=== PATIENT | female | born 1970 | race Caucasian/White ===

== ENCOUNTER 2021-03-14 16:48 | Emergency (ER) | payer OTHER, SELFPAY ==
[2021-03-14] VITALS (7 sets, daily range): BP systolic 189–212; BP diastolic 85–95; PULSE 76–90; RESP 16–20; TEMP 37.1–37.2; O2SAT 96–100; BMI 24.7
--- NOTE | ~2021-03-14 | CT_ITS ---
EXAMINATION: CT HEAD WITHOUT CONTRAST CLINICAL INFORMATION: Vomiting and dizziness. Left ear pain for one week. COMPARISON: 02/19/2020 TECHNIQUE: Contiguous axial imaging was performed from the skull base to vertex without intravenous administration of contrast. This CT examination was performed using dose optimization techniques as appropriate, variously including the following: *Automated exposure control *Adjustment of mA and/or kV according to patient size (this includes techniques or standardized protocols for targeted exams where dose is matched to indication/reason for exam; i.e. extremities or head) *Use of iterative reconstruction technique DLP: 613 mGy-cm FINDINGS: There is no evidence of acute intracranial hemorrhage or territorial infarction. No abnormal mass effect or midline shift is seen. Mcguire to white matter differentiation is well preserved. No extra-axial fluid collections are identified. The ventricles are normal in size. There is no abnormal attenuation within the brain parenchyma. The mastoid air cells and visualized portions of the paranasal sinuses are well aerated. The periauricular soft tissues are unremarkable bilaterally with attention to the left auricle. CT/CT head/brain wo con IMPRESSION: No acute intracranial pathology.
--- NOTE | 2021-03-14 17:08 | ED.GENADULT ---
HPI - General Adult General Chief complaint: Nausea/Vomiting/Diarrhea Stated complaint: Earache/Vomiting Time Seen by Provider: 03/14/21 16:55 Source: patient Limitations: no limitations History of Present Illness HPI narrative: This is a 51-year-old female who 6 days ago had onset of left ear pain, with associated vomiting that she has had since then. The patient has had she feels dizzy when she stands up. She did see her primary care physician 4 days ago and was put on antibiotic but is not helping. She denies any URI symptoms, sore throat, shortness of breath, cough, chest pain, abdominal pain, diarrhea, urinary symptoms. Pain is moderately severe, achy, not worse or better with anything Related Data Previous Rx's Medication Instructions Recorded ondansetron 4 mg disintegrating 4 mg PO Q6H PRN #20 tab 03/14/21 tablet Allergies Allergy/AdvReac Type Severity Reaction Status Date / Time Penicillins [PCN] Allergy Unknown Verified 03/14/21 17:04 aspirin [ASA] AdvReac Intermediate RASH Unverified 02/07/20 19:34 Review of Systems Review of Systems: Yes all other systems are reviewed and are negative Constitutional: Constitutional: Denies fever(s) and Denies headache(s) Eyes: Eyes: Reports as per HPI and Reports no additional eye complaints ENT: Reports system reviewed and no additional complaints, except as documented, Reports as per HPI, Reports otalgia, Denies headache(s), Denies nasal congestion, Denies nasal discharge and Denies sore throat Cardiovascular: Cardiovascular: Reports as per HPI, Denies chest pain and Denies dyspnea Respiratory: Respiratory: Reports as per HPI, Denies cough and Denies dyspnea Gastrointestinal: Gastrointestinal: Reports as per HPI, Denies abdominal pain, Denies diarrhea, Reports nausea and Reports vomiting Genitourinary: Genitourinary: Reports as per HPI, Denies hematuria, Denies urinary frequency and Denies dysuria Musculoskeletal: Musculoskeletal: Reports no additional musculoskeletal complaints and Denies numbness Integumentary/Breasts: Skin/Breast: Reports as per HPI and Denies rash Neurologic: Denies headache(s), Denies numbness and Denies Sensory deficit (Neuro) Psychiatric: Psychiatric: Reports no additional psychiatric complaints and Reports as per HPI Endocrine: Endocrine: Reports no additional endocrine complaints and Reports as per HPI Hematologic/Lymphatic: Hematologic/Lymphatic: Reports no additional hematologic/lymphatic complaints, Reports as per HPI and Reports other (No peripheral edema) [facility] Past Medical History Medical History (Updated 03/14/21 @ 22:19 by Marcus Oleary MD) Diabetes High cholesterol HTN (hypertension) Social History Social History Advance Directives: No Advance Directives Information Provided: No Physical Exam Vital Signs: Vital Signs: Last Vital Signs Temp 98.7 F 03/14/21 21:26 Pulse 87 03/14/21 21:26 Resp 18 03/14/21 21:26 BP 195/88 H 03/14/21 21:26 Pulse Ox 96 03/14/21 21:26 Body Mass Index 24.7 Const: General: cooperative, no acute distress and alert Orientation/consciousness: patient oriented x3 HENMT: Head: Yes normal to inspection Eyes: General: appearance abnormal, both eyes Eyelids: Yes eyelids normal Conjunctivae: abnormal conjunctivae and conjunctival abnormal (Bilateral subconjunctival hemorrhages) Pupils: Equal, round and reactive pupils present Neck: Neck: Yes normal visual inspection and Yes supple Chest: Chest palpation & inspection: normal inspection of the chest Resp: Effort & Inspection: normal respiratory effort Auscultation: clear to auscultation bilaterally Cardio: Rate: regular rate Rhythm: regular rhythm Heart sounds: S1 normal heart sound present, S2 normal heart sound present, no gallops, no murmurs and no rubs GI: Palpation (GI): Soft to palpation, nontender and Other GI palpation findings present (Non-distended) Auscultation: normal bowel sounds Skin: General skin exam: no rashes or lesions noted Neuro: General: patient oriented x3, no focal motor deficits and CN's II-XI intact bilaterally Cranial nerves: Yes Equal, round and reactive pupils present Cognition (Neuro): normal cognition Motor exam (neuro): 5/5 motor strength present throughout Sensory Exam: No Sensory deficit (Neuro) Extrem: General: Yes normal to inspection and Yes no pedal edema Psych: Other: Patient with depressed appearing affect Appearance: grossly normal Affect: Sad affect present and Indifferent affect present Medical Decision Making MDM Narrative Medical decision making narrative: Patient with a complaint of left ear pain, dizziness, and vomiting for 6 days. Patient has a somewhat blunted affect and seems slow to respond, but her friend/family member who is with her prior to discharge states that she is at baseline- this is her normal self. The patient was hyperglycemic and had told the nurse that she had missed her insulin dose. She told me she had taken her insulin. Given the patient's vomiting, ear pain, possible mental status abnormality, CT of the brain was done and was negative. Patient was treated with normal saline 2 L IV, insulin 6 units IV, Zofran 4 mg IV. She felt better upon re-evaluation prior to discharge and felt comfortable going home. She could not comment on her subconjunctival hemorrhages and did not seem to have noticed them. Repeat glucose was 285. Lab Data Result diagrams: 03/14/21 17:29 03/14/21 17:29 Labs: Lab Results 03/14/21 03/14/21 03/14/21 Range/Units 17:29 17:29 19:48 WBC 21.0 H (4.8-10.8) X10*3/uL RBC 5.69 H (4.20-5.50) X10*6/uL Hgb 16.3 H (12.0-16.0) g/dl Hct 45.8 (37-47) % MCV 80.5 (80-98) fL MCH 28.6 (27.0-33.0) pg MCHC 35.6 H (31.0-35.0) g/dl RDW 13.2 (11.0-16.0) % Plt Count 273 (160-400) X10*3/uL MPV 10.0 (9.4-12.3) fL Immature Gran % (Auto) 0.6 H (0.0-0.4) % Neut % (Auto) 91.2 H (45-73) % Lymph % (Auto) 3.9 L (20-40) % Hardin % (Auto) 4.2 (2-11) % Eos % (Auto) 0.0 (0-4) % Baso % (Auto) 0.1 (0-2) % Lymph # (Auto) 0.8 L (1.2-4.9) X10*3/uL Hardin # (Auto) 0.9 (0.1-1.2) X10*3/uL Eos # (Auto) 0.0 (0.0-0.4) X10*3/uL Baso # (Auto) 0.0 (0.0-0.2) X10*3/uL Abs Immat Gran (auto) 0.13 H (0.00-0.03) X10*3/uL Absolute Neuts (auto) 19.2 H (2.0-8.3) X10*3/uL Absolute Nucleated RBC 0.000 (0.0-0.012) X10*3/uL Nucleated RBC % (auto) 0.0 (0.0-0.2) /100WBC Smear Tech's Comments VERIFIED Sodium 131 L (135-145) mmol/L Potassium 3.6 (3.3-5.1) mmol/L Chloride 91 L (96-108) mmol/L Carbon Dioxide 24 (22-29) mmol/L Anion Gap 20 (12-20) BUN 26 H (9-16) mg/dL Creatinine 1.06 (0.5-1.4) mg/dL Estim Creat Clear Calc 55.0 Estimated GFR 54 POC Glucose 285 H (60-115) mg/dL Random Glucose 419 H* (60-115) mg/dL Calcium 9.7 (8.4-10.2) mg/dL Total Bilirubin 1.5 H (0.0-1.0) mg/dL AST 21 (5-31) U/L ALT 19 (0-31) U/L Alkaline Phosphatase 147 H (39-117) U/L Total Protein 7.6 (6.5-8.0) g/dL Albumin 4.3 (3.5-5.0) g/dL Urine Color Urine Appearance Urine pH (5.0-8.0) Ur Specific [place] (1.005-1.025) Urine Protein (NEG-TRACE) MG/DL Urine Glucose (UA) (NEG) MG/DL Urine Ketones (NEG) MG/DL Urine Blood (NEG) Urine Nitrite (NEG) Ur Leukocyte Esterase (NEG) Urine RBC (0) /HPF Urine WBC (0-4) /HPF Ur Squamous Epith Cells /LPF Ur Renal Epithelial Cell /LPF Amorphous Sediment /LPF Urine Bacteria /LPF Hyaline Casts /LPF Granular Casts /LPF Urine Mucus /LPF Urine Yeast /HPF 03/14/ Range/Units 21:06 WBC (4.8-10.8) X10*3/uL RBC (4.20-5.50) X10*6/uL Hgb (12.0-16.0) g/dl Hct (37-47) % MCV (80-98) fL MCH (27.0-33.0) pg MCHC (31.0-35.0) g/dl RDW (11.0-16.0) % Plt Count (160-400) X10*3/uL MPV (9.4-12.3) fL Immature Gran % (Auto) (0.0-0.4) % Neut % (Auto) (45-73) % Lymph % (Auto) (20-40) % Hardin % (Auto) (2-11) % Eos % (Auto) (0-4) % Baso % (Auto) (0-2) % Lymph # (Auto) (1.2-4.9) X10*3/uL Hardin # (Auto) (0.1-1.2) X10*3/uL Eos # (Auto) (0.0-0.4) X10*3/uL Baso # (Auto) (0.0-0.2) X10*3/uL Abs Immat Gran (auto) (0.00-0.03) X10*3/uL Absolute Neuts (auto) (2.0-8.3) X10*3/uL Absolute Nucleated RBC (0.0-0.012) X10*3/uL Nucleated RBC % (auto) (0.0-0.2) /100WBC Smear Tech's Comments Sodium (135-145) mmol/L Potassium (3.3-5.1) mmol/L Chloride (96-108) mmol/L Carbon Dioxide (22-29) mmol/L Anion Gap (12-20) BUN (9-16) mg/dL Creatinine (0.5-1.4) mg/dL Estim Creat Clear Calc Estimated GFR POC Glucose (60-115) mg/dL Random Glucose (60-115) mg/dL Calcium (8.4-10.2) mg/dL Total Bilirubin (0.0-1.0) mg/dL AST (5-31) U/L ALT (0-31) U/L Alkaline Phosphatase (39-117) U/L Total Protein (6.5-8.0) g/dL Albumin (3.5-5.0) g/dL Urine Color YELLOW Urine Appearance CLEAR Urine pH 5.5 (5.0-8.0) Ur Specific [place] 1.025 (1.005-1.025) Urine Protein 2+ H (NEG-TRACE) MG/DL Urine Glucose (UA) >=1000 H (NEG) MG/DL Urine Ketones 40 (NEG) MG/DL Urine Blood 1+ H (NEG) Urine Nitrite NEG (NEG) Ur Leukocyte Esterase NEG (NEG) Urine RBC 0-2 (0) /HPF Urine WBC 0-2 (0-4) /HPF Ur Squamous Epith Cells 1+ /LPF Ur Renal Epithelial Cell TRACE /LPF Amorphous Sediment TRACE /LPF Urine Bacteria 1+ /LPF Hyaline Casts 1-4 /LPF Granular Casts 0-2 /LPF Urine Mucus 3+ /LPF Urine Yeast TRACE /HPF Imaging Data CT scan - head: Radiologist's impression: IMPRESSION: No acute intracranial pathology. Discharge Plan Discharge Clinical Impression: Otalgia, Vomiting, Hyperglycemia, DREW (subconjunctival hemorrhage) Patient Disposition: Home, Self-Care Instructions: Subconjunctival Hemorrhage (ED), Acute Nausea and Vomiting (ED), Diabetic Hyperglycemia (ED) Additional Instructions: Drink clear liquids (sugar free) little bit of time to keep herself hydrated. Use ondansetron as prescribed for nausea. Use acetaminophen for pain. Follow up with the primary care physician. Make sure not to miss any doses of insulin or any other medicines (however reduce or do not take your insulin if you are unable hold down any food or fluids) Prescriptions: New ondansetron 4 mg tablet,disintegrating 4 mg PO Q6H PRN (Reason: nausea and vomiting) Qty: 20 RF: 0 Interventions: ED Discharge Assessment Last Done: 03/14/21 22:32 Discharge Date/Time: 03/14/21 22:32
--- NOTE | 2021-03-14 17:15 | PC.NURSE ---
pt alert and oriented x4. pt reports left ear pain and vomiting since last tuesday. she also reports feeling dizzy when she stands up. Pt reports that she saw her PCP about 4 days ago and was put on antibiotic but it is not helping. she denies sob/cough/chest pain/abdominal pain. no diarrhea. no other symptoms reported.
[2021-03-14 17:35] LABS: Basophils Percent Auto 0.1 % (0-2); Hematocrit 45.8 % (37-47); Hemoglobin 16.3 g/dl (12.0-16.0); Imm Gran Abs Auto 0.13 X10*3/uL (0.00-0.03); Imm Gran Pct Auto 0.6 % (0.0-0.4); Lymphocytes Absolute Auto 0.8 X10*3/uL (1.2-4.9); Lymphocytes Percent Auto 3.9 % (20-40); MANUAL DIFF FLAG SCAN; Mean Corpuscular HGB Conc 35.6 g/dl (31.0-35.0); Mean Corpuscular Hemoglobin 28.6 pg (27.0-33.0); Mean Corpuscular Volume 80.5 fL (80-98); Monocytes Absolute Auto 0.9 X10*3/uL (0.1-1.2); Monocytes Percent Auto 4.2 % (2-11); Neutrophils Absolute Auto 19.2 X10*3/uL (2.0-8.3); Neutrophils Percent Auto 91.2 % (45-73); Platelet Count 273 X10*3/uL (160-400); Red Blood Count 5.69 X10*6/uL (4.20-5.50); Red Cell Distribution Width 13.2 % (11.0-16.0); SCAN SMEAR FLAG 1
[2021-03-14] MEDS: ondansetron HCL 4 MG/2 ML VIAL IVPUSH (17:46)
[2021-03-14] MEDS: 0.9 % Sodium Chloride 1,000 ML 999 ML IV ×2 (17:46→18:28)
--- NOTE | 2021-03-14 17:55 | PC.NURSE ---
pt's b/ps running low 200s over low 100s, pt denies headache/dizziness; asymptomatic. Dr. Oleary was told by this business writer. b/p med given via iv. current b/ps running high 170s over low 90s. fluids hung and other meds given as documented. pt satting 89-90% r/a after getting meds, she was put on 2L N/C which brought her O2 sat to 99-100%. Pt resting quietly, no apparent distress.
[2021-03-14 17:59] LABS: Alanine Aminotransferase 19 U/L (0-31); Albumin Level 4.3 g/dL (3.5-5.0); Alkaline Phosphatase 147 U/L (39-117); Anion Gap 20 (12-20); Aspartate Amino Transferase 21 U/L (5-31); Bilirubin Total 1.5 mg/dL (0.0-1.0); Blood Urea Nitrogen 26 mg/dL (9-16); Calcium 9.7 mg/dL (8.4-10.2); Carbon Dioxide 24 mmol/L (22-29); Chloride 91 mmol/L (96-108); Estimated Glomerular Filt Rate 54; Glucose Random 419 mg/dL (60-115); Potassium 3.6 mmol/L (3.3-5.1); Sodium 131 mmol/L (135-145); Total Protein 7.6 g/dL (6.5-8.0)
[2021-03-14] MEDS: Labetalol HCL 100 MG/20 ML VIAL 10 MG IVPUSH (18:12)
[2021-03-14] MEDS: LORazepam 2 MG/ML VIAL 0.5 MG IVPUSH (18:13)
[2021-03-14 18:24] LABS: SLIDE REVIEW VERIFIED
[2021-03-14] MEDS: Insulin Regular, Human 100 UNIT/ML 3 ML VIAL 6 UNIT IVPUSH (18:25)
[2021-03-14 19:53] LABS: Glucose, Whole Blood 285 mg/dL (60-115)
--- NOTE | 2021-03-14 20:34 | PC.NURSE ---
PT SLEEPING, WAKES TO VOICE. PT REPORTS SHE IS NO LONGER EXPERIENCING PAIN OR FEELING DIZZY. PT'S EYES ARE BOTH BLOODSHOT, ASKED PT WHY AND SHE RESPONDED IT WAS FROM THE INJECTION TODAY. ?
--- NOTE | 2021-03-14 21:13 | PC.NURSE ---
PT AMBULATORY TO BATHROOM WITH STEADY GAIT. PT ASKING WHEN SHE WILL BE DISCHARGED. PT ALSO REQUESTING SOMETHING TO EAT.
[2021-03-14 21:23] LABS: Appearance Urine CLEAR; Color Urine YELLOW; Glucose Urine UA >=1000 MG/DL (NEG); Leukocyte Esterase Urine NEG (NEG); Nitrite Urine NEG (NEG); PH 5.5 (5.0-8.0); Specific Gravity - Urine 1.025 (1.005-1.025); UACC Culture Trigger NO; Urine Blood 1+ (NEG); Urine Ketones 40 MG/DL (NEG); Urine Protein 2+ MG/DL (NEG-TRACE)
[2021-03-14 21:44] LABS: Amorphous Sediment Urine TRACE /LPF; Bacteria Urine 1+ /LPF; Granular Casts Urine 0-2 /LPF; Mucus Urine 3+ /LPF; RBC Urine 0-2 /HPF (0); Renal Epithelial Cells Urine TRACE /LPF; Squamous Epithelial Cell Urine 1+ /LPF; WBC Urine 0-2 /HPF (0-4)
== END 2021-03-14 22:32 | disposition home or self-care (01) ==
PROVIDERS: Emergency Provider Emergency Medicine
DX: H92.02 Otalgia, left ear (principal); H11.33 Conjunctival hemorrhage, bilateral; R42 Dizziness and giddiness; E11.65 Type 2 diabetes mellitus with hyperglycemia; R11.2 Nausea with vomiting, unspecified; Z91.14 Patient's other noncompliance with medication regimen; Z79.899 Other long term (current) drug therapy
CPT/HCPCS: 36415; 70450; 80053; 81001; 82947; 85025; 96361; 96374; 96375; 99284; J2060; J2405

== ENCOUNTER 2021-05-18 18:23 | Emergency (ER) | payer OTHER, SELFPAY | END 2021-05-18 19:07 | disposition left against medical advice (07) | PROVIDERS: Emergency Provider Emergency Medicine | DX: R07.9 Chest pain, unspecified (principal) ==

== ENCOUNTER 2025-04-12 08:59 | Outpatient (AMB) | payer MEDICARE, MEDICAID, SELFPAY ==
--- OUTSIDE RECORDS SUMMARY | 2007-04-18 19:00 | XMS_ITS | Continuity of Care Document ---
Author Organization [facility] vices Address [address] [place] [address] Phone Care Team Providers Care Industrial Sales Engineer Name Role Phone Unavailable Unavailable Unavailable Procedures Procedure Date EXPANDED OUT/PT Advance Directives Directive Yes / No Effective Date File Name No Information Encounters Encounter Description Practice Location Reason(s) For Visit Diagnoses Date Provider Providers Copied on Encounter [facility], [address] [place] [address], [id number], tel:[phone] Conversion PNEUMONIA DUE TO OTHER SPECIFIED ORGANISM No Information EXPANDED OUT/PT [facility], [address] [place] [address], [facility], [place] tel:[phone] [facility] Adult Medicine No Information No Information Family History Family Member Type Diagnosis Age At Onset No Information Payers Payer name Insurance type Covered democrat ID Authoriza tion(s) No Information Social History [...]
--- OUTSIDE RECORDS SUMMARY | 2024-03-08 10:31 | XMS_ITS | Encounter Summary ---
Author Organization [facility] [place] [address] Care Team Providers Care Supervisor Customer Records Division Name Role Phone Martha Cunha MD Primary Care Provider Encounter Details Date Type Department Care Team (Late st Contact Info) Description 03/08/2024 11:31 AM EDT Hospital Encounter TH HISTORIC ENCOUNTERS [facility]AST[facility] CONVERSION ONLY Alex Boateng MD [address] [place] [address] Social History Tobacco Use Types Packs/Day Years [...] 10:52 AM EDT documented in this encounter Functional Status * Calculated C-SSRS Risk Score (Lifetime/Recent) Answer Date of Assessment Author No Risk Indicated 06/08/2024 9:52 AM Jeannette Combs RN * [employer] Suicide Severity Rating Scale (Screener/Recent Self-Report) Question Answer Date of Assessment Author 1. Wish to be (Past 1 Month) No 025 9:52 AM Jeannette Combs RN 2. Non-Specific Active Suici aranza Thoughts (Past 1 Month) No 06/08/2024 9:52 AM Rhianna Combs sa, RN 6. Suicidal Behavior (Lifetime) No 5 9:52 AM Jeannette Combs RN documented as of this encounter Plan of Treatment Not on file documented as of this encounter Visit Diagnoses Not on filedocumented in this encounter Care Teams Supervisor Customer Records Division Relationship Specialty Start Date End Date Martha Cunha MD [address] [phone] PCP - General 05/25/23 documented as of this encounter
[2025-04-12 09:02] VITALS: BP 150/64; PULSE 94; RESP 18; O2SAT 100; BMI 27.3
--- NOTE | 2025-04-12 09:02 | MHC.PC.OV ---
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: No Accompanied by: Self / Same As Patient Allergies Penicillins (PCN) Allergy (Verified 04/12/25 09:09) Unknown aspirin (ASA) Adverse Reaction (Intermediate, Verified 04/12/25 09:09) RASH Medication List - Last Reconciled 04/12/25 by Lor Sanabria MD amlodipine 10 mg PO DAILY calcitriol 0.25 mcg PO DAILY carvedilol 25 mg PO ONCE clonidine 1 patch transdermal QWEEK clopidogrel 75 mg PO DAILY glipizide 5 mg PO DAILY hydralazine 50 mg PO ONCE insulin degludec (Tresiba FlexTouch U-100 insulin) 30 units subcut DAILY levothyroxine (Levoxyl) 25 mcg PO DAILY lisinopril 40 mg PO DAILY losartan 25 mg PO DAILY ondansetron 4 mg PO Q6H PRN rosuvastatin 5 mg PO DAILY sertraline 100 mg PO DAILY sevelamer HCl 80 mg PO DAILY torsemide 75 mg PO DAILY trazodone 50 mg PO BEDTIME PRN Tobacco use date assessed: 04/12/25 Dental Screening Dental Screen Date: 04/12/25 Did you have a dental visit in the last 12 months?: Yes Did you have a dental problem in the last 6 months where you did not have access to dental care?: No Was dental information given to patient?: Patient has dentist HPI HPI Comments History of Present Illness Details The patient is a 55 year old F with PMH of DM, BL cochlear implants, Jugular vein obstruction s/p surgery, HF?, ESRD presenting to [facility] as a new patient. The patient is on hemodialysis, which occurs on Tuesdays, , and Saturdays. The patient reports minimal urine output, described as a small amount only in the morning. The patient was taking sevelamir and torsemide. 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 The patient's cardiovascular history includes a small stroke and an accumulation of fluid in the body and on the heart valves. The patient previously followed with a communication equipment repairer and neurologist but has not since moving to [place]. For peripheral vascular disease, the patient had surgery on a clogged neck vein and takes clopidogrel. The patient does not have a vascular surgeon for follow-up. For diabetes, the patient's [id number] A1c was 6.4%. The patient takes glipizide 5 mg but is not currently on insulin, though was previously. The patient also takes levothyroxine 25 mcg for a thyroid condition and rosuvastatin 5 mg. Other reported issues include gait instability, characterized by fatigue on walking and loss of balance. The patient has known hearing loss and cataracts, with an upcoming ophthalmology appointment on the . The patient takes trazodone for sleep and has a prescription for ondansetron for nausea and vomiting, which occurs after dialysis. The patient is not currently taking sertraline and was previously followed by a psychiatrist. [facility] Medical History (Updated 04/12/25 @ 12:19 by Lor Snaabria MD) Hearing difficulty of both ears Jugular vein occlusion Diabetes High cholesterol HTN (hypertension) Surgical History H/O vitrectomy History of cochlear implant Social History Alcohol intake: never Patient Tobacco Use Status: Never used Tobacco Current occupational status: disabled Cognitive needs: No Hearing needs: Yes Vision needs: Yes Questionnaire PHQ-9 Over the last 2 weeks, how often have you been bothered by any of the following problems? 1. Little interest or pleasure in doing things: several days 2. Feeling down, depressed, or hopeless: not at all 3. Trouble falling or staying asleep, or sleeping too much: several days 4. Feeling tired or having little energy: several days 5. Poor appetite or overeating: not at all 6. Feeling bad about yourself - or that you are a failure or have let yourself or your family down: not at all 7. Trouble concentrating on things, such as reading the newspaper or watching television: several days 8. Moving or speaking so slowly that other people could have noticed. Or the opposite - being so fidgety or restless that you have been moving around a lot more than usual: not at all 9. Thoughts that you would be better off or of hurting yourself in some way: not at all Total score: 4 Depression Screening Interpretation: Positive (referred to psychiatry. Currently not taking Sertraline. ) Depression Screening Done: Yes Source: Developed by Drs. Vega Rausch, Julia Gong, Sean Sanchez and colleagues, with an educational ba from [employer]. Thrive Questionnaire Date Thrive assessed: 04/12/25 I am a: Patient What is your living situation today?: I have a steady place to live Within the past 12 months, did the food you bought not last and you didn't have the money to get more?: I choose not to answer this question Within the past 12 months, did you worry whether your food would run out before you got money to buy more?: Often true Do you have trouble paying for medicines?: No Do you have trouble getting transportation to medical appointments?: Yes Do you have trouble paying your heating and electricity bill?: No Do you have trouble taking care of your child, family member or friend?: Yes Do you have trouble with day-to-day activities such as bathing, preparing meals, shopping, managing finances, etc.?: Yes Are you currently unemployed and looking for a job?: Yes Are you interested in more education?: No Please select the resources that you would like help with: Housing/Skilled Nursing Currently or been in a relationship where the following occur: No concerns reported THRIVE Score: 2 AUDIT C Alcohol Use Questionnaire (AUDIT-C) 1. How often do you have a drink containing alcohol?: Never Total Score: 0 GASTON-7 AMB Questionnaire GASTON-7 Date GASTON - 7 assessed: 04/12/25 Feeling nervous, anxious, or on edge: 0 = Not at all Not being able to stop or control worryin = Not at all Worrying too much about different things: 0 = Not at all Trouble relaxin = Not at all Being so restless that it is hard to sit still: 0 = Not at all Becoming easily annoyed or irritable: 1 = Several days Feeling afraid as if something awful might happen: 0 = Not at all Total GASTON-7 score (0-4 normal; 5-9 mild; 10-14 moderate; 15-21 severe): 1 Source: Developed by Drs. Vega Rausch, Julia Gong, Sean Sanchez and colleagues, with an educational ba from [employer]. Review of Systems Const Details: As per HPI. Physical exam (Primary Care) Vital Signs: Last Vital Signs Pulse 94 04/12/25 09:02 Resp 18 04/12/25 09:02 BP 150/64 H 04/12/25 09:02 Pulse Ox 100 04/12/25 09:02 Oxygen Delivery Method Room Air 04/12/25 09:02 BMI result Body Mass Index 27.3 Tobacco/Smoking Status: Tobacco use Status Tobacco use date assessed 04/12/25 04/12/25 09:04 Patient Tobacco Use Status Never used Tobacco 04/12/25 09:20 e-Cigarette/Vaping Use 04/12/25 09:20 PHQ-9: PHQ-9 Score PHQ-9: Total score 4 04/12/25 09:52 Depression Screening Interpretation: Positive (referred to psychiatry. Currently not taking Sertraline. ) Thrive Assessment: Date of Thrive Assessment Date Thrive assessed 04/12/25 04/12/25 09:04 Currently or been in a relationship where the following occur: No concerns reported Const Other: Pertinent findings are in BOLD GENERAL APPEARANCE Bilateral cochlear implant, NAD, activity normal for age, well developed/ well nourished, no cyanosis, pallor, or diaphoresis. EYES lids/conjunctiva normal. EARS/NOSE/THROAT Mucous membranes moist, nares normal, lips/teeth normal uvula midline without oral pharyngeal erythema, exudate or swelling TMs normal bilaterally. No lymphangitis/lymphedema. HEAD/NECK normocephalic atraumatic, no facial trauma, neck is supple. RESPIRATORY respiratory effort normal, speaks in full sentences, no tripod position, no accessory muscle use. Lungs clear to auscultation without rhonchi, wheezes, rales CARDIAC Regular rate and rhythm, no edema. ABDOMINAL Soft, ND/NT. No evidence of fluid wave. No pulsatile masses on exam, rebound tenderness, Godfrey sign or pain over Mcburney's point. MUSCLES/EXTREMITIES No abnormal range of motion, no swelling. SKIN Warm, pink and dry. No rashes, dermatoses, petechiae or lesions. NEUROLOGICAL Speech is clear and appropriate. Normal level of consciousness. Gait and coordination are normal. 5/5 strength in all extremities. PSYCH Normal mood and affect. Judgement/competence is appropriate Results AMB Hemoglobin A1c AMB Hemoglobin A1c 6.4 % Last Edit by Porsha Vargas MA on 04/12/25 09:53 Results Reviewed Results Reviewed: Laboratory Last Values Hgb A1c (Clinic) 6.4 % (4.0-6.0) H 04/12/25 09:47 Coding Level of Care Code New Pt Level 4 (08558) Diagnoses Occlusion of left jugular vein I82.C12 Laterality: left Heart failure, unspecified HF chronicity, unspecified heart failure type I50.9 Heart failure type: unspecified Heart failure chronicity: unspecified Major depressive disorder, remission status unspecified, unspecified whether recurrent F32.9 Major depression recurrence: unspecified whether recurrent Active/Remission status: remission status unspecified ESRD (end stage renal disease) N18.6 History of insulin dependent diabetes mellitus Z86.39 Hypothyroidism, unspecified type E03.9 Hypothyroidism type: unspecified Cataract of both eyes, unspecified cataract type H26.9 Cataract type: unspecified Laterality: bilateral Hyperlipidemia, unspecified hyperlipidemia type E78.5 Hyperlipidemia type: unspecified Gait instability R26.81 Nausea and vomiting, unspecified vomiting type R11.2 Vomiting type: unspecified Primary hypertension I10 Hypertension type: primary hypertension Time Spent (min) 45 Assessment & Plan Assessment & Plan (1) Jugular vein occlusion: Comment: s/p surgery Code(s): I82.C19 - Acute embolism and thrombosis of unspecified internal jugular vein Category: Medical Qualifiers: Laterality: left Qualified Code(s): I82.C12 - Acute embolism and thrombosis of left internal jugular vein Plan: - Continue clopidogrel and Statin. - Refer to vascular surgery for follow-up of prior neck vein surgery. (2) Heart failure: Comment: Suspected. Code(s): I50.9 - Heart failure, unspecified Category: Medical Qualifiers: Heart failure type: unspecified Heart failure chronicity: unspecified Qualified Code(s): I50.9 - Heart failure, unspecified Plan: The patient reports history of fluid accumulation on her heart and lower extremities. No signs of Heart failure on Exam today. The patient was followed by a communication equipment repairer in the past. Cardiology referral to continue management. Echo ordered to check for any heart faillure signs. Continue Hydralazine and Torsemide for now. Although the patient does not make much Urine. (3) MDD (major depressive disorder): Code(s): F32.9 - Major depressive disorder, single episode, unspecified Category: Medical Qualifiers: Major depression recurrence: unspecified whether recurrent Active/Remission status: remission status unspecified Qualified Code(s): F32.9 - Major depressive disorder, single episode, unspecified Plan: - Discontinue sertraline for now. - Refer to psychiatry for management; they may restart sertraline if indicated. - Continue trazodone for sleep. (4) ESRD (end stage renal disease): Code(s): N18.6 - End stage renal disease Category: Medical Plan: - The patient is on hemodialysis on Tuesdays, , and Saturdays. - Continue torsemide for now as the patient has some residual urine output. - Continue sevelamer and Torsemide. - Refer to nephrology. (5) History of insulin dependent diabetes mellitus: Code(s): Z86.39 - Personal history of other endocrine, nutritional and metabolic disease Category: Medical Plan: - Tnucz-it-iojf A1c was 6.4%. - Continue glipizide 5 mg. - Initiate low-dose insulin at 12 units pending evaluation by endocrinology. - Prescribed a kit for home blood glucose monitoring and insulin administration. - Refer to endocrinology and podiatry. - Patient already follows with Ophthalmology. (6) Hypothyroid: Code(s): E03.9 - Hypothyroidism, unspecified Category: Medical Qualifiers: Hypothyroidism type: unspecified Qualified Code(s): E03.9 - Hypothyroidism, unspecified Plan: - Continue levothyroxine 25 mcg. - Repeat labs ordered. (7) Cataract: Code(s): H26.9 - Unspecified cataract Category: Medical Qualifiers: Cataract type: unspecified Laterality: bilateral Qualified Code(s): H26.9 - Unspecified cataract Plan: Follows with Ophthalmology. We will Continue to follow. (8) HLD (hyperlipidemia): Code(s): E78.5 - Hyperlipidemia, unspecified Category: Medical Qualifiers: Hyperlipidemia type: unspecified Qualified Code(s): E78.5 - Hyperlipidemia, unspecified Plan: - Continue rosuvastatin 5 mg. (9) Gait instability: Code(s): R26.81 - Unsteadiness on feet Category: Medical Plan: - A prescription for a walker will be sent to a medical supply pharmacy due to patient-reported fatigue and imbalance. (10) Nausea & vomiting: Code(s): R11.2 - Nausea with vomiting, unspecified Category: Medical Qualifiers: Vomiting type: unspecified Qualified Code(s): R11.2 - Nausea with vomiting, unspecified Plan: - Prescribed ondansetron (Zofran) for use as needed for nausea and vomiting, especially post-dialysis. (11) HTN (hypertension): Code(s): I10 - Essential (primary) hypertension Category: Medical Qualifiers: Hypertension type: primary hypertension Qualified Code(s): I10 - Essential (primary) hypertension Plan: - Continue amlodipine 10 mg. - Continue carvedilol. - Continue hydralazine 50 mg for now. - Discontinue the clonidine patch. - Discontinue losartan as it should not be used concurrently with lisinopril. - Continue lisinopril. Plan I established care with this 55-year-old individual who has a complex past medical history including end-stage renal disease on hemodialysis, diabetes, hypertension, and a history of stroke and heart problems. I performed a thorough medication reconciliation, prescribing most of the patient's home medications. I explained that the clonidine patch would be stopped and that losartan should be discontinued as it is contraindicated with lisinopril. Given the A1c of 6.4% and the patient not currently being on insulin, I prescribed a low starting dose of 12 units of insulin until the patient can be seen by an lead technical architect. I also prescribed a home glucose monitoring kit and instructed the patient to call with any issues, particularly regarding insulin. Due to the patient's report of gait instability and fatigue, I provided a prescription for a walker. I discussed the need for comprehensive specialist follow-up and placed referrals to cardiology, nephrology, vascular surgery, psychiatry, endocrinology and podiatry. To further investigate the patient's unclear cardiac history, I ordered an echocardiogram in addition to baseline fasting labs. The patient can use the prescribed ondansetron for post-dialysis nausea. I will see the patient again in one month to review progress and results. Orders: Orders TSH reflex Free T4 Today Z00.00 - Encounter for general adult medical examination without abnormal findings Vitamin D 25-OH Total Today Z00.00 - Encounter for general adult medical examination without abnormal findings Lipid Panel Today Z00.00 - Encounter for general adult medical examination without abnormal findings CA echo transthoracic complete Today I50.9 - Heart failure, unspecified AMB Hemoglobin A1c Today Z13.9 - Encounter for screening, unspecified Complete Blood Count no Diff Today Z00.00 - Encounter for general adult medical examination without abnormal findings Comprehensive Met. Panel Today Z00.00 - Encounter for general adult medical examination without abnormal findings Hemoglobin A1c Today Z00.00 - Encounter for general adult medical examination without abnormal findings HIV Ab/Ag Today Z00.00 - Encounter for general adult medical examination without abnormal findings Hepatitis C Antibody Reflex Today Z00.00 - Encounter for general adult medical examination without abnormal findings Vitamin B12 and Folate Today D64.9 - Anemia, unspecified, Z00.00 - Encounter for general adult medical examination without abnormal findings Referrals Psychiatry Referral F32.9 - Major depressive disorder, single episode, unspecified Endocrinology Referral Z86.39 - Personal history of other endocrine, nutritional and metabolic disease Podiatry Referral Z86.39 - Personal history of other endocrine, nutritional and metabolic disease Vascular Surgery Referral I82.C19 - Acute embolism and thrombosis of unspecified internal jugular vein Cardiology Referral I50.9 - Heart failure, unspecified Nephrology Referral N18.6 - End stage renal disease Medications: New amlodipine 10 mg PO DAILY 90 tabs 3RF calcitriol 0.25 mcg PO DAILY 60 caps 3RF clopidogrel 75 mg PO DAILY 90 tabs 3RF glipizide 5 mg PO DAILY 90 tabs 3RF hydralazine 50 mg PO ONCE 90 tabs 3RF sevelamer HCl must administer with a meal/food 80 mg (0.2 x 400 mg) PO DAILY 90 tabs 3RF trazodone 50 mg PO BEDTIME PRN 90 tabs 3RF insomnia [Walker] As directed 1 ea 0RF [freestyle lancet] As directed 1 ea 0RF [Freestyle lite strips] As directed 1 ea 0RF carvedilol must administer with a meal/food 25 mg PO ONCE 90 tabs 3RF levothyroxine (Levoxyl) 25 mcg PO DAILY 90 tabs 3RF lisinopril 40 mg PO DAILY 90 tabs 3RF rosuvastatin 5 mg PO DAILY 90 tabs 3RF torsemide 60 mg (1.5 x 40 mg) PO DAILY 90 tabs 3RF insulin degludec (Tresiba FlexTouch U-100 insulin) 10 units (0.1 mL) subcut DAILY 15 mL 3RF [Freestyle freedom lite Kit (glucometer)] As directed 1 ea 0RF [Pen needle for insulin] As directed 1 ea 0RF Refilled ondansetron 4 mg PO Q6H PRN 20 tabs 0RF nausea and vomiting
--- OUTSIDE RECORDS SUMMARY | 2025-04-12 09:16 | XMS_ITS | Clinical Summary ---
Author Organization [facility] Address [address] [place] [phone] Phone Care Team Providers Care Diabetes Territory Manager Name Role Phone Martha Cunha MD Primary Care Provider Allergies Active Allergy Reactions Criticality Noted Date Comments Aspirin Itching,Other,Rash Medium 07/27/2016 Hives Hives Iodinated Contrast Media Swelling High 09/23/2021 Face swelling after receiving contrast dye Penicillins Rash Low 07/28/2016 rash Shellfish Derived Anaphylaxis High 04/11/2024 Medications albuterol HFA (PROAIR HFA ; PROVENTIL HFA ; VENTOLIN HFA) 90 mcg/actuation inhaler Take 2 puffs by mouth every 6 hours as needed. 1 Active amLODIPine (NORVASC) 10 mg tablet Take 1 tablet (10 mg total) by mouth 1 (one) time each day. 4 Active carvediloL (COREG) 25 mg tablet Take 1 tablet (25 mg total) by mouth 2 (two) times a day. 4 Active glipiZIDE (GLUCOTROL XL) 5 mg 24 hr tablet Take 1 tablet (5 mg total) by mouth every morning with breakfast. 4 Active levothyroxine (SYNTHROID, LEVOTHROID) 75 mcg tablet Take 1 tablet (75 mcg total) by mouth daily. 4 Active torsemide (DEMADEX) 20 mg tablet Take 2 tablets (40 mg total) by mouth 2 (two) times a day. 4 Active insulin degludec (Tresiba FlexTouch U-200) 200 unit/mL (3 mL) CONCENTRATED injection pen Inject 28 Units under the skin daily. 4 Active blood pressure monitor kit 1 Units by Does not apply route daily. 4 Active flash glucose sensor (FreeStyle Gianluca 2 Sensor) kit 1 each by Does not apply route every 14 (fourteen) days. 4 Active sevelamer carbonate (RENVELA) 800 mg tablet Take 1 tablet (800 mg total) by mouth 3 (three) times a day with meals. Active losartan (COZAAR) 25 mg tablet Take 1 tablet (25 mg total) by mouth 1 (one) time each day. 4 Active acetaminophen (TYLENOL) 500 mg tablet Take 2 tablets (1,000 mg total) by mouth every 8 (eight) hours. 4 Active rosuvastatin (CRESTOR) 5 mg tablet Take 1 tablet (5 mg total) by mouth 1 (one) time each day. 1 Active clopidogreL (PLAVIX) 75 mg tablet Take 1 tablet (75 mg total) by mouth 1 (one) time each day. 90 tablet 3 4 Active cloNIDine (Kjkaucxx-MQX-2) 0.2 mg/[address] 1 patch on the skin 1 (one) time per week. 12 each 3 5 07/27/19 26 Active Active Problems Problem Noted Date Diagnosed Date Carotid stenosis 04/11/2024 Type 2 diabetes mellitus, wi th long-term current use of insulin ([facility] V24, [facility] V28) 02/03/2024 CKD (chronic kidney disease) stage V requiring chronic dialysis (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 V24, [facility] V28) 11/25/2023 Impaired gait and mobility 11/17/2023 Acidosis 11/03/2023 Hyperpotassemia 11/03/2023 Iron deficiency 10/26/2023 Secondary hyperparathyroidism, renal ([facility] V2 4) 08/18/2023 Bilateral tinnitus 07/29/2023 Facial numbness 07/08/2023 ICAO (internal carotid artery occlusion), left 0 07/08/2023 Left spastic hemiparesis ([facility] V24, [facility] V 28) 07/08/2023 Vitreous hemorrhage of left eye ([facility] V24, [facility] V28) 07/07/2023 Anemia due to multiple mechanisms 06/23/2023 Vitamin D deficiency 06/23/2023 Acquired hypothyroidism 05/25/2023 Bilateral leg edema 05/25/2023 Carotid artery disease ([facility] V24) 05/25/2023 Carotid artery plaque, unspecified laterality Congestive heart failure ([facility] V24, [facility] V 28) 05/25/2023 Pure hypercholesterolemia 05/25/2023 Sensory hearing loss, bilateral 05/25/2023 Type 2 diabetes mellitus wit h end-stage renal disease ([facility] V24, [facility] V28) 05/25/2023 CKD (chronic kidney disease) stage 4, GFR 15-29 ml/min ([facility] V24, [facility] V28) 05/25/2023 Acute on chronic heart failu re with preserved ejection fraction ([facility] V24, [facility] V28) 02/23/2022 Primary hypertension 02/23/2022 Anxiety 09/10/2021 Fatigue 09/10/2021 Primary cardiomyopathy ([facility] V24, [facility] V28 ) 09/10/2021 Hypertensive emergency 05/19/2021 Encounters Date Type Department Care Team Description 03/26/2025 Telephone Vascular Surgery - [place] [address] [place] [address] Jacquelyn Becerra MA 01/18/2025 Lab Requisition [facility] [address] [place] [address] Shanae Baeza MD End stage renal disease ([facility] V24, [facility] V28) 01/17/2025 Lab Requisition [facility] [address] [place] [address] Shanae Baeza MD End stage renal disease ([facility] V24, [facility] V28) from Last 3 Months Immunizations Immunization Administration Dates Next Due Moderna SARS-CoV-2 COVID-19, mRNA, LNP-S, preservative free 10/18/2020,09/18/2020 Surgical History Surgery Date Site/Laterality Comments EYE SURGERY 11/08/2022 PROCEDURE:EYE SURGERY AV FISTULA PLACEMENT Left IR PERMACATH PLACEMENT TUNNELED Right Medical History Medical History Date Comments Diabetes mellitus ([facility] V 24, [facility] V28) DX:Diabetes mellitus ([facility]) HTN (hypertension) DX:HTN (hyper tension) CKD (chronic kidney disease) stage 4, GFR 15-29 ml/min ([facility] V24, [facility] V28) DX:CKD (chronic kidney disea se) stage 4, GFR 15-29 ml/min ([facility]) Hypertensive emergency 05/11/2022 DX:Hypert ensive emergency MARY ANNE (acute kidney injury) ([facility] V24) 02/23/2022 DX:MARY ANNE (acute kidney injury) ([facility]) HLD (hyperlipidemia) DX:HLD (hyp erlipidemia) Heart failure ([facility] V24, [facility] V28) DX:Heart failure ([facility]) Hypothyroidism DX:Hypothyroidis m Secondary hyperparathyroidis m ([facility] V24) DX:Secondary hyperparathyroi dism ([facility]) HL (hearing loss) L ear ESRD (end stage renal diseas e) ([facility] V24, [facility] V28) Dialysis Ddue-Nvzyx-Thz Social History Tobacco Use Types Packs/Day Years [...] not to disclose 2024 12:27 PM EST Obstetrics History Last Filed Vital Signs Vital Sign Reading Time Taken Comments Blood Pressure 146/62 06/12/2024 2:34 PM EST Pulse 65 06/12/2024 12:31 PM EST Temperature 36.9 C (98.5 F) 06/12/2024 12:31 PM EST Respiratory Rate 20 06/12/2024 12:31 PM EST Oxygen Saturation 98% 06/12/2024 12:31 PM EST Inhaled Oxygen Concentration - - Weight 69.9 kg (154 lb) 06/12/2024 12:10 PM EST Height 157.5 cm (5' 2 ) 06/11/2024 10:17 AM EST Body Mass Index 28.17 06/11/2024 10:17 AM EST Plan of Treatment Health Maintenance Due Date Last Done Comments Breast Cancer Screening 1968 Colorectal Cancer Screening: Colonoscopy 1968 Diabetes: Annual Foot Exam 1978 Diabetes: Annual Retina Eye Exam 1978 DTaP,Tdap,and Td Vaccines (1 - Tdap) 1987 Zoster Vaccines (1 of 2) 1987 Cervical Cancer Screening: Pap Smear 1989 RSV Immunization Adult Patients (1 - Risk 50-74 years 1-dose series) 2018 COVID-19 Vaccine (3 - Moderna risk series) 11/15/2020 10/18/2020, 09/18/2020 HIV Screening 04/25/2022 Medicare Annual Wellness Visit 04/25/2022 Social Influencers of Health Screening 04/25/2022 Depression Screening 05/23/2024 Influenza Vaccine (#1) 2025 02/25/2024 Diabetes: Blood Sugar Control Test (HGBA1C) 08/22/2025 02/21/2025, 02/21/2025, 01/24/2025, Additional history exists Hypertension/CHF/CAD Annual BMP Blood Test 11/05/2025 11/05/2024, 06/10/2024, 06/09/2024, Additional history exists Cholesterol Screening (Lipid Panel) 02/21/2030 02/21/2025, 01/24/2025, 11/05/2024, Additional history exists Hepatitis C Screening Completed 05/27/2023 Pneumococcal Vaccine: 50+ Years Completed 11/17/2023 Hepatitis B Vaccines Completed 06/14/2024, 02/09/2024, 01/12/2024, Additional history exists HIB Vaccines Aged Out No longer eligi ble based on patient's age to complete this topic HPV Vaccines Aged Out No longer eligi ble based on patient's age to complete this topic Hepatitis A Vaccines Aged Out No long er eligible based on patient's age to complete this topic IPV Vaccines Aged Out No longer eligi ble based on patient's age to complete this topic MMR Vaccines Aged Out No longer eligi ble based on patient's age to complete this topic Meningococcal ACWY Vaccine Aged Out N o longer eligible based on patient's age to complete this topic Meningococcal B Vaccine Aged Out No l onger eligible based on patient's age to complete this topic RSV Immunization Patients Under 20 months Aged Out No longer eligible based on patient's age to complete this topic Varicella Vaccines Aged Out No longer eligible based on patient's age to complete this topic Medical Devices Implanted Type Area Manager Hospice Device Identifier Shelf Expiration Date Model / Serial / Lot Hemostat Absorb Surgicel 2x14in - Sn/A - [id number] Implanted:Qty : 1 on 04/11/2024 by Alex Boateng MD at [facility] Hemostasis Left: Neck [employer] 10/21/2027 [id number] / N/A / [id number] Patch Biol Xenosure .8x8cm - Sn/A - [id number] Implanted:Qty : 1 on 04/11/2024 by Alex Boateng MD at [facility] Vascular Grafts Left: Neck [employer] 08/17/2029 [id number] / N/A / [id number] Procedures Procedure Name Priority Date/Time Associated Diagnosis Comments HEPATITIS B CORE ANTIBODY IGM Routine 01/18/2025 4:00 PM EDT End stage renal disease (CMS/HCC V24, CMS/HCC V28) HEPATITIS B SURFACE ANTIBODY Routine 01/18/2025 4:00 PM EDT End stage renal disease (CMS/HCC V24, CMS/HCC V28) HEPATITIS B SURFACE ANTIGEN Routine 01/18/2025 4:00 PM EDT End stage renal disease (CMS/HCC V24, CMS/HCC V28) POTASSIUM Routine 01/17/2025 11:30 AM EDT End stage renal disease ([facility] V24, [facility] V28) COMPREHENSIVE METABOLIC PANEL Routine 11/05/2024 1:47 PM EDT Type 2 diabetes mellitus with ESRD (end-stage renal disease) ([facility] V24, [facility] V28) End stage renal disease ([facility] V24, [facility] V28) Encounter for long-term (current) use of insulin ([facility] V24, [facility] V28) Encounter for extracorporeal dialysis ([facility] V24) Myxedema heart disease Essential hypertension, malignant Pure hypercholesterolemia Avitaminosis D LIPID PANEL Routine 11/05/2024 1:47 PM EDT Type 2 diabetes mellitus with ESRD (end-stage renal disease) ([facility] V24, [facility] V28) End stage renal disease ([facility] V24, [facility] V28) Encounter for long-term (current) use of insulin ([facility] V24, [facility] V28) Encounter for extracorporeal dialysis ([facility] V24) Myxedema heart disease Essential hypertension, malignant Pure hypercholesterolemia Avitaminosis D HEMOGLOBIN A1C Add-On 06/07/2024 11:42 AM EST HM HEPATITIS C SCREENING Routine 05/27/2023 from Last 3 Months or Most Recently Relevant to Health Maintenance Results * Hepatitis B core antibody IgM (01/18/2025 4:00 PM EDT) Hep B Core IgM Negative Negative LAB CHEMISTRY METHOD 01/18/2025 8:39 PM EDT [facility] ([facility] Blood Venous blood specimen / Unknown 01/18/2025 4:00 PM EDT 01/18/2025 6:21 PM EDT us Shanae Baeza MD LAB BLOOD ORDERABLES Final Re sult [facility] [address] [place] [address], [place] [phone] * (ABNORMAL) Hepatitis B surface antibody (01/18/2025 4:00 PM EDT) Pathologist [facility] Hepatitis B Surface Ab Positive( A) Negative LAB CHEMISTRY METHOD 01/18/2025 8:39 PM EDT [facility] Hepatitis B Surface Ab Quantitative 264.0 mIU/mL LAB CHEMISTRY METHOD 01/18/2025 8:39 PM EDT [facility] Blood Venous blood specimen / Unknown 01/18/2025 4:00 PM EDT 01/18/2025 6:21 PM EDT us Shanae Baeza MD LAB BLOOD ORDERABLES Final Re sult Performing Organization Address [facility]/ZIP Co de Phone Number [facility] [address] [place] [address], [place] [phone] * Hepatitis B surface antigen (01/18/2025 4:00 PM EDT) [facility] Hepatitis B Surface Ag Negative Negative LAB CHEMISTRY METHOD 01/18/2025 8:39 PM EDT [facility] Blood Venous blood specimen / Unknown 01/18/2025 4:00 PM EDT 01/18/2025 6:21 PM EDT us Shanae Baeza MD LAB BLOOD ORDERABLES Final Re sult Performing Organization Address City/[facility]/ZIP Co de Phone Number [facility] [address] [place] [id number], [place] [phone] * Potassium (01/17/2025 11:30 AM EDT) [facility] Potassium 5.1 3.5 - 5.1 mmol/L LAB CHEMISTRY METHOD 01/17/2025 7:45 PM EDT [facility] Blood Venous blood specimen / Unknown 01/17/2025 11:30 AM EDT 01/17/2025 7:20 PM EDT Shanae Baeza MD LAB BLOOD ORDERABLES Final Re sult Performing Organization Address City/[facility]/ZIP Co de Phone Number [facility] [address] [place] [address], [place] [phone] * Lipid panel (11/05/2024 1:47 PM EDT) Cholesterol 168 0 - 200 mg/dL LAB CHEMISTRY METHOD 11/05/2024 8:03 PM EDT [facility] Triglycerides 119 <150 mg/dL LAB CHEMISTRY METHOD 11/05/2024 8:03 PM EDT [facility] HDL 50 32 - 70 mg/dL LAB CHEMISTRY METHOD 11/05/2024 8:03 PM EDT [facility] LDL Calculated 94 50 - 130 mg/dL LAB CHEMISTRY METHOD 11/05/2024 8:03 PM EDT [facility] VLDL Cholesterol Akshat 23.8 mg/dL LAB CHEMISTRY METHOD 11/05/2024 8:03 PM EDT [facility] Comment:No established refer ence range. Blood Venous blood specimen / Unknown Venipuncture / Unknown 11/05/2024 1:47 PM EDT 11/05/2024 1:47 PM EDT Martha Cunha MD LAB BLOOD ORDERABLES Final Result Performing Organization Address City/[facility]/ZIP Co de Phone Number [facility] [address] [place] [address], [place] [phone] * (ABNORMAL) Comprehensive metabolic panel (11/05/2024 1:47 PM EDT) Sodium 136 135 - 145 mmol/L LAB CHEMISTRY METHOD [facility] Potassium 6.5(HH) 3.5 - 5.1 mmol/L LAB CHEMISTRY METHOD 11/05/2024 9:16 PM [facility] Comment:Verified by repeat a nalysis Chloride 93(L) 98 - 107 mmol/L LAB CHEMISTRY METHOD 11/05/2024 9:16 PM [facility] CO2 31 24 - 32 mmol/L LAB CHEMISTRY METHOD 11/05/2024 9:16 PM [facility] Anion Gap 12 5 - 14 LAB CHEMISTRY METHOD 11/05/2024 9:16 PM [facility] Glucose 125(H) 70 - 99 mg/dL LAB CHEMISTRY METHOD 11/05/2024 9:16 PM [facility] BUN 53 mg/dL LAB CHEMISTRY METHOD 11/05/2024 9:16 PM [facility] Creatinine 6.20(H) 0.50 - 1.30 mg/dL LAB CHEMISTRY METHOD 11/05/2024 9:16 PM [facility] eGFR 7(L) >=60 mL/min/1. 73m2 LAB CHEMISTRY METHOD 11/05/2024 9:16 PM [facility] Comment: For non-binary individuals or unknown sex, the equation for female sex is used to calculate the estimated glomerular filtration rate (eGFR). Calculation based on the Chronic Kidney Disease Epidemiology Collaboration (CKD- EPI) equation refit without adjustment for race. BUN/Creatinine Ratio 8.5(L) 12.0 - 20.0 LAB CHEMISTRY METHOD 11/05/2024 9:16 PM [facility] Calcium 9.0 8.4 - 10.2 mg/dL LAB CHEMISTRY METHOD 11/05/2024 9:16 PM [facility] AST (SGOT) 21 5 - 40 unit/L LAB CHEMISTRY METHOD 11/05/2024 9:16 PM [facility] ALT (SGPT) 17 7 - 52 unit/L LAB CHEMISTRY METHOD 11/05/2024 9:16 PM EDT [facility] Alkaline Phosphatase 101 34 - 104 unit/L LAB CHEMISTRY METHOD 11/05/2024 9:16 PM EDT [facility] Total Protein 7.4 6.4 - 8.5 g/dL LAB CHEMISTRY METHOD 11/05/2024 9:16 PM EDT [facility] Albumin 4.2 3.5 - 5.0 g/dL LAB CHEMISTRY METHOD 11/05/2024 9:16 PM EDT [facility] Total Bilirubin 0.6 0.3 - 1.0 mg/dL LAB CHEMISTRY METHOD 11/05/2024 9:16 PM EDT [facility] Blood Venous blood specimen / Unknown Venipuncture / Unknown 11/05/2024 1:47 PM EDT 11/05/2024 1:47 PM EDT Martha Cunha MD LAB BLOOD ORDERABLES Final Result [facility] [address] [place] [address], [place] [phone] * Hepatitis C Screening (05/27/2023) Hepatitis C Screening abstracted Historical Provider HEALTH MAINTENANCE Final Result from Last 3 Months or Most Recently Relevant to Health Maintenance Insurance [place]ICA[place] MEDICARE [place] - [place] Advance Directives * Full Code - Confirmed (Latest Code Status on File) Date Activated Date Inactivated Comments 06/07/2024 10:52 PM 06/12/2024 7:29 PM This code s tatus was ascertained in the following way: Code status discussion: discussion with patient To update the patient's code status, place a code status order. Do not modify or discontinue any currently active code status orders. * Full Code - Default Date Activated Date Inactivated Comments 04/11/2024 10:49 AM 04/12/2024 9:12 PM This is o rder is used when code status has not been discussed with the patient, or code status is otherwise unknown/unconfirmed To update the patient's code status, place a code status order. Do not modify or discontinue any currently active code status orders. Care Teams Diabetes Territory Manager Relationship Specialty Start Date End Date Martha Cunha MD [address] [place] [phone] PCP - General 05/25/23
--- OUTSIDE RECORDS SUMMARY | 2025-04-12 09:16 | XMS_ITS | Encounter Summary ---
Author Organization [facility] Address [address] [place] [address] Care Team Providers Care Fence Post Cutter Name Role Phone Martha Cunha MD Primary Care Provider [phone] Encounter Details Date Type Department Care Team (Late st Contact Info) Description 01/17/2025 Lab Requisition [facility] [address] [place] [address] Shanae Baeza MD [address] [place], [place] [id number] End stage renal disease (CMS/HCC V24, CMS/HCC V28) Social History Tobacco Use Types Packs/Day Years [...] PM EST documented as of this encounter Plan of Treatment Not on file documented as of this encounter Procedures Procedure Name Priority Date/Time Associated Diagnosis Comments POTASSIUM Routine 01/17/2025 11:30 AM EDT End stage renal disease ([facility] V24, [facility] V28) documented in this encounter Results * Potassium (01/17/2025 11:30 AM EDT) Potassium 5.1 3.5 - 5.1 mmol/L LAB CHEMISTRY METHOD 01/17/2025 7:45 PM EDT [facility] Blood Venous blood specimen / Unknown 01/17/2025 11:30 AM EDT 01/17/2025 7:20 PM EDT us Shanae Baeza MD LAB BLOOD ORDERABLES Final Re sult [facility] [address] [place] [address], documented in this encounter Visit Diagnoses Diagnosis End stage renal disease ([facility] V24, [facility] V28) End stage renal disease documented in this encounter Care Teams Fence Post Cutter Relationship Specialty Start Date End Date Martha Cunha MD [address] [place] [phone] PCP - General 05/25/23 documented as of this encounter
--- OUTSIDE RECORDS SUMMARY | 2025-04-12 09:16 | XMS_ITS | Encounter Summary ---
Author Organization [facility] Address [address] [address] Phone Care Team Providers Care Technology Architect Name Role Phone Unavailable Primary Care Provider Unavailabl e Encounter Details Date Type Department Care Team (Late st Contact Info) Description 04/09/2025 Treatment [facility]. [address] [address] Jesus Ladd MD [address] [address] End stage renal disease; Dependence on renal dialysis Social History Tobacco Use Types Packs/Day Years Used Date Smoking Tobacco: Never Assessed Comments Unknown Sex and Gender Information Value Date Recorded Sex Assigned at Not on file Legal Sex Female 1:06 PM EDT Gender Identity Not on file Sexual Orientation Not on file documented as of this encounter Miscellaneous Notes * Dialysis Note - Jesus Ladd MD - 04/09/2025 12:00 AM EST BASIC NOTE Patient: Shara Marquis : 1970 Note Author: JESUS LADD MD Service Date: 04/09/2025 This patient was personally seen [id number] for a basic visit as part of routine monthly dialysis care for end stage renal disease. Attending Outer Diameter Grinder: JESUS LADD MD Dialysis Location: [facility] Schedule: Shift: 2 HOME MEDICATIONS Current [facility] Epic Allergies Allergen: Not on File ADEQUACY ASSESSMENT Kt/V, Natural Log 2.13 (03/28/25) 2.10 (02/21/25) 2.10 (01/24/25) UREA REDUCTION RATIO (%) 84 (03/28/25) 83 (02/21/25) 84 (01/24/25) BUN 44 (03/28/25) 72 (02/21/25) 55 (01/24/25) BUN Post Dialysis 7 (03/28/25) 12 (02/21/25) 9 (01/24/25) Creatinine 7.32 (03/28/25) 7.14 (02/21/25) 7.24 (01/24/25) Bicarbonate (CO2) 22 (03/28/25) 22 (02/21/25) 23 (01/24/25) Sodium 136 (03/28/25) 137 (02/21/25) 132 (01/24/25) ANEMIA ASSESSMENT Hgb 10.3 (03/28/25) 10.6 (03/21/25) 9.1 (03/07/25) Iron Saturation (TSat) 62 (03/28/25) 63 (02/21/25) 50 (01/24/25) Ferritin 712 (03/28/25) 673 (02/21/25) 698 (01/24/25) Iron 106 (03/28/25) 103 (02/21/25) 82 (01/24/25) TIBC 171 (03/28/25) 164 (02/21/25) 162 (01/24/25) MCV 92.4 (03/28/25) 90.9 (02/21/25) 91.3 (01/24/25) Platelets 173 (03/28/25) 166 (02/21/25) 155 (01/24/25) BMM ASSESSMENT Calcium, Adjusted Total 8.7 03/28/25 8.1 02/21/25 8.4 01/24/25 Calcium 8.7 03/28/25 7.9 02/21/25 8.4 01/24/25 Phosphorus, Serum 7.7 03/28/25 6.8 03/21/25 8.1 02/21/25 Ca*PO4 67.0 03/28/25 64.0 02/21/25 65.5 01/24/25 PTH, Intact 419 03/28/25 398 02/21/25 391 01/24/25 Vitamin D, 25-Hydroxy 20 01/24/25 Magnesium 2.3 03/28/25 2.4 02/21/25 2.5 01/24/25 Alkaline Phosphatase 89 03/28/25 81 02/21/25 92 01/24/25 Aluminum 2 01/26/25 NUTRITION ASSESSMENT Albumin 4.0 03/28/25 3.8 02/21/25 4.0 01/24/25 Potassium 4.4 03/28/25 4.4 02/21/25 4.9 01/24/25 Glucose 214 03/28/25 271 02/21/25 344 01/24/25 Hemoglobin A1C 8.6 02/21/25 9.4 01/24/25 ADDITIONAL LABS White Blood Cells 5.1 (03/28/25) 5.0 (02/21/25) 5.9 (01/24/25) Cholesterol 154 (02/21/25) 156 (01/24/25) HDL 28 (02/21/25) 36 (01/24/25) LDL-Calc 99 (02/21/25) 95 (01/24/25) Triglycerides 137 (02/21/25) 125 (01/24/25) Hep B Surface Antibody 672 (01/24/25) Uric Acid 5.7 (01/24/25) Chol/HDL Ratio 5.5 (02/21/25) 4.3 (01/24/25) ALT (SGPT) 11 (03/28/25) 8 (02/21/25) 9 (01/24/25) AST (SGOT) 18 (03/28/25) 15 (02/21/25) 15 (01/24/25) Signed by: JESUS LADD MD on 04/09/2025 at 11:39:32 AM Transcribed by: JESUS LADD MD on 04/09/2025 at 11:39:32 AM documented in this encounter Plan of Treatment Not on file documented as of this encounter Visit Diagnoses Diagnosis End stage renal disease Dependence on renal dialysis documented in this encounter
--- OUTSIDE RECORDS SUMMARY | 2025-04-12 09:16 | XMS_ITS | Encounter Summary ---
Author Organization [facility] Address [address] [place] [address] Care Team Providers Care Ultrasound Technologist Sonographer Name Role Phone Martha Cunha MD Primary Care Provider [phone] Encounter Details Date Type Department Care Team (Late st Contact Info) Description 01/18/2025 Lab Requisition [facility] Main Lab [address] [place] [address] Shanae Baeza MD [address] [place], [place] [id number] End stage renal disease (CMS/HCC V24, CMS/HCC [...] stage renal disease (CMS/HCC V24, CMS/HCC V28) documented in this encounter Results * Hepatitis B core antibody IgM (01/18/2025 4:00 PM EDT) Pathologist [facility] Hep B Core IgM Negative Negative LAB CHEMISTRY METHOD 01/18/2025 8:39 PM EDT [facility] Blood Venous blood specimen / Unknown 01/18/2025 4:00 PM EDT 01/18/2025 6:21 PM EDT us Shanae Baeza MD LAB BLOOD ORDERABLES Final Re sult [facility] [address] [place] [address], [place] [phone] * (ABNORMAL) Hepatitis B surface antibody (01/18/2025 4:00 PM EDT) Pathologist [facility] Hepatitis B Surface Ab Positive( A) Negative LAB CHEMISTRY METHOD 01/18/2025 8:39 PM EDT [facility] Hepatitis B Surface Ab Quantitative 264.0 mIU/mL LAB CHEMISTRY METHOD 01/18/2025 8:39 PM EDT [facility] Blood Venous blood specimen / Unknown 01/18/2025 4:00 PM EDT 01/18/2025 6:21 PM EDT us Shanae Baeza MD LAB BLOOD ORDERABLES Final Re sult Performing Organization Address City/[facility]/ZIP Co de Phone Number [facility] [address] [place] [address], [place] [phone] * Hepatitis B surface antigen (01/18/2025 4:00 PM EDT) Hepatitis B Surface Ag Negative Negative LAB CHEMISTRY METHOD 01/18/2025 8:39 PM EDT [facility] Blood Venous blood specimen / Unknown 01/18/2025 4:00 PM EDT 01/18/2025 6:21 PM EDT Shanae Baeza MD LAB BLOOD ORDERABLES Final Re sult Performing Organization Address [facility] Co de Phone Number [facility] [address] [place] [address], [place] [phone] documented in this encounter Visit Diagnoses Diagnosis End stage renal disease (CMS/HCC V24, CMS/HCC V28) End stage renal disease documented in this encounter Care Teams Ultrasound Technologist Sonographer Relationship Specialty Start Date End Date Martha Cunha MD [address] [place] [phone] PCP - General 05/25/23 documented as of this encounter
--- OUTSIDE RECORDS SUMMARY | 2025-04-12 09:16 | XMS_ITS | Clinical Summary ---
Author Organization [facility] Address [address] [place] [address] Care Team Providers Care Barrel Liner Name Role Phone Marlyn, [address] Unavailable + Shanae Baeza MD Unavailable [phone] Martha Cunha MD Primary Care Provider [phone] Allergies Active Allergy Reactions Criticality Noted Date Comments Aspirin Itching,Rash/Dermati t is,Unknown/Patient and Family Unable to Define,Other (See Comments) Medium 07/27/2016 Hives Hives Hives Hives Hives Iodinated Contrast Media Angioedema,Swelling High 09/23/2021 Face swelling after receiving contrast dye Penicillins Rash/Dermatitis Low 07/28/2016 rash Shellfish Protein-Containing Drug Products Anaphylaxis High 04/11/2024 Medications lisinopril (PRINIVIL,ZeSTRIL ) 40 MG tablet Take 1 tablet (40 mg total) by mouth every morning. 1 Active rosuvastatin (CRESTOR) 5 MG tablet Take 1 tablet (5 mg total) by mouth every morning. 1 Active Tresiba FlexTouch 200 UNIT/ML prefilled pen injectionIndicati ons:Uncontrolled type 2 diabetes mellitus with hyperglycemia (HCC) Inject 30 Units under the skin nightly. 9 mL 1 2 Active potassium chloride (K-TAB) 20 MEQ CR tablet Take 1 tablet (20 mEq total) by mouth daily. Swallow whole; do not crush. Take with food. 4 tablet 2 Active Additional Information Patient taking differently:20 mEq OralEvery morning, Swallow whole; do not crush. Take with food., Reason: Other, Reported on 10/08/2024 carvedilol (COREG) 25 MG tablet Take 1 tablet (25 mg total) by mouth 2 times a day. 4 Active clopidogrel (PLAVIX) 75 MG tablet Take 1 tablet (75 mg total) by mouth daily. 4 Active hydrALAZINE (APRESOLINE) 50 MG tablet Take 1 tablet (50 mg total) by mouth 2 times a day. 3 Active torsemide (DEMADEX) 20 MG tablet Take 2 tablets (40 mg total) by mouth 2 (two) times a day in the morning and the early evening.. 4 Active glipiZIDE (GLUCOTROL XL) 5 MG 24 hr tablet Take 1 tablet (5 mg total) by mouth every morning. 4 Active acetaminophen (TYLENOL) 500 MG tablet Take 2 tablets (1,000 mg total) by mouth every 8 (eight) hours. 4 Active amLODIPine (NORVASC) 10 MG tablet Take 1 tablet (10 mg total) by mouth daily. 4 Active capsaicin (ZOSTRIX) 0.025 % cream Apply topically 2 (two) times a day as needed. Active calcitRIOL (ROCALTROL) 0.25 MCG capsule Take 1 capsule (0.25 mcg total) by mouth daily. 4 Active levothyroxine (SYNTHROID, LEVOTHROID) 75 MCG tablet Take 1 tablet (75 mcg total) by mouth daily at the same time. 4 Active sevelamer carbonate (RENVELA) 800 MG tablet Take 3 tablets (2,400 mg total) by mouth. 4 025 Active losartan (COZAAR) 100 MG tablet Take 1 tablet (100 mg total) by mouth daily. 025 Active cloNIDine (VVZJMMAD-YLS-1) 0.2 mg/[address] 1 patch on the skin once a week. Active Hospital, Clinic, or Other Facility Administered Medication Ordered Dose Route Frequency Start Date End Date Status iohexol (OMNIPAQUE) 300 mg/mL injection 50 mLIndications:ESRD (end stage renal disease) ([facility]) 50 mL IV As needed 07/11/2024 Acti ve methylPREDNISolone sodium succinate (SOLU-Medrol) injection 125 mgIndications:ESRD (end stage renal disease) ([facility]) 125 mg IV As needed 10/08/2024 Acti ve lidocaine preservative free (XYLOCAINE-MPF) 1 % injection 3 mLIndications:Local Anesthesia 3 mL SC As needed 10/08/2024 Active Active Problems Problem Noted Date Diagnosed Date Current moderate episode of major depressive disorder without prior episode 07/30/2024 H/O carotid endarterectomy 04/23/2024 Overweight with body mass in dex (BMI) of 26 to 26.9 in adult 04/23/2024 End stage renal failure on dialysis 11/30/2023 Anemia in chronic kidney disease, on chronic kali lysis 11/25/2023 Impaired gait and mobility 11/17/2023 Acidosis 11/03/2023 Hyperkalemia 11/03/2023 Iron deficiency 10/26/2023 Sensory hearing loss, bilateral 10/13/2023 Secondary hyperparathyroidism, renal 08/18/2023 Sensorineural hearing loss, bilateral 07/29/2023 Bilateral tinnitus 07/29/2023 Body mass index (BMI) of 30.0 to 30.9 in adult 0 07/13/2023 Facial numbness 07/08/2023 ICAO (internal carotid artery occlusion), left 0 07/08/2023 Left spastic hemiparesis 07/08/2023 Vitreous hemorrhage of left eye 07/07/2023 Anemia due to multiple mechanisms 06/23/2023 Vitamin D deficiency 06/23/2023 Acquired hypothyroidism 05/25/2023 Bilateral leg edema 05/25/2023 Carotid stenosis 05/25/2023 Carotid artery plaque, unspecified laterality CKD (chronic kidney disease) stage 4, GFR 15-29 ml/min 05/25/2023 Congestive heart failure 05/25/2023 half-way current use of insulin 05/25/2023 Medication management 05/25/2023 Pure hypercholesterolemia 05/25/2023 Acute on chronic heart failu re with preserved ejection fraction 02/23/2022 Primary cardiomyopathy 09/10/2021 Primary hypertension 09/10/2021 Anxiety 09/10/2021 Fatigue 09/10/2021 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 09/10/2021 Hypertensive emergency 05/19/2021 Encounters Date Type Department Care Team Description 02/04/2025 Scanned Document [facility] [address] [address] Woody Goodrich MD from Last 3 Months Immunizations Immunization Administration Dates Next Due Covid-19 mRNA Primary Series Vaccine - Moderna 0.5 mL Full Dose 09/18/2020 Covid-19 mRNA Vaccine - Moderna 0.25 mL Booster 10/18/2020 Social History Tobacco Use Types Packs/Day Years Used Date Smoking Tobacco: Former Cigarettes - 2022 Smokeless Tobacco: Never Tobacco Cessation:Counseling Given: Not Answered Alcohol Use Standard Drinks/Week Comments No 0 (1 standard drink = 0.6 oz pur e alcohol) AUDIT-C Answer Date Recorded Q1: How often do you have a drink containing alcohol? Never 05/10/2024 Q2: How many drinks containi ng alcohol do you have on a typical day when you are drinking? Patient does not drink Q3: How often do you have si x or more drinks on one occasion? Never 05/10/2024 PHQ-2 Answer Date Recorded PHQ-2 Total Score 0 02/15/2024 Comments No Sex and Gender Information Value Date Recorded Sex Assigned at Female 04/28/2023 10:07 AM EST Legal Sex Female 7:10 PM EDT Gender Identity Female 04/28/2023 10:07 AM EST Sexual Orientation Heterosexual (straight) 04/28 10:07 AM EST Last Filed Vital Signs Vital Sign Reading Time Taken Comments Blood Pressure 167/74 10/08/2024 10:00 AM EDT Pulse 73 10/08/2024 9:55 AM EDT Temperature 36.7 C (98.1 F) 06/04/2024 3:14 PM EST Respiratory Rate 18 08/20/2024 1:10 PM EDT Oxygen Saturation 97% 10/08/2024 9:55 AM EDT Inhaled Oxygen Concentration - - Weight 65.5 kg (144 lb 6.4 oz) 10/08/2024 9:55 A M EDT Height 157.5 cm (5' 2 ) 10/08/2024 9:55 AM EDT Body Mass Index 26.41 10/08/2024 9:55 AM EDT Plan of Treatment Health Maintenance Due Date Last Done Comments Hepatitis C Virus Screening 1970 Foot Exam 1978 Lipid Panel 1978 Ophthalmology Exam 1978 DTaP/Tdap/Td Vaccines (1 - Tdap) 1987 Pneumococcal Vaccines 50+ (1 of 2 - PCV) 1987 Zoster (Shingles) Vaccine (1 of 2) 1987 Hepatitis B Vaccines (1 of 3 - Risk Dialysis 4-dose series) 1988 Pap Smear (Ages 21-65) 1989 Mammogram 2008 Colonoscopy 2013 RSV Vaccine 50 years and old er and Patients (1 - Risk 50-74 years 1-dose series) 2018 COVID-19 Vaccine (2 - Modern a risk series) 11/15/2020 10/18/2020, 09/18/2020 Diabetic Self-Management Tra ining (DSMT) 05/18/2021 Medical Nutrition Therapy (MNT) 05/23/2024 Hemoglobin A1C 09/05/2024 06/07/2024, 11/0 10/2022, 05/11/2022, Additional history exists Influenza Vaccine 12/21/2024 02/25/2024 Creatinine with GFR 06/04/2025 06/04/2024, 02/01/2024, 02/01/2024, Additional history exists Microalbumin/Creatinine Rati o Urine Discontinued 08/18/2023, 05/27/2023 HIV Screening Completed 02/03/2024 Goals Goal Patient Goal Type Associated Problems Recent Progress Patient-Stated? Author PT LTG 1 Physical Therapy On track( 017 2:52 PM EDT) No Anabela Corral, PT Note: Improve CAROM into flex & ext 40 without pain in 4 wks. 4/5/17: met PT LTG 2 Physical Therapy On track( 2:52 PM EDT) No Anabela Corral PT Note: Improve CAROM into rotation to 60 B without pain to assist with driving safety in 4 wks. 08/25/16: met PT LTG 3 Physical Therapy On track( 2:52 PM EDT) No Anabela Corral PT Note: Improve L shoulder abd, flex 150 to reach overhead without pain in 4 wks. 08/25/16: met PT LTG 4 Physical Therapy Not on track( 2:53 PM EDT) No Anabela Corral PT Note: Reduce ESPINAL frequency to <3x / wk in 4 wks. 08/25/16: ongoing daily HAs unrelated to CS positioning or muscular tension PT LTG 5 Physical Therapy Not on track( 2:54 PM EDT) No Anabela Corral, PT Note: Improve NDI score < 15% in 4 wks 08/25/16: 24% improved from 42% Medical Devices Implanted Type Area Paver Operator Device Identifier Shelf Expiration Date Model / Serial / Lot [id number] System Implant Cochlear Cochlear Slim Straight Electrode [id number] - [id number] Implanted:Qty: 1 on 06/05/2024 by Woody Goodrich MD at [facility] Otic Left: Ear [employer] 07/03/2025 [id number] SYSTEM / [id number] / Procedures Procedure Name Priority Date/Time Associated Diagnosis Comments BASIC METABOLIC PANEL Routine 06/04/2024 12:15 PM EST HEMOGLOBIN A1C WITH ESTIMATED AVERAGE GLUCOSE STAT 08/11/2021 10:50 AM EDT from Last 3 Months or Most Recently Relevant to Health Maintenance Results * (ABNORMAL) Basic Metabolic Panel (AM) (06/04/2024 12:15 PM EST) Glucose 144(H) 65 - 99 mg/dL 06/04/2024 12:41 PM [facility] Comment:Fasting: <100 mg/dL, Non-Fasting: <200 mg/dL (ADA 2004) Blood Urea Nitrogen (BUN) 54(H) 8 - 21 mg/dL 06/04/2024 12:41 PM [facility] Creatinine 4.6(H) 0.4 - 1.1 mg/dL 06/04/2024 12:41 PM [facility] eGFR 11(L) >59 06/04/2024 12:41 PM [facility] Comment:CKD-EPI (2020) in mL /min/1.73 sq meters. Sodium 135(L) 136 - 145 mmol/L 06/04/2024 12:41 PM [facility] Potassium 5.4(H) 3.4 - 5.3 mmol/L 06/04/2024 12:41 PM [facility] Chloride 97(L) 98 - 107 mmol/L 06/04/2024 12:41 PM [facility] CO2 26 22 - 33 mmol/L 06/04/2024 12:41 PM [facility] Anion Gap 12 7 - 17 06/04/2024 12:41 PM [facility] Calcium 8.4(L) 8.7 - 10.5 mg/dL 06/04/2024 12:41 PM [facility] BUN/Creatinine Ratio 12 10.0 - 25.0 Ratio 06/04/2024 12:41 PM [facility] Blood (Plasma/Serum) 06/04/2024 12:15 PM EST 06/04/2024 12:18 PM EST us Ceferino Levy MD LAB BLOOD ORDERABLES [place] [address], [place] [address] * (ABNORMAL) Hemoglobin A1c with Estimated Average Glucose (08/11/2021 10:50 AM EDT) Hemoglobin A1C 10.0(H) <5.7 % 08/11/2021 3:30 PM EDT [facility] Comment: A1c% Interpretation 5.7 - 6.0 Increase risk of diabetes 6.1 - 6.4 Higher risk of diabetes > or = 6.5 Consistent with diabetes Diabetes Care, 33(Supp 1):S1-S61, 2009 Estimated Average Glucose 240 mg/dL 08/11/2021 3:30 PM EDT [facility] Blood specimen / Unknown 08/11/2021 10:50 AM EDT 08/11/2021 11:13 AM EDT us Christiano Mathew III, DO LAB BLOOD ORDERABLES Yessenia zuluaga Result HOSPITAL LAB [facility] [address] [place] [address] from Last 3 Months or Most Recently Relevant to Health Maintenance Insurance [facility] MEDIC[facility] PART A & B [facility] MEDIC[facility] PART A & B [facility] MEDICARE PART A & [place] [address] [place] [address] Advance Directives Documents on File Type Date Recorded 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 Advance Directive-Scan 08/17/2021 Dennis [facility]quis [facility]14/2021 * Full Code (Latest Code Status on File) Date Activated Date Inactivated Comments 06/04/2024 12:05 PM * Full Code Date Activated Date Inactivated Comments 02/15/2024 8:07 AM 06/04/2024 9:49 AM * Full Code Date Activated Date Inactivated Comments 02/01/2024 7:48 AM 02/01/2024 8:40 AM * Full Code Date Activated Date Inactivated Comments 09/29/2021 7:27 AM 02/05/2022 4:15 PM * DNR Date Activated Date Inactivated Comments 08/11/2021 1:47 PM 09/22/2021 6:25 PM Per patient ( via video slurry man), DNR/DNI Question Answer Comments Decision thoroughly discussed with: Patient Healthcare Agents on File Name Relationship Healthcare Agent Relationshi p Communication Dennis Marquis Parent 1. Health Care Representativ e Care Teams Barrel Liner Relationship Specialty Start Date End Date Martha Cunha MD [address] [place] [address] [place] [address] PCP - General Family Medicine 06/04/24 [facility] [address] [place] [address] Dialysis Unit 11/21/23 Shanae Baeza MD [address] [place] [address] [place] [address] 11/21/23
--- OUTSIDE RECORDS SUMMARY | 2025-04-12 09:16 | XMS_ITS | Encounter Summary ---
Author Organization [facility] Address [address] [place] [address] Care Team Providers Care Toy Stuffer Name Role Phone Pcp, No Primary Care Provider UnavailXuan Choudhary APRN Primary Care Provider [phone] Dialysis, [address] Unavailable + Shanae Baeza MD Unavailable [phone] Martha Cunha MD Primary Care Provider [phone] Encounter Details Date Type Department Care Team (Late st Contact Info) Description 08/28/2016 Scanned Document [address] [phone] Pcp, No Social History Tobacco Use Types Packs/Day Years Used Date Smoking Tobacco: Some Days Cigarettes Smokeless Tobacco: Never Alcohol Use Standard Drinks/Week Comments No 0 (1 standard drink = 0.6 oz pur e alcohol) Comments No Sex and Gender Information Value Date Recorded Sex Assigned at Female 04/28/2023 10:07 AM EST Legal Sex Female 7:10 PM EDT Gender Identity Female 04/28/2023 10:07 AM EST Sexual Orientation Heterosexual (straight) 04/28 10:07 AM EST documented as of this encounter Plan of Treatment Not on file documented as of this encounter Goals Goal Patient Goal Type Associated Problems Recent Progress Patient-Stated? Author PT LTG 1 Physical Therapy On track( 2:52 PM EDT) No Anabela Corral PT Note: Improve CAROM into flex & ext 40 without pain in 4 wks. 08/25/16: met PT LTG 2 Physical Therapy On [...] on track( 2:54 PM EDT) No Anabela Corral PT Note: Improve NDI score < 15% in 4 wks 08/25/16: 24% improved from 42% documented as of this encounter Visit Diagnoses Not on filedocumented in this encounter Additional Health Concerns Infection Onset Date Last Indicated Resolved Time COVID-19 Comment:(+) 05/18/2021 05/21/2021 05/21/2021 06/10/2021 11:42 PM EST documented as of this encounter Care Teams Toy Stuffer Relationship Specialty Start Date End Date Pcp, No PCP - General General Medicine 07/26/16 05/20/21 Xuan Baxter APRN PCP - General [facility] Medicine 05/21/21 06/03/24 Martha Cunha MD [address] [place] [address] [place] [address] PCP - [facility] 06/04/24 Dialysis, [address] [place] [address] [place] [address] Dialysis Unit 11/21/23 Shanae Baeza MD [address] [place] [address] [place] [address] 11/21/23 documented as of this encounter
--- OUTSIDE RECORDS SUMMARY | 2025-04-12 09:16 | XMS_ITS | Clinical Summary ---
Author Organization [facility] Address [address] [address] Phone Care Team Providers Care Auto Tech Name Role Phone Unavailable Primary Care Provider Unavailabl e Encounters Date Type Department Care Team Description 04/09/2025 Treatment [facility] [address] [phone] Aniceto Ladd MD End stage renal disease; Dependence on renal dialysis 04/02/2025 Treatment [facility] [address] [phone] Aniceto Ladd MD End stage renal disease; Dependence on renal dialysis 03/28/2025 Treatment [facility] [address] [phone] Aniceto Ladd MD End stage renal disease; Dependence on renal dialysis 03/26/2025 Treatment [facility] [address] [phone] Aniceto Ladd MD End stage renal disease; Dependence on renal dialysis 03/19/2025 Treatment [facility] [address] [phone] Aniceto Ladd MD End stage renal disease; Dependence on renal dialysis 03/12/2025 Treatment [facility] [address] [phone] Aniceto Ladd MD End stage renal disease; Dependence on renal dialysis 03/05/2025 Treatment [facility] [address] [phone] Aniceto Ladd MD End stage renal disease; Dependence on renal dialysis 02/28/2025 Treatment [facility] [address] [phone] Aniceto Ladd MD End stage renal disease; Dependence on renal dialysis 02/26/2025 Treatment [facility] [address] [phone] Aniceto Ladd MD End stage renal disease; Dependence on renal dialysis 02/12/2025 Treatment [facility] [address] [phone] Aniceto Ladd MD End stage renal disease; Dependence on renal dialysis 02/07/2025 Treatment [facility] [address] [phone] Aniceto Ladd MD End stage renal disease; Dependence on renal dialysis 02/05/2025 Treatment [facility] [address] [phone] Aniceto Ladd MD End stage renal disease; Dependence on renal dialysis 01/29/2025 Treatment [facility] [address] [phone] Aniceto Ladd MD End stage renal disease; Dependence on renal dialysis 01/24/2025 Orders Only [facility] [address] [phone] Aniceto Ladd MD 01/24/2025 Treatment [facility] [address] [phone] Aniceto Ladd MD End stage renal disease; Dependence on renal dialysis from Last 3 Months Social History Tobacco Use Types Packs/Day Years Used Date Smoking Tobacco: Never Assessed Comments Unknown Sex and Gender Information Value Date Recorded Sex Assigned at Not on file Legal Sex Female 1:06 PM EDT Gender Identity Not on file Sexual Orientation Not on file Plan of Treatment Health Maintenance Due Date Last Done Comments Breast Cancer Screening 1968 Pneumococcal Vaccine: 50+ Ye ars (1 of 2 - PCV) 1987 Hepatitis B Vaccine (1 of 5 - Risk Dialysis 4-dose series) 1988 Colorectal Cancer Screening: Annual FOBT 2017 Colorectal Cancer Screening: Colonoscopy 2017 Colorectal Cancer Screening: Sigmoidoscopy 2017 Influenza Vaccine (#1) 2025 Diabetes: Ophthalmology Exam 01/24/2025 Diabetes: Pedal Pulse Checked 01/24/2025 Diabetes: Sensory Foot Exam 01/24/2025 Diabetes: Visual Foot Exam 01/24/2025 Diabetes: Hemoglobin A1C 05/24/2025 025, 01/24/2025, 06/07/2024, Additional history exists Procedures Procedure Name Priority Date/Time Associated Diagnosis Comments TRANSFERRIN SATURATION Routine 3:00 AM EST PROTEIN, TOTAL, SERUM Routine 03/28/2025 3:00 AM EST ELECTROLYTE PANEL Routine 03/28/2025 3:0 0 AM EST MAGNESIUM Routine 03/28/2025 3:00 AM EST LIH (HC) Routine 03/28/2025 3:00 AM EST LACTATE DEHYDROGENASE Routine 03/28/2025 3:00 AM EST GLUCOSE, RANDOM Routine 03/28/2025 3:00 AM EST CREATININE, SERUM Routine 03/28/2025 3:0 0 AM EST BUN/CREATININE RATIO Routine 03/28/2025 3:00 AM EST BILIRUBIN, TOTAL Routine 03/28/2025 3:00 AM EST ALT Routine 03/28/2025 3:00 AM EST AST Routine 03/28/2025 3:00 AM EST CALCIUM PHOSPHORUS PRODUCT, ADJUSTED (HC) Routine 03/28/2025 3:00 AM EST ALKALINE PHOSPHATASE Routine 03/28/2025 3:00 AM EST FERRITIN Routine 03/28/2025 3:00 AM EST PTH, INTACT Routine 03/28/2025 3:00 AM EST KT/V NATURAL LOG, URR (HC) Routine 03/28/2025 3:00 AM EST CBC AND DIFFERENTIAL Routine 03/28/2025 3:00 AM EST PHOSPHATE ( PHOSPHORUS) Routine 03/21/2025 3:00 AM EDT LIH (HC) Routine 03/21/2025 3:00 AM EDT HEMOGLOBIN Routine 03/21/2025 3:00 AM EDT HEMOGLOBIN AND HEMATOCRIT, BLOOD Routine 03/07/2025 3:00 AM EDT HEMOGLOBIN A1C Routine 02/21/2025 3:00 AM EDT RETICULOCYTES Routine 02/21/2025 3:00 AM EDT TRANSFERRIN SATURATION Routine 3:00 AM EDT PROTEIN, TOTAL, SERUM Routine 02/21/2025 3:00 AM EDT MAGNESIUM Routine 02/21/2025 3:00 AM EDT ELECTROLYTE PANEL Routine 02/21/2025 3:0 0 AM EDT LIPID PANEL Routine 02/21/2025 3:00 AM EDT LIH (HC) Routine 02/21/2025 3:00 AM EDT LACTATE DEHYDROGENASE Routine 02/21/2025 3:00 AM EDT GLUCOSE, RANDOM Routine 02/21/2025 3:00 AM EDT CREATININE, SERUM Routine 02/21/2025 3:0 0 AM EDT BUN/CREATININE RATIO Routine 02/21/2025 3:00 AM EDT BILIRUBIN, TOTAL Routine 02/21/2025 3:00 AM EDT AST Routine 02/21/2025 3:00 AM EDT ALT Routine 02/21/2025 3:00 AM EDT ALKALINE PHOSPHATASE Routine 02/21/2025 3:00 AM EDT CALCIUM PHOSPHORUS PRODUCT, ADJUSTED (HC) Routine 02/21/2025 3:00 AM EDT FERRITIN Routine 02/21/2025 3:00 AM EDT PTH, INTACT Routine 02/21/2025 3:00 AM EDT CBC AND DIFFERENTIAL Routine 02/21/2025 3:00 AM EDT KT/V NATURAL LOG, URR (HC) Routine 02/21/2025 3:00 AM EDT PHOSPHATE ( PHOSPHORUS) Routine 02/14/2025 3:00 AM EDT LIH (HC) Routine 02/14/2025 3:00 AM EDT HEMOGLOBIN AND HEMATOCRIT, BLOOD Routine 02/07/2025 3:00 AM EDT HEMOGLOBIN Routine 01/31/2025 3:00 AM EDT ALUMINUM LEVEL Routine 01/26/2025 3:00 AM EDT COLLECTION DATE (HC) Routine 01/26/2025 3:00 AM EDT CONFIRMATION TEST HCV Routine 01/24/2025 3:00 AM EDT HEPATITIS C ABS W/REFLEX RNA DETECTR Routine 01/24/2025 3:00 AM EDT HEPATITIS B CORE AB TOTAL Routine 01/24/2025 3:00 AM EDT HEPATITIS B SURFACE ANTIGEN W/REFL CONFIRM Routine 01/24/2025 3:00 AM EDT HEPATITIS B SURFACE ANTIBODY QUANT Routine 01/24/2025 3:00 AM EDT VITAMIN D 25 HYDROXY Routine 01/24/2025 3:00 AM EDT FERRITIN Routine 01/24/2025 3:00 AM EDT PTH, INTACT Routine 01/24/2025 3:00 AM EDT TRANSFERRIN SATURATION Routine 3:00 AM EDT PROTEIN, TOTAL, SERUM Routine 01/24/2025 3:00 AM EDT MAGNESIUM Routine 01/24/2025 3:00 AM EDT ELECTROLYTE PANEL Routine 01/24/2025 3:0 0 AM EDT URIC ACID Routine 01/24/2025 3:00 AM EDT LIH (HC) Routine 01/24/2025 3:00 AM EDT LACTATE DEHYDROGENASE Routine 01/24/2025 3:00 AM EDT GLUCOSE, RANDOM Routine 01/24/2025 3:00 AM EDT LIPID PANEL Routine 01/24/2025 3:00 AM EDT CREATININE, SERUM Routine 01/24/2025 3:0 0 AM EDT BILIRUBIN, TOTAL Routine 01/24/2025 3:00 AM EDT BUN/CREATININE RATIO Routine 01/24/2025 3:00 AM EDT ALT Routine 01/24/2025 3:00 AM EDT ALKALINE PHOSPHATASE Routine 01/24/2025 3:00 AM EDT AST Routine 01/24/2025 3:00 AM EDT CALCIUM PHOSPHORUS PRODUCT, ADJUSTED (HC) Routine 01/24/2025 3:00 AM EDT HEMOGLOBIN A1C Routine 01/24/2025 3:00 AM EDT RETICULOCYTES Routine 01/24/2025 3:00 AM EDT KT/V NATURAL LOG, URR (HC) Routine 01/24/2025 3:00 AM EDT CBC AND DIFFERENTIAL Routine 01/24/2025 3:00 AM EDT from Last 3 Months Results * LI (03/28/2025 3:00 AM EST) Only the most recent of5 resultswithin the time period is included. Lipemia Normal Normal [facility] Icterus Normal Normal [facility] Hemolysis Normal Normal [facility] 03/28/2025 3:00 AM EST 03/30/2025 1:28 PM EST us Aniceto Ladd MD LAB [id number] ICITED RESULTS Final Result Performing Organization Address [facility] Co de Phone Number [facility] [address] [place] [address] * (ABNORMAL) Kt/V Natural Log, URR (03/28/2025 3:00 AM EST) Only the most recent of3 resultswithin the time period is included. Treatment Time 212 min [facility] Pre-Weight, lb 71.8 kg [facility] Post-Weight, lb 69.9 kg [facility] BUN 44(H) 7 - 25 mg/dL [facility] BUN Post Dialysis 7 7 - 25 mg/dL [facility] UREA REDUCTION RATIO (%) 84 >=65 % [facility] Kt/V Natural Log 2.13 >=1.2 [facility] Ultrafiltration Rate 8 <=13 mL/kg/hr [facility] Comment: Recommend achieving Ultrafiltration Rate (UFR) <=10 mL/kg/hr References: Adalgisa HUDDLESTON et al. Kidney Int. 2010; 79(2):250-257 03/28/2025 3:00 AM EST 03/30/2025 1:28 PM EST us Aniceto Ladd MD LAB HISTORICAL-CONVE RSIONS-UNSOLICITED RESULTS Edited Result - Final Performing Organization Address [facility] de Phone Number [facility] [address] [place] [address] * (ABNORMAL) Calcium Phosphorus Product, Adjusted (03/28/2025 3:00 AM EST) Only the most recent of3 resultswithin the time period is included. Albumin 4.0 3.6 - 5.4 g/dL [facility] Calcium 8.7 8.6 - 10.3 mg/dL [facility] Phosphorus, Serum 7.7(H) 2.5 - 5.0 mg/dL [facility] Ca*PO4 67.0(A) <55.0 mg2/dL2 [facility] Calcium, Adjusted Total 8.7 8.6 - 10.3 mg/dL [facility] CA*PO4 CORRCTD 67.0(A) <55.0 mg2/dL2 [facility] 03/28/2025 3:00 AM EST 03/30/2025 1:28 PM EST us Aniceto Ladd MD LAB [id number] ICITED RESULTS Final Result Performing Organization Address [facility] de Phone Number [facility] [address] [place] [address] * BUN/CREATININE RATIO (03/28/2025 3:00 AM EST) Only the most recent of3 resultswithin the time period is included. BUN/Creatinine Ratio 6.0 <=23.0 [facility] 03/28/2025 3:00 AM EST 03/30/2025 1:28 PM EST us Aniceto Ladd MD LAB [id number] ICITED RESULTS Final Result Performing Organization Address [facility] de Phone Number [facility] [address] [place] [address] * (ABNORMAL) TSAT (03/28/2025 3:00 AM EST) Only the most recent of3 resultswithin the time period is included. Iron 106 50 - 170 ug/dL [facility] Transferrin 122(L) 250 - 380 mg/dL [facility] TIBC 171(L) 211 - 406 ug/dL [facility] Iron Saturation (TSat) 62(H) 22 - 52 % [facility] 03/28/2025 3:00 AM EST 03/30/2025 1:28 PM EST us Ancieto Ladd MD LAB BLOOD ORDERABLES Final Resul t Performing Organization Address [facility] de Phone Number [facility] [address] [place] [address] * (ABNORMAL) CBC and Differential (03/28/2025 3:00 AM EST) Only the most recent of3 resultswithin the time period is included. DIFFERENTIAL MANUAL, 2 Not Indicated [facility] White Blood Cells 5.1 4.0 - 10.0 K/uL [facility] RBC 3.42(L) 3.93 - 5.22 M/uL [facility] Hgb 10.3(L) 11.2 - 15.7 g/dL [facility] Hemoglobin x 3 30.9(L) 33.6 - 47.1 g/dL [facility] Hematocrit 31.6(L) 34.1 - 44.9 % [facility] MCV 92.4 79.4 - 94.8 fL [facility] MCH 30.1 25.6 - 32.2 pg [facility] MCHC 32.6 32.2 - 35.5 g/dL [facility] RDW 12.8 11.7 - 14.4 % [facility] Platelets 173(L) 182 - 369 K/uL [facility] MPV 10.9 9.2 - 12.8 fL [facility] Neutrophils Relative 73.8(H) 34.0 - 71.1 % [facility] Lymphocytes Relative 13.2(L) 19.3 - 51.7 % [facility] Monocytes 6.1 4.7 - 12.5 % [facility] Eosinophils Relative 5.7 0.7 - 5.8 % [facility] Basophils Relative 0.8 0.1 - 1.2 % [facility] Immature Granulocytes 0.4 0.0 - 1.0 % [facility] 03/28/2025 3:00 AM EST 03/30/2025 1:22 PM EST Aniceto Ladd MD LAB BLOOD ORDERABLES Final Resul t Performing Organization Address [facility] Co de Phone Number [facility] [address] [place] [address] * ALT (03/28/2025 3:00 AM EST) Only the most recent of3 resultswithin the time period is included. ALT (SGPT) 11 10 - 49 U/L [facility] 03/28/2025 3:00 AM EST 03/30/2025 1:28 PM EST Aniceto Ladd MD LAB BLOOD ORDERABLES Final Resul t Performing Organization Address [facility] Co de Phone Number [facility] [address] [place] [address] * AST (03/28/2025 3:00 AM EST) Only the most recent of3 resultswithin the time period is included. AST (SGOT) 18 <34 U/L [facility] 03/28/2025 3:00 AM EST 03/30/2025 1:28 PM EST us Aniceto Ladd MD LAB BLOOD ORDERABLES Final Resul t Performing Organization Address [facility] de Phone Number [facility] [address] [place] [address] * Protein, total (03/28/2025 3:00 AM EST) Only the most recent of3 resultswithin the time period is included. Total Protein 7.8 6.4 - 8.9 g/dL [facility] 03/28/2025 3:00 AM EST 03/30/2025 1:28 PM EST us Aniceto Ladd MD LAB BLOOD ORDERABLES Final Resul t Performing Organization Address [facility] de Phone Number [facility] [address] [place] [address] * Alkaline phosphatase (03/28/2025 3:00 AM EST) Only the most recent of3 resultswithin the time period is included. Alkaline Phosphatase 89 46 - 116 U/L [facility] 03/28/2025 3:00 AM EST 03/30/2025 1:28 PM EST us Aniceto Ladd MD LAB BLOOD ORDERABLES Final Resul t Performing Organization Address [facility] de Phone Number [facility] [address] [place] [address] * PTH, Intact (03/28/2025 3:00 AM EST) Only the most recent of3 resultswithin the time period is included. PTH, Intact 419 160 - 721 pg/mL [facility] Comment: Suggested (KDIGO) ESRD maintenance range is two to nine times the upper normal limit (80.1 pg/mL) for the laboratory. 03/28/2025 3:00 AM EST 03/30/2025 1:28 PM EST us Aniceto Ladd MD LAB BLOOD ORDERABLES Final Resul t Performing Organization Address [facility] de Phone Number [facility] [address] [place] [address] * Magnesium (03/28/2025 3:00 AM EST) Only the most recent of3 resultswithin the time period is included. Magnesium 2.3 1.9 - 2.7 mg/dL [facility] 03/28/2025 3:00 AM EST 03/30/2025 1:28 PM EST us Aniceto Ladd MD LAB BLOOD ORDERABLES Final Resul t Performing Organization Address [facility] Phone Number [facility] [address] [place] [address] * (ABNORMAL) Lactate dehydrogenase (03/28/2025 3:00 AM EST) Only the most recent of3 resultswithin the time period is included. LDH 321(H) 120 - 246 U/L [facility] 03/28/2025 3:00 AM EST 03/30/2025 1:28 PM EST us Aniceto Ladd MD LAB BLOOD ORDERABLES Final Resul t Performing Organization Address [facility] de Phone Number [facility] [address] [place] [address] * (ABNORMAL) Glucose, random (03/28/2025 3:00 AM EST) Only the most recent of3 resultswithin the time period is included. Glucose 214(H) 70 - 99 mg/dL [facility] Comment: ADA guidelines outline the following fasting glucose ranges: Normal: <100 Prediabetes: 100-125 Diabetes: >125 03/28/2025 3:00 AM EST 03/30/2025 1:28 PM EST us Aniceto Ladd MD LAB BLOOD ORDERABLES Final Resul t Performing Organization Address [facility] de Phone Number [facility] [address] [place] [address] * (ABNORMAL) Ferritin (03/28/2025 3:00 AM EST) Only the most recent of3 resultswithin the time period is included. Ferritin 712(H) 10 - 291 ng/mL [facility] 03/28/2025 3:00 AM EST 03/30/2025 1:28 PM EST us Aniceto Ladd MD LAB BLOOD ORDERABLES Final Resul t Performing Organization Address [facility] Phone Number [facility] [address] [place] [address] * (ABNORMAL) Creatinine, serum (03/28/2025 3:00 AM EST) Only the most recent of3 resultswithin the time period is included. Creatinine 7.32(H) 0.55 - 1.02 mg/dL [facility] 03/28/2025 3:00 AM EST 03/30/2025 1:28 PM EST us Aniceto Ladd MD LAB BLOOD ORDERABLES Final Resul t Performing Organization Address [facility] Phone Number [facility] [address] [place] [address] * Bilirubin, total (03/28/2025 3:00 AM EST) Only the most recent of3 resultswithin the time period is included. Total Bilirubin 0.4 0.3 - 1.2 mg/dL [facility] 03/28/2025 3:00 AM EST 03/30/2025 1:28 PM EST us Aniceto Ladd MD LAB BLOOD ORDERABLES Final Resul t Performing Organization Address [facility] de Phone Number [facility] [address] [place] [address] * (ABNORMAL) Electrolyte panel (03/28/2025 3:00 AM EST) Only the most recent of3 resultswithin the time period is included. Sodium 136 136 - 145 mEq/L [facility] Potassium 4.4 3.4 - 5.0 mEq/L [facility] Chloride 99 98 - 107 mEq/L [facility] Bicarbonate (CO2) 22 21 - 31 mEq/L [facility] Anion Gap 15(H) 3 - 14 mEq/L [facility] 03/28/2025 3:00 AM EST 03/30/2025 1:28 PM EST us Aniceto Ladd MD LAB BLOOD ORDERABLES Final Resul t Performing Organization Address [facility] de Phone Number [facility] [address] [place] [address] * (ABNORMAL) Hemoglobin (03/21/2025 3:00 AM EDT) Only the most recent of2 resultswithin the time period is included. Hgb 10.6(L) 11.2 - 15.7 g/dL [facility] Hemoglobin x 3 31.8(L) 33.6 - 47.1 g/dL [facility] 03/21/2025 3:00 AM EDT 03/22/2025 12:11 PM EDT us Aniceto Ladd MD LAB BLOOD ORDERABLES Final Resul t Performing Organization Address [facility] de Phone Number [facility] [address] [place] [address] * (ABNORMAL) Phosphorus (03/21/2025 3:00 AM EDT) Only the most recent of2 resultswithin the time period is included. Phosphorus, Serum 6.8(H) 2.5 - 5.0 mg/dL [facility] 03/21/2025 3:00 AM EDT 03/22/2025 12:10 PM EDT us Aniceto Ladd MD LAB BLOOD ORDERABLES Final Resul t Performing Organization Address [facility] de Phone Number [facility] [address] [place] [address] * (ABNORMAL) Hemoglobin and hematocrit (03/07/2025 3:00 AM EDT) Only the most recent of2 resultswithin the time period is included. Hgb 9.1(L) 11.2 - 15.7 g/dL [facility] Hematocrit 28.5(L) 34.1 - 44.9 % [facility] Hemoglobin x 3 27.3(L) 33.6 - 47.1 g/dL [facility] 03/07/2025 3:00 AM EDT 03/08/2025 2:11 PM EDT us Aniceto Ladd MD LAB BLOOD ORDERABLES Final Resul t Performing Organization Address [facility] de Phone Number [facility] [address] [place] [address] * (ABNORMAL) Reticulocytes (02/21/2025 3:00 AM EDT) Only the most recent of2 resultswithin the time period is included. Reticulocyte 3.0(H) 0.5 - 1.7 % [facility] Retic Ct Pct 34.1 28.2 - 35.7 pg [facility] 02/21/2025 3:00 AM EDT 02/22/2025 12:19 PM EDT us Aniceto Ladd MD LAB BLOOD ORDERABLES Final Resul t Performing Organization Address [facility] de Phone Number [facility] [address] [place] [address] * (ABNORMAL) Hemoglobin A1c (02/21/2025 3:00 AM EDT) Only the most recent of2 resultswithin the time period is included. Hemoglobin A1C 8.6(H) <5.7 % [facility] Comment: Methodology: Enzymatic Normal: <5.7% Prediabetes: 5.7-6.4% Diabetes: >6.4% Diabetic Glucose Control Evaluation: Therapeutic action suggested at >8.0% ADA recommends a glycemic goal of <7.0% 02/21/2025 3:00 AM EDT 02/22/2025 12:19 PM EDT us Aniceto Ladd MD LAB BLOOD ORDERABLES Final Resul t Performing Organization Address [facility] de Phone Number [facility] [address] [place] [address] * (ABNORMAL) Lipid panel (02/21/2025 3:00 AM EDT) Only the most recent of2 resultswithin the time period is included. Cholesterol 154 mg/dL [facility] Comment: Optimal: <200 Borderline: 200-239 High Risk: >239 Triglycerides 137 mg/dL [facility] Comment: Optimal: <150 Borderline: 150-200 High Risk: >200 HDL 28(L) mg/dL [facility] Comment: Optimal: >59 Borderline: 40-59 High Risk: <40 LDL-Calc 99 mg/dL [facility] Comment: Optimal: <100 Borderline: 100-159 High Risk: >159 VLDL Cholesterol Akshat 27 mg/dL [facility] Comment: Optimal: <30 Borderline: 30-40 High Risk: >40 Chol/HDL Ratio 5.5(H) [facility] Comment: Optimal: <3.3 High Risk: >6.2 02/21/2025 3:00 AM EDT 02/22/2025 12:17 PM EDT us Aniceto Ladd MD LAB BLOOD ORDERABLES Final Resul t Performing Organization Address [facility] de Phone Number [facility] [address] [place] [address] * Collection Date (01/26/2025 3:00 AM EDT) Collection Date See Comment [facility] Comment: Patient sample received may exceed specimen stability, based on the collection date electronically provided. When reviewing patient results, verify collection information and consider specimen stability before acting on any critical or panic results. 01/26/2025 3:00 AM EDT Aniceto Ladd MD LAB [id number] ICITED RESULTS Final Result Performing Organization Address [facility] de Phone Number [address] [address] * Aluminum level (01/26/2025 3:00 AM EDT) Aluminum 2 1 - 20 ug/L [facility] Comment: This test was developed and its performance characteristics determined by [facility] in a manner consistent with CLIA requirements. This test has not been cleared or approved by the U.S. Food and Drug Administration. 01/26/2025 3:00 AM EDT 01/29/2025 1:18 PM EDT Aniceto Ladd MD LAB BLOOD ORDERABLES Final Resul t Performing Organization Address [facility] Phone Number [address] [address] * Confirmation Test HCV (01/24/2025 3:00 AM EDT) Hep C Ab Confirmation Not needed [facility] 01/24/2025 3:00 AM EDT 01/25/2025 12:23 PM EDT Aniceto Ladd MD LAB BLOOD ORDERABLES Final Resul t Performing Organization Address [facility] de Phone Number [address] [address] * HEPATITIS C ABS W/REFLEX RNA DETECTR (01/24/2025 3:00 AM EDT) Hep C Virus Ab Non-Reacti ve Non-Reacti ve [facility] 01/24/2025 3:00 AM EDT 01/25/2025 12:25 PM EDT Aniceto Ladd MD LAB [id number] ICITED RESULTS Final Result Performing Organization Address [facility] de Phone Number [facility] [address] [place] [address] * Hepatitis B Surface Ag w/Reflex Confirmation (01/24/2025 3:00 AM EDT) Hep B Surface Antigen Negative Negative [facility] 01/24/2025 3:00 AM EDT 01/25/2025 12:25 PM EDT Aniceto Ladd MD LAB BLOOD ORDERABLES Final Resul t Performing Organization Address [facility] de Phone Number [facility] [address] [place] [address] * Hepatitis B Core Antibody, Total (01/24/2025 3:00 AM EDT) Pathologist [facility] HBc Total Ab, S Negative Negative [facility] 01/24/2025 3:00 AM EDT 01/25/2025 12:25 PM EDT us Aniceto Ladd MD LAB BLOOD ORDERABLES Final Resul t Performing Organization Address [facility] de Phone Number [facility] [address] [place] [address] * Vitamin D 25 Hydroxy (01/24/2025 3:00 AM EDT) Pathologist [facility] Vitamin D, 25-Hydroxy 20 30 - 100 ng/mL [facility] Comment: Status Adult Pediatric Deficient: <20 <15 Insufficient: 20-29 15-19 Sufficient: 30-100 20-100 01/24/2025 3:00 AM EDT 01/25/2025 12:25 PM EDT us Aniceto Ladd MD LAB BLOOD ORDERABLES Final Resul t Performing Organization Address [facility] de Phone Number [facility] [address] [place] [address] * Hepatitis B Surface Antibody (01/24/2025 3:00 AM EDT) Pathologist [facility] Hep B Surface Antibody 672 mIU/mL [facility] Comment: Interpretation: <10: No Immunity >=10: Probable Immunity 01/24/2025 3:00 AM EDT 01/25/2025 12:25 PM EDT us Aniceto Ladd MD LAB BLOOD ORDERABLES Final Resul t Performing Organization Address [facility] Co de Phone Number [facility] [address] [place] [address] * Uric Acid (01/24/2025 3:00 AM EDT) Uric Acid 5.7 2.3 - 6.6 mg/dL [facility] 01/24/2025 3:00 AM EDT 01/25/2025 12:25 PM EDT us Aniceto Ladd MD LAB BLOOD ORDERABLES Final Resul t Performing Organization Address [facility] Co de Phone Number [facility] [address] [place] [address] from Last 3 Months Insurance Medicare [place]
--- OUTSIDE RECORDS SUMMARY | 2025-04-12 09:16 | XMS_ITS | Encounter Summary ---
Author Organization [facility] Address [address] [place] [address] Care Team Providers Care Shelter Advocate Name Role Phone Pcp, No Primary Care Provider UnavailXuan Choudhary APRN Primary Care Provider [phone] Dialysis, [address] Unavailable + Shanae Baeza MD Unavailable [phone] Martha Cunha MD Primary Care Provider [phone] Encounter Details Date Type Department Care Team (Late st Contact Info) Description 08/11/2016 Scanned Document [address] [address] Susana Becker MD [address] [place] [address] Social History Tobacco Use Types Packs/Day Years [...] documented as of this encounter Care Teams Shelter Advocate Relationship Specialty Start Date End Date Pcp, No PCP - General General Medicine 07/26/16 05/20/21 Xuan Baxter APRN PCP - General Family Medicine 05/21/21 06/03/24 Martha Cunha MD [address] [facility] [place] [address] PCP - General Family Medicine 06/04/24 [facility] [address] [facility] [place] [address] Dialysis Unit 11/21/23 Shanae Baeza MD [address] [facility] [place] [address] 11/21/23 documented as of this encounter
--- OUTSIDE RECORDS SUMMARY | 2025-04-12 09:17 | XMS_ITS | Encounter Summary ---
Author Organization [facility] Address [address] [place] [address] Care Team Providers Care Meteorological Engineer Name Role Phone Dialysis, [address] Unavailable + Shanae Baeza MD Unavailable [phone] Martha Cunha MD Primary Care Provider [phone] Encounter Details Date Type Department Care Team (Late st Contact Info) Description 11/01/2024 Scanned Document [facility] [address] [place] [address] Woody Goodrich MD [address] [place] [address] Social History Tobacco Use Types Packs/Day Years Used Date Smoking Tobacco: Former Cigarettes - 2022 Smokeless Tobacco: Never Alcohol Use Standard Drinks/Week [...] On track( 2:52 PM EDT) No Anabela Corral, PT Note: Improve CAROM into flex & ext 40 without pain in 4 wks. 08/25/16: met PT LTG 2 Physical Therapy On track( 2:52 PM EDT) No Anabela Corral, PT Note: Improve CAROM into rotation to 60 B without pain to assist with driving safety in 4 wks. 08/25/16: met PT LTG 3 Physical Therapy On track( 2:52 PM EDT) No Anabela Corral, PT Note: Improve L shoulder abd, flex 150 to reach overhead without pain in 4 wks. 08/25/16: met PT LTG 4 Physical Therapy Not on track( 2:53 PM EDT) No Anabela Corral, PT Note: Reduce ESPINAL frequency to <3x / wk in 4 wks. 08/25/16: ongoing daily HAs unrelated to CS positioning or muscular tension PT LTG 5 Physical Therapy Not on track( 2:54 PM EDT) No Anbaela Corral, PT Note: Improve NDI score < 15% in 4 wks 08/25/16: 24% improved from 42% documented as of this encounter Visit Diagnoses Not on filedocumented in this encounter Care Teams Meteorological Engineer Relationship Specialty Start Date End Date Martha Cunha MD [address] [facility] [place] [address] PCP - General [facility] Medicine 06/04/24 Dialysis, [facility] [address] [place] [place] [address] Dialysis Unit 11/21/23 Shanae Baeza MD [address] [place] [place] [address] 11/21/23 documented as of this encounter
--- OUTSIDE RECORDS SUMMARY | 2025-04-12 09:17 | XMS_ITS | Encounter Summary ---
Author Organization [facility] Address [address] [place] [address] Care Team Providers Care Rental Salesperson Name Role Phone Martha Cunha MD Primary Care Provider [phone] Encounter Details Date Type Department Care Team (Late st Contact Info) Description 07/28/2024 Lab Requisition [facility] Main Lab [address] [place] [address] Shanae Baeza MD [address] [place], [place] [id number] End stage renal disease (CMS/HCC V24, CMS/HCC [...] Name Priority Date/Time Associated Diagnosis Comments POTASSIUM STAT 07/28/2024 3:00 PM EST End stage renal disease (CMS/HCC) documented in this encounter Results * (ABNORMAL) Potassium (07/28/2024 3:00 PM EST) Potassium 5.5(H) 3.5 - 5.1 mmol/L LAB CHEMISTRY METHOD 07/28/2024 6:30 PM EST [facility] Blood Venous blood specimen / Unknown 07/28/2024 3:00 PM EST 07/28/2024 6:11 PM EST us Shanae Baeza MD LAB BLOOD ORDERABLES Final Re sult [facility] [address] [place] [address], documented in this encounter Visit Diagnoses Diagnosis End stage renal disease (CMS/HCC V24, CMS/HCC V28) End stage renal disease documented in this encounter Care Teams Rental Salesperson Relationship Specialty Start Date End Date Martha Cunha MD [address] [place] [phone] PCP - General 05/25/23 documented as of this encounter
--- OUTSIDE RECORDS SUMMARY | 2025-04-12 09:17 | XMS_ITS | Clinical Summary ---
Author Organization [facility] Address [address] [facility] [address] [place] [address] Phone Care Team Providers Care Clinical Writer Name Role Phone Pcp, Unknown Primary Care Provider Unavailabl e Social History Tobacco Use Types Packs/Day Years Used Date Smoking Tobacco: Never Assessed Education Answer Date Recorded Are you interested in more education? Not on raghu e 02/22/2025 Are you concerned about learning? Not on file 02/22/2025 No 02/22/2025 No 02/22/2025 Digital Access Answer Date Recorded No 02/22/2025 No 02/22/2025 Reliable internet access at home? Not on file 02/22/2025 Device with a working camera? Not on file Comments Unknown Sex and Gender Information Value Date Recorded Sex Assigned at Not on file Legal Sex Female 10:56 AM EDT Gender Identity Not on file Sexual Orientation Not on file Plan of Treatment Upcoming Encounters Date Type Department Care Team (Late st Contact Info) Description 10/25/2025 8:00 AM EDT Office Visit [facility] Medicine [address] [place] [address] Andre Lieberman MD [address] [facility], [address] [place] [address] Health Maintenance Due Date Last Done Comments Adult Td,Tdap Booster 1968 LIPID PANEL 1968 DEPRESSION SCREENING 1980 SMOKING Hx and SMOKELESS TOB ACCO SCREENING 1981 HEPATITIS C SCREENING 1986 HIV ONE-TIME SCREENING (18-6 5 YEARS) 1986 PAP SMEAR 1989 MAMMOGRAM 2008 COLOGUARD 2013 COLONOSCOPY 2013 COLORECTAL CANCER SCREENING 2013 FIT TEST 2013 FOBT 2013 SIGMOIDOSCOPY 2013 VIRTUAL COLONOSCOPY 2013 PNEUMOCOCCAL VACCINES (50+ y ears) (1 of 1 - PCV) 2018 ZOSTER VACCINES (1 of 2) 2018 INFLUENZA VACCINE (#1) 2024 COVID-19 VACCINE (1 - 2024-2 6 season) 2025 RSV VACCINE (1 - 1-dose 75+ series) 2043 HEPATITIS A VACCINES Aged Out No long er eligible based on patient's age to complete this topic HIB VACCINES Aged Out No longer eligi ble based on patient's age to complete this topic IPV VACCINES Aged Out No longer eligi ble based on patient's age to complete this topic MENINGOCOCCAL VACCINES (ACWY) Aged Out No longer eligible based on patient's age to complete this topic MENINGOCOCCAL VACCINES (B) Aged Out N o longer eligible based on patient's age to complete this topic Medical Devices Not on file [facility] B [place] Member Subscriber Plan / Payer (Ef fective 2024-) Name:Shara Marquis Member ID:[id number] Relation to Subscriber:Self Name:MarquisShara acosta Subscriber ID:[id number] Payer ID:[id number] Group ID:Not on file Type:Medicare Address: [employer] [facility] [address] [place] [address] [place] Member Subscriber Plan / Payer (Ef fective 2024-Present) Name:Shara Marquis Member ID:[id number] Relation to Subscriber:Self Name:Shara Marquis Subscriber ID:[id number] Payer ID:[id number] Group ID:Not on file Type:Medicare Address: [employer] [address] [place] [address] [facility] MEDICARE PART A & B Member Subscriber Plan / Payer (Ef fective 2024-Present) Name:Shara Marquis Member ID:[id number] Relation to Subscriber:Self Name:Shara Marquis Subscriber ID:[id number] Payer ID:[id number] Group ID:Not on file Type:Medicare Address: [employer] [address] [place] [address] Care Teams Clinical Writer Relationship Specialty Start Date End Date Pcp, Unknown PCP - General 02/22/25 Additional Source Comments The information contained in this document represents components of the legal health record. It is not the complete legal health record.[facility]
--- OUTSIDE RECORDS SUMMARY | 2025-04-12 09:17 | XMS_ITS | Encounter Summary ---
Author Organization [facility] Address [address] [place] [address] Care Team Providers Care Screen Maker Name Role Phone Dialysis, [address] Unavailable + Shanae Baeza MD Unavailable [phone] Martha Cunha MD Primary Care Provider [phone] Encounter Details Date Type Department Care Team (Late st Contact Info) Description 06/08/2024 Scanned Document [facility] RETINA CONSULT [address] [facility] [address] [place] [address] Alexandre Cleveland MD [address] [place] [address] Social History Tobacco Use Types Packs/Day Years [...] on filedocumented in this encounter Care Teams Screen Maker Relationship Specialty Start Date End Date Martha Cunha MD [address] [facility] [place] [address] PCP - General [facility] Medicine 06/04/24 Dialysis, [facility] [address] [facility] [place] [address] Dialysis Unit 11/21/23 Shanae Baeza MD [address] [facility] [place] [address] 11/21/23 documented as of this encounter
--- OUTSIDE RECORDS SUMMARY | 2025-04-12 09:17 | XMS_ITS | Encounter Summary ---
Author Organization [facility] Address [address] [place] [address] Care Team Providers Care Director Data Name Role Phone Dialysis, [address] Unavailable + Shanae Baeza MD Unavailable [phone] Martha Cunha MD Primary Care Provider [phone] Encounter Details Date Type Department Care Team (Late st Contact Info) Description 02/04/2025 Scanned Document [facility] [address] [place] [address] Woody Goodrich MD [address] [place] [address] Social History Tobacco Use Types Packs/Day Years [...] on filedocumented in this encounter Care Teams Director Data Relationship Specialty Start Date End Date Martha Cunha MD [address] [facility] [place] [address] PCP - General [facility] Medicine 06/04/24 Dialysis, [facility] [address] [facility] [place] [address] Dialysis Unit 11/21/23 Shanae Baeza MD [address] [facility] [place] [address] 11/21/23 documented as of this encounter
--- OUTSIDE RECORDS SUMMARY | 2025-04-12 09:17 | XMS_ITS | Encounter Summary ---
Author Organization [facility] Address [address] [place] [address] Care Team Providers Care Screen Print Operator Name Role Phone Xuan Baxter APRN Primary Care Provider [facility] [facility] Unavailable + Shanae Baeza MD Unavailable [phone] Martha Cunha MD Primary Care Provider Encounter Details Date Type Department Care Team (Late st Contact Info) Description 07/15/2023 Scanned Document [facility] [address] [place] [address] Woody Goodrich MD [address] [place], [place] [id number] Social History Tobacco Use Types Packs/Day Years Used Date Smoking Tobacco: Former Cigarettes - 2021 Smokeless Tobacco: Never Alcohol Use Standard Drinks/Week [...] filedocumented in this encounter Care Teams Screen Print Operator Relationship Specialty Start Date End Date Xuan Baxter APRN PCP - General Family Medicine 05/21/21 06/03/24 Martha Cunha MD [address] [place] [address] [place] [address] PCP - General Family Medicine 06/04/24 Dialysis, [address] [facility] [place] [address] Dialysis Unit 11/21/23 Shanae Baeza MD [address] [place] [address] [place] [address] 11/21/23 documented as of this encounter
--- OUTSIDE RECORDS SUMMARY | 2025-04-12 09:17 | XMS_ITS | Encounter Summary ---
Author Organization [facility] Address [address] [place] [address] Care Team Providers Care Blanket Maker Name Role Phone Dialysis, [address] Unavailable + Shanae Baeza MD Unavailable [phone] Martha Cunha MD Primary Care Provider [phone] Encounter Details Date Type Department Care Team (Late st Contact Info) Description 08/29/2024 Scanned Document [facility] [address] [place] [address] Ethan Park MD [address] [place] [address] Social History Tobacco Use Types Packs/Day Years Used Date Smoking Tobacco: Former Cigarettes 2022 Smokeless Tobacco: Never Alcohol Use Standard [...] on filedocumented in this encounter Care Teams Blanket Maker Relationship Specialty Start Date End Date Martha Cunha MD [address] [place] [address] [place] [address] PCP - General Family Medicine 06/04/24 Dialysis, [facility] [address] [facility] [place] [address] Dialysis Unit 11/21/23 Shanae Baeza MD [address] [place] [address] [place] [address] 11/21/23 documented as of this encounter
--- OUTSIDE RECORDS SUMMARY | 2025-04-12 09:17 | XMS_ITS | Encounter Summary ---
Author Organization [facility] Address [address] [place] [address] Care Team Providers Care Apprentice Lineman Third Step Name Role Phone Martha Cunha MD Primary Care Provider [phone] Encounter Details Date Type Department Care Team (Late st Contact Info) Description 07/03/2024 Lab Requisition [facility] Main Lab [address] [place] [address] Shanae Baeza MD [address] [place], [place] [id number] Other acute kidney failure (CMS/HCC V24) Social History Tobacco Use Types Packs/Day Years [...] Priority Date/Time Associated Diagnosis Comments POTASSIUM STAT 07/03/2024 3:00 PM EST Other acute kidney failure (CMS/HCC) CALCIUM STAT 07/03/2024 3:00 PM EST Other acute kidney failure (CMS/HCC) documented in this encounter Results * Calcium (07/03/2024 3:00 PM EST) Calcium 9.0 8.4 - 10.2 mg/dL LAB CHEMISTRY METHOD 07/03/2024 5:44 PM EST [facility] Blood Venous blood specimen / Unknown 07/03/2024 3:00 PM EST 07/03/2024 5:25 PM EST us Shanae Baeza MD LAB BLOOD ORDERABLES Final Re sult Performing Organization Address City/[facility]/ZIP Co de Phone Number [facility] [address] [place] [address], [place] [phone] * Potassium (07/03/2024 3:00 PM EST) Potassium 4.1 3.5 - 5.1 mmol/L LAB CHEMISTRY METHOD 07/03/2024 5:44 PM EST [facility] Blood Venous blood specimen / Unknown 07/03/2024 3:00 PM EST 07/03/2024 5:25 PM EST us Shanae Baeza MD LAB BLOOD ORDERABLES Final Re sult [facility] [address] [place] [address], [place] [phone] documented in this encounter Visit Diagnoses Diagnosis Other acute kidney failure (CMS/HCC V24) documented in this encounter Care Teams Apprentice Lineman Third Step Relationship Specialty Start Date End Date Martha Cunha MD [address] [address] PCP - General 05/25/23 documented as of this encounter
--- OUTSIDE RECORDS SUMMARY | 2025-04-12 09:17 | XMS_ITS | Data Portability ---
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 Olmedo is stable and medically optimized at this time to the best of my knowledge. She had her cardiology pre-op clearance May 03 2024. note not available in the office Patient is at [facility] for perioperative complication with comorbidities as described above and medically stable to proceed with proposed surgery ASA CLASSIFICATION: 3 MALLAMPATI CLASS: 3 PLAN/ ORDERS: 1. Patient was advised to call surgeon if develops respiratory illness, fever, or other illness prior to the planned surgery. No food or liquids the morning of surgery. 2. Patient was instructed to hold 5 days prior to the surgery: any OTC herbal supplement or vitamins 3. The morning of the surgery the patient was instructed to ONLY TAKE the following medications with sip of water; - Hydralazine 100 mg - Levothyroxine 25 mcg - Carvelidol 25 mg - Amlodipine 10 mg 4. The morning of the surgery she must HOLD the following medications: - GLIPIZIDE 5 mg - TORSEMIDE 20 mg 5. DIABETES: - Patient was told to hold oral hypoglycemics - insulin TRESHIBA - the recommendation is to take - 1/2 of the dose ( 14 units only) the day of the surgery. 6. CKD on hemodialysis Recommend to have dialysis one day before the surgery 7. As always, we recommend adequate perioperative monitoring and postoperative DVT prophylaxis per institutional protocol. 8. Cardiology she is followed by Dr. Quezada- she has her pre-op evaluation with him May 03 2024 Special needs: intrerpreter ( spanisg speaking only ) , hearing impaired EKG results:will be done by cardiology [email or web address] Not available 05/11/2024 18:33:59 08/16/2024 08/16/2024 patient presente d today for her regular schedule follow up 1. HYPERTENSION Co-managed by cardiology Dr Damien hopper in good control today she will continue current medications and doses ( she needs to bring an update list - Amlodipine 10 mg daily - Carvedilol 25 mg BID - Hydralazine 50 mg daily - Clonidine .0.2 mg transdermal every week - lisinopril 40 mg daily - losartan 25 mg daily 2. HEART FAILURE Managed By Dr Quezada - cardiology Report to be feeling well, negative for SOB or dyspnea but reports leg edema Medications - Carvedilol 25 mg BID - Hydralazine 50 mg daily - torsemide 75 mg BID 3. HYPERLIPIDEMIA Not taking it because she run out of the statin- he can not recall when Medication: -Rosuvastatin 5 mg daily 3. Diabetes Mellitus type 2 With complications - Neuropathy - diabetic retinopathy - CKD end stage Today A1C 6.4 advised to use the Gianluca - need to get new sensor continue current medications Medications - Dkasszgz08 units daily - Glipizide XL 5 mg daily 4. Hypothyroidism stable with good TSH suppression continue current Medication - Levothyroxine 25 mch daily 5 Depression stable Continue management by Psych Dr Tori Covarrubias medication -Trazodone 50 mg bedtime -sertraline 100 mg daily 6. CKD end stage on hemodialysis medications: - sevelsner 80 mg 9 tab daily - calcitrol 0.25 mg daily 7. Carotid artery medication -plavix 75 mg daily FOLLOW UP PLAN: *RTC for lab results 6 weeks I spent greater than 35 minutes during this encounter, which included time spent in reviewing patient's chart before kiiv-re-itzp encounter, akaf-uq-lett encounter with the patient which included history taking, medication reconciliation, physical exam, placing necessary orders, discussing plan of care with the patient and counseling. This also includes time spent after the visit for documentation. Communication barriers and lifestyle preferences were addressed with the patient. The care plan including medications and self-management goals were reviewed to the best of the patient's ability. All questions and concerns were answered. Patient and/or family verbalized understanding of the plan of care. [email or web address] Not available 10/03/2024 17:42:54 10/04/2024 10/04/2024 patient presente d or follow up as directed 1. HYPERTENSION Co-managed by cardiology Dr Quezada stable she will continue current medications and doses - Amlodipine 10 mg daily - Carvedilol 25 mg BID - Hydralazine 50 mg daily - Clonidine .0.2 mg transdermal every week - lisinopril 40 mg daily - losartan 25 mg daily 2. Diabetes Mellitus type 2 With multiple complications :- Neuropathy , - diabetic retinopathy , - CKD end stage Last A1C : 6.4 ( 08/16/2024) the proper use of her Gianluca 3 was reviewed with her. The reader prescription was sent to her pharmacy She will continue current medications - Vghkdokk96 units daily - Glipizide XL 5 mg daily - Advised to follow a sugar free diet as much as possible 3. HYPERLIPIDEMIA she will continue current medication and dose -Rosuvastatin 5 mg daily _ low fate diet recommended 4. Hypothyroidism stable with good TSH suppression current Medication - Levothyroxine 25 mch daily BLOOD TEST RESULTS: pending FOLLOW UP PLAN *RTC: 11/09/2024 for pre-op cataract / test results I spent greater than 34 minutes during this encounter, which included time spent in reviewing patient's chart before lfjj-ow-wrsp encounter, zjzv-oy-bogj encounter with the patient which included history taking, medication reconciliation, physical exam, placing necessary orders, discussing plan of care with the patient and counseling. This also includes time spent after the visit for documentation. Communication barriers and lifestyle preferences were addressed with the patient. The care plan including medications and self-management goals were reviewed to the best of the patient's ability. All questions and concerns were answered. Patient and/or family verbalized understanding of the plan of care. [email or web address] Not available 10/07/2024 13:59:20 11/09/2024 11/09/2024 The patient Ms. Olmedo is doing well but not medically stable due to a poor thyroid function- uncontrolled hypothyroidism . Due to this reason the surgery should be POSTPONE until she is more euthyroid ASA CLASSIFICATION: 3 MALLAMPATI CLASS: 3 PLAN/ ORDERS: Surgery should be POSTPONE until she is more euthyroid This was d/w the surgeon office as well as with the patient directly She was advised to make sure she takes her medication as directed the thyroid medicaton dose was increased - Levothyroxine 75 mcg daily - need repeat the Thyroid function test in 6 to 8 week on the thyroid function is better , the cataract surgery can be re-scheduled EKG results: not done today BLOOD TEST: none I spent greater than 40 minutes during this encounter, which included time spent in reviewing patients chart before kqip-mc-gsxs encounter, dchu-uw-hevt encounter with the patient which included history taking, medication reconciliation, physical exam, placing necessary orders, discussing plan of care with the patient and counseling. This also includes time spent after the visit for documentation. Communication barriers and lifestyle preferences were addressed with the patient. The care plan including medications and self-management goals were reviewed to the best of the patients ability. All questions and concerns were answered. Patient and/or family verbalized understanding of the plan of care. [email or web address] Not available 11/22/2024 18:20:59 Plan of Treatment Reminders Order Date Submit Date Provider Last Modified By Organization Details Last Modified Time Details Appointments None recorded. Lab TSH + free T4, serum [address] [facility], [address] [place] [address] [address], [place], [address], 5 03:13:06 glucose, fingersti ck, blood 2024 025 [email or web address] [facility], [address] [place] [address] 202, [place], [address], 5 12:42:38 hemoglobi n A1C, fingersti ck 2024 025 [email or web address] [facility], [address] [place] [address] 202, [place], [address], 5 12:42:39 hemoglobi n A1C, fingersti ck 2023 024 [email or web address] [facility], [address] [facility], [facility] [address], [place], [address], 4 18:35:33 glucose, fingersti ck, blood 2023 024 [email or web address] [facility], [address] [facility], [facility] [address], [place], [address], 4 18:35:33 Referral None recorded. Procedures None recorded. Surgeries None recorded. Imaging None recorded. Medication Orders levothyro xine 75 mcg tablet 2024 025 [facility], [address] [place], [address], 5 12:54:47 Patient TargetsNo targets recorded. Patient InstructionsNo instructions recorded. Reason for Referral None Reported. Results Created Date Observation Date Name Description Value Unit Range Abnormal Flag Note LastModifiedBy Organization Detail LastModifiedTime 04/25/20 24 04/25/2024 CBC WITH AUTO DIFFE RENTI AL WBC 6.0 K/mcL 4.0-10 .5 Not Available [address] [place] [address], [address], 04/25/2024 11:03:27 04/25/20 24 04/25/2024 CBC WITH AUTO DIFFE RENTI AL RBC 4.13 M/mcL 4.20-5 .40 low Not Available [address], [address], 04/25/2024 11:03:27 04/25/20 24 04/25/2024 CBC WITH AUTO DIFFE RENTI AL hemoglobin 12.3 g/dL 12.5-1 6.0 low Not Available [address] [place] [address], [address], 04/25/2024 11:03:27 04/25/20 24 04/25/2024 CBC WITH AUTO DIFFE RENTI AL hematocrit 36.6 % 37.0-4 7.0 low Not Available [address] [place] [address], [address], 04/25/2024 11:03:27 04/25/20 24 04/25/2024 CBC WITH AUTO DIFFE RENTI AL MCV 88.8 fL 78.0-1 00.0 Not Available [address] [place] [address], [address], 04/25/2024 11:03:27 04/25/20 24 04/25/2024 CBC WITH AUTO DIFFE RENTI AL MCH 29.7 pcg 25.0-3 3.0 Not Available [address], [address], 04/25/2024 11:03:27 04/25/20 24 04/25/2024 CBC WITH AUTO DIFFE RENTI AL MCHC 33.5 g/dL 32.0-3 6.0 Not Available [address], [address], 04/25/2024 11:03:27 04/25/20 24 04/25/2024 CBC WITH AUTO DIFFE RENTI AL RDW 17.1 % 12.1-1 6.2 high Not Available [address], [address], 04/25/2024 11:03:27 04/25/20 24 04/25/2024 CBC WITH AUTO DIFFE RENTI AL platelets 196 K/mcL 150-45 0 Not Available [address], [address], 04/25/2024 11:03:27 04/25/20 24 04/25/2024 CBC WITH AUTO DIFFE RENTI AL MPV 8.1 fL 7.4-11 .4 Not Available [address], [address], 04/25/2024 11:03:27 04/25/20 24 04/25/2024 CBC WITH AUTO DIFFE RENTI AL neutrophils relative 79.4 % 44.0-7 4.0 high Not Available [address], [address], 04/25/2024 11:03:27 04/25/20 24 04/25/2024 CBC WITH AUTO DIFFE RENTI AL lymphocytes relative 9.2 % 20.0-4 8.0 low Not Available [address], [address], 04/25/2024 11:03:27 04/25/20 24 04/25/2024 CBC WITH AUTO DIFFE RENTI AL monocytes relative 6.6 % 2.0-12 .0 Not Available [address], [address], 04/25/2024 11:03:27 04/25/20 24 04/25/2024 CBC WITH AUTO DIFFE RENTI AL eosinophils relative 3.5 % 0.0-6. 0 Not Available [address], [address], 04/25/2024 11:03:27 04/25/20 24 04/25/2024 CBC WITH AUTO DIFFE RENTI AL basophils relative 1.3 % 0.0-2. 0 Not Available [address], [address], 04/25/2024 11:03:27 04/25/20 24 04/25/2024 CBC WITH AUTO DIFFE RENTI AL neutrophils absolute 4.80 K/mcL 1.80-7 .80 Not Available [address], [address], 04/25/2024 11:03:27 04/25/20 24 04/25/2024 CBC WITH AUTO DIFFE RENTI AL lymphocytes absolute 0.60 K/mcL 1.00-3 .20 low Not Available [address], [address], 04/25/2024 11:03:27 04/25/20 24 04/25/2024 CBC WITH AUTO DIFFE RENTI AL monocytes absolute 0.40 K/mcL 0.00-0 .80 Not Available [address], [address], 04/25/2024 11:03:27 04/25/20 24 04/25/2024 CBC WITH AUTO DIFFE RENTI AL eosinophils absolute 0.20 K/mcL 0.00-0 .50 Not Available [address], [address], 04/25/2024 11:03:27 04/25/20 24 04/25/2024 CBC WITH AUTO DIFFE RENTI AL basophils absolute 0.10 K/mcL 0.00-0 .20 Not Available [address], [address], 04/25/2024 11:03:27 04/25/20 24 04/25/2024 CBC WITH AUTO DIFFE RENTI AL note See Report [facility], [address] [place] [address] [address], [facility] ord, [facility] [place] [address] Not Available [address], [address], 04/25/2024 11:03:27 05/25/19 25 05/25/2024 CBC WITH AUTO DIFFE RENTI AL WBC 7.0 K/mcL 4.0-10 .5 Not Available [address], [address], 05/25/2024 09:59:45 05/25/19 25 05/25/2024 CBC WITH AUTO DIFFE RENTI AL RBC 4.18 M/mcL 4.20-5 .40 low Not Available [address], [address], 05/25/2024 09:59:45 05/25/19 25 05/25/2024 CBC WITH AUTO DIFFE RENTI AL hemoglobin 12.3 g/dL 12.5-1 6.0 low Not Available [address], [address], 05/25/2024 09:59:45 05/25/19 25 05/25/2024 CBC WITH AUTO DIFFE RENTI AL hematocrit 37.1 % 37.0-4 7.0 Not Available [address], [address], 05/25/2024 09:59:45 05/25/19 25 05/25/2024 CBC WITH AUTO DIFFE RENTI AL MCV 88.7 fL 78.0-1 00.0 Not Available [address], [address], 05/25/2024 09:59:45 05/25/19 25 05/25/2024 CBC WITH AUTO DIFFE RENTI AL MCH 29.5 pcg 25.0-3 3.0 Not Available [address], [address], 05/25/2024 09:59:45 05/25/19 25 05/25/2024 CBC WITH AUTO DIFFE RENTI AL MCHC 33.2 g/dL 32.0-3 6.0 Not Available [address], [address], 05/25/2024 09:59:45 05/25/19 25 05/25/2024 CBC WITH AUTO DIFFE RENTI AL RDW 16.1 % 12.1-1 6.2 Not Available [address], [address], 05/25/2024 09:59:45 05/25/19 25 05/25/2024 CBC WITH AUTO DIFFE RENTI AL platelets 158 K/mcL 150-45 0 Not Available [address], [address], 05/25/2024 09:59:45 05/25/19 25 05/25/2024 CBC WITH AUTO DIFFE RENTI AL MPV 9.4 fL 7.4-11 .4 Not Available [address], [address], 05/25/2024 09:59:45 05/25/19 25 05/25/2024 CBC WITH AUTO DIFFE RENTI AL neutrophils relative 72.2 % 44.0-7 4.0 Not Available [address], [address], 05/25/2024 09:59:45 05/25/19 25 05/25/2024 CBC WITH AUTO DIFFE RENTI AL lymphocytes relative 13.8 % 20.0-4 8.0 low Not Available [address], [address], 05/25/2024 09:59:45 05/25/19 25 05/25/2024 CBC WITH AUTO DIFFE RENTI AL monocytes relative 9.4 % 2.0-12 .0 Not Available [address], [address], 05/25/2024 09:59:45 05/25/19 25 05/25/2024 CBC WITH AUTO DIFFE RENTI AL eosinophils relative 3.7 % 0.0-6. 0 Not Available [address], [address], 05/25/2024 09:59:45 05/25/19 25 05/25/2024 CBC WITH AUTO DIFFE RENTI AL basophils relative 0.9 % 0.0-2. 0 Not Available [address], [address], 05/25/2024 09:59:45 05/25/19 25 05/25/2024 CBC WITH AUTO DIFFE RENTI AL neutrophils absolute 5.00 K/mcL 1.80-7 .80 Not Available [address], [address], 05/25/2024 09:59:45 05/25/19 25 05/25/2024 CBC WITH AUTO DIFFE RENTI AL lymphocytes absolute 1.00 K/mcL 1.00-3 .20 Not Available [address], [address], 05/25/2024 09:59:45 05/25/19 25 05/25/2024 CBC WITH AUTO DIFFE RENTI AL monocytes absolute 0.70 K/mcL 0.00-0 .80 Not Available [address], [address], 05/25/2024 09:59:45 05/25/19 25 05/25/2024 CBC WITH AUTO DIFFE RENTI AL eosinophils absolute 0.30 K/mcL 0.00-0 .50 Not Available [address], [address], 05/25/2024 09:59:45 05/25/19 25 05/25/2024 CBC WITH AUTO DIFFE RENTI AL basophils absolute 0.10 K/mcL 0.00-0 .20 Not Available [address], [address], 05/25/2024 09:59:45 05/25/19 25 05/25/2024 CBC WITH AUTO DIFFE RENTI AL note See Report [facility] is [facility], [address] [facility] and [address], [place], [place] [address] Not Available [address], [address], 05/25/2024 09:59:45 05/25/19 25 05/25/2024 IRON AND TIBC iron 65 mcg/d L 37-170 Not Available [address], [address], 05/25/2024 10:46:36 05/25/19 25 05/25/2024 IRON AND TIBC UIBC 148 mcg/d L 155-35 5 low Not Available [address], [address], 05/25/2024 10:46:36 05/25/19 25 05/25/2024 IRON AND TIBC TIBC 213 mcg/d L 250-45 0 low Not Available [address], [address], 05/25/2024 10:46:36 05/25/19 25 05/25/2024 IRON AND TIBC iron saturation 31 % 20-45 Not Available [address], [address], 05/25/2024 10:46:36 05/25/19 25 05/25/2024 IRON AND TIBC note See Report [facility], [address] [place] [address] t, [facility] ord, [facility] [place] [place] [address] Not Available [address], [address], 05/25/2024 10:46:36 05/25/19 25 05/25/2024 COLUMBA TIN ferritin 589 NG/mL 10-120 high Not Available [address], [address], 05/25/2024 11:04:17 05/25/19 25 05/25/2024 COLUMBA TIN note See Report [facility] is [facility], [address] [place] [address] [address], [facility] ord, [place] [address] Not Available [address], [address], 05/25/2024 11:04:17 06/26/19 25 06/26/2024 HEMOG LOBIN AND HEMAT OCRIT hemoglobin 8.8 g/dL 12.5-1 8.0 low Not Available [address], [address], 06/26/2024 20:57:33 06/26/19 25 06/26/2024 HEMOG LOBIN AND HEMAT OCRIT hematocrit 26.6 % 37.0-5 4.0 low Not Available [address], [address], 06/26/2024 20:57:33 06/26/19 25 06/26/2024 HEMOG LOBIN AND HEMAT OCRIT note See Report [facility], [address] [place] [address], [facility] [place] [address] Not Available [address], [address], 06/26/2024 20:57:33 07/03/19 25 07/03/2024 POTAS SIUM potassium 4.1 mmol/ L 3.5-5. 1 Not Available [address], [address], 07/03/2024 17:46:16 07/03/19 25 07/03/2024 POTAS SIUM note See Report [facility], [address] [place] [address], [facility] [place]ticu t [address] Not Available [address], [address], 07/03/2024 17:46:16 07/03/19 25 07/03/2024 CALCI UM calcium 9.0 mg/dL 8.4-10 .2 Not Available [address], [address], 07/03/2024 17:46:25 07/03/19 25 07/03/2024 CALCI UM note See Report [facility] escobar[facility]la [facility], [address] [place] [address], Conne [place]ticu t [address] Not Available [address], [address], 07/03/2024 17:46:25 07/29/19 25 07/28/2024 POTAS SIUM potassium 5.5 mmol/ L 3.5-5. 1 high Not Available [address], [address], 07/28/2024 22:34:14 07/29/19 25 07/28/2024 POTAS SIUM note See Report high [facility], [address] [place] [address], [facility] [place]ticu t [address] Not Available [address], [address], 07/28/2024 22:34:14 09/09/19 25 09/08/2024 POTAS SIUM potassium 7.1 mmol/ L 3.5-5. 1 critical high Not Available [address], [address], 09/08/2024 18:52:11 09/09/19 25 09/08/2024 POTAS SIUM note See Report critical high [facility], [address] [place] [address], [facility] [address] Not Available [address], [address], 09/08/2024 18:52:11 09/12/19 25 09/11/2024 POTAS SIUM potassium 5.5 mmol/ L 3.5-5. 1 high Not Available [address], [address], 09/11/2024 19:55:37 09/12/19 25 09/11/2024 POTAS SIUM note See Report high [facility]la [facility], [address] [place] [address], Conne [place] [address] Not Available [address], [address], 09/11/2024 19:55:37 09/19/19 25 09/18/2024 POTAS SIUM potassium 5.4 mmol/ L 3.5-5. 1 high Not Available [address], [address], 09/18/2024 18:43:24 09/19/19 25 09/18/2024 POTAS SIUM note See Report high [facility], [address], [facility] ord, [facility] [place] [address] Not Available [address], [address], 09/18/2024 18:43:24 10/12/19 25 10/11/2024 POTAS SIUM potassium 5.6 mmol/ L 3.5-5. 1 high Not Available [facility] [address] [facility] [place], [address], 10/11/2024 21:10:07 10/12/19 25 10/11/2024 POTAS SIUM note See Report high [facility]la [facility]at [facility], [address] [facility] ord, [facility] [place] [address] Not Available [facility] [address] [facility], [place], [address], 10/11/2024 21:10:07 01/18/20 25 01/17/2025 POTAS SIUM potassium 5.1 mmol/ L 3.5-5. 1 Not Available [facility] [address] [place], [address], 01/17/2025 23:47:11 01/18/20 25 01/17/2025 POTAS SIUM note See Report [facility], [address], [facility] ord, [place] [address] Not Available [facility]/S Dept [address] [place] [address], [address], 01/17/2025 23:47:11 01/20/20 25 01/18/2025 HEPAT ITIS B SURFA CE ANTIG EN hepatitis B surface Ag Negati ve negati ve Not Available [facility] [address] [place] [address], [address], 01/19/2025 00:44:09 01/20/20 25 01/18/2025 HEPAT ITIS B CORE ANTIB CATHLEEN IGM hep B core IgM Negati ve negati ve Not Available [facility] [address] [place] [address], [address], 01/19/2025 00:44:10 01/20/20 25 01/18/2025 HEPAT ITIS B SURFA CE ANTIB CATHLEEN hepatitis B surface Ab Positi ve negati ve abnormal Not Available [facility] [address] [place] [address], [address], 01/19/2025 00:44:10 01/20/20 25 01/18/2025 HEPAT ITIS B SURFA CE ANTIB CATHLEEN hepatitis B surface Ab quantitative 264.0 mIU/m L Not Available [facility] [address] [place] [address], [address], 01/19/2025 00:44:10 01/20/20 25 01/18/2025 HEPAT ITIS B SURFA CE ANTIB CATHLEEN note See Report [facility], [address] [place] [address], [facility] [place] [address] Not Available [facility]/S Dept [address] [place] [address], [address], 01/19/2025 00:44:10 05/08/20 24 05/08/2024 hemog lobin A1C, finge rstic k HbA1c 7.6 Not Available [address], [address], [place], [address], 05/08/2024 12:16:50 05/08/20 24 05/08/2024 gluco se, finge rstic k, blood Blood Glucose: mg/dl 296 Not Available [address], [address], [place], [address], 05/08/2024 12:17:04 08/17/19 25 08/16/2024 hemog lobin A1C, finge rstic k HbA1c 6.5 Not Available [address], [facility] [address], [place], [address], 08/16/2024 11:24:44 08/17/19 25 08/16/2024 gluco se, finge rstic k, blood Blood Glucose: mg/dl 276 Not Available [address], [address], [place], [address], 08/16/2024 11:24:35 11/06/19 25 11/05/2024 CBC WITH AUTO DIFFE RENTI AL WBC 7.1 K/mcL 4.0-10 .5 Not Available [facility] U/S Dept [address] [place], [address], 11/06/2024 23:28:48 11/06/19 25 11/05/2024 CBC WITH AUTO DIFFE RENTI AL RBC 4.15 M/mcL 4.20-6 .00 low Not Available [facility] U/S Dept [address] [place], [address], 11/06/2024 23:28:48 11/06/19 25 11/05/2024 CBC WITH AUTO DIFFE RENTI AL hemoglobin 12.7 g/dL 12.5-1 8.0 Not Available [facility]/S Dept [facility] [address] [place], [address], 11/06/2024 23:28:48 11/06/19 25 11/05/2024 CBC WITH AUTO DIFFE RENTI AL hematocrit 37.7 % 37.0-5 4.0 Not Available [facility] [address] [place], [address], 11/06/2024 23:28:48 11/06/19 25 11/05/2024 CBC WITH AUTO DIFFE RENTI AL MCV 90.8 fL 78.0-1 00.0 Not Available [facility] [address] [place], [address], 11/06/2024 23:28:48 11/06/19 25 11/05/2024 CBC WITH AUTO DIFFE RENTI AL MCH 30.7 pcg 25.0-3 3.0 Not Available [facility] [address] [place], [address], 11/06/2024 23:28:48 11/06/19 25 11/05/2024 CBC WITH AUTO DIFFE RENTI AL MCHC 33.8 g/dL 32.0-3 6.0 Not Available [facility] [address] [place], [place] [address] [facility] [place], [address], 11/06/2024 23:28:48 11/06/19 25 11/05/2024 CBC WITH AUTO DIFFE RENTI AL RDW 16.9 % 12.1-1 7.7 Not Available [facility] [address] [facility] [place], [address], 11/06/2024 23:28:48 11/06/19 25 11/05/2024 CBC WITH AUTO DIFFE RENTI AL platelets 200 K/mcL 150-45 0 Not Available [facility]/S Dept [address] [place], [address], 11/06/2024 23:28:48 11/06/19 25 11/05/2024 CBC WITH AUTO DIFFE RENTI AL MPV 9.5 fL 7.4-11 .4 Not Available [facility] [place], [address], 11/06/2024 23:28:48 11/06/19 25 11/05/2024 CBC WITH AUTO DIFFE RENTI AL neutrophils relative 71.8 % 44.0-7 4.0 Not Available [facility] [place], [address], 11/06/2024 23:28:48 11/06/19 25 11/05/2024 CBC WITH AUTO DIFFE RENTI AL lymphocytes relative 11.4 % 20.0-4 8.0 low Not Available [facility] [place], [address], 11/06/2024 23:28:48 11/06/19 25 11/05/2024 CBC WITH AUTO DIFFE RENTI AL monocytes relative 6.5 % 2.0-12 .0 Not Available [facility] [place], [address], 11/06/2024 23:28:48 11/06/1911/05/2024 CBC WITH AUTO DIFFE RENTI AL eosinophils relative 9.6 % 0.0-6. 0 high Not Available [facility] [place], [address], 11/06/2024 23:28:48 11/06/19 25 11/05/2024 CBC WITH AUTO DIFFE RENTI AL basophils relative 0.7 % 0.0-2. 0 Not Available [facility] [address] [place], [address], 11/06/2024 23:28:48 11/06/19 25 11/05/2024 CBC WITH AUTO DIFFE RENTI AL neutrophils absolute 5.10 K/mcL 1.80-7 .80 Not Available [facility] [place], [address], 11/06/2024 23:28:48 11/06/19 25 11/05/2024 CBC WITH AUTO DIFFE RENTI AL lymphocytes absolute 0.80 K/mcL 1.00-3 .20 low Not Available [facility] [place], [address], 11/06/2024 23:28:48 11/06/19 25 11/05/2024 CBC WITH AUTO DIFFE RENTI AL monocytes absolute 0.50 K/mcL 0.00-0 .80 Not Available [facility] [place], [address], 11/06/2024 23:28:48 11/06/19 25 11/05/2024 CBC WITH AUTO DIFFE RENTI AL eosinophils absolute 0.70 K/mcL 0.00-0 .50 high Not Available [facility] [address] [place], [place] [address] [place] [place], [address], 11/06/2024 23:28:48 11/06/19 25 11/05/2024 CBC WITH AUTO DIFFE RENTI AL basophils absolute 0.10 K/mcL 0.00-0 .20 Not Available [facility], [address], 11/06/2024 23:28:48 11/06/19 25 11/05/2024 CBC WITH AUTO DIFFE RENTI AL note See Report Joan cesar Servi mulu, [address], [facility] ord, [place] [address] Not Available [facility]/S Dept [facility] [place], [address], 11/06/2024 23:28:48 11/06/19 25 11/05/2024 LIPID PANEL cholesterol 168 mg/dL 0-200 Not Available [facility] [address] [place], [place] [address] [place], [address], 11/06/2024 23:30:08 11/06/19 25 11/05/2024 LIPID PANEL triglyceride s 119 mg/dL <150 Not Available [facility] [address] [place] [address] [place], [address], 11/06/2024 23:30:08 11/06/19 25 11/05/2024 LIPID PANEL HDL 50 mg/dL 32-70 Not Available [facility]/S Dept [facility] [address] [place] [facility] [place], [address], 11/06/2024 23:30:08 11/06/19 25 11/05/2024 LIPID PANEL LDL calculated 94 mg/dL 50-130 Not Available [facility] [address] [place] [address] [address] [facility] [place], [address], 11/06/2024 23:30:08 11/06/19 25 11/05/2024 LIPID PANEL VLDL cholesterol victoria 23.8 mg/dL No estab lishe d refer ence range . Not Available [facility]/S Dept [facility] [place], [address], 11/06/2024 23:30:08 11/06/19 25 11/05/2024 VITAM IN B12 vitamin B-12 360 pcg/m L 180-91 4 Not Available [facility] [address] [place], [place] [address] [facility] [place], [address], 11/06/2024 23:30:08 11/06/19 25 11/05/2024 VITAM IN D 25 HYDRO XY vit D, 25-hydroxy <10.0 NG/mL 30.0-1 00.0 low Not Available [facility] [address] [place] [address], [address], 11/06/2024 23:30:09 11/06/19 25 11/05/2024 THYRO ID STIMU LATIN G HORMO NE WITH REFLE X FREE T4 TSH 32.01 mciu/ mL 0.45-5 .33 high Not Available [facility] [address] [place] [address], [address], 11/06/2024 23:30:09 11/06/19 25 11/05/2024 THYRO XINE FREE free T4 0.50 NG/dL 0.50-1 .30 Not Available [facility] [address] [place] [address], [address], 11/06/2024 23:30:10 11/06/19 25 11/05/2024 COMPR EHENS JEREL METAB OLIC PANEL sodium 136 mmol/ L 135-14 5 Not Available [facility] [address] [place] [address], [address], 11/06/2024 23:30:10 11/06/19 25 11/05/2024 COMPR EHENS JEREL METAB OLIC PANEL potassium 6.5 mmol/ L 3.5-5. 1 critical high Verif ied by repea t jevon sis Not Available [facility] [address] [place] [address], [address], 11/06/2024 23:30:10 11/06/19 25 11/05/2024 COMPR EHENS JEREL METAB OLIC PANEL chloride 93 mmol/ L 98-107 low Not Available [facility] [address] [place] [address], [address], 11/06/2024 23:30:10 11/06/19 25 11/05/2024 COMPR EHENS JEREL METAB OLIC PANEL CO2 31 mmol/ L 24-32 Not Available [facility]/S Dept [address] [place], [place] [address], [address], 11/06/2024 23:30:10 11/06/19 25 11/05/2024 COMPR EHENS JEREL METAB OLIC PANEL anion gap 12 5-14 Not Available [facility]/S Dept [address] [place], [place] [address]wy [facility] [place], [address], 11/06/2024 23:30:10 11/06/19 25 11/05/2024 COMPR EHENS JEREL METAB OLIC PANEL glucose 125 mg/dL 70-99 high Not Available [facility]/S Dept [address] [place] [address] [place], [address], 11/06/2024 23:30:10 11/06/19 25 11/05/2024 COMPR EHENS JEREL METAB OLIC PANEL BUN 53 mg/dL Not Available [facility]/S Dept [address] [place], [place] [address], [address], 11/06/2024 23:30:10 11/06/19 25 11/05/2024 COMPR EHENS JEREL METAB OLIC PANEL creatinine 6.20 mg/dL 0.50-1 .30 high Not Available [facility]/S Dept [address] [place], [place] [address], [address], 11/06/2024 23:30:10 11/06/19 25 11/05/2024 COMPR EHENS JEREL METAB OLIC PANEL eGFR 7 mL/mi n/1.7 3m2 >=60 low For non-b inary indiv idual s or unkno wn sex, the equat ion for femal e sex is used to calcu late the estim ated glome rular filtr ation rate (eGFR ). Calcu latio n based on the Chron ic Kidne y Disea se Epide miolo gy Colla borat ion (CKD- EPI) equat ion refit witho ut adjus tment for race. Not Available [facility]/S Dept [facility] [place], [address], 11/06/2024 23:30:10 11/06/19 25 11/05/2024 COMPR EHENS JEERL METAB OLIC PANEL BUN/creatini ne ratio 8.5 12.0-2 0.0 low Not Available [facility]/ Dept [address] [place] [address] [place], [address], 11/06/2024 23:30:10 11/06/19 25 11/05/2024 COMPR EHENS JEREL METAB OLIC PANEL calcium 9.0 mg/dL 8.4-10 .2 Not Available [facility] [address] [place] [address] [place], [address], 11/06/2024 23:30:10 11/06/19 25 11/05/2024 COMPR EHENS JEREL METAB OLIC PANEL AST (SGOT) 21 unit/ L 5-40 Not Available [facility] [address] [place] [address] [place], [address], 11/06/2024 23:30:10 11/06/19 25 11/05/2024 COMPR EHENS JEREL METAB OLIC PANEL ALT (SGPT) 17 unit/ L 7-52 Not Available [facility]/S Dept [address] [place] [address] [place], [address], 11/06/2024 23:30:10 11/06/19 25 11/05/2024 COMPR EHENS JEREL METAB OLIC PANEL alkaline phosphatase 101 unit/ L 34-104 Not Available [facility] [address] [place], [place] [address], [address], 11/06/2024 23:30:10 11/06/19 25 11/05/2024 COMPR EHENS JEREL METAB OLIC PANEL total protein 7.4 g/dL 6.4-8. 5 Not Available [facility]/S Dept [address] [place] [address], [address], 11/06/2024 23:30:10 11/06/19 25 11/05/2024 COMPR EHENS JEREL METAB OLIC PANEL albumin 4.2 g/dL 3.5-5. 0 Not Available [facility]/S Dept [address] [place] [address], [address], 11/06/2024 23:30:10 11/06/19 25 11/05/2024 COMPR EHENS JEREL METAB OLIC PANEL total bilirubin 0.6 mg/dL 0.3-1. 0 Not Available [facility]/S Dept [address] [place] [address], [address], 11/06/2024 23:30:10 11/06/19 25 11/05/2024 COMPR EHENS JEREL METAB OLIC PANEL note See Report Colla borat jerel [facility], [address] [facility] ord, [place] [address] Not Available [facility]/ Dept [address] [place] [address], [address], 11/06/2024 23:30:10 05/09/20 24 05/09/2024 vas US duple x carot id bilat eral See Note [facility] and [facility] , a member of [facility] Name: ETSIVEN Burk Date of : 1969 Reason for Exam: Post-o p CEA follow -up Exam Date: 2023 [id number] EST Report Status : Final Orderi ng Provid er: HOMER HOANG PCP: OLIVIA CUNHA CERVIC OCEREB RAL VASCUL AR DUPLEX ULTRAS OUND DATE OF SERVIC E: 2023 10:27 AM. 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 Caroti d duplex evalua tion is reques agata. COMPAR FELICIA: CTA neck 2023. Caroti d duplex ultras ound 2022. TECHNI QUE: Cervic ocereb ral vascul ar duplex ultras ound was perfor med from the clavic les to the angles of the mandib le utiliz ing graysc alfredo, gated and spectr al Dopple r, and color flow imagin g techni ques for evalua tion of the bilate ral common caroti d, music industry internship al caroti d, materials engineer al caroti d and verteb ral arteri es. Repres entati ve images were obtain ed and perman ently stored . Degree of stenos is is inferr ed from valida agata veloci ty measur ements with angiog raphic measur ements and veloci ty criter ia are extrap olated from diamet er data as define d by the Societ y of Radiol ogists in Ultras ound Consen peri Confer ence (Radio logy 2003;2 29:340 -346). FINDIN GS: Right Caroti d Arteri es: Common Caroti d Artery (CCA): Patent . Normal Dopple r wavefo marcia. No signif icant tortuo sity. No athero sclero tic plaque . Caroti d Bifurc ation: Modera te hetero geneou s athero sclero tic plaque . Chef & Owner al Caroti d Artery (ICA): Patent . Abnorm al Dopple r wavefo marcia. No signif icant tortuo sity. Modera te hetero geneou s athero sclero tic plaque at the bulb. Digital Media Specialist al Caroti d Artery (ECA): Patent . Normal Dopple r wavefo marcia. No athero sclero tic plaque . CCA Peak Systol ic Veloci ty: 62.7 cm/sec CCA End Diasto lic Veloci ty: 16.8 cm/sec ICA Peak Systol ic Veloci ty: 169 cm/sec ICA End Diasto lic Veloci ty: 48.3 cm/sec ECA Peak Systol ic Veloci ty: 139 cm/sec ECA End Diasto lic Veloci ty: 11 cm/sec Findin gs by color flow and spectr al Dopple r evalua tion are concor dant with graysc alfredo images . Left Caroti d Arteri es: Common Caroti d Artery (CCA): Patent . Normal Dopple r wavefo marcia. Tortuo us. No athero sclero tic plaque . Caroti d Bifurc ation: Patent endart erecto my. Chef & Owner al Caroti d Artery (ICA): Patent . Normal Dopple r wavefo marcia. Tortuo us. Mild homoge neous athero sclero tic plaque just above the endart erecto my. Digital Media Specialist al Caroti d Artery (ECA): Patent . Normal Dopple r wavefo marcia. No athero sclero tic plaque . CCA Peak Systol ic Veloci ty: 106 cm/sec CCA End Diasto lic Veloci ty: 13.7 cm/sec ICA Peak Systol ic Veloci ty: 151 cm/sec ICA End Diasto lic Veloci ty: 32.9 cm/sec ECA Peak Systol ic Veloci ty: 111 cm/sec ECA End Diasto lic Veloci ty: 11.2 cm/sec Findin gs by color flow and spectr al Dopple r evalua tion are concor dant with graysc alfredo images . Verteb ral Arteri es: Right Verteb ral Artery : Patent . Domina nt. Normal Dopple r wavefo marcia with antegr suresh flow. Left Verteb ral Artery : Patent . Small calibe r. Abnorm al Dopple r wavefo marcia with retrog rade flow. IMPRES YMUIKO: 1. Modera te hetero geneou s athero sclero tic plaque at the right caroti d bifurc ation with 50-69% stenos is of the right music industry internship al caroti d artery . 2. Patent left caroti d endart erecto my with mild residu al homoge nous athero sclero tic plaque with mild stenos is just above the endart erecto my. 3. Right verteb ral artery is patent and domina nt with antegr suresh flow. 4. Left verteb ral artery is patent and small calibe r with retrog rade flow second sofi to critic al stenos is of the V1 segmen t seen on recent CTA. Report review ed and signed by : Dr. Ben soto on 2023 11:55 AM. Workst ation Name - [id number] ------ -- FINAL REPORT ------ -- Dictat ed By: Ben Maurer Dictat ed Date: 2023 11:46 ET Assign ed Physic jose: Ben Maurer Review ed and Electr onical ly Signed By: Ben Maurer Signed Date: 2023 11:55 ET Workst ation ID: [id number] Transc ribed By: Self Edit Transc ribed Date: 2023 11:46 ET [id number] [address], [address], 07/03/2024 13:29:53 06/07/19 25 06/07/2024 ED provi demond notes No observ ation record ed. [id number] [address], [address], 07/03/2024 13:29:54 06/08/19 25 06/07/2024 H&P No observ ation record ed. [id number] [address], [address], 07/03/2024 13:29:54 06/09/19 25 06/07/2024 consu lts No observ ation record ed. [id number] [address], [address], 07/03/2024 13:29:54 06/10/19 25 06/07/2024 ED provi demond notes No observ ation record ed. [id number] [address], [address], 07/03/2024 13:29:54 06/12/19 25 06/07/2024 disch arge summa ry No observ ation record ed. [id number] [address], [address], 07/03/2024 13:29:55 Result Notes None recorded. 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 21:56:35 Essential hypertens ion 42422736 Active 2023 Martha Cunha MD [address], [place], [place] - [facility] 21:56:41 Pure hyperchol esterolem ia 132495715 Active 2023 Martha Cunha MD [address], [place], [place], [place] - [facility] 21:56:59 Acquired hypothyro idism 249224982 Active 2023 Martha Cunha MD [address], [place], [place], [place] - [facility] 21:57:06 Acquired deaf mutism 462383331 Active 2023 Martha Cunha MD [address], [place], [address], [place] - [facility] 21:57:23 Bilateral deafness 623048920 Active 2023 Martha Cunha MD [address], [place], [place], [place] - [facility] 21:57:33 Chronic kidney disease stage 4 166263660 Completed 202310/07/2024 Martha Cunha MD [address] [place], [address], [place] - [facility] 5 14:00:48 Vitamin D deficienc y 30969385 Active 2023 Martha Cunha MD [address] [place], [address], [place] - [facility] 4 21:58:42 Diabetic periphera l neuropath y 192437862 Active 2023 Martha Cunha MD [address] [place], [address], [place] - [facility] 4 21:59:23 Disorder of kidney due to diabetes mellitus 645232462 Active 2023 Martha Cunha MD [address] [place], [address], [place] - [facility] 4 21:59:39 Insulin treated type 2 diabetes mellitus 574036999 Active 2024 Martha Cunha MD [address] [place], [address], [place] - [facility] 5 11:31:45 Overweigh t in adulthood with body mass index of 25 or more but less than 30 072067962 Active 2024 Martha Cunha MD [address] [place], [address], [place] - [facility] 5 18:07:35 End stage renal failure on dialysis 207113270 Active 2024 Martha Cunha MD [address] [place], [address], [place] - [facility] 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 5 14:01:59 Hyperkale anastasia 23621113 Active 2024 Clarence Hernandez MD [address] [place], [address], [place] - [facility] 21:27:03 Cataract of left eye 388155798 Active 2024 Martha Cunha MD [address] [place], [address], [place] [facility] 17:51:50 Problem Notes None recorded. Procedures Surgical History Date Name Laterality Status Provider Name and Address Organization Details Recorded Time 04/11/20 24 carotid endarterectomy completed Martha Cunha MD [address] [place] [address] - [facility] 05/06/2024 22:03:12 11/09/19 23 surgical procedure on eye region completed Martha Cunha MD [address] [place], [address], [place] [facility] 05/06/2024 22:01:37 Imaging Results None recorded. Procedure Notes None recorded. Medical Equipment None Reported. Allergies No known drug allergies Medications Name Sig Start Date Stop Date Status Note LastModified by Organization Details LastModified Time Prescriptio n - Prior Authorizati on Request active Not Available Not Available N ot Available atorvastati n 40 mg tablet TAKE 1 TABLET BY MOUTH AT BEDTIME 08/16 completed Not Available Not Available Not Available carvedilol 25 mg tablet TAKE 1 TABLET BY MOUTH TWICE DAILY active Not Available Not Available No t Available torsemide 20 mg tablet TAKE 2 TABLETS BY MOUTH ONCE DAILY active Not Available Not Available No t Available trazodone 50 mg tablet TAKE 1/2 TO 1 (ONE-HALF TO ONE) TABLET BY MOUTH NIGHTLY active Not Available Not Available No t Available clonidine 0.2 mg/24 hr weekly transdermal patch APPLY 1 PATCH TOPICALLY TO SKIN ONCE A WEEK active Not Available Not Available No t Available methylpredn isolone 32 mg tablet TAKE 1 TABLET BY MOUTH TWICE DAILY 12 HOURS AND 2 HOURS PRIOR TO CTA NECK active Not Available Not Available No t Available sertraline 100 mg tablet TAKE 1 TABLET BY MOUTH NIGHTLY active Not Available Not Available No t Available glipizide ER 5 mg tablet, extended release 24 hr TAKE 1 TABLET BY MOUTH IN THE MORNING WITH BREAKFAST 2024 active Not Available Not Available Not Avai lable clopidogrel 75 mg tablet TAKE 1 TABLET BY MOUTH ONCE DAILY active Not Available Not Available No t Available lidocaine-p rilocaine 2.5 %-2.5 % topical cream APPLY CREAM TOPICALLY THREE TIMES A WEEK active Not Available Not Available No t Available levothyroxi ne 25 mcg tablet TAKE 1 TABLET BY MOUTH ONCE DAILY 11/20 completed Not Available Not Available Not Available levothyroxi ne 75 mcg tablet TAKE 1 TABLET BY MOUTH ONCE DAILY BEFORE A MEAL active Not Available Not Available No t Available oxycodone-a cetaminophe n 5 mg-325 mg tablet TAKE 1 TABLET BY MOUTH EVERY 4 HOURS NEEDED FOR SEVERE PAIN . DO NOT EXCEED 6 PER 24 HOURS 08/16 completed Not Available Not Available Not Available hydromorpho ne 2 mg tablet TAKE 1/2 (ONE-HALF ) TABLET BY MOUTH EVERY 4 HOURS NEEDED FOR MODERATE PAIN . DO NOT EXCEED 3 PER 24 HOURS 08/16 completed Not Available Not Available Not Available amlodipine 10 mg tablet TAKE 1 TABLET BY MOUTH ONCE DAILY active Not Available Not Available No t Available hydralazine 100 mg tablet TAKE 1 TABLET BY MOUTH TWICE DAILY 05/08 completed Not Available Not Available Not Available losartan 25 mg tablet TAKE 1 TABLET BY MOUTH ONCE DAILY active Not Available Not Available No t Available sertraline 25 mg tablet TAKE 1 TABLET BY MOUTH ONCE DAILY FOR 7 DAYS THEN 2 DAILY FOR 23 DAYS 08/16 completed Not Available Not Available Not Available capsaicin 0.025 % topical cream APPLY CREAM TOPICALLY THREE TIMES DAILY NEEDED active Not Available Not Available No t Available hydralazine 50 mg tablet TAKE 1 TABLET BY MOUTH DAILY active Not Available Not Available No t Available ondansetron 4 mg disintegrat ing tablet DISSOLVE 1 TABLET IN MOUTH EVERY 8 HOURS NEEDED FOR NAUSEA active Not Available Not Available No t Available losartan 100 mg tablet TAKE 1 TABLET BY MOUTH ONCE DAILY active Not Available Not Available No t Available sertraline 50 mg tablet TAKE 1 TABLET BY MOUTH IN THE MORNING 08/16 completed Not Available Not Available Not Available calcitriol 0.25 mcg capsule TAKE 1 CAPSULE BY MOUTH ONCE DAILY active Not Available Not Available No t Available rosuvastati n 5 mg tablet TAKE 1 TABLET BY MOUTH ONCE DAILY active Not Available Not Available No t Available BD Ultra-Fine Mini Pen Needle 31 gauge x 3/16 USE ONCE DAILY active Not Available Not Available No t Available ferrous sulfate 324 mg (65 mg iron) tablet,quintin yed release TAKE 1 TABLET BY MOUTH IN THE MORNING WITH BREAKFAST 05/08 completed Not Available Not Available Not Available sevelamer carbonate 800 mg tablet TAKE 3 TABLETS BY MOUTH ONCE DAILY IN THE MORNING THEN 3 AT NOON AND 3 IN THE EVENING WITH MEALS SWALLOW WHOLE DO NOT CRUSH, BREAK OR CHEW. active Not Available Not Available No t Available blood pressure test kit-large cuff USE DIRECTED TO CHECK BLOOD PRESSURE DAILY active Not Available Not Available No t Available Jardiance 10 mg tablet TAKE 1 TABLET BY MOUTH ONCE DAILY 05/08 completed Not Available Not Available Not Available Tresiba FlexTouch U-200 insulin 200 unit/mL (3 mL) subcutaneou s pen INJECT 28 UNITS SUBCUTANE OUSLY ONCE DAILY active Not Available Not Available No t Available FreeStyle Gianluca 2 Sensor kit USE TO CONTINUOU SLY MONITOR BLOOD GLUCOSE. REPLACE SENSOR EVERY 14 DAYS. 08/16 completed Not Available Not Available Not Available FreeStyle Gianluca 2 Hunker USE TO CHECK GLUCOSE DAILY DIRECTED. active Not Available Not Available No t Available FreeStyle Gianluca 3 Plus Sensor device active Not Available Not Available Not Available Vitals Date Recorded Systolic And Diastolic Provider Name and Address Organization Details Last Updated DateTime 08/16/2024 130/82 mm[Hg] Martha Cunha MD [address] [place], [address], [facility] 08/16/2024 12:47:08 Date Recorded Body height Body mass index (BMI) Body weight Heart rate Oxygen saturation Provider Name and Address Organization Details Last Updated DateTime 08/16/2024 160.02 cm 25.7 kg/m2 09303.89 g 80 /min 95 % DEBORAH CARMEN [facility] 11:08:52 Date Recorded Systolic And Diastolic Provider Name and Address Organization Details Last Updated DateTime 10/04/2024 135/80 mm[Hg] Martha Cunha MD [address] [place], [address], [facility] 10/04/2024 11:29:45 Date Recorded Body height Body mass index (BMI) Body weight Heart rate Oxygen saturation Systolic And Diastolic Provider Name and Address Organization Details Last Updated DateTime 5 160.02 cm 26.8 kg/m2 03524.8 8 g 85 /min 96 % 150/86 mm[Hg] CONSTANZA COLEMAN [facility] 5 10:04:58 Date Recorded Body height Body mass index (BMI) Body weight Oxygen saturation Heart rate Systolic And Diastolic Provider Name and Address Organization Details Last Updated DateTime 5 160.02 cm 26.7 kg/m2 98187.4 5 g 95 % 80 /min 114/60 mm[Hg] [facility] 5 11:03:49 Date Recorded Body weight Body mass index (BMI) Body height Oxygen saturation Heart rate Systolic And Diastolic Provider Name and Address Organization Details Last Updated DateTime 4 60658.1 8 g 25.6 kg/m2 160.02 cm 95 % 64 /min 128/66 mm[Hg] [facility] 4 11:36:05 Social History None recorded. Functional Status None recorded. Mental Status None recorded. Family History Nothing Reported. Medical History No medical history recorded. Gynecological HistoryNo gynecological history recorded. Obstetrics History GPAL:G 0 P 0 0 0 0 Past Encounters Encounter ID Performer Location Encounter Start Date Encounter Closed Date Diagnosis/Indication Diagnosis SNOMED-CT Code Diagnosis ICD10 Code Diagnosis IMO Codes Diagnosis Note [id number] Martha Cunha MD [place] [id number] [address] 05/08/2024 10:49:35 05/08/2024 12:40:10 Retinopathy due to type 2 diabetes mellitus 103369499 E11.319 19126492 Essential hypertension 47067044 I10 43657 Pure hypercholesterolemia 357170787 E78.00 21317 Acquired hypothyroidism 492761563 E03.9 21060 Acquired deaf mutism 698 305446 H91.3 9448306285 Bilateral deafness 53031 4009 H91.93 800974 Chronic ki dney disease stage 4 090434509 N18.4 676419 Vitamin D deficiency 347 28575 E55.9 21359 Diabetic p eripheral neuropathy 637244145 E11.42 182262 Preprocedu ral examination done 5468480299 49497 Z01.818 179632 [id number] Martha Cunha MD [address] [address] 08/16/2024 09:53:18 08/16/2024 11:42:00 Insulin treated type 2 diabetes mellitus 306137441 E11.22 N18.6 Z79.4 Z99.2 36765390 Acquired hypothyroidism 271367468 E03.9 46639 Diabetic p eripheral neuropathy 505465803 E11.42 332115 Essential hypertension 30585608 I10 16732 Pure hypercholesterolemia 887585566 E78.00 83871 Vitamin D deficiency 347 10299 E55.9 62352 Overweight in adulthood with body mass index of 25 or more but less than 30 606761019 E66.3 Z68.25 8434236180 Management of drug regimen 753919714 Z79.538 0740176 Long-term current use of insulin 073442746 Z79.4 7483832 Retinopath y due to type 2 diabetes mellitus 976253041 E11.319 37652159 End stage renal failure on dialysis 752211730 N18.6 Z99.2 552000 [id number] Martha Cunha MD [address] [address] 10/04/2024 09:47:00 10/04/2024 10:39:53 Insulin treated type 2 diabetes mellitus 110343607 E11.22 N18.6 Z79.4 Z99.2 77609151 Essential hypertension 75772964 I10 16571 Acquired hypothyroidism 993353200 E03.9 40889 Bilateral deafness 37197 4009 H91.93 650176 Diabetic p eripheral neuropathy 229006576 E11.42 175410 Overweight in adulthood with body mass index of 25 or more but less than 30 436150659 E66.3 Z68.25 5701380791 Pure hypercholesterolemia 512292078 E78.00 18960 Vitamin D deficiency 347 77926 E55.9 69322 End stage renal failure on dialysis 115352500 N18.6 Z99.2 734038 Disorder o f kidney due to diabetes mellitus 031844458 E11.22 00182016 Management of drug regimen 273451401 Z79.061 3644795 Long-term current use of oral hypoglycemic medication 9521708541 87468 Z79.84 10225207 Long-term current use of insulin 955598780 Z79.4 9026367 [id number] Martha Cunha MD [address], [address] [place] [address] 11/09/2024 10:57:36 11/09/2024 12:55:21 Preprocedural examination done 8811130111 22936 Z01.818 211727 Cataract of left eye 816 571007 H26.9 79861509 Acquired hypothyroidism 018637119 E03.9 93632 End stage renal failure on dialysis 603993628 N18.6 Z99.2 432565 Essential hypertension 26478730 I10 [address] eated type 2 diabetes mellitus 191678151 E11.22 N18.6 Z79.4 Z99.2 63316340 Pure hypercholesterolemia 422750471 E78.00 30390 Overweight in adulthood with body mass index of 25 or more but less than 30 539233807 E66.3 Z68.27 1031578124 Management of drug regimen 361985776 Z79.022 3932867 Health Concerns Section Related Observation LastModified by Organization Detai ls LastModified Time None Recorded Concern Status LastModified by Organization Details LastModified Time None Recorded Advance Directives Directive None Recorded Payers Insurance Date Sequence Insurance Name Policy Number Policy Cunningham Covered Member ID Cunningham Member ID Guarantor Name 01/19/2025 1 MEDICARE B-CT: NGS Estiven Marquis [id number] Estiven Marquis 12/21/2024 2 [place] [facility] Estiven Marquis [id number] Estiven Marquis Notes Date Note Type Note Provider Name and Address Organization Details Recorded Time 4 text/html Estiven Marquis is a 54 y.o. female here today for a pre-op evaluation and clearance..Indication for surgery: hearing lossSURGEON: Dr Woody Goodrich. MDPROCEDURE: insertion cochlear implant , harvest of fascial graft left sideDATE: May 28NESTHESIA: per anesthesiaHOSPITAL / [facility] has not had difficulty/ complications with anesthesia or surgery in the past.CLINICAL INFORMATION1. HypertensionCo-managed by cardiology Dr Quezadareports to be doing well, negative for ESPINAL, SOB, CP, dizziness or palpitationsMedications- Amlodipine 10 mg daily- Carvelidol 25 mg BID- Hydralazine 100 mg daily- Losartan 25 mg daily 2. HEART FAILUREManaged By Dr Quezada - cardiologylast office visit 4Report to be feeling well, negative for SOB or dyspnea but reports leg edemaMedications- Carvelidol 25 mg BID- Hydralazine 75 mg daily-- Toresemide 20 mg BID According to the patient he cleared her for the surgery not is not available at the time of the visit 3. HYPERLIPIDEMIAMedication:- Rosuvastatin 5 mg daily3. Diabetes Mellitus type 2With complications- Neuropathy- diabetic retinopathy- CKDToday A1C 7.6 up from 6.4She is not using the Free style gianluca sensor for the past weekDenies any hypoglycemic eppisodesShe reports to be taking her medications a directed.Medications- Tresiba increased to 30 units daily- Glipizide XL 5 mg dailythe jardiance was discontinued by nephrology4. HypothyroidismStable with good TSH supressionMedication- Levothyroxine 25 mcg daily5.. CKD Stage VShe is now on hemodialysis 3 x per week - TuesdayFollowed and managed by renal7. Vitamin D deficiencymedicationsShe is vitamin D deficient but may benefit from just going straight to calcitriol.Managed by renal - Dr. Chin8 Iron deficiency anemiaReceiving iron infusion per hematology protocolLast this infusion past TuesdayNovember 06ccording to her the H/H has been okayBleeding or clotting risk: noSleep Apneas or STOP BANG>_ 6: HTNHigh risk Procedure: NoDentures/ Loose teeth: Normal Martha Cunha MD [address] [place], [address], [facility] - [place] [employer] 05/11/2024 18:38:41 03/27/202 5 text/html Estiven Marquis is a 54 y.o. female here today for follow up with friend Renita. HYPERTENSIONCo-managed by cardiology Dr Quezadareports to be doing wellNegative for ESPINAL, SOB, CP, dizziness or palpitationsMedications- Amlodipine 10 mg daily- Carvelidol 25 mg BID- Hydralazine 50 mg daily- Clonidine .0.2 mg transdermal every week-lisinopril 40 mg daily- losartan 25 mg daily2. Diabetes Mellitus type 2 with complications- Neuropathy- diabetic retinopathy- end stage CKDToday A1C 6.5She is not using the Free style gianluca sensor because she damaged it in the washerDenies any hypoglycemiaShe reports to be taking her medications a directed.Medications- Treshiba 30 units daily- Glipizide XL 5 mg dailythe jardiance was discontinued by nephrology4. HypothyroidismDenies any constipation, hair loss, depression or dry skin.Medication- Levothyroxine 25 mcg daily 5. Hyperlipidemiareports to be tolerating the medication wellMedication:-Rosuvastat in 5 mg daily-she tries to follow a low fat diet as musch as possible6. HEART FAILUREManaged By Dr Quezada - cardiologyReport to be feeling well, negative for SOB or dyspnea but reports leg edemaMedications- Carvelidol 25 mg BID- Hydralazine 50 mg daily- Toresemide 75 mg BID7. Depressionmanaged by Psych Dr Valle Virelamedication-Trazodone 50 mg bedtime-sertraline 100 mg daily 8. End stage CKD on hemodialysis 3 x per week-sevelsner 80 mg 9 tab daily-calcitrol 0.25 mg daily 9. carotid artery stenosis s/p left side endarterectomydoing well.scar still bothers herMedication- plavix 75 mg daily 10 congenital deafnesss/p left cochleae implantdoing well Martha Cunha MD [address] [place], [address], [place] [employer] 10/03/2024 17:44:22 5 text/html Estiven is a 54 year old female her today for follow up 1. TEST RESULTSunfortunately, she did not do the blood test before the office visit 2. HYPERTENSIONCo-managed by cardiology Dr Hardy in good control todayshe will continue current medications and doses ( she needs to bring an update list- Amlodipine 10 mg daily- Carvedilol 25 mg BID- Hydralazine 50 mg daily- Clonidine .0.2 mg transdermal every week- lisinopril 40 mg daily- losartan 25 mg daily3.HYPERLIPIDEMIAshjimmy did resumed her statin medication . She reports to be tolerating it wellMedication:-Rosuvastat in 5 mg daily3. Diabetes Mellitus type 2With multiple complications :- Neuropathy , - diabetic retinopathy , - CKD end stageLast A1C : 6.4 ( 08/16/2024)She has the gianluca # 3 but claims that her Android phone does not work with it and also at the hemodialysis are asking he to remove the sensor to check her BP -then as she ties to put back on , it does not work anymore. Current medicationsMedications- Xtufjotv59 units daily- Glipizide XL 5 mg daily4. Hypothyroidismstable with good TSH suppressioncurrent Medication- Levothyroxine 25 mch daily 5. ESRD in hemodialysis Tuesday, and Tuesdaymanaged by nephrology Martha Cunha MD [address] [place], [address], [facility] [place] [employer] 10/07/2024 14:03:47 5 text/html Estiven Marquis is a 54 y.o. female here today for a pre-op evaluation and clearance..Indication for surgery: bilateral cataractsSURGEON: Dr Aleja ParkPROCEDURE: Left eye cataract extractionDATE: December 03NESTHESIA: Local HOSPITAL / CENTER: [facility]. Estiven Marquis has not had difficulty/ complications with anesthesia or surgery in the past.CLINICAL INFORMATION1. HypertensionCo-managed by cardiology Dr Quezadareports to be doing well, negative for ESPINAL, SOB, CP, dizziness or palpitationsMedications- Amlodipine 10 mg daily- Carvedilol 25 mg BID- Hydralazine 100 mg daily- Losartan 25 mg daily2. HEART FAILUREManaged By Dr Quezada - cardiologylast office visit 4Report to be feeling well, negative for SOB or dyspnea but reports leg edemaMedications- Carvedilol 25 mg BID- Hydralazine 75 mg daily-- Torsemide 20 mg BID 3. HYPERLIPIDEMIAMedication:- Rosuvastatin 5 mg daily 4. Diabetes Mellitus type 2With complications : - Neuropathy - diabetic retinopathy - end stage CKDLast A1C : 6.4 ( 08/16/2024)Denies any hypoglycemic episodesShe reports to be taking her medications a directed.Medications- Tresiba increased 30 units daily- Glipizide XL 5 mg daily4. HypothyroidismRecent TSH poorly control : patient has not been taking the medication as directedMedication- Levothyroxine 25 mcg daily5.. CKD Stage VShe is now on hemodialysis 3 x per week - TuesdayFollowed and managed by renal - Dr. Chin Bleeding or clotting risk: noSleep Apneas or STOP BANG>_ 6: HTNHigh risk Procedure: NoDentures/ Loose teeth: Normal Martha Cunha MD [address] [place], [address], [facility] - [place] [employer] 11/22/2024 18:21:30 OBGyn Episode No OBEpisode recorded.
--- OUTSIDE RECORDS SUMMARY | 2025-04-12 09:17 | XMS_ITS | Encounter Summary ---
Author Organization [facility] Address [address] [place] [address] Care Team Providers Care Director School Of Nursing Name Role Phone Xuan Baxter APRN Primary Care Provider Dialysis, [address] Unavailable + Shanae Baeza MD Unavailable [phone] Martha Cunha MD Primary Care Provider Encounter Details Date Type Department Care Team (Late st Contact Info) Description 09/03/2021 Scanned Document [facility] Cardiology [address] [place] [phone] Cali Pappas MD [address] [place] [address] [place] [address] Social History Tobacco Use Types Packs/Day Years [...] Orientation Heterosexual (straight) 04/28 10:07 AM EST COVID-19 Exposure Response Date Recorded In the last month, have you been in contact with someone who was confirmed or suspected to have Coronavirus / COVID-19? No / Unsure 08/11/2021 10:51 AM EDT documented as of this encounter Plan of [...] filedocumented in this encounter Care Teams Director School Of Nursing Relationship Specialty Start Date End Date Xuan Baxter APRN PCP - General Family Medicine 05/21/21 06/03/24 Martha Cunha MD [address] [place] [address] [place] [address] PCP - General Family Medicine 06/04/24 Dialysis, [address] [place] [address] [place] [address] Dialysis Unit 11/21/23 Shanae Baeza MD [address] [place] [address] [place] [address] 11/21/23 documented as of this encounter
--- OUTSIDE RECORDS SUMMARY | 2025-04-12 09:17 | XMS_ITS | Encounter Summary ---
Author Organization [facility] Address [address] [place] [address] Care Team Providers Care Pulley Maintainer Name Role Phone Martha Cunha MD Primary Care Provider [phone] Encounter Details Date Type Department Care Team (Late st Contact Info) Description 09/18/2024 Lab Requisition [facility] Main Lab [address] [place] [address] Shanae Baeza MD [address] [place], [place] [id number] End stage renal disease (CMS/HCC V24, CMS/HCC [...] Priority Date/Time Associated Diagnosis Comments POTASSIUM STAT 09/18/2024 11:00 AM EDT End stage renal disease ([facility] V24, [facility] V28) documented in this encounter Results * (ABNORMAL) Potassium (09/18/2024 11:00 AM EDT) Potassium 5.4(H) 3.5 - 5.1 mmol/L LAB CHEMISTRY METHOD 09/18/2024 2:37 PM EDT [facility] Blood Venous blood specimen / Unknown 09/18/2024 11:00 AM EDT 09/18/2024 2:07 PM EDT us Shanae Baeza MD LAB BLOOD ORDERABLES Final Re sult [facility] [address] [place] [address], documented in this encounter Visit Diagnoses Diagnosis End stage renal disease (CMS/HCC V24, CMS/[facility] V28) End stage renal disease documented in this encounter Care Teams Pulley Maintainer Relationship Specialty Start Date End Date Martha Cunha MD [address] [address] PCP - General 05/25/23 documented as of this encounter
--- OUTSIDE RECORDS SUMMARY | 2025-04-12 09:17 | XMS_ITS | Encounter Summary ---
Author Organization [facility] Address [address] [place] [address] Care Team Providers Care Dumper Name Role Phone Xuan Baxter APRN Primary Care Provider [phone] Dialysis, [address] Unavailable + Shanae Baeza MD Unavailable [phone] Martha Cunha MD Primary Care Provider [phone] Encounter Details Date Type Department Care Team (Late st Contact Info) Description 12/23/2023 Scanned Document [facility] & [facility] [address] [facility] [address] [place] [phone] [place], [place] [address] [place] [address] Social History Tobacco Use Types Packs/Day Years Used Date Smoking Tobacco: Former Cigarettes 2021 Smokeless Tobacco: Never Alcohol Use Standard Drinks/Week Comments No 0 (1 standard drink = 0.6 oz pur e alcohol) AUDIT-C Answer Date Recorded Q1: How often do you have a drink containing alcohol? Never 12/07/2023 Q2: How many drinks containi ng alcohol do you have on a typical day when you are drinking? Patient does not drink Q3: How often do you have si x or more drinks on one occasion? Never 12/07/2023 Comments No Sex and Gender Information Value [...] on filedocumented in this encounter Care Teams Dumper Relationship Specialty Start Date End Date Xuan Baxter APRN PCP - General Family Medicine 05/21/21 06/03/24 Martha Cunha MD [address] [place] [address] [place] [address] PCP - General Family Medicine 06/04/24 Dialysis, [address] [place] [address] Dialysis Unit 11/21/23 Shanae Baeza MD [address] [place] [address] [place] [address] 11/21/23 documented as of this encounter
--- OUTSIDE RECORDS SUMMARY | 2025-04-12 09:17 | XMS_ITS | Encounter Summary ---
Author Organization [facility] Address [address] [place] [address] Care Team Providers Care Rfid Strategist Name Role Phone Dialysis, [address] Unavailable + Shanae Baeza MD Unavailable [phone] Martha Cunha MD Primary Care Provider Encounter Details Date Type Department Care Team (Late st Contact Info) Description 10/31/2024 Scanned Document [facility] [address] [place] [address] Woody Goodrich MD [address] [place] [address] Social History Tobacco Use Types Packs/Day Years [...] on filedocumented in this encounter Care Teams Rfid Strategist Relationship Specialty Start Date End Date Martha Cunha MD [address] [place] [place] [address] PCP - General [facility] Medicine 06/04/24 Dialysis, [facility] [address] [place] [address] Dialysis Unit 11/21/23 Shanae Baeza MD [address] [place] [place] [address] 11/21/23 documented as of this encounter
--- OUTSIDE RECORDS SUMMARY | 2025-04-12 09:17 | XMS_ITS | Encounter Summary ---
Author Organization [facility] Address [address] [place] [address] Care Team Providers Care Asphalt Heater Operator Name Role Phone Dialysis, [address] Unavailable + Shanae Baeza MD Unavailable [phone] Martha Cunha MD Primary Care Provider Encounter Details Date Type Department Care Team (Late st Contact Info) Description 06/22/2024 Scanned Document [facility] Neurology Ophthalmology [place] [address] [address] Adele Ann DO 85 [facility] [address] [place] [id number] Social History Tobacco Use Types Packs/Day Years [...] NDI score < 15% in 4 wks 4/5/17: 24% improved from 42% documented as of this encounter Visit Diagnoses Not on filedocumented in this encounter Care Teams Asphalt Heater Operator Relationship Specialty Start Date End Date Martha Cunha MD [address] [place] [address] [place] [address] PCP - General Family Medicine 06/04/24 Dialysis, [facility] [address] [facility] [place] [address] Dialysis Unit 11/21/23 Shanae Baeza MD [address] [place] [address] [place] [address] 11/21/23 documented as of this encounter
--- OUTSIDE RECORDS SUMMARY | 2025-04-12 09:17 | XMS_ITS | Encounter Summary ---
Author Organization [facility] [place] [address] Care Team Providers Care Oncology Rep Specialist Name Role Phone Martha Cunha MD Primary Care Provider [phone] Encounter Details Date Type Department Care Team (Late st Contact Info) Description 06/26/2024 Lab Requisition [facility] Main Lab [address] [place] [address] Shanae Baeza MD [address] [place], [place] [address] Anemia, unspecified Social History Tobacco Use Types Packs/Day Years [...] Procedure Name Priority Date/Time Associated Diagnosis Comments HEMOGLOBIN AND HEMATOCRIT STAT 06/26/2024 3:00 PM EST Anemia, unspecified documented in this encounter Results * (ABNORMAL) Hemoglobin and hematocrit (06/26/2024 3:00 PM EST) Hemoglobin 8.8(L) 12.5 - 18.0 g/dL LAB HEMETOLOGY METHOD 06/26/2024 8:54 PM EST [facility] Hematocrit 26.6(L) 37.0 - 54.0 % LAB HEMETOLOGY METHOD 06/26/2024 8:54 PM EST [facility] Blood Venous blood specimen / Unknown 06/26/2024 3:00 PM EST 06/26/2024 7:51 PM EST us Shanae Baeza MD LAB BLOOD ORDERABLES Final Re sult [facility] [address] [place] [address], documented in this encounter Visit Diagnoses Diagnosis Anemia, unspecified documented in this encounter Care Teams Oncology Rep Specialist Relationship Specialty Start Date End Date Martha Cunha MD [address] [address] PCP - General 05/25/23 documented as of this encounter
--- OUTSIDE RECORDS SUMMARY | 2025-04-12 09:17 | XMS_ITS | Encounter Summary ---
Author Organization [facility] Address [address] [place] [address] Care Team Providers Care Motorsports Technician Name Role Phone Martha Cunha MD Primary Care Provider [phone] Encounter Details Date Type Department Care Team (Late st Contact Info) Description 10/11/2024 Lab Requisition [facility] Main Lab [address] [place] [address] Shanae Baeza MD [address] [place], [place] [phone] End stage renal disease (CMS/HCC V24, CMS/HCC [...] Priority Date/Time Associated Diagnosis Comments POTASSIUM STAT 10/11/2024 11:45 AM EDT End stage renal disease (CMS/HCC V24, CMS/[facility] V28) documented in this encounter Results * (ABNORMAL) Potassium (10/11/2024 11:45 AM EDT) Potassium 5.6(H) 3.5 - 5.1 mmol/L LAB CHEMISTRY METHOD 10/11/2024 5:03 PM EDT [facility] Blood Venous blood specimen / Unknown 10/11/2024 11:45 AM EDT 10/11/2024 4:40 PM EDT us Shanae Baeza MD LAB BLOOD ORDERABLES Final Re sult [facility] [address] [place] [address], documented in this encounter Visit Diagnoses Diagnosis End stage renal disease (CMS/HCC V24, CMS/[facility] V28) End stage renal disease documented in this encounter Care Teams Motorsports Technician Relationship Specialty Start Date End Date Martha Cunha MD [address] [address] PCP - General 05/25/23 documented as of this encounter
--- OUTSIDE RECORDS SUMMARY | 2025-04-12 09:17 | XMS_ITS | Encounter Summary ---
Author Organization [facility] Address [address] [place] [address] Care Team Providers Care Collection Advisor Name Role Phone Martha Cunha MD Primary Care Provider [phone] Encounter Details Date Type Department Care Team (Late st Contact Info) Description 09/08/2024 Lab Requisition [facility] Main Lab [address] [place] [address] Shanae Baeza MD [address] [place], [place] [id number] End stage renal disease (CMS/HCC V24, CMS/HCC [...] Priority Date/Time Associated Diagnosis Comments POTASSIUM STAT 09/08/2024 12:00 PM EDT End stage renal disease (CMS/HCC V24, CMS/HCC V28) documented in this encounter Results * (ABNORMAL) Potassium (09/08/2024 12:00 PM EDT) Potassium 7.1(HH) 3.5 - 5.1 mmol/L LAB CHEMISTRY METHOD 09/08/2024 2:45 PM EDT [facility] Blood Venous blood specimen / Unknown 09/08/2024 12:00 PM EDT 09/08/2024 2:13 PM EDT us Shanae Baeza MD LAB BLOOD ORDERABLES Final Re sult [facility] [address] [place] [address], documented in this encounter Visit Diagnoses Diagnosis End stage renal disease (CMS/HCC V24, CMS[facility] V28) End stage renal disease documented in this encounter Care Teams Collection Advisor Relationship Specialty Start Date End Date Martha Cunha MD [address] [address] PCP - General 05/25/23 documented as of this encounter
--- OUTSIDE RECORDS SUMMARY | 2025-04-12 09:17 | XMS_ITS | Clinical Summary ---
Author Organization [facility] Address [address] [place] [address] Care Team Providers Care Director Of Rotc Name Role Phone Martha Cunha MD Primary Care Provider [phone] Allergies Active Allergy Reactions Criticality Noted Date Comments Aspirin Itching,Rash,Other (See Comments) Medium 07/27/2016 Hives Hives Iodinated Contrast Media Swelling High 09/23/2021 Face swelling after receiving contrast dye Medications Medication Sig Dispensed Refills Start Date End Date Status albuterol (ProAir HFA) 108 (90 Base) MCG/ACT inhaler Take 2 puffs by mouth every 6 (six) hours as needed. 0 05/22/2021 Active Tresiba FlexTouch 200 UNIT/ML SOPNIndications:Typ e 2 diabetes mellitus with diabetic polyneuropathy, with long-term current use of insulin ([facility]),Poorly controlled type 2 diabetes mellitus with complication (HCC) Inject 28 Units under the skin daily. 9 mL 3 05/25/2023 Active Continuous Blood Gluc Sensor (FreeStyle Gianluca 2 Sensor) MISCIndications:Typ e 2 diabetes mellitus with diabetic polyneuropathy, with long-term current use of insulin ([facility]) 1 each by Does not apply route every 14 (fourteen) days. 6 each 3 05/25/2023 Active Continuous Blood Gluc Sales And Training Specialist (FreeStyle Gianluca 2 Thornton) DEVIIndications:Typ e 2 diabetes mellitus with diabetic polyneuropathy, with long-term current use of insulin ([facility]) 1 each by Does not apply route daily. 1 each 0 05/25/2023 Active Blood Pressure Monitoring (Blood Pressure Digital Soln) KIT 1 Units by Does not apply route daily. 1 kit 0 08/18/2023 Active amLODIPine (NORVASC) tablet 10 mgIndications:Prima ry hypertension Take 1 tablet (10 mg total) by mouth daily. 90 tablet 1 11/30/2023 Active carvedilol (COREG) 25 MG tabletIndications:P rimary hypertension,Conges tive heart failure, unspecified HF chronicity, unspecified heart failure type (HCC) Take 1 tablet (25 mg total) by mouth 2 (two) times a day. 60 tablet 5 11/30/2023 Active torsemide (DEMADEX) 20 MG tabletIndications:C hronic systolic congestive heart failure (HCC),Bilateral leg edema Take 2 tablets (40 mg total) by mouth 2 (two) times a day. 360 tablet 2 12/07/2023 Active calcitRIOL (ROCALTROL) capsule 0.25 mcg Take 1 capsule (0.25 mcg total) by mouth daily. 0 Active sevelamer (RENVELA) 800 MG tablet Take 1 tablet (800 mg total) by mouth 3 (three) times a day with meals. 0 Active glipiZIDE (GLUCOTROL XL) ER 24 hr tablet 5 mgIndications:Type 2 diabetes mellitus with diabetic polyneuropathy, with long-term current use of insulin (HCC) TAKE 1 TABLET BY MOUTH IN THE MORNING WITH BREAKFAST 90 tablet 1 03/28/2024 Active clopidogrel (Plavix) 75 MG tablet Take 1 tablet (75 mg total) by mouth daily. 90 tablet 1 04/17/2024 04/17/2025 Active hydrALAZINE (APRESOLINE) 50 MG tabletIndications:P rimary hypertension Take 1 tablet (50 mg total) by mouth 3 (three) times a day. 120 tablet 1 04/17/2024 Active Active Problems Problem Noted Date Diagnosed Date H/O carotid endarterectomy 04/23/2024 Overweight with body mass in dex (BMI) of 26 to 26.9 in adult 04/23/2024 CKD (chronic kidney disease) stage V requiring chronic dialysis 11/30/2023 Anemia in chronic kidney disease, on chronic kali lysis 11/25/2023 Impaired gait and mobility 11/17/2023 Hyperpotassemia 11/03/2023 Acidosis 11/03/2023 Iron deficiency 10/26/2023 Secondary hyperparathyroidism, renal 08/18/2023 Body mass index (BMI) of 30.0 to 30.9 in adult 0 07/13/2023 Vitamin D deficiency 06/23/2023 Anemia due to multiple mechanisms 06/23/2023 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 05/25/2023 Pure hypercholesterolemia 05/25/2023 Acquired hypothyroidism 05/25/2023 Bilateral leg edema 05/25/2023 Carotid artery plaque, unspecified laterality Carotid artery disease 05/25/2023 Congestive heart failure 05/25/2023 Medication management 05/25/2023 care home current use of insulin 05/25/2023 Sensory hearing loss, bilateral 05/25/2023 Acute on chronic heart failu re with preserved ejection fraction 02/23/2022 Primary hypertension 02/23/2022 Type 2 diabetes mellitus, wi th long-term current use of insulin 02/23/2022 Resolved Problems Problem Noted Date Diagnosed Date Resolved Date Hypertensive emergency 05/11/202207/13 MARY ANNE (acute kidney injury) 02/23/2022 Social History Tobacco Use Types Packs/Day Years Used Date Smoking Tobacco: Former Cigarettes 7 Q uit: 04/21/2023 Smokeless Tobacco: Never Alcohol Use Standard Drinks/Week Comments Not Currently 0 (1 standard drink = 0.6 oz pur e alcohol) Sex and Gender Information Value Date Recorded Sex Assigned at Female 02/23/2022 7:29 PM EDT Gender Identity Not on file Sexual Orientation Not on file Job Start Date Occupation Industry Not on file Not on file Not on file Last Filed Vital Signs Vital Sign Reading Time Taken Comments Blood Pressure 136/80 04/17/2024 3:45 PM EST Pulse 84 04/17/2024 3:45 PM EST Temperature 35.6 C (96 F) 02/02/2024 1:00 PM EDT Respiratory Rate 18 03/08/2024 10:52 AM EDT Oxygen Saturation 95% 04/17/2024 3:45 PM EST Inhaled Oxygen Concentration - - Weight 66.8 kg (147 lb 3.2 oz) 04/17/2024 3:45 P M EST Height 157.5 cm (5' 2 ) 03/08/2024 10:52 AM EDT Body Mass Index 26.92 03/08/2024 10:52 AM EDT Plan of Treatment Health Maintenance Due Date Last Done Comments Hepatitis B Vaccines (1 of 3 - 3-dose series) 1968 COVID-19 Vaccine (#1) 1968 Pneumococcal Vaccine (1 of 2 - PCV) 1974 Depression Screening 1980 Diabetes: Eye Exam (No Retinopathy) 1986 Diabetes: Foot Exam 1986 Preventative Health Evaluation 1986 DTap / Tdap / Td (1 - Tdap) 1987 Cervical Cancer Screening (Pap Smear) 1989 Colon Cancer Screening (Colonoscopy) 2013 Breast Cancer Screening (Mammogram) 2018 Shingrix-Zoster Vaccine (1 of 2) 2018 Hemoglobin A1C Due 06/08/2024 12/07/2023, 0 09/07/2023, 05/25/2023, Additional history exists Diabetes: Microalbumin Test 08/17/2024 08/18/2023, 0 05/27/2023 Influenza Vaccine (#1) 2025 BMI Counseling 03/08/2025 03/08/2024, 09/21, 03/27/2023, Additional history exists Hepatitis C Screening Completed 05/27/2023 RSV Ped < 20 months Aged Out No longe r eligible based on patient's age to complete this topic Advance Directives For more information, please contact: [phone] Latest Code Status on File Code Status Date Activated Date Inactivated Comments Full Code 03/27/2023 4:38 PM 04/04/2023 12:59 AM Thi s code status was ascertained in the following way: patient . Code Status History Code Status Date Activated Date Inactivated Comments Full Code 05/11/2022 12:18 AM 05/14/2022 9:01 PM Th is code status was ascertained . Full Code 02/23/2022 9:41 PM 02/26/2022 10:20 PM This code status was ascertained in the following way: discussion with patient . Care Teams Director Of Rotc Relationship Specialty Start Date End Date Martha Cunha MD PCP - General Family Medicine 05/25/23
--- OUTSIDE RECORDS SUMMARY | 2025-04-12 09:17 | XMS_ITS | Encounter Summary ---
Author Organization [facility] Address [address] [place] [address] Care Team Providers Care Center Receptionist Name Role Phone Martha Cunha MD Primary Care Provider [phone] Encounter Details Date Type Department Care Team (Late st Contact Info) Description 09/11/2024 Lab Requisition [facility] Main Lab [address] [place] [address] Shanae Baeza MD [address] [place], [place] [id number] End stage renal disease (CMS/HCC V24, CMS/HCC [...] Priority Date/Time Associated Diagnosis Comments POTASSIUM STAT 09/11/2024 11:00 AM EDT End stage renal disease ([facility]/HCC V24, [facility] V28) documented in this encounter Results * (ABNORMAL) Potassium (09/11/2024 11:00 AM EDT) Potassium 5.5(H) 3.5 - 5.1 mmol/L LAB CHEMISTRY METHOD 09/11/2024 3:51 PM EDT [facility] Blood Venous blood specimen / Unknown 09/11/2024 11:00 AM EDT 09/11/2024 3:30 PM EDT us Shanae Baeza MD LAB BLOOD ORDERABLES Final Re sult [facility] [address] [place] [address], documented in this encounter Visit Diagnoses Diagnosis End stage renal disease (CMS/HCC V24, [facility] V28) End stage renal disease documented in this encounter Care Teams Center Receptionist Relationship Specialty Start Date End Date Martha Cunha MD [address] [address] PCP - General 05/25/23 documented as of this encounter
--- OUTSIDE RECORDS SUMMARY | 2025-04-12 09:17 | XMS_ITS | Encounter Summary ---
Author Organization [facility] Address [address] [place] [address] Care Team Providers Care Long Distance Operator Name Role Phone Dialysis, [address] Unavailable + Shanae Baeza MD Unavailable [phone] Martha Cunha MD Primary Care Provider Encounter Details Date Type Department Care Team (Late st Contact Info) Description 06/14/2024 Scanned Document [facility] [address] [place] [address] Samra Black [address] [place], [place] [id number] Social History Tobacco Use Types Packs/Day Years [...] on filedocumented in this encounter Care Teams Long Distance Operator Relationship Specialty Start Date End Date Martha Cunha MD [address] [place] [address] PCP - General Family Medicine 06/04/24 [facility] [address] [place] [address] Dialysis Unit 11/21/23 Shanae Baeza MD [address] [place] [address] 11/21/23 documented as of this encounter
--- OUTSIDE RECORDS SUMMARY | 2025-04-12 09:17 | XMS_ITS | Encounter Summary ---
Author Organization [facility] Address [address] [place] [address] Care Team Providers Care Mold Closer Name Role Phone Xuan Baxter APRN Primary Care Provider Dialysis, Noam [facility] [address] Unavailable + Shanae Baeza MD Unavailable [phone] Martha Cunha MD Primary Care Provider Encounter Details Date Type Department Care Team (Late st Contact Info) Description 05/18/2024 Scanned Document [facility] [address] [place] [address] Samra Black [address] [place], [place] [phone] Social History Tobacco Use Types Packs/Day Years [...] on filedocumented in this encounter Care Teams Mold Closer Relationship Specialty Start Date End Date Ponce Baxtergissel LABORATORY MACHINIST PCP - General Family Medicine 05/21/21 06/03/24 Martha Cunha MD [address] [place] [address] [place] [address] PCP - General Family Medicine 06/04/24 [facility] [address] [facility] [address] [place] [address] Dialysis Unit 11/21/23 Shanae Baeza MD [address] [place] [address] [place] [address] 11/21/23 documented as of this encounter
--- OUTSIDE RECORDS SUMMARY | 2025-04-12 09:17 | XMS_ITS | Encounter Summary ---
Author Organization [facility] Address [address] [place] [address] Care Team Providers Care Burner Shaft Name Role Phone Xuan Baxter APRN Primary Care Provider [phone] Dialysis, No[address] Unavailable + Shanae Baeza MD Unavailable [phone] Martha Cunha MD Primary Care Provider [phone] Encounter Details Date Type Department Care Team (Late st Contact Info) Description 04/26/2023 Scanned Document [facility] [address] [facility] [address] [place] [phone] Radiology, Scan Social History Tobacco Use Types Packs/Day Years [...] from 42% documented as of this encounter Procedures Procedure Name Priority Date/Time Associated Diagnosis Comments HX OUTSIDE ORDER 04/26/2023 documented in this encounter Results * HX OUTSIDE ORDER (04/26/2023) us Scan Radiology HX AMB PROCEDURES Final Result documented in this encounter Visit Diagnoses Not on filedocumented in this encounter Care Teams Burner Shaft Relationship Specialty Start Date End Date Xuan Baxter APRN PCP - General Family Medicine 05/21/21 06/03/24 Martha Cunha MD [address] [place] [address] [place] [address] PCP - [facility] 06/04/24 Dialysis, Noam [facility] [address] [place] [address] Dialysis Unit 11/21/23 Shanae Baeza MD [address] [place] [address] 11/21/23 documented as of this encounter
--- OUTSIDE RECORDS SUMMARY | 2025-04-12 09:18 | XMS_ITS ---
Author Name [facility] Organization Unknown Results Test Name/Text Value Interpretation Date Range Source Glucose Bld-mCnc 193.0 mg/dL Normal 5 70 - 199 [facility] Glucose Bld-mCnc 115.0 mg/dL Normal 5 70 - 199 [facility] Glucose Bld-mCnc 233.0 mg/dL Above high normal 5 70 - 199 [facility] Glucose Bld-mCnc 131.0 mg/dL Normal 5 70 - 199 [facility] Glucose Bld-mCnc 295.0 mg/dL Above high normal 5 70 - 199 [facility] Glucose Bld-mCnc 112.0 mg/dL Normal 5 70 - 199 [facility] Glucose Bld-mCnc 207.0 mg/dL Above high normal 5 70 - 199 [facility] Glucose Bld-mCnc 132.0 mg/dL Normal 5 70 - 199 [facility] Glucose Bld-mCnc 168.0 mg/dL Normal 5 70 - 199 [facility] Glucose Bld-mCnc 219.0 mg/dL Above high normal 5 70 - 199 [facility] T4 Free SerPl-mCnc 0.9 ng/dL Normal 5 0.5 - 1.3 [facility] BUN/Creat SerPl 8.2 Below low normal 06/10/19 2 5 12 - 20 [facility] Bilirub SerPl-mCnc 0.7 mg/dL Normal 5 0.3 - 1 [facility] Prot SerPl-mCnc 6.2 g/dL Below low normal 06/10/19 2 5 6.4 - 8.5 [facility] AST SerPl-cCnc 18.0 unit/L Normal 5 5 - 40 [facility] Albumin SerPl-mCnc 3.2 g/dL Below low normal 06/10 5 3.5 - 5 [facility] Potassium SerPl-sCnc 3.5 mmol/L Normal 5 3.5 - 5.1 [facility] ALP SerPl-cCnc 70.0 unit/L Normal 5 34 - 104 [facility] BUN SerPl-mCnc 36.0 mg/dL Normal 5 [facility] Anion Gap SerPl-sCnc 8.0 Normal 5 5 - 14 [facility] ALT SerPl-cCnc <3.0 unit/L Below low normal 5 7 - 52 [facility] Chloride SerPl-sCnc 93.0 mmol/L Below low normal 05/23 5 98 - 107 [facility] Sodium SerPl-sCnc 131.0 mmol/L Below low normal 5 135 - 145 [facility] eGFRcr SerPlBld CKD-EPI 2020 11.0 mL/min/1.73m2 Below low normal 5 - [facility] CO2 SerPl-sCnc 30.0 mmol/L Normal 5 24 - 32 [facility] Glucose SerPl-mCnc 149.0 mg/dL Normal 5 70 - 199 [facility] Calcium SerPl-mCnc 7.1 mg/dL Below low normal 06/10 5 8.4 - 10.2 [facility] Creat SerPl-mCnc 4.4 mg/dL Above high normal 5 0.5 - 1.3 [facility] TSH SerPl DL<=0.005 mIU/L-aCnc 15.61 mcIU/mL Above high normal 5 0.45 - 5.33 [facility] Magnesium SerPl-mCnc 1.8 mg/dL Normal 5 1.7 - 2.8 [facility] Phosphate SerPl-mCnc 3.4 mg/dL Normal 5 2.5 - 4.5 [facility] Monocytes # Bld Auto 0.9 K/mcL Above high normal 5 0 - 0.8 [facility] Neutrophils # Bld Auto 6.1 K/mcL Normal 5 1.8 - 7.8 [facility] Monocytes/leuk NFr Bld Auto 10.6 % Normal 5 2 - 12 [facility] Eosinophil/leuk NFr Bld Auto 4.0 % Normal 5 0 - 6 [facility] Eosinophil # Bld Auto 0.3 K/mcL Normal 5 0 - 0.5 [facility] Lymphocytes/leuk NFr Bld Auto 11.8 % Below low normal 5 20 - 48 [facility] Hgb Bld-mCnc 10.4 g/dL Below low normal 5 12.5 - 18 [facility] Basophils/leuk NFr Bld Auto 0.4 % Normal 5 0 - 2 [facility] MCH RBC Qn Auto 29.4 pcg Normal 5 25 - 33 [facility] RDW RBC Auto-Rto 15.7 % Normal 5 12.1 - 17.7 [facility] MCV RBC Auto 87.4 FL Normal 5 78 - 100 [facility] Hct VFr Bld Auto 31.0 % Below low normal 02 5 37 - 54 [facility] Neutrophils/leuk NFr Bld Auto 73.2 % Normal 5 44 - 74 [facility] Platelet # Bld Auto 184.0 K/mcL Normal 06/10/19 2 5 150 - 450 [facility] RBC # Bld Auto 3.55 M/mcL Below low normal 5 4.2 - 6 [facility] Lymphocytes # Bld Auto 1.0 K/mcL Normal 5 1 - 3.2 [facility] PMV Bld Auto 8.5 FL Normal 5 7.4 - 11.4 [facility] Basophils # Bld Auto 0.0 K/mcL Normal 5 0 - 0.2 [facility] MCHC RBC Auto-mCnc 33.6 g/dL Normal 5 32 - 36 [facility] WBC # Bld Auto 8.3 K/mcL Normal 5 4 - 10.5 [facility] Glucose Bld-mCnc 88.0 mg/dL Normal 5 70 - 199 [facility] Glucose Bld-mCnc 186.0 mg/dL Normal 5 70 - 199 [facility] Glucose Bld-mCnc 240.0 mg/dL Above high normal 5 70 - 199 [facility] Glucose Bld-mCnc 147.0 mg/dL Normal 5 70 - 199 [facility] Glucose Bld-mCnc 77.0 mg/dL Normal 5 70 - 199 [facility] VLDLc SerPl Calc-mCnc 38.2 mg/dL Normal 5 [facility] Trigl SerPl-mCnc 191.0 mg/dL Above high normal 5 - 150 [facility] Cholest SerPl-mCnc 170.0 mg/dL Normal 5 0 - 200 [facility] LDLc SerPl Calc-mCnc 100.0 mg/dL Normal 5 50 - 130 [facility] HDLc SerPl-mCnc 32.0 mg/dL Normal 5 32 - 70 [facility] Anion Gap SerPl-sCnc 14.0 Normal 5 5 - 14 [facility] Calcium SerPl-mCnc 8.2 mg/dL Below low normal 06/09 5 8.4 - 10.2 [facility] Glucose SerPl-mCnc 199.0 mg/dL Normal 5 70 - 199 [facility] BUN/Creat SerPl 10.5 Below low normal 06/09/19 2 5 12 - 20 [facility] CO2 SerPl-sCnc 26.0 mmol/L Normal 5 24 - 32 [facility] Chloride SerPl-sCnc 94.0 mmol/L Below low normal 05/23 5 98 - 107 [facility] eGFRcr SerPlBld CKD-EPI 2020 7.0 mL/min/1.73m2 Below low normal 5 - [facility] Potassium SerPl-sCnc 3.6 mmol/L Normal 5 3.5 - 5.1 [facility] Sodium SerPl-sCnc 134.0 mmol/L Below low normal 5 135 - 145 [facility] Creat SerPl-mCnc 6.2 mg/dL Above high normal 5 0.5 - 1.3 [facility] BUN SerPl-mCnc 65.0 mg/dL Normal 5 [facility] Phosphate SerPl-mCnc 4.7 mg/dL Above high normal 5 2.5 - 4.5 [facility] Magnesium SerPl-mCnc 2.4 mg/dL Normal 5 1.7 - 2.8 [facility] Hgb Bld-mCnc 11.0 g/dL Below low normal 5 12.5 - 18 [facility] MCHC RBC Auto-mCnc 34.1 g/dL Normal 5 32 - 36 [facility] RBC # Bld Auto 3.72 M/mcL Below low normal 5 4.2 - 6 [facility] MCH RBC Qn Auto 29.7 pcg Normal 5 25 - 33 [facility] WBC # Bld Auto 9.4 K/mcL Normal 5 4 - 10.5 [facility] MCV RBC Auto 87.0 FL Normal 5 78 - 100 [facility] Hct VFr Bld Auto 32.4 % Below low normal 02 5 37 - 54 [facility] RDW RBC Auto-Rto 16.4 % Normal 5 12.1 - 17.7 [facility] PMV Bld Auto 9.2 FL Normal 5 7.4 - 11.4 [facility] Platelet # Bld Auto 196.0 K/mcL Normal 06/09/19 2 5 150 - 450 [facility] Glucose Bld-mCnc 156.0 mg/dL Normal 5 70 - 199 [facility] Glucose Bld-mCnc 157.0 mg/dL Normal 5 70 - 199 [facility] Glucose Bld-mCnc 184.0 mg/dL Normal 5 70 - 199 [facility] Glucose Bld-mCnc 144.0 mg/dL Normal 5 70 - 199 [facility] Phosphate SerPl-mCnc 5.7 mg/dL Above high normal 5 2.5 - 4.5 [facility] Magnesium SerPl-mCnc 2.3 mg/dL Normal 5 1.7 - 2.8 [facility] Calcium SerPl-mCnc 8.6 mg/dL Normal 5 8.4 - 10.2 [facility] Anion Gap SerPl-sCnc 12.0 Normal 5 5 - 14 [facility] Sodium SerPl-sCnc 134.0 mmol/L Below low normal 5 135 - 145 [facility] Potassium SerPl-sCnc 4.1 mmol/L Normal 5 3.5 - 5.1 [facility] BUN SerPl-mCnc 52.0 mg/dL Normal 5 [facility] Glucose SerPl-mCnc 171.0 mg/dL Normal 5 70 - 199 [facility] Creat SerPl-mCnc 4.3 mg/dL Above high normal 5 0.5 - 1.3 [facility] eGFRcr SerPlBld CKD-EPI 2020 12.0 mL/min/1.73m2 Below low normal 5 - [facility] CO2 SerPl-sCnc 28.0 mmol/L Normal 5 24 - 32 [facility] BUN/Creat SerPl 12.1 Normal 5 12 - 20 [facility] Chloride SerPl-sCnc 94.0 mmol/L Below low normal 05/23 5 98 - 107 [facility] Lymphocytes # Bld Auto 0.6 K/mcL Below low normal 5 1 - 3.2 [facility] PMV Bld Auto 8.8 FL Normal 5 7.4 - 11.4 [facility] WBC # Bld Auto 9.2 K/mcL Normal 5 4 - 10.5 [facility] Neutrophils # Bld Auto 7.7 K/mcL Normal 5 1.8 - 7.8 [facility] RBC # Bld Auto 3.31 M/mcL Below low normal 5 4.2 - 6 [facility] MCH RBC Qn Auto 30.3 pcg Normal 5 25 - 33 [facility] Eosinophil # Bld Auto 0.0 K/mcL Normal 5 0 - 0.5 [facility] RDW RBC Auto-Rto 15.9 % Normal 5 12.1 - 17.7 [facility] MCV RBC Auto 87.1 FL Normal 5 78 - 100 [facility] Hct VFr Bld Auto 28.8 % Below low normal 02 5 37 - 54 [facility] Basophils/leuk NFr Bld Auto 0.6 % Normal 5 0 - 2 [facility] Lymphocytes/leuk NFr Bld Auto 6.3 % Below low normal 5 20 - 48 [facility] Neutrophils/leuk NFr Bld Auto 83.4 % Above high normal 5 44 - 74 [facility] Eosinophil/leuk NFr Bld Auto 0.2 % Normal 5 0 - 6 [facility] MCHC RBC Auto-mCnc 34.8 g/dL Normal 5 32 - 36 [facility] Hgb Bld-mCnc 10.0 g/dL Below low normal 5 12.5 - 18 [facility] Platelet # Bld Auto 154.0 K/mcL Normal 06/08/19 2 5 150 - 450 [facility] Monocytes/leuk NFr Bld Auto 9.5 % Normal 5 2 - 12 [facility] Basophils # Bld Auto 0.1 K/mcL Normal 5 0 - 0.2 [facility] Monocytes # Bld Auto 0.9 K/mcL Above high normal 5 0 - 0.8 [facility] Phosphate SerPl-mCnc 4.7 mg/dL Above high normal 5 2.5 - 4.5 [facility] CO2 SerPl-sCnc 26.0 mmol/L Normal 5 24 - 32 [facility] Anion Gap SerPl-sCnc 15.0 Above high normal 5 5 - 14 [facility] Glucose SerPl-mCnc 158.0 mg/dL Normal 5 70 - 199 [facility] Calcium SerPl-mCnc 8.4 mg/dL Normal 5 8.4 - 10.2 [facility] Sodium SerPl-sCnc 133.0 mmol/L Below low normal 5 135 - 145 [facility] Chloride SerPl-sCnc 92.0 mmol/L Below low normal 05/23 5 98 - 107 [facility] Creat SerPl-mCnc 3.6 mg/dL Above high normal 5 0.5 - 1.3 [facility] eGFRcr SerPlBld CKD-EPI 2020 14.0 mL/min/1.73m2 Below low normal 5 - [facility] BUN SerPl-mCnc 35.0 mg/dL Normal 5 [facility] Potassium SerPl-sCnc 3.9 mmol/L Normal 5 3.5 - 5.1 [facility] BUN/Creat SerPl 9.7 Below low normal 06/08/19 2 5 12 - 20 [facility] Troponin I SerPl HS-mCnc 55.0 ng/L Above high normal 5 0 - 14 [facility] Est. average glucose Bld gHb Est-mCnc 160.0 mg/dL Normal 5 [facility] HbA1c MFr Bld 7.2 % Above high normal 5 - 5.7 [facility] Glucose SerPl-mCnc 201.0 mg/dL Above high normal 05/23 5 70 - 199 [facility] Prot SerPl-mCnc 8.1 g/dL Normal 5 6.4 - 8.5 [facility] ALT SerPl-cCnc <3.0 unit/L Below low normal 5 7 - 52 [facility] eGFRcr SerPlBld CKD-EPI 2020 6.0 mL/min/1.73m2 Below low normal 5 - [facility] Anion Gap SerPl-sCnc 17.0 Above high normal 5 5 - 14 [facility] Bilirub SerPl-mCnc 0.8 mg/dL Normal 5 0.3 - 1 [facility] Calcium SerPl-mCnc 9.0 mg/dL Normal 5 8.4 - 10.2 [facility] Sodium SerPl-sCnc 132.0 mmol/L Below low normal 5 135 - 145 [facility] Potassium SerPl-sCnc 5.4 mmol/L Above high normal 5 3.5 - 5.1 [facility] BUN SerPl-mCnc 99.0 mg/dL Normal 5 [facility] ALP SerPl-cCnc 93.0 unit/L Normal 5 34 - 104 [facility] Chloride SerPl-sCnc 94.0 mmol/L Below low normal 05/23 5 98 - 107 [facility] Albumin SerPl-mCnc 4.1 g/dL Normal 5 3.5 - 5 [facility] Creat SerPl-mCnc 7.5 mg/dL Above high normal 5 0.5 - 1.3 [facility] AST SerPl-cCnc 19.0 unit/L Normal 5 5 - 40 [facility] BUN/Creat SerPl 13.2 Normal 5 12 - 20 [facility] CO2 SerPl-sCnc 21.0 mmol/L Below low normal 5 24 - 32 [facility] Lipase SerPl-cCnc 46.0 unit/L Normal 5 11 - 82 [facility] Troponin I SerPl HS-mCnc 54.0 ng/L Above high normal 5 0 - 14 [facility] Lymphocytes # Bld Auto 0.4 K/mcL Below low normal 5 1 - 3.2 [facility] Eosinophil # Bld Auto 0.0 K/mcL Normal 5 0 - 0.5 [facility] Platelet # Bld Auto 172.0 K/mcL Normal 06/07/19 2 5 150 - 450 [facility] MCHC RBC Auto-mCnc 33.7 g/dL Normal 5 32 - 36 [facility] PMV Bld Auto 8.9 FL Normal 5 7.4 - 11.4 [facility] RBC # Bld Auto 3.65 M/mcL Below low normal 5 4.2 - 5.4 [facility] Hct VFr Bld Auto 32.2 % Below low normal 02 5 37 - 47 [facility] Lymphocytes/leuk NFr Bld Auto 4.3 % Below low normal 5 20 - 48 [facility] WBC # Bld Auto 9.7 K/mcL Normal 5 4 - 10.5 [facility] Eosinophil/leuk NFr Bld Auto 0.1 % Normal 5 0 - 6 [facility] RDW RBC Auto-Rto 16.8 % Above high normal 5 12.1 - 16.2 [facility] Basophils # Bld Auto 0.1 K/mcL Normal 5 0 - 0.2 [facility] Monocytes # Bld Auto 0.4 K/mcL Normal 5 0 - 0.8 [facility] Neutrophils # Bld Auto 8.8 K/mcL Above high normal 5 1.8 - 7.8 [facility] Basophils/leuk NFr Bld Auto 0.5 % Normal 5 0 - 2 [facility] MCV RBC Auto 88.3 FL Normal 5 78 - 100 [facility] Hgb Bld-mCnc 10.9 g/dL Below low normal 5 12.5 - 16 [facility] Monocytes/leuk NFr Bld Auto 4.3 % Normal 5 2 - 12 [facility] MCH RBC Qn Auto 29.8 pcg Normal 5 25 - 33 [facility] Neutrophils/leuk NFr Bld Auto 90.8 % Above high normal 5 44 - 74 [facility] POC Glucose 111.0 mg/dL Above high normal 5 65 - 99 [facility] Magnesium SerPl-mCnc 2.2 mg/dL Normal 5 1.6 - 2.7 [facility] Phosphate SerPl-mCnc 5.6 mg/dL Above high normal 5 2.7 - 4.5 [facility] Calcium SerPl-mCnc 8.4 mg/dL Below low normal 06/04 5 8.7 - 10.5 [facility] Sodium SerPl-sCnc 135.0 mmol/L Below low normal 5 136 - 145 [facility] Potassium SerPl-sCnc 5.4 mmol/L Above high normal 5 3.4 - 5.3 [facility] BUN/Creat SerPl 12.0 Ratio Normal 5 10 - 25 [facility] Anion Gap Bld-sCnc 12.0 Normal 5 7 - 17 [facility] Glucose SerPl-mCnc 144.0 mg/dL Above high normal 05/23 5 65 - 99 [facility] BUN SerPl-mCnc 54.0 mg/dL Above high normal 06/04/19 2 5 8 - 21 [facility] Chloride SerPl-sCnc 97.0 mmol/L Below low normal 05/23 5 98 - 107 [facility] GFR/BSA.pred SerPlBld [id number] 11.0 Below low normal 5 59 - [facility] CO2 SerPl-sCnc 26.0 mmol/L Normal 5 22 - 33 [facility] Creat SerPl-mCnc 4.6 mg/dL Above high normal 5 0.4 - 1.1 [facility] POC Glucose 149.0 mg/dL Above high normal 5 65 - 99 [facility] Ferritin SerPl-mCnc 589.0 ng/mL Above high normal 5 10 - 120 [facility] Iron SerPl-mCnc 65.0 mcg/dL Normal 5 37 - 170 [facility] Iron Satn MFr SerPl 31.0 % Normal 05/25/19 2 5 20 - 45 [facility] TIBC SerPl-mCnc 213.0 mcg/dL Below low normal 05/25/19 2 5 250 - 450 [facility] UIBC SerPl-mCnc 148.0 mcg/dL Below low normal 05/25/19 2 5 155 - 355 [facility] MCV RBC Auto 88.7 FL Normal 5 78 - 100 [facility] WBC # Bld Auto 7.0 K/mcL Normal 5 4 - 10.5 [facility] Basophils # Bld Auto 0.1 K/mcL Normal 5 0 - 0.2 [facility] Neutrophils/leuk NFr Bld Auto 72.2 % Normal 5 44 - 74 [facility] Platelet # Bld Auto 158.0 K/mcL Normal 05/25/19 2 5 150 - 450 [facility] Neutrophils # Bld Auto 5.0 K/mcL Normal 5 1.8 - 7.8 [facility] RBC # Bld Auto 4.18 M/mcL Below low normal 5 4.2 - 5.4 [facility] Lymphocytes # Bld Auto 1.0 K/mcL Normal 5 1 - 3.2 [facility] PMV Bld Auto 9.4 FL Normal 5 7.4 - 11.4 [facility] Monocytes/leuk NFr Bld Auto 9.4 % Normal 5 2 - 12 [facility] MCH RBC Qn Auto 29.5 pcg Normal 5 25 - 33 [facility] Eosinophil # Bld Auto 0.3 K/mcL Normal 5 0 - 0.5 [facility] Hct VFr Bld Auto 37.1 % Normal 5 37 - 47 [facility] Lymphocytes/leuk NFr Bld Auto 13.8 % Below low normal 5 20 - 48 [facility] MCHC RBC Auto-mCnc 33.2 g/dL Normal 5 32 - 36 [facility] Hgb Bld-mCnc 12.3 g/dL Below low normal 5 12.5 - 16 [facility] Monocytes # Bld Auto 0.7 K/mcL Normal 5 0 - 0.8 [facility] RDW RBC Auto-Rto 16.1 % Normal 5 12.1 - 16.2 [facility] Basophils/leuk NFr Bld Auto 0.9 % Normal 5 0 - 2 [facility] Eosinophil/leuk NFr Bld Auto 3.7 % Normal 5 0 - 6 [facility] MOI-3, S Negative Normal 4 - [facility] MDS COORDINATOR-2, S Negative Normal 4 - [facility] MDS COORDINATOR-TR, S Negative Normal 4 - [facility] P/Q-TYPE CALCIUM CHANNEL AB 0.0 nmol/L Normal 4 - [facility] CRMP-5-IGG WESTERN BLOT, S Negative Normal 4 - [facility] DPPX AB CBA, S Negative Normal 4 - [facility] SEPTIN-7 IFA, S Negative Normal 4 - [facility] GRAF1 IFA, S Negative Normal 4 - [facility] EDUARDO-B-R AB CBA, S Negative Normal 4 - [facility] KLHL11 AB CBA, S Negative Normal 4 - [facility] NIF IFA, S Negative Normal 4 - [facility] AMPA-R AB CBA, S Negative Normal 4 - [facility] TRIM46 AB IFA, S Negative Normal 4 - [facility] PDE10A AB IFA, S Negative Normal 4 - [facility] GFAP IFA, S Negative Normal 4 - [facility] AGNA-1, S Negative Normal 4 - [facility] AMPHIPHYSIN AB, S Negative Normal 4 - [facility] ITPR1 IFA, S Negative Normal 4 - [facility] MDS COORDINATOR-1, S Negative Normal 4 - [facility] IFA NOTES MDS2 None. Normal 4 [facility] NMDA-R AB CBA, S Negative Normal 4 - [facility] AP3B2 IFA, S Negative Normal 4 - [facility] MOVEMENT DISORDER INTERP, S SEE COMMENTS Normal 4 [facility] MOI-1, S Negative Normal 4 - [facility] MOI-2, S Negative Normal 4 - [facility] LGI1-IGG CBA, S Negative Normal 4 - [facility] MGLUR1 AB IFA, S Negative Normal 4 - [facility] NEUROCHONDRIN IFA, S Negative Normal 4 - [facility] IGLON5 CBA, S Negative Normal 4 - [facility] SEPTIN-5 IFA, S Negative Normal 4 - [facility] CASPR2-IGG CBA, S Negative Normal 4 - [facility] GAD65 AB ASSAY, S 0.0 nmol/L Normal 4 - [facility] ISTAT SAMPLE TYPE unknown Normal 4 [facility] POCT CREATININE 4.4 mg/dL Above high normal 02 4 0.6 - 1.2 [facility] Eosinophil/leuk NFr Bld Auto 3.5 % Normal 4 0 - 6 [facility] MCHC RBC Auto-mCnc 33.5 g/dL Normal 4 32 - 36 [facility] RBC # Bld Auto 4.13 M/mcL Below low normal 4 4.2 - 5.4 [facility] Eosinophil # Bld Auto 0.2 K/mcL Normal 4 0 - 0.5 [facility] Monocytes/leuk NFr Bld Auto 6.6 % Normal 4 2 - 12 [facility] Basophils # Bld Auto 0.1 K/mcL Normal 4 0 - 0.2 [facility] Hct VFr Bld Auto 36.6 % Below low normal 02 4 37 - 47 [facility] Basophils/leuk NFr Bld Auto 1.3 % Normal 4 0 - 2 [facility] Lymphocytes # Bld Auto 0.6 K/mcL Below low normal 4 1 - 3.2 [facility] RDW RBC Auto-Rto 17.1 % Above high normal 4 12.1 - 16.2 [facility] Hgb Bld-mCnc 12.3 g/dL Below low normal 4 12.5 - 16 [facility] Lymphocytes/leuk NFr Bld Auto 9.2 % Below low normal 4 20 - 48 [facility] PMV Bld Auto 8.1 FL Normal 4 7.4 - 11.4 [facility] Platelet # Bld Auto 196.0 K/mcL Normal 04/25/20 2 4 150 - 450 [facility] MCV RBC Auto 88.8 FL Normal 4 78 - 100 [facility] WBC # Bld Auto 6.0 K/mcL Normal 4 4 - 10.5 [facility] Neutrophils/leuk NFr Bld Auto 79.4 % Above high normal 4 44 - 74 [facility] Monocytes # Bld Auto 0.4 K/mcL Normal 4 0 - 0.8 [facility] MCH RBC Qn Auto 29.7 pcg Normal 4 25 - 33 [facility] Neutrophils # Bld Auto 4.8 K/mcL Normal 4 1.8 - 7.8 [facility] Glucose Bld-mCnc 103.0 mg/dL Normal 4 70 - 199 [facility] Glucose Bld-mCnc 198.0 mg/dL Normal 4 70 - 199 [facility] HBV surface Ab SerPl IA-aCnc 18.5 mIU/mL Normal 4 [facility] HBV core Ab SerPl Ql IA Negative Normal 4 - [facility] HBV surface Ag SerPl Ql IA Negative Normal 4 - [facility] HBV surface Ab Ser Ql IA Positive Abnormal 4 - [facility] Glucose Bld-mCnc 133.0 mg/dL Normal 4 70 - 199 [facility] Potassium SerPl-sCnc 5.1 mmol/L Normal 4 3.5 - 5.1 [facility] Anion Gap SerPl-sCnc 14.0 Normal 4 5 - 14 [facility] eGFRcr SerPlBld CKD-EPI 2020 7.0 mL/min/1.73m2 Below low normal 4 - [facility] Sodium SerPl-sCnc 134.0 mmol/L Below low normal 4 135 - 145 [facility] Calcium SerPl-mCnc 7.1 mg/dL Below low normal 04/12 4 8.4 - 10.2 [facility] Glucose SerPl-mCnc 151.0 mg/dL Normal 4 70 - 199 [facility] Creat SerPl-mCnc 6.2 mg/dL Above high normal 4 0.5 - 1 [facility] BUN SerPl-mCnc 65.0 mg/dL Above high normal 04/12/20 2 4 7 - 17 [facility] CO2 SerPl-sCnc 24.0 mmol/L Normal 4 24 - 32 [facility] Chloride SerPl-sCnc 96.0 mmol/L Below low normal 03/24 4 98 - 107 [facility] BUN/Creat SerPl 10.5 Below low normal 04/12/20 2 4 12 - 20 [facility] Glucose Bld-mCnc 210.0 mg/dL Above high normal 4 70 - 199 [facility] Glucose Bld-mCnc 96.0 mg/dL Normal 4 70 - 199 [facility] Citation Ref Lab Test The technical components of [place] [address] CLIA # [id number] Normal 4 [facility] Potassium SerPl-sCnc 5.2 mmol/L Above high normal 4 3.5 - 5.1 [facility] Sodium BldV-sCnc 136.0 mmol/L Normal 4 135 - 145 [facility] Potassium BldV-sCnc 6.1 mmol/L Critically high 04/11 4 3.5 - 5.1 [facility] Hgb BldV-mCnc 14.6 g/dL Normal 4 12.5 - 16 [facility] Hct VFr BldV 43.0 % Normal 4 37 - 47 [facility] Glucose Bld-mCnc 116.0 mg/dL Normal 4 70 - 199 [facility] Vit B12 SerPl-mCnc 343.0 pcg/mL Normal 4 180 - 914 [facility] Folate SerPl-mCnc 12.6 ng/ml Normal 4 - [facility] WBC # Bld Auto 7.3 K/mcL Normal 4 4 - 10.5 [facility] Neutrophils # Bld Auto 5.7 K/mcL Normal 4 1.8 - 7.8 [facility] Basophils # Bld Auto 0.1 K/mcL Normal 4 0 - 0.2 [facility] MCH RBC Qn Auto 30.1 pcg Normal 4 25 - 33 [facility] MCHC RBC Auto-mCnc 32.8 g/dL Normal 4 32 - 36 [facility] Lymphocytes/leuk NFr Bld Auto 8.4 % Below low normal 4 20 - 48 [facility] Neutrophils/leuk NFr Bld Auto 78.2 % Above high normal 4 44 - 74 [facility] Lymphocytes # Bld Auto 0.6 K/mcL Below low normal 4 1 - 3.2 [facility] Eosinophil/leuk NFr Bld Auto 3.6 % Normal 4 0 - 6 [facility] Monocytes/leuk NFr Bld Auto 8.8 % Normal 4 2 - 12 [facility] Monocytes # Bld Auto 0.6 K/mcL Normal 4 0 - 0.8 [facility] Hct VFr Bld Auto 36.7 % Below low normal 02 4 37 - 47 [facility] PMV Bld Auto 8.4 FL Normal 4 7.4 - 11.4 [facility] Platelet # Bld Auto 196.0 K/mcL Normal 03/28/20 2 4 150 - 450 [facility] MCV RBC Auto 91.6 FL Normal 4 78 - 100 [facility] Hgb Bld-mCnc 12.0 g/dL Below low normal 4 12.5 - 16 [facility] Eosinophil # Bld Auto 0.3 K/mcL Normal 4 0 - 0.5 [facility] RBC # Bld Auto 4.0 M/mcL Below low normal 4 4.2 - 5.4 [facility] Basophils/leuk NFr Bld Auto 1.0 % Normal 4 0 - 2 [facility] RDW RBC Auto-Rto 16.8 % Above high normal 4 12.1 - 16.2 [facility] RDW RBC AUTO RTO 15.9 % Normal 4 12.1 - 16.2 [facility] MONOCYTES NFR BLD AUTO 6.5 % Normal 4 2 - 12 [facility] EOSINOPHIL NFR BLD AUTO 3.8 % Normal 4 0 - 6 [facility] LYMPHOCYTES NFR BLD AUTO 7.4 % Below low normal 4 20 - 48 [facility] BASOPHILS NFR BLD AUTO 0.6 % Normal 4 0 - 2 [facility] MCHC RBC AUTO MCNC 33.2 g/dL Normal 4 32 - 36 [facility] NEUTROPHILS NO. BLD AUTO 5.7 K/uL Normal 4 1.8 - 7.8 [facility] DIFFERENTIAL TYPE AUTOMATED Normal 4 [facility] MONOCYTES NO. BLD AUTO 0.5 K/uL Normal 4 0 - 0.8 [facility] PLATELET NO. BLD AUTO 175.0 K/uL Normal 4 150 - 450 [facility] MCV RBC AUTO 92.0 fL Normal 4 78 - 100 [facility] WBC NO. BLD AUTO 7.0 K/uL Normal 4 4 - 10.5 [facility] HGB BLD MCNC 10.0 g/dL Below low normal 4 12.5 - 16 [facility] HCT VFR BLD AUTO 30.2 % Below low normal 02 4 37 - 47 [facility] MCH RBC QN AUTO 30.5 pg Normal 4 25 - 33 [facility] EOSINOPHIL NO. BLD AUTO 0.3 K/uL Normal 4 0 - 0.5 [facility] LYMPHOCYTES NO. BLD AUTO 0.5 K/uL Below low normal 4 1 - 3.2 [facility] BASOPHILS IN BLOOD BY AUTOMATED COUNT 0.0 K/uL Normal 4 0 - 0.2 [facility] PMV BLD AUTO 8.9 fL Normal 4 7.4 - 11.4 [facility] NEUTROPHILS NFR BLD AUTO 81.7 % Above high normal 4 44 - 74 [facility] RBC NO. BLD AUTO 3.28 M/uL Below low normal 02 4 4.2 - 5.4 [facility] CREAT SERPL MCNC 5.3 mg/dL Above high normal 4 0.5 - 1 [facility] Glomerular filtration rate/1.73 sq M. predicted 9.0 Below low normal 4 60 - [facility] SODIUM SERPL SCNC 136.0 mmol/L Normal 4 135 - 145 [facility] BUN SERPL MCNC 55.0 mg/dL Above high normal 03/08/20 2 4 7 - 17 [facility] CHLORIDE SERPL SCNC 97.0 mmol/L Below low normal 02/20 4 98 - 107 [facility] GLUCOSE SERPL MCNC 157.0 mg/dL Normal 4 70 - 199 [facility] POTASSIUM SERPL SCNC 4.5 mmol/L Normal 4 3.5 - 5.1 [facility] CALCIUM SERPL MCNC 8.2 mg/dL Below low normal 03/08 4 8.4 - 10.2 [facility] HCO3 SER SCNC 26.0 mmol/L Normal 4 24 - 32 [facility] ANION GAP SERPL SCNC 13.0 mmol/L Normal 4 5 - 14 [facility] ALBUMIN SERPL BCG MCNC 3.8 g/dL Normal 4 3.5 - 5 [facility] HCO3 SER SCNC 29.0 mmol/L Normal 4 24 - 32 [facility] AST SERPL CCNC 22.0 U/L Normal 4 5 - 40 [facility] CREAT SERPL MCNC 3.9 mg/dL Above high normal 4 0.5 - 1 [facility] SODIUM SERPL SCNC 139.0 mmol/L Normal 4 135 - 145 [facility] CHLORIDE SERPL SCNC 99.0 mmol/L Normal 03/02/20 2 4 98 - 107 [facility] BUN SERPL MCNC 44.0 mg/dL Above high normal 03/02/20 2 4 7 - 17 [facility] ALP SERPL-CCNC 162.0 U/L Above high normal 03/02/20 2 4 34 - 104 [facility] BILIRUB SERPL MCNC 0.7 mg/dL Normal 4 0.3 - 1 [facility] Glomerular filtration rate/1.73 sq M. predicted 13.0 Below low normal 4 60 - [facility] GLUCOSE SERPL MCNC 223.0 mg/dL Above high normal 02/20 4 70 - 199 [facility] ANION GAP SERPL SCNC 11.0 mmol/L Normal 4 5 - 14 [facility] POTASSIUM SERPL SCNC 4.5 mmol/L Normal 4 3.5 - 5.1 [facility] CALCIUM SERPL MCNC 8.1 mg/dL Below low normal 03/02 4 8.4 - 10.2 [facility] PROT SERPL MCNC 7.4 g/dL Normal 4 6.4 - 8.5 [facility] ALT SERPL CCNC 15.0 U/L Normal 4 7 - 52 [facility] FERRITIN SERPL MCNC 502.0 ng/mL Above high normal 4 10 - 120 [facility] LYMPHOCYTES NO. BLD AUTO 0.4 K/uL Below low normal 4 1 - 3.2 [facility] NEUTROPHILS NO. BLD AUTO 5.6 K/uL Normal 4 1.8 - 7.8 [facility] MONOCYTES NO. BLD AUTO 0.4 K/uL Normal 4 0 - 0.8 [facility] HCT VFR BLD AUTO 32.3 % Below low normal 02 4 37 - 47 [facility] LYMPHOCYTES NFR BLD AUTO 6.5 % Below low normal 4 20 - 48 [facility] MONOCYTES NFR BLD AUTO 5.8 % Normal 4 2 - 12 [facility] PLATELET NO. BLD AUTO 185.0 K/uL Normal 4 150 - 450 [facility] RDW RBC AUTO RTO 16.5 % Above high normal 4 12.1 - 16.2 [facility] NEUTROPHILS NFR BLD AUTO 81.5 % Above high normal 4 44 - 74 [facility] PMV BLD AUTO 8.1 fL Normal 4 7.4 - 11.4 [facility] EOSINOPHIL NO. BLD AUTO 0.4 K/uL Normal 4 0 - 0.5 [facility] BASOPHILS NFR BLD AUTO 0.9 % Normal 4 0 - 2 [facility] WBC NO. BLD AUTO 6.9 K/uL Normal 4 4 - 10.5 [facility] RBC NO. BLD AUTO 3.57 M/uL Below low normal 02 4 4.2 - 5.4 [facility] MCH RBC QN AUTO 30.5 pg Normal 4 25 - 33 [facility] EOSINOPHIL NFR BLD AUTO 5.3 % Normal 4 0 - 6 [facility] BASOPHILS IN BLOOD BY AUTOMATED COUNT 0.1 K/uL Normal 4 0 - 0.2 [facility] HGB BLD MCNC 10.9 g/dL Below low normal 4 12.5 - 16 [facility] MCHC RBC AUTO MCNC 33.7 g/dL Normal 4 32 - 36 [facility] MCV RBC AUTO 90.4 fL Normal 4 78 - 100 [facility] IRON SATN MFR SERPL 30.0 % Normal 03/02/20 2 4 20 - 45 [facility] UIBC SERPL MCNC 167.0 ug/dL Normal 4 155 - 355 [facility] IRON SERPL MCNC 72.0 mcg/dL Normal 4 37 - 170 [facility] TIBC SERPL MCNC 239.0 ug/dL Below low normal 03/02/20 2 4 250 - 450 [facility] AMOUNT CSF FROZEN 12.0 mL Normal 4 [facility] AP DIAGNOSIS COMMENT See separate Surgical Pathology report ([id number]) of flow cytometry performed on a concurrent cerebrospinal fluid sample. Normal 4 [facility] ALBUMIN INDEX see scanned report Normal 02/17/20 2 4 [facility] ALBUMIN, CSF see scanned report Normal 4 [facility] CSF IGG SYNTHESIS RATE see scanned report Normal 4 [facility] IMMUNOGLOBULIN G CSF see scanned report Normal 4 [facility] IGG INDEX see scanned report Normal 4 [facility] ALBUMIN BY NEPHELOMETRY see scanned report Normal 4 [facility] CSF IGG/ALBUMIN RATIO see scanned report Normal 4 [facility] IMMUNOGLOBULIN G see scanned report Normal 02/16 4 [facility] CSF OLIGOCLONAL BANDS see scanned report Normal 4 [facility] INTERPRETATION see scanned report Normal 02 4 [facility] OLIGOCLONAL BANDS NUMBER, CSF see scanned report Normal 4 [facility] UCONNPATH [facility] AP GROSS DESCRIPTION 1 ml clear CSF received at 15:02, 02/17/24. Normal 4 [facility] GLUCOSE, SPINAL FLUID 92.0 mg/dL Above high normal 4 40 - 70 [facility] PROTEIN, CSF 47.0 mg/dL Above high normal 4 15 - 40 [facility] TYPE OF BODY FLUID Cerebrospinal Fluid Normal 4 [facility] RBC COUNT, FLUID 0.0 RBC/mm3 Normal 4 [facility] TUBE #, CSF 4.0 Normal 4 [facility] WBC, BODY FLUID 1.0 Cells/mm3 Normal 4 [facility] APPEARANCE Clear Normal 4 [facility] POC Glucose 102.0 mg/dL Above high normal 4 65 - 99 [facility] POC Glucose 126.0 mg/dL Above high normal 4 65 - 99 [facility] ISTAT Glucose 123.0 mg/dL Above high normal 4 65 - 99 [facility] ISTAT Hematocrit 32.0 % Below low normal 02 4 35 - 47 [facility] ISTAT Potassium 4.1 mmol/L Normal 4 3.4 - 5.3 [facility] ISTAT Hemoglobin 10.9 gm/dL Below low normal 02 4 11.7 - 15.7 [facility] BANKRUPTCY PROCESSOR DEMYELINATING DISEASE INTERP, S SEE COMMENTS Normal 4 [facility] MOG FACS, S Negative Normal 4 - [facility] NMO/AQP4 FACS, S Negative Normal 4 - [facility] MMA SERUM/PLASMA, VITAMIN B12 STATUS 0.84 umol/L Above high normal 4 0 - 0.4 [facility] ANTI-NUCLEAR ANTIBODY (LEXI) Negative Normal 4 - [facility] ANCA IFA TITER <1:20 Normal 4 - [facility] ANCA IFA PATTERN None Detected Normal 4 - [facility] CARDIOLIPIN ANTIBODY IGA <10 Normal 4 - [facility] CARDIOLIPIN ANTIBODY IGM <10 Normal 4 - [facility] CARDIOLIPIN ANTIBODY IGG 13.0 GPL Normal 4 - [facility] ALBUMIN % 57.8 % Normal 4 57.1 - 71.3 [facility] % BETA 9.9 % Normal 4 8.9 - 14.9 [facility] ALBUMIN INDEX 4.7 g/dL Normal 4 3.8 - 5.3 [facility] PROTEIN TOTAL 8.1 g/dL Normal 4 6.2 - 8.1 [facility] TPE INTERPRETATION NEW Normal 4 [facility] GAMMA % 22.2 % Above high normal 4 7.3 - 17 [facility] ALPHA 1 0.2 g/dL Normal 4 0.1 - 0.2 [facility] BETA 0.8 g/dL Normal 4 0.6 - 1.1 [facility] GAMMA 1.8 g/dL Above high normal 4 0.5 - 1.2 [facility] ALPHA 1 % 2.2 % Normal 4 1.3 - 3.5 [facility] ALPHA 2 % 7.9 % Below low normal 4 8.6 - 13.1 [facility] ALPHA 2 0.6 g/dL Normal 4 0.6 - 0.9 [facility] IMMUNOGLOBULIN G SUBCLASS 2 618.0 mg/dL Above high normal 4 124 - 549 [facility] IMMUNOGLOBULIN G SUBCLASS 3 102.0 mg/dL Normal 4 21 - 134 [facility] IMMUNOGLOBULIN G SUBCLASS 4 125.0 mg/dL Above high normal 4 1 - 123 [facility] IMMUNOGLOBULIN G SUBCLASS 1 1334.0 mg/dL Above high normal 4 240 - 1118 [facility] ANTI DNA DOUBLE STRANDED 116.0 IU/mL Normal 4 [facility] ANTI-RO 2.0 Units Normal 4 [facility] ANTI-LA 2.0 Units Normal 4 [facility] ANGIOTENSIN CONVERTING ENZYME <10 Below low normal 4 16 - 85 [facility] VITAMIN B12 564.0 pg/mL Normal 4 [facility] VITAMIN D, 25H 21.0 ng/mL Below low normal 4 - [facility] HIV 1+2 AB + HIV1 P24 AG (PRESENCE) IN SERUM BY IMMUNOASSAY Negative Normal 4 - [facility] C REACTIVE PROTEIN 5.8 mg/L Normal 4 [facility] PROTEIN TOTAL 8.1 g/dL Normal 4 6.2 - 8.1 [facility] SEDIMENTATION RATE, ERYTHROCYTE 100.0 mm Above high normal 4 0 - 20 [facility] POC Glucose 93.0 mg/dL Normal 4 65 - 99 [facility] POC Glucose 164.0 mg/dL Above high normal 4 65 - 99 [facility] POC Glucose 236.0 mg/dL Above high normal 4 65 - 99 [facility] POC Glucose 318.0 mg/dL Above high normal 4 65 - 99 [facility] HBV surface Ab Ser Ql Non-Reactive (Not Immune) Abnormal 4 - [facility] HBV core Ab Ser Ql Nonreactive Normal 4 - [facility] HBV surface Ag Ser Ql Nonreactive Normal 4 - [facility] Albumin SerPl-mCnc 3.8 g/dL Normal 4 3.5 - 5 [facility] Creat SerPl-mCnc 5.8 mg/dL Above high normal 4 0.4 - 1.1 [facility] BUN/Creat SerPl 15.0 Ratio Normal 4 10 - 25 [facility] Calcium SerPl-mCnc 8.6 mg/dL Below low normal 01/31 4 8.7 - 10.5 [facility] Potassium SerPl-sCnc 6.2 mmol/L Critically high 4 3.4 - 5.3 [facility] Phosphate SerPl-mCnc 6.4 mg/dL Above high normal 4 2.7 - 4.5 [facility] BUN SerPl-mCnc 85.0 mg/dL Above high normal 02/01/20 2 4 8 - 21 [facility] Chloride SerPl-sCnc 99.0 mmol/L Normal 02/01/20 2 4 98 - 107 [facility] GFR/BSA.pred SerPlBld [id number] 8.0 Below low normal 4 59 - [facility] CO2 SerPl-sCnc 20.0 mmol/L Below low normal 4 22 - 33 [facility] Glucose SerPl-mCnc 293.0 mg/dL Above high normal 01/21 4 65 - 99 [facility] Sodium SerPl-sCnc 135.0 mmol/L Below low normal 4 136 - 145 [facility] POC Glucose 408.0 mg/dL Above high normal 4 65 - 99 [facility] POC Glucose 162.0 mg/dL Above high normal 4 65 - 99 [facility] GFR/BSA.pred SerPlBld [id number] 8.0 Below low normal 4 59 - [facility] Chloride SerPl-sCnc 98.0 mmol/L Normal 02/01/20 2 4 98 - 107 [facility] BUN/Creat SerPl 13.0 Ratio Normal 4 10 - 25 [facility] Anion Gap Bld-sCnc 17.0 Normal 4 7 - 17 [facility] Sodium SerPl-sCnc 135.0 mmol/L Below low normal 4 136 - 145 [facility] BUN SerPl-mCnc 79.0 mg/dL Above high normal 02/01/20 2 4 8 - 21 [facility] Calcium SerPl-mCnc 8.7 mg/dL Normal 4 8.7 - 10.5 [facility] Potassium SerPl-sCnc 6.4 mmol/L Critically high 4 3.4 - 5.3 [facility] Creat SerPl-mCnc 6.0 mg/dL Above high normal 4 0.4 - 1.1 [facility] CO2 SerPl-sCnc 20.0 mmol/L Below low normal 4 22 - 33 [facility] Glucose SerPl-mCnc 165.0 mg/dL Above high normal 01/21 4 65 - 99 [facility] Neutrophils num Bld Auto 5.73 Thou/uL Normal 4 2 - 7.5 [facility] Imm Granulocytes/leuk NFr Bld Auto 0.4 % Normal 4 [facility] MCH RBC Qn Auto 29.1 pg Normal 4 27 - 31 [facility] Hgb Bld-mCnc 9.9 g/dL Below low normal 4 11.7 - 15.7 [facility] Basophils num Bld Auto 0.04 Thou/uL Normal 4 0 - 0.2 [facility] Imm Granulocytes num Bld Auto 0.03 Thou/uL Normal 4 0 - 0.1 [facility] Neutrophils/leuk NFr Bld Auto 75.6 % Normal 4 [facility] RBC num Bld Auto 3.4 Mil/uL Below low normal 02 4 4 - 5.4 [facility] PMV Bld Auto 10.3 fL Normal 4 7.5 - 12.5 [facility] RDW RBC Auto-Rto 14.8 % Above high normal 4 11.5 - 14.5 [facility] Lymphocytes num Bld Auto 0.73 Thou/uL Below low normal 4 1.5 - 4.5 [facility] WBC num Bld Auto 7.6 Thou/uL Normal 4 4 - 11 [facility] Monocytes num Bld Auto 0.45 Thou/uL Normal 4 0.2 - 1.5 [facility] Lymphocytes/leuk NFr Bld Auto 9.6 % Normal 4 [facility] MCHC RBC Auto-mCnc 31.4 g/dL Normal 4 30 - 36 [facility] Platelet num Bld Auto 187.0 Thou/uL Normal 4 150 - 450 [facility] Monocytes/leuk NFr Bld Auto 5.9 % Normal 4 [facility] Eosinophil num Bld Auto 0.61 Thou/uL Normal 4 0 - 0.7 [facility] MCV RBC Auto 93.0 fL Normal 4 80 - 100 [facility] Eosinophil/leuk NFr Bld Auto 8.0 % Normal 4 [facility] Hct VFr Bld Auto 31.5 % Below low normal 02 4 35 - 47 [facility] Basophils/leuk NFr Bld Auto 0.5 % Normal 4 [facility] ISTAT Potassium 6.2 mmol/L Above high normal 02 4 3.4 - 5.3 [facility] ISTAT Hemoglobin 9.2 gm/dL Below low normal 02 4 11.7 - 15.7 [facility] ISTAT Hematocrit 27.0 % Below low normal 02 4 35 - 47 [facility] ISTAT Hematocrit 31.0 % Below low normal 02 4 35 - 47 [facility] ISTAT Hemoglobin 10.5 gm/dL Below low normal 02 4 11.7 - 15.7 [facility] ISTAT Potassium 6.2 mmol/L Above high normal 02 4 3.4 - 5.3 [facility] POC Glucose 176.0 mg/dL Above high normal 4 65 - 99 [facility] TIBC SERPL MCNC 253.0 ug/dL Normal 4 250 - 450 [facility] UIBC SERPL MCNC 199.0 ug/dL Normal 4 155 - 355 [facility] IRON SATN MFR SERPL 21.0 % Normal 01/31/20 2 4 20 - 45 [facility] IRON SERPL MCNC 54.0 mcg/dL Normal 4 37 - 170 [facility] MCV RBC AUTO 89.9 fL Normal 4 78 - 100 [facility] BASOPHILS NFR BLD AUTO 1.0 % Normal 4 0 - 2 [facility] MCHC RBC AUTO MCNC 33.6 g/dL Normal 4 32 - 36 [facility] PMV BLD AUTO 8.2 fL Normal 4 7.4 - 11.4 [facility] NEUTROPHILS NO. BLD AUTO 5.4 K/uL Normal 4 1.8 - 7.8 [facility] LYMPHOCYTES NO. BLD AUTO 0.5 K/uL Below low normal 4 1 - 3.2 [facility] MONOCYTES NFR BLD AUTO 4.7 % Normal 4 2 - 12 [facility] HGB BLD MCNC 10.7 g/dL Below low normal 4 12.5 - 16 [facility] RBC NO. BLD AUTO 3.53 M/uL Below low normal 02 4 4.2 - 5.4 [facility] RDW RBC AUTO RTO 15.6 % Normal 4 12.1 - 16.2 [facility] EOSINOPHIL NFR BLD AUTO 7.1 % Above high normal 4 0 - 6 [facility] BASOPHILS IN BLOOD BY AUTOMATED COUNT 0.1 K/uL Normal 4 0 - 0.2 [facility] PLATELET NO. BLD AUTO 201.0 K/uL Normal 4 150 - 450 [facility] HCT VFR BLD AUTO 31.7 % Below low normal 09/10/2 02 4 37 - 47 [facility] EOSINOPHIL NO. BLD AUTO 0.5 K/uL Normal 4 0 - 0.5 [facility] LYMPHOCYTES NFR BLD AUTO 7.9 % Below low normal 4 20 - 48 [facility] NEUTROPHILS NFR BLD AUTO 79.3 % Above high normal 4 44 - 74 [facility] MCH RBC QN AUTO 30.2 pg Normal 4 25 - 33 [facility] WBC NO. BLD AUTO 6.8 K/uL Normal 4 4 - 10.5 [facility] MONOCYTES NO. BLD AUTO 0.3 K/uL Normal 4 0 - 0.8 [facility] FERRITIN SERPL MCNC 468.0 ng/mL Above high normal 4 10 - 120 [facility] FERRITIN SERPL MCNC 183.0 ng/mL Above high normal 4 10 - 120 [facility] HCT VFR BLD AUTO 24.7 % Below low normal 02 4 37 - 47 [facility] EOSINOPHIL NO. BLD AUTO 0.2 K/uL Normal 4 0 - 0.5 [facility] LYMPHOCYTES NO. BLD AUTO 0.4 K/uL Below low normal 4 1 - 3.2 [facility] EOSINOPHIL NFR BLD AUTO 2.4 % Normal 4 0 - 6 [facility] HGB BLD MCNC 8.0 g/dL Below low normal 4 12.5 - 16 [facility] MCHC RBC AUTO MCNC 32.5 g/dL Normal 4 32 - 36 [facility] NEUTROPHILS NO. BLD AUTO 6.5 K/uL Normal 4 1.8 - 7.8 [facility] BASOPHILS IN BLOOD BY AUTOMATED COUNT 0.1 K/uL Normal 4 0 - 0.2 [facility] PMV BLD AUTO 8.3 fL Normal 4 7.4 - 11.4 [facility] NEUTROPHILS NFR BLD AUTO 80.9 % Above high normal 4 44 - 74 [facility] BASOPHILS NFR BLD AUTO 0.7 % Normal 4 0 - 2 [facility] MONOCYTES NFR BLD AUTO 11.2 % Normal 4 2 - 12 [facility] PLATELET NO. BLD AUTO 188.0 K/uL Normal 4 150 - 450 [facility] MCH RBC QN AUTO 28.2 pg Normal 4 25 - 33 [facility] MONOCYTES NO. BLD AUTO 0.9 K/uL Above high normal 4 0 - 0.8 [facility] RBC NO. BLD AUTO 2.84 M/uL Below low normal 02 4 4.2 - 5.4 [facility] WBC NO. BLD AUTO 8.0 K/uL Normal 4 4 - 10.5 [facility] LYMPHOCYTES NFR BLD AUTO 4.8 % Below low normal 4 20 - 48 [facility] RDW RBC AUTO RTO 17.1 % Above high normal 4 12.1 - 16.2 [facility] MCV RBC AUTO 87.0 fL Normal 4 78 - 100 [facility] TIBC SERPL MCNC 264.0 ug/dL Normal 4 250 - 450 [facility] IRON SERPL MCNC 32.0 mcg/dL Below low normal 11/25/19 2 4 37 - 170 [facility] IRON SATN MFR SERPL 12.0 % Below low normal 07/ 4 20 - 45 [facility] UIBC SERPL MCNC 232.0 ug/dL Normal 4 155 - 355 [facility] GLUCOSE BLDC GLUCOMTR MCNC 161.0 mg/dL Normal 4 70 - 199 [facility] HBV SURFACE AB SER QL NEGATIVE Normal 4 [facility] HBV SURFACE AG SER QL EIA NEGATIVE Normal 4 - [facility] TIBC SERPL MCNC 284.0 ug/dL Normal 4 250 - 450 [facility] UIBC SERPL MCNC 240.0 ug/dL Normal 4 155 - 355 [facility] IRON SERPL [facility]NC 44.0 mcg/dL Normal 4 37 - 170 [facility] IRON SATN MFR SERPL 15.0 % Below low normal 09/21 4 20 - 45 [facility] VIT B12 SER [facility]NC 346.0 pg/mL Normal 4 180 - 914 [facility] FOLATE SERPL [facility]NC 15.1 ng/mL Normal 4 3 - [facility] MONOCYTES NO. BLD AUTO 0.4 K/uL Normal 4 0 - 0.8 [facility] PLATELET NO. BLD AUTO 211.0 K/uL Normal 4 150 - 450 [facility] NEUTROPHILS NFR BLD AUTO 79.6 % Above high normal 4 44 - 74 [facility] RBC NO. BLD AUTO 3.03 M/uL Below low normal 02 4 4.2 - 5.4 [facility] MCHC RBC AUTO MCNC 32.4 g/dL Normal 4 32 - 36 [facility] WBC NO. BLD AUTO 6.8 K/uL Normal 4 4 - 10.5 [facility] RDW RBC AUTO RTO 17.1 % Above high normal 4 12.1 - 16.2 [facility] EOSINOPHIL NFR BLD AUTO 5.4 % Normal 4 0 - 6 [facility] LYMPHOCYTES NFR BLD AUTO 8.8 % Below low normal 4 20 - 48 [facility] EOSINOPHIL NO. BLD AUTO 0.4 K/uL Normal 4 0 - 0.5 [facility] HGB BLD MCNC 8.4 g/dL Below low normal 4 12.5 - 16 [facility] HCT VFR BLD AUTO 26.1 % Below low normal 02 4 37 - 47 [facility] BASOPHILS NFR BLD AUTO 0.8 % Normal 4 0 - 2 [facility] NEUTROPHILS NO. BLD AUTO 5.4 K/uL Normal 4 1.8 - 7.8 [facility] BASOPHILS IN BLOOD BY AUTOMATED COUNT 0.1 K/uL Normal 4 0 - 0.2 [facility] MCV RBC AUTO 86.2 fL Normal 4 78 - 100 [facility] MCH RBC QN AUTO 27.9 pg Normal 4 25 - 33 [facility] LYMPHOCYTES NO. BLD AUTO 0.6 K/uL Below low normal 4 1 - 3.2 [facility] PMV BLD AUTO 8.7 fL Normal 4 7.4 - 11.4 [facility] MONOCYTES NFR BLD AUTO 5.4 % Normal 4 2 - 12 [facility] ALPHA 1 % 4.6 Normal 4 [facility] ALPHA 2 % 8.7 Normal 4 [facility] ALPHA 1 G/DL 0.3 Normal 4 [facility] BETA G/DL 0.9 Normal 4 [facility] BETA % 13.2 Normal 4 [facility] ALPHA 2 G/DL 0.6 Normal 4 [facility] TOTAL PROTEIN 6.8 Normal 4 [facility] GAMMA % 24.4 Above high normal 4 [facility] GAMMA G/DL 1.7 Above high normal 4 [facility] ALBUMIN % 49.1 Below low normal 4 [facility] ALBUMIN G/DL 3.3 Below low normal 4 [facility] Free [place] Light Chains 13.56 Above high normal 4 [facility] Free [place] Light Chains 22.25 Above high normal 4 [facility] K/L FLC Ratio 1.64 Normal 4 [facility] IGM SER [facility]NC 49.0 mg/dL Normal 4 45 - 281 [facility] IGA SERPL-[facility]NC 407.0 mg/dL Normal 4 66 - 433 [facility] IGG SERPL-[facility]NC 1746.0 mg/dL Above high normal 10/14/19 2 4 635 - 1741 [facility] ALT SERPL CCNC 16.0 U/L Normal 4 7 - 52 [facility] ALP SERPL-CCNC 120.0 U/L Above high normal 10/14/19 2 4 34 - 104 [facility] PROT SERPL [facility] 7.2 g/dL Normal 4 6.4 - 8.5 [facility] GLUCOSE SERPL [facility]NC 232.0 mg/dL Above high normal 09/21 4 70 - 199 [facility] ANION GAP SERPL SCNC 11.0 mmol/L Normal 4 5 - 14 [facility] CREAT SERPL MCNC 4.4 mg/dL Above high normal 4 0.5 - 1 [facility] CALCIUM SERPL [facility]NC 7.5 mg/dL Below low normal 10/13 4 8.4 - 10.2 [facility] HCO3 SER SCNC 16.0 mmol/L Below low normal 4 24 - 32 [facility] Glomerular filtration rate/1.73 sq M. predicted 11.0 Below low normal 4 60 - [facility] SODIUM SERPL SCNC 138.0 mmol/L Normal 4 135 - 145 [facility] ALBUMIN SERPL BCG MCNC 3.4 g/dL Below low normal 4 3.5 - 5 [facility] CHLORIDE SERPL SCNC 111.0 mmol/L Above high normal 4 98 - 107 [facility] BILIRUB SERPL MCNC 0.4 mg/dL Normal 4 0.3 - 1 [facility] AST SERPL CC[facility] 22.0 U/L Normal 4 5 - 40 [facility] POTASSIUM SERPL SCNC 5.5 mmol/L Above high normal 4 3.5 - 5.1 [facility] BUN SERPL [facility]NC 73.0 mg/dL Above high normal 10/14/19 2 4 7 - 17 [facility] LDH SERPL L TO P CCNC 252.0 U/L Above high normal 4 125 - 220 [facility] FERRITIN SERPL [facility] 82.0 ng/mL Normal 10/14/19 2 4 10 - 120 [facility] RETICS/100 RBC NFR AUTO 2.3 % Above high normal 4 0.7 - 1.7 [facility] HAPTOGLOB SERPL NEPH [facility] 46.0 mg/dL Normal 4 44 - 215 [facility] CREAT UR MCNC 38.1 mg/dL Normal 4 [facility] PHOSPHATE SERPL [facility]NC 5.6 mg/dL Above high normal 4 2.5 - 4.5 [facility] CALCIUM SERPL MCNC 8.3 mg/dL Below low normal 08/17 4 8.4 - 10.2 [facility] HCO3 SER SCNC 20.0 mmol/L Below low normal 4 24 - 32 [facility] BUN SERPL [facility]NC 59.0 mg/dL Above high normal 08/18/19 2 4 7 - 17 [facility] ANION GAP SERPL SCNC 10.0 mmol/L Normal 4 5 - 14 [facility] GLUCOSE SERPL MCNC 129.0 mg/dL Normal 4 70 - 199 [facility] Glomerular filtration rate/1.73 sq M. predicted 16.0 Below low normal 4 60 - [facility] POTASSIUM SERPL SCNC 4.9 mmol/L Normal 4 3.5 - 5.1 [facility] SODIUM SERPL SCNC 138.0 mmol/L Normal 4 135 - 145 [facility] CREAT SERPL MCNC 3.3 mg/dL Above high normal 4 0.5 - 1 [facility] CHLORIDE SERPL SCNC 108.0 mmol/L Above high normal 4 98 - 107 [facility] MAGNESIUM SERPL MCNC 1.6 mg/dL Below low normal 4 1.7 - 2.8 [facility] HGB BLD [facility]NC 8.9 g/dL Below low normal 4 12.5 - 16 [facility] RBC NO. BLD AUTO 3.23 M/uL Below low normal 02 4 4.2 - 5.4 [facility] NEUTROPHILS NO. BLD AUTO 5.7 K/uL Normal 4 1.8 - 7.8 [facility] HCT VFR BLD AUTO 26.7 % Below low normal 02 4 37 - 47 [facility] PLATELET NO. BLD AUTO 220.0 K/uL Normal 4 150 - 450 [facility] BASOPHILS IN BLOOD BY AUTOMATED COUNT 0.1 K/uL Normal 4 0 - 0.2 [facility] PMV BLD AUTO 8.6 fL Normal 4 7.4 - 11.4 [facility] EOSINOPHIL NFR BLD AUTO 3.5 % Normal 4 0 - 6 [facility] NEUTROPHILS NFR BLD AUTO 80.7 % Above high normal 4 44 - 74 [facility] MCH RBC QN AUTO 27.7 pg Normal 4 25 - 33 [facility] MCV RBC AUTO 82.6 fL Normal 4 78 - 100 [facility] LYMPHOCYTES NO. BLD AUTO 0.7 K/uL Below low normal 4 1 - 3.2 [facility] RDW RBC AUTO RTO 16.6 % Above high normal 4 12.1 - 16.2 [facility] BASOPHILS NFR BLD AUTO 0.9 % Normal 4 0 - 2 [facility] MONOCYTES NO. BLD AUTO 0.4 K/uL Normal 4 0 - 0.8 [facility] EOSINOPHIL NO. BLD AUTO 0.2 K/uL Normal 4 0 - 0.5 [facility] DIFFERENTIAL TYPE AUTOMATED Normal 4 [facility] MONOCYTES NFR BLD AUTO 5.6 % Normal 4 2 - 12 [facility] WBC NO. BLD AUTO 7.1 K/uL Normal 4 4 - 10.5 [facility] LYMPHOCYTES NFR BLD AUTO 9.3 % Below low normal 4 20 - 48 [facility] MCHC RBC AUTO MCNC 33.5 g/dL Normal 4 32 - 36 [facility] IRON SERPL MCNC 50.0 mcg/dL Normal 4 37 - 170 [facility] FERRITIN SERPL [facility] 119.0 ng/mL Normal 08/18/19 2 4 10 - 120 [facility] PTH INTACT SERPL MCNC 386.3 pg/mL Above high normal 4 10 - 65 [facility] PHOSPHATE SERPL MCNC 5.0 mg/dL Above high normal 4 2.5 - 4.5 [facility] FERRITIN SERPL MCNC 62.0 ng/mL Normal 07/14/19 2 4 10 - 120 [facility] Glomerular filtration rate/1.73 sq M. predicted 17.0 Below low normal 4 60 - [facility] POTASSIUM SERPL SCNC 4.5 mmol/L Normal 4 3.5 - 5.1 [facility] CALCIUM SERPL MCNC 8.4 mg/dL Normal 4 8.4 - 10.2 [facility] HCO3 SER SCNC 21.0 mmol/L Below low normal 4 24 - 32 [facility] CHLORIDE SERPL SCNC 109.0 mmol/L Above high normal 4 98 - 107 [facility] CREAT SERPL MCNC 3.1 mg/dL Above high normal 4 0.5 - 1 [facility] GLUCOSE SERPL MCNC 102.0 mg/dL Normal 4 70 - 199 [facility] SODIUM SERPL SCNC 139.0 mmol/L Normal 4 135 - 145 [facility] BUN SERPL MCNC 60.0 mg/dL Above high normal 07/14/19 2 4 7 - 17 [facility] ANION GAP SERPL SCNC 9.0 mmol/L Normal 4 5 - 14 [facility] UIBC SERPL MCNC 247.0 ug/dL Normal 4 155 - 355 [facility] IRON SATN MFR SERPL 12.0 % Below low normal 06/24 4 20 - 45 [facility] TIBC SERPL [facility]NC 280.0 ug/dL Normal 4 250 - 450 [facility] IRON SERPL MCNC 33.0 mcg/dL Below low normal 07/14/19 2 4 37 - 170 [facility] PTH INTACT SERPL MCNC 438.3 pg/mL Above high normal 4 10 - 65 [facility] PROT UR MCNC 519.1 mg/dL Above high normal 4 - 14 [facility] Prot/Creat Ur 7.82 Normal 4 [facility] CREAT UR MCNC 66.4 mg/dL Normal 4 [facility] MONOCYTES NO. BLD AUTO 0.4 K/uL Normal 4 0 - 0.8 [facility] MONOCYTES NFR BLD AUTO 6.1 % Normal 4 2 - 12 [facility] LYMPHOCYTES NO. BLD AUTO 0.7 K/uL Below low normal 4 1 - 3.2 [facility] MCV RBC AUTO 82.2 fL Normal 4 78 - 100 [facility] NEUTROPHILS NFR BLD AUTO 78.6 % Above high normal 4 44 - 74 [facility] HCT VFR BLD AUTO 28.2 % Below low normal 02 4 37 - 47 [facility] EOSINOPHIL NFR BLD AUTO 3.5 % Normal 4 0 - 6 [facility] HGB BLD MCNC 9.5 g/dL Below low normal 4 12.5 - 16 [facility] EOSINOPHIL NO. BLD AUTO 0.2 K/uL Normal 4 0 - 0.5 [facility] PLATELET NO. BLD AUTO 236.0 K/uL Normal 4 150 - 450 [facility] DIFFERENTIAL TYPE AUTOMATED Normal 4 [facility] LYMPHOCYTES NFR BLD AUTO 10.8 % Below low normal 4 20 - 48 [facility] BASOPHILS NFR BLD AUTO 1.0 % Normal 4 0 - 2 [facility] PMV BLD AUTO 9.3 fL Normal 4 7.4 - 11.4 [facility] RBC NO. BLD AUTO 3.43 M/uL Below low normal 02 4 4.2 - 5.4 [facility] BASOPHILS IN BLOOD BY AUTOMATED COUNT 0.1 K/uL Normal 4 0 - 0.2 [facility] MCH RBC QN AUTO 27.7 pg Normal 4 25 - 33 [facility] MCHC RBC AUTO MCNC 33.7 g/dL Normal 4 32 - 36 [facility] NEUTROPHILS NO. BLD AUTO 5.3 K/uL Normal 4 1.8 - 7.8 [facility] RDW RBC AUTO RTO 15.3 % Normal 4 12.1 - 16.2 [facility] WBC NO. BLD AUTO 6.7 K/uL Normal 4 4 - 10.5 [facility] T4 FREE SERPL MCNC 1.1 ng/dL Normal 4 0.5 - 1.3 [facility] TSH SerPl DL<=0.005 mIU/L-aCnc 20.31 uIU/mL Above high normal 4 0.45 - 5.33 [facility] CHOLEST SERPL-MCNC 162.0 mg/dL Normal 4 0 - 200 [facility] LDLc SerPl Calc-mCnc 98.0 mg/dL Normal 4 50 - 130 [facility] TRIGL SERPL-MCNC 116.0 mg/dL Normal 4 - 150 [facility] HDLC SERPL-MCNC 41.0 mg/dL Normal 4 37 - 92 [facility] CREAT UR MCNC 93.3 mg/dL Normal 4 [facility] T4 FREE SERPL MCNC 0.6 ng/dL Normal 4 0.5 - 1.3 [facility] LYMPHOCYTES NO. BLD AUTO 0.9 K/uL Below low normal 4 1 - 3.2 [facility] LYMPHOCYTES NFR BLD AUTO 12.3 % Below low normal 4 20 - 48 [facility] BASOPHILS NFR BLD AUTO 0.7 % Normal 4 0 - 2 [facility] EOSINOPHIL NFR BLD AUTO 3.9 % Normal 4 0 - 6 [facility] PLATELET NO. BLD AUTO 199.0 K/uL Normal 4 150 - 450 [facility] DIFFERENTIAL TYPE AUTOMATED Normal 4 [facility] HCT VFR BLD AUTO 28.5 % Below low normal 02 4 37 - 47 [facility] WBC NO. BLD AUTO 7.1 K/uL Normal 4 4 - 10.5 [facility] MCV RBC AUTO 83.1 fL Normal 4 78 - 100 [facility] NEUTROPHILS NFR BLD AUTO 77.4 % Above high normal 4 44 - 74 [facility] NEUTROPHILS NO. BLD AUTO 5.5 K/uL Normal 4 1.8 - 7.8 [facility] MONOCYTES NO. BLD AUTO 0.4 K/uL Normal 4 0 - 0.8 [facility] HGB BLD MCNC 9.6 g/dL Below low normal 4 12.5 - 16 [facility] MCH RBC QN AUTO 27.9 pg Normal 4 25 - 33 [facility] EOSINOPHIL NO. BLD AUTO 0.3 K/uL Normal 4 0 - 0.5 [facility] PMV BLD AUTO 8.9 fL Normal 4 7.4 - 11.4 [facility] BASOPHILS IN BLOOD BY AUTOMATED COUNT 0.1 K/uL Normal 4 0 - 0.2 [facility] RDW RBC AUTO RTO 15.6 % Normal 4 12.1 - 16.2 [facility] RBC NO. BLD AUTO 3.43 M/uL Below low normal 02 4 4.2 - 5.4 [facility] MCHC RBC AUTO MCNC 33.6 g/dL Normal 4 32 - 36 [facility] MONOCYTES NFR BLD AUTO 5.7 % Normal 4 2 - 12 [facility] TSH SerPl DL<=0.005 mIU/L-aCnc 48.78 uIU/mL Above high normal 4 0.45 - 5.33 [facility] VIT B12 SER MCNC 358.0 pg/mL Normal 4 180 - 914 [facility] ALBUMIN SERPL BCG MCNC 3.4 g/dL Below low normal 4 3.5 - 5 [facility] PROT SERPL MCNC 6.9 g/dL Normal 4 6.4 - 8.5 [facility] Glomerular filtration rate/1.73 sq M. predicted 17.0 Below low normal 4 60 - [facility] CHLORIDE SERPL SCNC 109.0 mmol/L Above high normal 4 98 - 107 [facility] SODIUM SERPL SCNC 137.0 mmol/L Normal 4 135 - 145 [facility] HCO3 SER SCNC 19.0 mmol/L Below low normal 4 24 - 32 [facility] ALT SERPL CCNC 29.0 U/L Normal 4 7 - 52 [facility] ANION GAP SERPL SCNC 9.0 mmol/L Normal 4 5 - 14 [facility] BUN SERPL MCNC 51.0 mg/dL Above high normal 05/27/19 2 4 7 - 17 [facility] AST SERPL CCNC 38.0 U/L Normal 4 5 - 40 [facility] CALCIUM SERPL MCNC 7.8 mg/dL Below low normal 05/27 4 8.4 - 10.2 [facility] POTASSIUM SERPL SCNC 4.8 mmol/L Normal 4 3.5 - 5.1 [facility] GLUCOSE P FAST SERPL MCNC 134.0 mg/dL Above high normal 4 70 - 99 [facility] BILIRUB SERPL MCNC 0.3 mg/dL Normal 4 0.3 - 1 [facility] ALP SERPL-CCNC 110.0 U/L Above high normal 05/27/19 2 4 34 - 104 [facility] CREAT SERPL MCNC 3.1 mg/dL Above high normal 4 0.5 - 1 [facility] History of Medication Use Medication Directions Dispensed Refills Start Date End Date Status levothyroxine 75 mcg tablet Take 1 tablet every day by oral route before meal(s) for 90 days, for Hypothyroidism. 5 024 active sertraline (ZOLOFT) 100 mg tablet Take 1 tablet (100 mg total) by mouth in the morning. 5 active traZODone (DESYREL) 50 mg tablet Take 0.5-1 tablets (25-50 mg total) by mouth nightly. 5 active FreeStyle Gianluca 2 Sensor kit USE TO CONTINUOUSLY MONITOR BLOOD GLUCOSE. REPLACE SENSOR EVERY 14 DAYS. 5 025 completed midazolam (VERSED) 2 mg/2 mL injection 2 mg 5 025 active fentaNYL (SUBLIMAZE) 100 mcg/2 mL injection 100 mcg 5 025 active iohexol (OMNIPAQUE) 300 mg/mL injection 50 mL 5 active lidocaine preservative free (XYLOCAINE-MPF) 1 % injection 3 mL 5 active methylPREDNISolone sodium succinate (SOLU-Medrol) injection 125 mg 5 active cloNIDine (Txejovtd-SYU-8) 0.2 mg/[address] 1 patch on the skin 1 (one) time per week. 5 active sodium chloride 0.9 % bolus 100 mL 100 mL, intravenous, Every 5 min PRN, For SBP LESS than 100 mmHg during hemodialysis/hemofi ltration, Starting on Tue06/13/24 at 0000, For 5 doses, Dialysis, -For SBP LESS than 100 mmHg during hemodialysis -May repeat to a maximum of 500 mL -Nursing to try to calculate fluid bolus into removal if pos 5 active heparin (UFH) injection 500 Units/hr (0.5 mL/hr), extracorporeal, Every 1 hour PRN, As needed for dialyzer patency, Starting on Tue06/12/24 at 0836, Dialysis, EXTRACORPOREAL CIRCUIT ANTICOAGULATION for HEMODIALYSIS ONLY *FOR FISTULAS AND GRAFTS: Turn off heparin infusion 60 minutes PRIOR to end of treatment.* *FOR CATHET 5 025 aborted heparin (UFH) injection 1,000 Units 1,000 Units, extracorporeal, Once as needed, Pre-Dialysis, Starting on Tue06/12/24 at 0836, For 1 dose, Dialysis, EXTRACORPOREAL CIRCUIT ANTICOAGULATION for HEMODIALYSIS ONLY 5 025 completed calcium carbonate (TUMS) chewable tablet 1,000 mg 1,000 mg, oral, Once, On Tue06/08/24 at 2215, For 1 dose, Ordered as calcium carbonate. 500 mg calcium carbonate = 200 mg elemental calcium. 5 025 completed niCARdipine (CARDENE) 25 mg in sodium chloride 0.9 % 250 mL (0.1 mg/mL) infusion 2.5-15 mg/hr (25-150 mL/hr), intravenous, Continuous, Starting on Su 06/07/24 at 1912, GOAL EFFECT: SBP LESS than 160 mmHg or MAP LESS than 110 mmHg INITIAL RATE: 5 mg/hr TITRATION DOSE: 2.5 mg/hr TITRATION FREQUENCY: 5 min CONTACT PRESCRIBER: -SBP LESS than 90 mmHg -SBP GREATER than 180 5 025 aborted dextrose (D50W) 50% injection 12.5 g 12.5 g, intravenous, Every 15 min PRN, low blood sugar, moderate hypoglycemia *Patient is Unconscious, NPO, unable to swallow: BG 54 - 69 mg/dl*, Starting on Su 06/07/24 at 2245 5 active dextrose (D50W) 50% injection 25 g 25 g, intravenous, Every 15 min PRN, low blood sugar, severe hypoglycemia *Patient is Unconscious, NPO, unable to swallow: BG LESS than 54 mg/dL*, Starting on Su 06/07/24 at 2245 5 active dextrose 15 gram/60 mL liquid Take 15 g by mouth. 5 active dextrose 15 gram/60 mL oral solution 15 g 15 g, oral, Every 15 min PRN, low blood sugar, hypoglycemia *Patient conscious AND able to drink and swallow safely*, Starting on Su 06/07/24 at 224 5 active dextrose 15 gram/60 mL oral solution 30 g 30 g, oral, Every 15 min PRN, low blood sugar, hypoglycemia *Patient conscious AND able to drink and swallow safely*, Starting on Su 06/07/24 at 2245 5 active dextrose solution Infuse 12.5 g into a venous catheter. 5 active heparin (UFH) injection 5,000 Units 5,000 Units, subcutaneous, Every 8 hours scheduled, First dose on Su 06/07/24 at 2253, Enter Indication for use of heparin (UFH) instead of enoxaparin (LOVENOX): (free text): ESRD, Indication: VTE Prophylaxis, Indications: Prophylaxis of Venous Thromboembolism 5 active insulin glargine (LANTUS) injection 10 Units 10 Units, subcutaneous, Nightly, First dose on Su 06/07/24 at 2247, Notify provider: -If patient is currently or will become NPO -If TPN was or will be interrupted or discontinued -For approval to hold long acting insulin 5 active sertraline (ZOLOFT) tablet 25 mg 25 mg, oral, Daily, First dose on Tue06/08/24 at 0900 5 active torsemide (DEMADEX) tablet 20 mg 20 mg, oral, 2 times daily, First dose on Tue06/07/24 at 2243 5 active labetalol (NORMODYNE) injection 10 mg 10 mg, intravenous, Every 2 hours PRN, high blood pressure, SBP>170, Starting on Tue06/07/24 at 2017, For 5 doses, May administer undiluted over 2 minutes; maximum: 10 mg/minute. 5 025 active labetalol (NORMODYNE) injection 20 mg 20 mg, intravenous, Once, On Su 06/07/24 at 1630, For 1 dose, May administer undiluted over 2 minutes; maximum: 10 mg/minute. 5 025 completed ondansetron (PF) (ZOFRAN) injection 4 mg 4 mg, intravenous, Once, On Su 06/07/24 at 1102, For 1 dose 5 025 completed sodium chloride 0.9 % bolus 1,000 mL 1,000 mL, intravenous, at 1,000 mL/hr, Administer over 1 Hours, Once, On Su 06/07/24 at 1102, For 1 dose 5 025 aborted sodium chloride 0.9 % bolus 500 mL 500 mL, intravenous, at 500 mL/hr, Administer over 1 Hours, Once, On Su 06/07/24 at 1146, For 1 dose 5 025 completed hydrALAZINE (APRESOLINE) injection 10 mg 10 mg, intravenous, Once, On Su 1/16/25 at 1630, For 1 dose 5 active sertraline (ZOLOFT) 50 mg tablet Take 1 tablet (50 mg total) by mouth in the morning. 5 active sertraline (ZOLOFT) 25 mg tablet Take 1 tablet (25 mg total) by mouth daily for 7 days, THEN 2 tablets (50 mg total) daily for 23 days. 4 025 active losartan (COZAAR) 100 MG tablet Take 1 tablet (100 mg total) by mouth daily. 4 active insulin glargine (LANTUS) injection 22 Units 22 Units, subcutaneous, Nightly, First dose (after last modification) on Tue04/12/24 at 2100, Notify provider: -If patient is currently or will become NPO -If TPN was or will be interrupted or discontinued -For approval to hold long acting insulin 4 active heparin (UFH) injection 9,000 Units 9,000 Units, intra-catheter, Once as needed, Post Hemodialysis treatment to maintain patency, Starting on Tue06/13/24 at 0000, For 2 doses, Dialysis, *CATHETER LOCK* Administer volume sufficient to fill each lumen with the volume indicated on the catheter completed HYDROmorphone (DILAUDID) 2 mg tablet Take 0.5 tablets (1 mg total) by mouth every 4 (four) hours if needed for moderate pain for up to 5 days. Max Daily Amount: 6 mg 4 active ceFAZolin (ANCEF) 2 g in sterile water 20 mL IV syringe 2 g, intravenous, Administer over 3 Minutes, Every 8 hours, First dose on Tue04/11/24 at 2300, For 24 hours, Indication: Prophylaxis-Surgica l 4 completed acetaminophen (TYLENOL) 500 MG tablet Take 2 tablets (1,000 mg total) by mouth every 8 (eight) hours. 4 active atorvastatin (LIPITOR) 40 mg tablet Take 40 mg by mouth. 4 active atorvastatin (LIPITOR) tablet 40 mg 40 mg, oral, Nightly, First dose on Su 21/24 at 2100 4 active glipiZIDE (GLUCOTROL XL) 24 hr tablet 5 mg 5 mg, oral, Daily with breakfast, First dose on Tue04/12/24 at 0800, Do not crush, chew, or split. 4 active hydrALAZINE (APRESOLINE) tablet 100 mg 100 mg, oral, Once, On Tue04/12/24 at 1815, For 1 dose 4 active levothyroxine (SYNTHROID, LEVOTHROID) tablet 75 mcg 75 mcg, oral, Every morning before breakfast, First dose on Tue04/12/24 at 0700, ORAL ROUTE: take on an empty stomach and separate from other medications. ENTERAL TUBE ROUTE: If newly initiated enteral nutrition duration is over 5 days, hold enteral nutrition 1 hour before and after drug administra 4 active lisinopriL (PRINIVIL,ZESTRIL) tablet 40 mg 40 mg, oral, Daily, First dose on Tue04/12/24 at 1000 4 active acetaminophen (TYLENOL) 500 mg tablet Take 2 tablets (1,000 mg total) by mouth every 8 (eight) hours. 4 024 active lactated Ringer's infusion 50 mL/hr, intravenous, Continuous, Starting on Tue04/11/24 at 1115, Preprocedure 4 024 aborted albuterol 2.5 mg /3 mL (0.083 %) nebulizer solution 2.5 mg 4 active Glucagon HCl (rDNA) injection 1 mg 1 mg, intramuscular, Once as needed, low blood sugar, severe hypoglycemia, Starting on Tue06/07/24 at 2245, For 1 dose 4 active HYDROmorphone (DILAUDID) tablet 1 mg [Order 1 Start] Name: HYDROmorphone (DILAUDID) tablet 1 mg Signed Summary: 1 mg, oral, Every 4 hours PRN, moderate pain, Starting on Tue04/11/24 at 1725 [Order 1 End] [Order 2 Start] Name: HYDROmorphone (DILAUDID) tablet 2 mg Signed Summary: 2 mg, oral, Every 4 hours PRN, severe pain, Starting on W 4 active insulin lispro injection 2-12 Units 2-12 Units, subcutaneous, 3 times daily before meals, First dose on Tue06/08/24 at 0730, Indication: Total Daily Dose (TDD) 40 - 80 units. Correction Scale: Moderate Dose Administer with meal and/or mealtime dose of insulin to correct high blood glucose If mealtime insulin dose not given (e.g. mariaa 4 active ondansetron ODT (ZOFRAN-ODT) disintegrating tablet 4 mg [Order 1 Start] Name: ondansetron ODT (ZOFRAN-ODT) disintegrating tablet 4 mg Signed Summary: 4 mg, oral, Every 8 hours PRN, vomiting, nausea, Starting on Tue06/08/24 at 1154, -Give IV if patient is unable to take orally. -If inadequate response within 30 minutes, proceed to next-line agent or conta 4 active sevelamer carbonate (RENVELA) tablet 800 mg 800 mg, oral, 3 times daily with meals, First dose on Tue06/10/24 at 1345, Do not crush, chew, or split. 4 active iopamidol (ISOVUE-370) 76 % injection 60 mL 60 mL, Intravenous, IMG once as needed, contrast, Starting on Su 03/22/24 at 1914, For 1 dose, Radiology Contrast 4 024 completed methylPREDNISolone (MEDROL) 32 mg tablet TAKE 1 TABLET BY MOUTH TWICE DAILY 12 HOURS AND 2 HOURS PRIOR TO CTA NECK 4 active sevelamer (RENVELA) 800 mg tablet Take 800 mg by mouth. 4 active sevelamer carbonate (RENVELA) 800 MG tablet Take 3 tablets (2,400 mg total) by mouth. 4 active capsaicin (ZOSTRIX) 0.025 % cream APPLY CREAM TOPICALLY THREE TIMES DAILY NEEDED 4 active losartan (COZAAR) tablet 25 mg Take 1 tablet (25 mg total) by mouth daily. 4 025 active losartan (COZAAR) tablet 25 mg 25 mg, oral, Daily, First dose on Tue06/08/24 at 0934 4 025 active losartan (COZAAR) tablet 25 mg Take 1 tablet (25 mg total) by mouth daily. 4 025 active losartan (COZAAR) 25 mg tablet Take 25 mg by mouth. 4 active oxyCODONE-acetaminophe n (PERCOCET) 5-325 mg per tablet Take 1 tablet by mouth every 4 (four) hours as needed for severe pain. Max Daily Amount: 6 tablets 4 active oxyCODONE-acetaminophe n (PERCOCET) 5-325 mg per tablet Take 1 tablet by mouth. 4 active hydrALAZINE (APRESOLINE) 100 MG tablet Take 1 tablet (100 mg total) by mouth 2 (two) times a day. 4 024 active hydrALAZINE (APRESOLINE) 100 MG tablet Take 1 tablet (100 mg total) by mouth 2 (two) times a day. 4 024 active glipiZIDE (GLUCOTROL XL) 5 MG 24 hr tablet Take 1 tablet (5 mg total) by mouth every morning. 4 active sodium chloride 0.9% (NS) infusion 50 mL/hr, Intravenous, Continuous PRN, other, As needed to keep vein open, Starting on Su 12/15/23 at 1231 4 active torsemide (DEMADEX) tablet 40 mg 40 mg, oral, 2 times daily, First dose on Tue04/11/24 at 2100 4 active clopidogreL (PLAVIX) tablet 75 mg 75 mg, oral, Daily, First dose (after last modification) on Tue06/11/24 at 1515 4 025 active amlodipine 10 mg tablet Take 1 tablet every day by oral route. 4 active carvedilol 25 mg tablet Take 1 tablet twice a day by oral route. 4 active hydralazine 50 mg tablet Take 1 tablet twice a day by oral route. 4 active amLODIPine (NORVASC) tablet 10 mg 10 mg, oral, Daily, First dose on Tue06/08/24 at 0935 4 active carvedilol (COREG) 25 MG tablet Take 1 tablet (25 mg total) by mouth 2 times a day. 4 active carvediloL (COREG) tablet 25 mg 25 mg, oral, 2 times daily with meals, First dose on Tue06/08/24 at 0312 4 active ceFAZolin (ANCEF) injection 1,000 mg 1,000 mg, Intravenous, Once, On Tue11/11/23 at 0800, For 1 doseFor Adults, if ordered IV then reconstitute each 1GM vial with 10mL sterile water or normal saline and administer IV Push over 3-5 minutes. 4 completed fentaNYL (SUBLIMAZE) injection As needed, Starting on Tue11/11/23 at 0941, Intra-Procedure (IR) 4 completed heparin (porcine) injection As needed, Starting on Tue11/11/23 at 1004, Intra-Procedure (IR) 4 completed ondansetron (ZOFRAN) injection 4 mg 4 mg, Intravenous, Once, On Tue11/11/23 at 1000, For 1 doseIV push over 2 to 5 minutes. 4 completed sodium chloride 0.9% (NS) infusion Intra-op continuous PRN, Starting on Tue11/11/23 at 0940, Intra-Procedure (IR) 4 completed iron sucrose (VENOFER) injection 200 mg 10 mL 200 mg, Intravenous, Once, On Su 01/05/24 at 1330, For 1 doseAdminister IV push over 2 minutes. 4 completed glipiZIDE (GLUCOTROL XL) 5 mg 24 hr tablet Take 1 tablet (5 mg total) by mouth every morning with breakfast. 4 active ferrous sulfate 324 mg (65 mg elemental iron) EC tablet Take 1 tablet (324 mg total) by mouth every morning with breakfast. 4 024 active calcitRIOL (ROCALTROL) capsule 0.25 mcg Take 1 capsule (0.25 mcg total) by mouth daily. 4 024 aborted Blood Pressure Monitoring (Blood Pressure Digital Soln) KIT 1 Units by Does not apply route daily. 4 active Blood Pressure Monitoring (Blood Pressure Digital Soln) KIT 1 Units by Does not apply route daily. 4 active calcitrioL (ROCALTROL) 0.25 mcg capsule Take 0.25 mcg by mouth in the morning. 4 active calcitRIOL (ROCALTROL) 0.25 MCG capsule Take 1 capsule (0.25 mcg total) by mouth daily. 4 active calcitRIOL (ROCALTROL) capsule 0.25 mcg Take 1 capsule (0.25 mcg total) by mouth daily. 4 active ferrous sulfate 324 mg (65 mg iron) EC tablet TAKE 1 TABLET BY MOUTH IN THE MORNING WITH BREAKFAST 4 active ferrous sulfate 324 MG TBEC Take 1 tablet (324 mg total) by mouth every morning with breakfast. 4 active ferrous sulfate 324 MG TBEC Take 1 tablet (324 mg total) by mouth every morning with breakfast. 4 active torsemide (DEMADEX) 20 MG tablet Take 2 tablets (40 mg total) by mouth 2 (two) times a day. 4 active torsemide (DEMADEX) 20 MG tablet Take 2 tablets (40 mg total) by mouth 2 (two) times a day. 4 active clopidogreL (Plavix) tablet Take 1 tablet (75 mg total) by mouth in the morning. 4 025 active clopidogrel (PLAVIX) 75 MG tablet Take 1 tablet (75 mg total) by mouth daily. 4 active levothyroxine (SYNTHROID, LEVOTHROID) 75 MCG tablet Take 1 tablet (75 mcg total) by mouth daily. 4 025 active levothyroxine (SYNTHROID) tablet 75 mcg Take 1 tablet (75 mcg total) by mouth daily. 4 025 active levothyroxine (SYNTHROID, LEVOTHROID) 75 mcg tablet Take 1 tablet (75 mcg total) by mouth daily. 4 active levothyroxine (SYNTHROID) 75 mcg tablet Take 75 mcg by mouth in the morning. 4 active levothyroxine (SYNTHROID) tablet 75 mcg Take 1 tablet (75 mcg total) by mouth daily. 4 active torsemide (DEMADEX) 20 MG tablet Take 1 tablet (20 mg total) by mouth daily. 4 024 active torsemide (DEMADEX) 20 mg tablet Take 75 mg by mouth. 4 active torsemide (DEMADEX) 20 MG tablet Take 2 tablets (40 mg total) by mouth 2 (two) times a day in the morning and the early evening.. 4 active rosuvastatin (CRESTOR) tablet 5 mg Take 1 tablet (5 mg total) by mouth daily. 4 024 aborted amLODIPine (NORVASC) tablet 10 mg Take 1 tablet (10 mg total) by mouth daily. 4 active amLODIPine (NORVASC) tablet 10 mg Take 1 tablet (10 mg total) by mouth daily. 4 active blood pressure monitor kit 1 Units by Does not apply route daily. 4 active Continuous Blood Gluc White Metal Corrosion Proofer (FreeStyle Gianluca 2 [place]) THIEN 1 each by Does not apply route daily. 4 active Continuous Blood Gluc White Metal Corrosion Proofer (FreeStyle Gianluca 2 [place]) THIEN 1 each by Does not apply route daily. 4 active glipiZIDE (GLUCOTROL XL) ER 24 hr tablet 5 mg Take 1 tablet (5 mg total) by mouth every morning with breakfast. 4 active glipiZIDE (GLUCOTROL XL) ER 24 hr tablet 5 mg Take 1 tablet (5 mg total) by mouth every morning with breakfast. 4 active insulin degludec (Tresiba FlexTouch U-200) 200 unit/mL (3 mL) CONCENTRATED injection pen Inject 28 Units under the skin daily. 4 active Jardiance 10 MG tablet Take 1 tablet (10 mg total) by mouth daily. 4 active Jardiance 10 MG tablet Take 1 tablet (10 mg total) by mouth daily. 4 active Levothyroxine Sodium 25 MCG/ML SOLN Take 25 mcg by mouth daily. 4 active rosuvastatin (CRESTOR) tablet 5 mg Take 1 tablet (5 mg total) by mouth daily. 4 active Tresiba FlexTouch 200 UNIT/ML SOPN Inject 28 Units under the skin daily. 4 active Tresiba FlexTouch 200 UNIT/ML SOPN Inject 28 Units under the skin daily. 4 active carvedilol (COREG) 25 MG tablet Take 1 tablet (25 mg total) by mouth 2 (two) times a day. 3 active carvedilol (COREG) 25 MG tablet Take 1 tablet (25 mg total) by mouth 2 (two) times a day. 3 active hydrALAZINE (APRESOLINE) 50 mg tablet Take 50 mg by mouth. 3 active hydrALAZINE (APRESOLINE) 50 MG tablet Take 1 tablet (50 mg total) by mouth 2 (two) times a day. 3 active hydrALAZINE (APRESOLINE) 50 MG tablet Take 1 tablet (50 mg total) by mouth 2 times a day. 3 active hydrALAZINE (APRESOLINE) 50 MG tablet Take 1 tablet (50 mg total) by mouth 2 (two) times a day. 3 active acetaminophen (Tylenol Extra Strength) 500 mg tablet as needed. 3 active Lasix 20 mg tablet Take 1 tablet every other day for 1 week 3 023 completed lisinopril 40 mg tablet Take 1 tablet every day by oral route. 3 023 completed spironolactone 25 mg tablet Take 1 tablet every day by oral route. 3 023 completed carvediloL (COREG) 25 mg tablet Take 25 mg by mouth. 3 active Jardiance 10 mg tablet 10 mg in the morning. 3 active potassium chloride (K-TAB) 20 MEQ CR tablet Take 1 tablet (20 mEq total) by mouth daily. Swallow whole; do not crush. Take with food. 2 active spironolactone (ALDACTONE) 25 MG tablet Take 1 tablet (25 mg total) by mouth daily. 2 023 active lidocaine (LIDODERM) 5 % patch Place 1 patch on the skin daily. Apply patch and leave on for 12 hours then remove. Patch may remain on skin for 12 hours per day. Do not start before August 15, 2021. 2 active acetaminophen (TYLENOL) 325 MG tablet Take 2 tablets (650 mg total) by mouth 4 times daily (every 6 hours) as needed for moderate pain. 2 023 aborted insulin lispro (HumaLOG) 100 units/mL injection Inject 0.01-0.08 mL (1-8 Units total) under the skin 3 (three) times a day with meals. Notify provider if Blood Glucose LESS than 70; For BG 141-170 administer 1 unit; For BG 171-200 administer 2 units; For BG 201-230 administer 3 units; For BG 231-260 administer 4 units; For BG 261-290 administer 5 2 active Tresiba FlexTouch 200 UNIT/ML prefilled pen injection Inject 30 Units under the skin nightly. 2 active Tresiba FlexTouch U-200 200 unit/mL (3 mL) insulin pen Inject 28 Units under the skin. 2 active albuterol (ProAir HFA) 108 (90 Base) MCG/ACT inhaler Take 2 puffs by mouth every 6 (six) hours as needed. 1 active albuterol (ProAir HFA) 108 (90 Base) MCG/ACT inhaler Take 2 puffs by mouth every 6 (six) hours as needed. 1 active albuterol HFA (PROAIR HFA ; PROVENTIL HFA ; VENTOLIN HFA) 90 mcg/actuation inhaler Take 2 puffs by mouth every 6 hours as needed. 1 active albuterol HFA 90 mcg/actuation inhaler Take 2 puffs by mouth. 1 active amLODIPine (NORVASC) 10 MG tablet Take 1 tablet (10 mg total) by mouth daily. 1 024 active carvedilol (COREG) 12.5 MG tablet Take 1 tablet (12.5 mg total) by mouth 2 (two) times a day with meals. 1 023 aborted furosemide (LASIX) 40 MG tablet Take 1 tablet (40 mg total) by mouth daily. 1 023 aborted amLODIPine (NORVASC) 10 mg tablet Take 10 mg by mouth in the morning. 1 active levothyroxine (SYNTHROID, LEVOTHROID) 25 MCG tablet Take 1 tablet by mouth daily. 1 active rosuvastatin (CRESTOR) 5 MG tablet Take 1 tablet (5 mg total) by mouth every morning. 1 active rosuvastatin (CRESTOR) 5 MG tablet Take 1 tablet by mouth daily. 1 active lisinopril (PRINIVIL,ZESTRIL) 40 mg tablet Take 1 tablet (40 mg total) by mouth daily. 1 025 active lisinopril (PRINIVIL,ZeSTRIL) 40 MG tablet Take 1 tablet (40 mg total) by mouth every morning. 1 active lisinopril (PRINIVIL,ZeSTRIL) 40 MG tablet Take 1 tablet by mouth daily. 1 active lisinopriL (PRINIVIL) 40 mg tablet Take 40 mg by mouth. 1 active PANTOprazole (PROTONIX) 40 MG EC tablet Take 1 tablet by mouth daily. 1 active rosuvastatin (CRESTOR) 5 mg tablet Take 1 tablet (5 mg total) by mouth 1 (one) time each day. 1 active levothyroxine 25 mcg tablet TAKE 1 TABLET BY MOUTH ONCE DAILY 025 active atorvastatin 40 mg tablet TAKE 1 TABLET BY MOUTH AT BEDTIME 025 completed hydromorphone 2 mg tablet TAKE 1/2 (ONE-HALF) TABLET BY MOUTH EVERY 4 HOURS NEEDED FOR MODERATE PAIN . DO NOT EXCEED 3 PER 24 HOURS 025 completed oxycodone-acetaminophe n 5 mg-325 mg tablet TAKE 1 TABLET BY MOUTH EVERY 4 HOURS NEEDED FOR SEVERE PAIN . DO NOT EXCEED 6 PER 24 HOURS 03/27/2 025 completed sertraline 25 mg tablet TAKE 1 TABLET BY MOUTH ONCE DAILY FOR 7 DAYS THEN 2 DAILY FOR 23 DAYS completed torsemide 20 mg tablet TAKE 2 TABLETS BY MOUTH ONCE DAILY 025 completed ferrous sulfate 324 mg (65 mg iron) tablet,delayed release TAKE 1 TABLET BY MOUTH IN THE MORNING WITH BREAKFAST completed hydralazine 100 mg tablet TAKE 1 TABLET BY MOUTH TWICE DAILY completed Jardiance 10 mg tablet TAKE 1 TABLET BY MOUTH ONCE DAILY 024 completed losartan 100 mg tablet TAKE 1 TABLET BY MOUTH ONCE DAILY completed Jardiance 10 mg tablet Take 1 tablet (10 mg total) by mouth 1 (one) time each day. aborted metformin 500 mg tablet Take 1 tablet twice a day by oral route with meals. completed pantoprazole 40 mg tablet,delayed release Take 1 tablet every day by oral route. completed pregabalin 100 mg capsule Take 1 capsule twice a day by oral route as needed. completed glipiZIDE (GLUCOTROL) 10 MG tablet Take 10 mg by mouth every morning before breakfast. 023 aborted hydralazine 50 mg tablet active levothyroxine 75 mcg tablet active amlodipine 10 mg tablet active carvedilol 25 mg tablet active amlodipine 10 mg tablet TAKE 1 TABLET BY MOUTH ONCE DAILY active calcitriol 0.25 mcg capsule TAKE 1 CAPSULE BY MOUTH ONCE DAILY active capsaicin 0.025 % topical cream APPLY CREAM TOPICALLY THREE TIMES DAILY NEEDED active carvedilol 25 mg tablet TAKE 1 TABLET BY MOUTH TWICE DAILY active clonidine 0.2 mg/24 hr weekly transdermal patch Apply 1 patch every week by transdermal route. active clopidogrel 75 mg tablet Take 1 tablet every day by oral route. active clopidogrel 75 mg tablet TAKE 1 TABLET BY MOUTH IN THE MORNING active glipizide 10 mg tablet Take 1 tablet melyssa day by oral route. active glipizide ER 5 mg tablet, extended release 24 hr TAKE 1 TABLET BY MOUTH IN THE MORNING WITH BREAKFAST active hydralazine 50 mg tablet TAKE 1 TABLET BY MOUTH DAILY active lidocaine-prilocaine 2.5 %-2.5 % topical cream APPLY THIN LAYER ON AVF 1 HOUR PRIOR TO TREATMENT 3 TIMES A WEEK active losartan 25 mg tablet TAKE 1 TABLET BY MOUTH ONCE DAILY active methylprednisolone 32 mg tablet TAKE 1 TABLET BY MOUTH TWICE DAILY 12 HOURS AND 2 HOURS PRIOR TO CTA NECK active ondansetron 4 mg disintegrating tablet DISSOLVE 1 TABLET IN MOUTH EVERY 8 HOURS NEEDED FOR NAUSEA active rosuvastatin 5 mg tablet TAKE 1 TABLET BY MOUTH ONCE DAILY active sertraline 100 mg tablet TAKE 1 TABLET BY MOUTH IN THE MORNING active sertraline 50 mg tablet TAKE 1 TABLET BY MOUTH IN THE MORNING active sevelamer carbonate 800 mg tablet TAKE 3 TABLETS BY MOUTH ONCE DAILY IN THE MORNING THEN 3 AT NOON AND 3 IN THE EVENING WITH MEALS SWALLOW WHOLE DO NOT CRUSH, BREAK OR CHEW. active torsemide 20 mg tablet Take 1 tablet twi ce a day by oral route. active trazodone 50 mg tablet TAKE 1/2 TO 1 (ONE-HALF TO ONE) TABLET BY MOUTH NIGHTLY active Tresiba FlexTouch U-200 insulin 200 unit/mL (3 mL) subcutaneous pen INJECT 28 UNITS SUBCUTANEOUSLY ONCE DAILY active capsaicin (ZOSTRIX) 0.025 % cream Apply topically 2 (two) times a day as needed. active cloNIDine (CNJOLINR-UMK-5) 0.2 mg/[address] 1 patch on the skin once a week. active cloNIDine (CATAPRES-TTS) 0.2 mg/24 hr patch 1 patch. active glipiZIDE (GLUCOTROL) 5 mg 24 hr tablet Take 5 mg by mouth in the morning. active glipizide (tablet extended release 24hr) 10 mg co mpleted hydralazine completed hydrALAZINE (APRESOLINE) 100 mg tablet Take 1 tablet (100 mg total) by mouth 2 (two) times a day active lisinopril (PRINIVIL,ZESTRIL) tablet 40 mg Take 1 tablet (40 mg total) by mouth daily. active lisinopril (PRINIVIL,ZESTRIL) tablet 40 mg Take 1 tablet (40 mg total) by mouth daily. active lisinopril (tablet) 40 mg comp leted pregabalin (capsule) 100 mg com pleted rosuvastatin (CRESTOR) 5 mg tablet Take 5 mg by mouth in the morning. active sertraline completed sevelamer (RENVELA) 800 MG tablet Take 1 tablet (800 mg total) by mouth 3 (three) times a day with meals. active sevelamer (RENVELA) 800 MG tablet Take 1 tablet (800 mg total) by mouth 3 (three) times a day with meals. active torsemide (tablet) 10 mg compl eted Tresiba FlexTouch U-200 (insulin pen) 200 unit/mL (3 mL) completed Allergies Allergen Reaction Severity Comment Documented Date Source Status SHELLFISH DERIVED ANAPHYLAXIS 04/11/2024 [facility] active SHELLFISH-DERI MATTE[employer]ODUCTS ANAPHYLAXIS 04/11/2024 [facility] active IODINATED CONTRAST MEDIA SWELLINGANGIOEDEMA Face swelling after receiving contrast dye 09/23/2021 [facility] active PENICILLIN G RASH/DERMATITIS 08/04/2016 [facility] active PENICILLINS RASHRASH/DERMATITIS rash 07/28/2016 [facility] active ASPIRIN OTHER (SEE COMMENTS)RASHOTHER (SEE COMMENTS)UNKNOWN/[facility] UNABLE TO DEFINERASH/DERMATITIS Hives 07/27/2016 [facility] active Problems Problem Status Onset Date Problem Type Date of Resolution Source Impaired gait and mobility active 2023-11-17 [facility]Act [facility] Acquired hypothyroidism active 2023-05-25 ProblemAct [facility] Secondary hyperparathyroidism, renal ([facility]) active 2023-08-18 ProblemAct [facility] Hypertensive emergency active 2021-05-19 ProblemAct [facility] Pure hypercholesterolemia active 2023-05-25 ProblemAct [facility] Acidosis active 2023-11-03 ProblemAct [facility] Anxiety active 2021-09-10 ProblemAct [facility] CKD (chronic kidney disease) stage V requiring chronic dialysis ([facility], [facility]) active 2023-11-30 ProblemAct [facility] Carotid stenosis active 2024-04-11 ProblemAct [facility] Fatigue active 2021-09-10 [facility]Act [facility] Facial numbness active 2023-07-[address] [facility] Congestive heart failure ([facility], [facility]) active 2023-05-25 ProblemAct [facility] Primary hypertension active 2022-02-23 ProblemAct [facility] Vit[facility]ous hemorrhage of left eye ([facility] [facility] – ADA V28) active 2023-07-07 ProblemAct [facility] Fatigue active 2021-09-10 ProblemAct [facility]SFR AN Bilateral leg edema active 2023-05-25 ProblemAct [facility]AN 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 ([facility] V24, [facility] V28) active 2023-05-25 ProblemAct [facility] Acute on chronic heart failure with preserved ejection fraction ([facility] – ADA V24, [facility] – ADA V28) active 2022-02-23 ProblemAct [facility] Bilateral tinnitus active 2023-07-29 ProblemAct [facility]_THS[facility] ICAO (internal carotid artery occlusion), left active 2023-07-08 Problem[address] [facility]_T HSFRAN Iron deficiency active 2023-10-[address] _THSFRAN Type 2 diabetes mellitus, with long-term current use of insulin ([facility] – ADA V24, [facility] V28) active 2024-02-03 ProblemAct [facility] Vitamin D deficiency active 2023-06-23 ProblemAct [facility] CKD (chronic kidney disease) stage 4, GFR 15-29 ml/min ([facility] – ADA V24, [facility] – ADA V28) active 2023-05-25 ProblemAct [facility]_THSFRAN Type 2 diabetes mellitus, with long-term current use of insulin ([facility] – ADA V24, [facility] – ADA V28) active 2024-02-03 ProblemAct [facility]_THS[facility] Vitamin D deficiency active 2023-06-23 ProblemAct [facility]_THS[facility] Sensory hearing loss, bilateral active 2023-05-25 ProblemAct [facility] Anemia due to multiple mechanisms active 2023-06-23 ProblemAct [facility]AN Primary cardiomyopathy ([facility] – ADA V24, [facility] – ADA V28) active 2021-09-10 ProblemAct C T_THSFRAN Left spastic hemiparesis ([facility] – ADA V24, [facility] ADA V28) active 2023-07-08 ProblemAct C T_THSFRAN Carotid artery disease ([facility] – ADA V24) active 2023-05-25 ProblemAct [facility] Hyperpotassemia active 2023-11-[address] _THSFRAN Type 2 diabetes mellitus, with long-term current use of insulin active 2022-02-23 ProblemAct CTTHSFRAN Muscle weakness active 2024-10-[address] [facility] History of stroke active 2024-10-31 ProblemAct [facility] Unresolved grief active 2024-09-19 ProblemAct C [facility] Resistant hypertension active 2021-09-10 ProblemAct [facility] Current moderate episode of major depressive disorder without prior episode active 2024-07-30 ProblemAct [facility] Poor attachment to primary caregiver active 2024-09-19 ProblemAct [facility] Diabetes mellitus active 2022-09-07 ProblemAct [facility] Imbalance active 2024-10-31 ProblemAct [facility] Insomnia due to other mental disorder active 2024-09-19 ProblemAct [facility] Anxiety active 2024-07-30 ProblemAct [facility] Acquired deaf mutism active 2024-05-06 ProblemAct [facility] Essential hypertension active 2024-05-06 ProblemAct [facility] End stage renal failure on dialysis active 2024-10-03 ProblemAct [facility] Vitamin D deficiency active 2024-05-06 ProblemAct [facility] Overweight in adulthood with body mass index of 25 or more but less than 30 active 2024-08-16 ProblemAct ENS _PHCCT Retinopathy due to type 2 diabetes mellitus active 2024-05-06 ProblemAct [facility] Insulin treated type 2 diabetes mellitus active 2024-08-16 ProblemAct [facility] Hyperkalemia active 2024-11-05 ProblemAct E[facility]_P [facility] Pure hypercholesterolemia active 2024-05-06 ProblemAct E[facility]_PH[facility] Cataract of left eye active 2024-11-09 ProblemAct [facility] Diabetic peripheral neuropathy active 2024-05-06 ProblemAct [facility] Hypoglycemia due to type 2 diabetes mellitus active 2024-10-07 ProblemAct [facility] Bilateral deafness active 2024-05-06 ProblemAct [facility] Acquired hypothyroidism active 2024-05-06 ProblemAct [facility] Body mass index (BMI) of 30.0 to 30.9 in adult active 2023-07-13 ProblemAct [facility] Carotid stenosis active 2023-05-25 ProblemAct H [facility] assisted current use of insulin active 2023-05-25 ProblemAct [facility] Overweight with body mass index (BMI) of 26 to 26.9 in adult active 2024-04-23 ProblemAct [facility] Medication management active 2023-05-25 ProblemAct [facility] 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 active 2021-09-10 ProblemAct [facility] Primary hypertension active 2021-09-10 ProblemAct [facility] H/O carotid endarterectomy active 2024-04-23 ProblemAct [facility] Sensory hearing loss, bilateral active 2023-10-13 ProblemAct [facility] Heart failure active 2022-09-08 ProblemAct CT_C ONCARDIO Chest pain active 2022-09-08 ProblemAct [facility]_CONC ARDIO Essential hypertension active 2022-09-07 ProblemAct [facility] Diabetes mellitus active 2022-09-07 ProblemAct [facility]_CONC[facility] Immunizations Vaccine Date Source Lot Number Status Moderna SARS-CoV-2 COVID-19, mRNA, LNP-S, preservative free 10/18/2020 [facility] completed Moderna SARS-CoV-2 COVID-19, mRNA, LNP-S, preservative free 09/18/2020 CT_THS[facility]AN completed Encounters Encounter Type Encounter Reason Primary Diagnosis Location Date Ambulatory Transfer From [facility] to [facility] 01/29/2025 Ambulatory Muscle weakness (generalized) Muscle weakness (generalized) [facility] 12/03/2024 Ambulatory Muscle weakness (generalized) Muscle weakness (generalized) [facility] 11/26/2024 Ambulatory [facility] 11/09/2024 Ambulatory [facility] 11/09/2024 Ambulatory Muscle weakness (generalized) Muscle weakness (generalized) [facility] 10/31/2024 Ambulatory Sensorineural hearin g loss, bilateral Sensorineural hearing loss, bilateral [facility] 10/25/2024 Ambulatory Muscle weakness (generalized) Muscle weakness (generalized) [facility] 10/22/2024 Ambulatory [facility] 10/08/2024 Ambulatory End stage renal disease End stage renal disease [facility] 10/08/2024 Ambulatory End stage renal disease End stage renal disease [facility] 08/20/2024 Ambulatory [facility] 08/16/2024 Ambulatory Sensorineural hearin g loss, bilateral Sensorineural hearing loss, bilateral [facility] 08/13/2024 Ambulatory [facility] 07/24/2024 Ambulatory Other cerebral infarction due to occlusi Other cerebral infarction due to occlusion or stenosis of small artery [facility] 07/23/2024 Ambulatory Sensorineural hearin g loss, bilateral Sensorineural hearing loss, bilateral [facility] 07/12/2024 Ambulatory [facility] 07/11/2024 Ambulatory End stage renal disease End stage renal disease [facility] 07/11/2024 Ambulatory End stage renal disease End stage renal disease [facility] 07/05/2024 Ambulatory Sensorineural hearin g loss, bilateral Sensorineural hearing loss, bilateral [facility] 06/15/2024 Ambulatory Cardiac arrhythmia, unspecified Cardiac arrhythmia, unspecified [facility] 06/12/2024 Inpatient Vomitting, dizziness Hypertensiv e emergency [facility] 06/07/2024 Ambulatory [facility] 06/07/2024 Ambulatory Sensorineural hearin g loss, bilateral Sensorineural hearing loss, bilateral [facility] 06/04/2024 Ambulatory [facility] 06/04/2024 Ambulatory Other specified anemias Other specified anemias [facility] 05/25/2024 Ambulatory Anesthesia of skin Anesthesia of skin [facility] 05/21/2024 Ambulatory Demyelinating diseas e of central nervous Demyelinating disease of central nervous system, unspecified [facility] 05/21/2024 Ambulatory Post-op Post-op [facility] 05/14/2024 Ambulatory Anesthesia of skin Anesthesia of skin [facility] 05/11/2024 Ambulatory Anesthesia of skin Anesthesia of skin [facility] 05/11/2024 Ambulatory Other specified postprocedural states Other specified postprocedural states [facility] 05/09/2024 Ambulatory [facility] 05/08/2024 Ambulatory [facility] 05/08/2024 Ambulatory [facility] 05/04/2024 Ambulatory [facility] 05/04/2024 Ambulatory [facility] 05/03/2024 Ambulatory Consult Consult [facility] 05/02/2024 Ambulatory End stage renal disease End stage renal disease [facility] 04/25/2024 Ambulatory Other specified anemias Other specified anemias [facility] 04/25/2024 Inpatient Occlusion and stenosis of unspecified carotid artery Occlusion and stenosis of unspecified carotid artery [facility] 04/11/2024 Ambulatory Follow-up Follow-up [facility] 04/09/2024 Ambulatory Other specified anemias Other specified anemias [facility] 03/28/2024 Ambulatory [facility] 03/26/2024 Ambulatory Occlusion and stenosis of unspecified carotid artery Occlusion and stenosis of unspecified carotid artery [facility] 03/22/2024 Ambulatory Occlusion and stenosis of unspecified carotid artery Occlusion and stenosis of unspecified carotid artery [facility] 03/22/2024 Ambulatory Demyelinating diseas e of central nervous Demyelinating disease of central nervous system, unspecified [facility] 03/22/2024 Ambulatory Demyelinating diseas e of central nervous Demyelinating disease of central nervous system, unspecified [facility] 03/21/2024 Ambulatory Demyelinating diseas e of central nervous Demyelinating disease of central nervous system, unspecified [facility] 03/21/2024 Ambulatory Follow-up Follow-up [facility] 03/16/2024 Ambulatory Occlusion and stenosis of bilateral carotid arteries Occlusion and stenosis of bilateral carotid arteries [facility] 03/08/2024 Ambulatory Occlusion and stenosis of bilateral carotid arteries Occlusion and stenosis of bilateral carotid arteries [facility] 03/08/2024 Ambulatory Post-op Post-op [facility] 03/05/2024 Ambulatory [facility] 03/02/2024 Ambulatory [facility] 03/02/2024 Ambulatory Chronic kidney disease, stage 4 (severe) Chronic kidney disease, stage 4 (severe) [facility] 03/02/2024 Ambulatory Chronic kidney disease, stage 4 (severe) Chronic kidney disease, stage 4 (severe) [facility] 03/02/2024 Ambulatory End stage renal disease End stage renal disease [facility] 02/15/2024 Ambulatory Demyelinating diseas e of central nervous Demyelinating disease of central nervous system, unspecified [facility] 02/03/2024 Ambulatory Anesthesia of skin Anesthesia of skin [facility] 02/03/2024 Ambulatory [facility] 02/02/2024 Ambulatory [facility] 02/02/2024 Emergency Hyperkalemia Hyperkalemia [facility] 02/01/2024 Ambulatory End stage renal disease End stage renal disease [facility] 02/01/2024 Ambulatory Chronic kidney disease, stage 4 (severe) Chronic kidney disease, stage 4 (severe) [facility] 01/31/2024 Ambulatory End stage renal disease End stage renal disease [facility] 01/05/2024 Ambulatory Consult Consult [facility] 01/02/2024 Ambulatory End stage renal disease End stage renal disease [facility] 12/22/2023 Ambulatory End stage renal disease End stage renal disease [facility] 12/21/2023 Ambulatory End stage renal disease End stage renal disease [facility] 12/19/2023 Ambulatory End stage renal disease End stage renal disease [facility] 12/15/2023 Ambulatory [facility] 12/05/2023 Ambulatory End stage renal disease End stage renal disease [facility] 11/25/2023 Ambulatory Iron deficiency Iron deficiency [facility] 11/14/2023 Ambulatory Type 2 diabetes mellitus with diabetic chronic kidney disease Type 2 diabetes mellitus with diabetic chronic kidney disease [facility] 11/11/2023 Ambulatory Iron deficiency Iron deficiency [facility] 11/08/2023 Ambulatory Type 2 diabetes mellitus with diabetic chronic kidney disease Type 2 diabetes mellitus with diabetic chronic kidney disease [facility] 11/03/2023 Ambulatory Type 2 diabetes mellitus with diabetic chronic kidney disease Type 2 diabetes mellitus with diabetic chronic kidney disease [facility] 11/03/2023 Ambulatory Other specified anemias Other specified anemias [facility] 10/14/2023 Ambulatory Chronic kidney disease, stage 4 (severe) Chronic kidney disease, stage 4 (severe) [facility] 10/14/2023 Ambulatory Follow-up Follow-up [facility] 10/13/2023 Ambulatory [facility] 08/22/2023 Ambulatory [facility] 08/22/2023 Ambulatory Chronic kidney disease, stage 4 (severe) Chronic kidney disease, stage 4 (severe) [facility] 08/18/2023 Ambulatory [facility] 08/11/2023 Ambulatory [facility] 08/11/2023 Ambulatory Sensorineural hearin g loss, bilateral Sensorineural hearing loss, bilateral [facility] 07/28/2023 Ambulatory Occlusion and stenosis of left carotid a Occlusion and stenosis of left carotid artery [facility] 07/06/2023 Ambulatory Dizziness and giddiness Dizziness and giddiness [facility] 06/29/2023 Ambulatory Acute kidney failure , unspecified Acute kidney failure, unspecified [facility] 06/23/2023 Ambulatory Sensorineural hearin g loss, bilateral Sensorineural hearing loss, bilateral [facility] 05/05/2023 Inpatient Acute kidney failure , unspecified Acute kidney failure, unspecified [facility] 03/27/2023 Emergency Essential (prima ry) hypertension [facility] 02/05/2022 Ambulatory Dyspnea, unspecified [facility] 09/29/2021 Ambulatory [facility] 09/23/2021 Emergency Essential (prima ry) hypertension [facility] 09/22/2021 Ambulatory Hypertensive emergency [facility] 09/10/2021 Inpatient Hypertensive urgency [facility] 08/11/2021 Inpatient Hypertensive urgency [facility] 05/18/2021 Care Team Organization Name Specialty Phone Email Start Date End Da te [facility] 03/14/2025 [employer] [facility] [employer] 01/22/2025 [facility] 01/04/2025 [facility] 10/08/2024 11/23/2024 [facility] 202402/06/2025 [facility] 06[facility]04/2024 [facility] 03/27/2024 [facility] 03/26/2024 [facility] 03/13/2024 [facility] 2023 [facility] 09/20/2023 01/29/2025 [facility] 08/22/2023 [facility] 08/22/2023 02/12/20 [facility] NO PCP Primary Care 07/06/2023 [facility] 06/23/2023 [facility] EMPERATRIZER PCP Primary Care 03/27/2023 03/27/2023 [facility] 03/24/2023 025 [facility] 02/18/2023 [facility] 02/12/2023 024 [facility] Primary Care 02/05/2022 11/23/2024 [facility] SHARITA [facility]ER Primary Care 05/18/2021 02/05/2022 [facility] NO [facility] Primary Care 05/18/2021 02/05/2022
--- OUTSIDE RECORDS SUMMARY | 2025-04-12 09:18 | XMS_ITS | Encounter Summary ---
Author Organization [facility] Address [address] [place] [address] Care Team Providers Care Machine Adjuster Leader Case Trim Name Role Phone Xuan Baxter APRN Primary Care Provider [phone] Dialysis, [address] Unavailable + Shanae Baeza MD Unavailable [phone] Martha Cunha MD Primary Care Provider Encounter Details Date Type Department Care Team (Late st Contact Info) Description 09/23/2021 Scanned Document [facility] Cardiac Laboratory [address] [address] Usman Franco MD [address] [place] [address] [id number] Social History Tobacco Use Types Packs/Day Years [...] Exposure Response Date Recorded In the last 10 days, have bernabe u been in contact with someone who was confirmed or suspected to have Coronavirus/COVID-19? No / Unsure 09/22/2021 6:25 PM EDT documented as of this encounter Plan [...] on filedocumented in this encounter Care Teams Machine Adjuster Leader Case Trim Relationship Specialty Start Date End Date Xuan Baxter APRN PCP - General Family Medicine 05/21/21 06/03/24 Martha Cunha MD [address] [place] [address] [place] [address] PCP - General [facility] Medicine 06/04/24 Dialysis, [address] [place] [address] Dialysis Unit 11/21/23 Shanae Baeza MD [address] [place] [address] [place] [address] 11/21/23 documented as of this encounter
--- OUTSIDE RECORDS SUMMARY | 2025-04-12 09:18 | XMS_ITS | Encounter Summary ---
Author Organization [facility] Address [address] [place] [address] Care Team Providers Care Victim Witness Administrator Name Role Phone Xuan Baxter APRN Primary Care Provider [phone] Dialysis, [address] Unavailable + Shanae Baeza MD Unavailable [phone] Martha Cunha MD Primary Care Provider Encounter Details Date Type Department Care Team (Late st Contact Info) Description 09/23/2021 Scanned Document [facility] Cardiac Laboratory [address] [address] Usman Franco MD [address] [place] [address] [id number] Social History Tobacco Use Types Packs/Day Years [...] on filedocumented in this encounter Care Teams Victim Witness Administrator Relationship Specialty Start Date End Date Xuan Baxter APRN PCP - General Family Medicine 05/21/21 06/03/24 Martha Cunha MD [address] [place] [address] [place] [address] PCP - General [facility] Medicine 06/04/24 Dialysis, [address] [place] [address] Dialysis Unit 11/21/23 Shanae Baeza MD [address] [place] [address] [place] [address] 11/21/23 documented as of this encounter
== END 2025-04-12 10:12 | disposition home or self-care (01) ==
LOC: HO.HMCH 09:00
PROVIDERS: Visit Provider Internal Medicine
DX: I12.0 Hypertensive chronic kidney disease with stage 5 chronic kidney disease or end stage renal disease (principal); I82.C12 Acute embolism and thrombosis of left internal jugular vein; I50.9 Heart failure, unspecified; N18.6 End stage renal disease; F32.9 Major depressive disorder, single episode, unspecified; Z86.39 Personal history of other endocrine, nutritional and metabolic disease; E03.9 Hypothyroidism, unspecified; H26.9 Unspecified cataract; E78.5 Hyperlipidemia, unspecified; R26.81 Unsteadiness on feet; R11.2 Nausea with vomiting, unspecified

== ENCOUNTER → 2025-04-12 08:59 | Outpatient (BNVA) | payer MEDICARE, MEDICAID, SELFPAY | PROVIDERS: Visit Provider Internal Medicine | DX: I12.0 Hypertensive chronic kidney disease with stage 5 chronic kidney disease or end stage renal disease (principal); E11.22 Type 2 diabetes mellitus with diabetic chronic kidney disease; N18.6 End stage renal disease; E78.00 Pure hypercholesterolemia, unspecified; F32.9 Major depressive disorder, single episode, unspecified; E03.9 Hypothyroidism, unspecified; E78.5 Hyperlipidemia, unspecified; R26.81 Unsteadiness on feet; R11.2 Nausea with vomiting, unspecified | CPT/HCPCS: 83036; 99202 ==

== ENCOUNTER 2025-04-22 11:24 | Outpatient (REF) | payer MEDICARE, MEDICAID, SELFPAY ==
--- OUTSIDE RECORDS SUMMARY | 2007-04-18 19:00 | XMS_ITS | Continuity of Care Document ---
Author Organization Formerly [facility] vices Address [address] [place] [address] Phone Care Team Providers Care Dev Manager Name Role Phone Unavailable Unavailable Unavailable Procedures Procedure Date EXPANDED OUT/PT Advance Directives Directive Yes / No Effective Date File Name No Information Encounters Encounter Description Practice Location Reason(s) For Visit Diagnoses Date Provider Providers Copied on Encounter [facility], [address] [place] [address], [id number], tel:[phone] Conversion PNEUMONIA DUE TO OTHER SPECIFIED ORGANISM No Information EXPANDED OUT/PT [facility], [address] [place] [address], [facility] [place], [place] tel:[phone] [facility] Adult Medicine No Information No Information Family History Family Member Type Diagnosis Age At Onset No Information Payers Payer name Insurance type Covered alliance party ID Authoriza tion(s) No Information Social History Type Description Quantity Date Captured Comments Sex Female Smoking Status No Information Chief Complaint And Reason For Visit No Information Reason For Referral Reason For Referral No Information History Of Present Illness Encounter Date Complaint History Of Prese nt Illness No Information Functional Status Date Functional Assessmen t No Information Instructions Date Instruction Additional Infor mation No Information Assessments Type Assessment Date No Information Patient Care Teams Name Effective Dates (start - stop) Status Members No Information
--- OUTSIDE RECORDS SUMMARY | 2024-03-08 10:31 | XMS_ITS | Encounter Summary ---
Author Organization [facility] [place] [address] Care Team Providers Care Paper And Prints Restorer Name Role Phone Martha Cunha MD Primary Care Provider Encounter Details Date Type Department Care Team (Late st Contact Info) Description 03/08/2024 11:31 AM EDT Hospital Encounter TH HISTORIC ENCOUNTERS [facility] CONVERSION ONLY Alex Boateng MD [address] [place] [address] Social History Tobacco Use Types Packs/Day Years [...] 06/08/2024 9:52 AM Jeannette Combs RN * [place] Suicide Severity Rating Scale (Screener/Recent Self-Report) Question [...] on filedocumented in this encounter Care Teams Paper And Prints Restorer Relationship Specialty Start Date End Date Martha Cunha MD [address] [phone] PCP - General 05/25/23 documented as of this encounter
[2025-04-22 12:15] LABS: Hematocrit 34.5 % (37.0-47.0); Hemoglobin 11.5 g/dl (12.0-16.0); Mean Corpuscular HGB Conc 33.3 g/dl (31.0-35.0); Mean Corpuscular Hemoglobin 30.5 pg (27.0-33.0); Mean Corpuscular Volume 91.5 fL (80.0-98.0); NRBC Abs Auto 0.000 X10*3/uL (0.0-0.012); NRBC Pct Auto 0.0 /100WBC (0.0-0.2); Platelet Count 169 X10*3/uL (160-400); Red Blood Count 3.77 X10*6/uL (4.20-5.50); White Blood Count 5.2 X10*3/uL (4.8-10.8)
[2025-04-22 13:04] LABS: HIV Num 1 0.07 S/CO (0.00-0.99); ~HepC Num1 0.09 S/CO (0.00-0.79); ~Hepatitis C Antibody Nonreactive (Nonreactive)
[2025-04-22 13:23] LABS: Folate 7.2 ng/mL (> or = 4.0); Vitamin B12 400 pg/mL (200-900)
[2025-04-22 14:34] LABS: Alanine Aminotransferase 10 U/L (0-31); Albumin Level 4.2 g/dL (3.5-5.0); Alkaline Phosphatase 75 U/L (39-117); Anion Gap 15 (12-20); Aspartate Amino Transferase 22 U/L (5-31); Blood Urea Nitrogen 46 mg/dL (9-16); Calcium 8.8 mg/dL (8.4-10.2); Carbon Dioxide 29 mmol/L (22-29); Chloride 102 mmol/L (96-108); Cholesterol 111 mg/dL (<200); Estimated Glomerular Filt Rate 5; HDL Cholesterol 25 mg/dL (>40); Potassium 4.4 mmol/L (3.3-5.1); Sodium 142 mmol/L (135-145); Total Protein 7.7 g/dL (6.5-8.0); Triglycerides 130 mg/dL (<150)
[2025-04-22 14:52] LABS: Free T4 (Free Thyroxine) 0.82 ng/dL (0.71-1.85)
--- OUTSIDE RECORDS SUMMARY | 2025-04-22 15:06 | XMS_ITS | Clinical Summary ---
Author Organization [facility] Address [address] [address] Phone Care Team Providers Care Foot Miter Operator Name Role Phone Unavailable Primary Care Provider Unavailabl e Encounters Date Type Department Care Team Description 04/15/2025 Treatment [facility] [address] [phone] Aniceto Ladd MD End stage renal disease; Dependence on renal dialysis 04/09/2025 Treatment [facility] [address] [phone] Aniceto Ladd MD End stage renal disease; Dependence on renal dialysis 04/02/2025 Treatment [facility] [address] [phone] Aniceto Ladd MD End stage renal disease; Dependence on renal dialysis 03/28/2025 Treatment [facility] [address] [phone] Aniceto Ladd MD End stage renal disease; Dependence on renal dialysis 03/26/2025 Treatment [facility] [address] [phone] Aniceto Ladd MD End stage renal disease; Dependence on renal dialysis 03/19/2025 Treatment [facility] [address] [phone] Aniceto Ladd MD End stage renal disease; Dependence on renal dialysis 03/12/2025 Treatment [facility] [address] [phone] Aniceto Ladd MD End stage renal disease; Dependence on renal dialysis 03/05/2025 Treatment [facility] [address] [phone] Aniceto Ladd MD End stage renal disease; Dependence on renal dialysis 02/28/2025 Treatment [facility] [address] [phone] Aniceto Ladd MD End stage renal disease; Dependence on renal dialysis 02/26/2025 Treatment [facility] [address] [phone] Aniceto Ladd MD End stage renal disease; Dependence on renal dialysis 02/12/2025 Treatment [facility] [address] [phone] Aniceto Ladd MD End stage renal disease; Dependence on renal dialysis 02/07/2025 Treatment [facility] [address] [phone] Aniceto Ladd MD End stage renal disease; Dependence on renal dialysis 02/05/2025 Treatment [facility] [address] [phone] Aniceto Ladd MD End stage renal disease; Dependence on renal dialysis 01/29/2025 Treatment [facility] [address] [phone] Aniceto Ladd MD End stage renal disease; Dependence on renal dialysis 01/24/2025 Orders Only [facility] [address] [phone] Aniceto Ladd MD 01/24/2025 Treatment [facility] [address] [phone] Aniceto Ladd MD End stage renal disease; [...] Priority Date/Time Associated Diagnosis Comments HEMOGLOBIN AND HEMATOCRIT, BLOOD Routine 04/11/2025 3:00 AM EST TRANSFERRIN SATURATION Routine 3:00 AM EST PROTEIN, [...] EDT from Last 3 Months Results * (ABNORMAL) Hemoglobin and hematocrit (04/11/2025 3:00 AM EST) Only the most recent of3 resultswithin the time period is included. Hgb 10.6(L) 11.2 - 15.7 g/dL [facility] Hematocrit 32.2(L) 34.1 - 44.9 % [facility] Hemoglobin x 3 31.8(L) 33.6 - 47.1 g/dL [facility] 04/11/2025 3:00 AM EST 04/12/2025 1:46 PM EST us Aniceto Ladd MD LAB BLOOD ORDERABLES Final Resul t [facility] [address] [place] [address] * LIH (03/28/2025 3:00 AM EST) Only the most recent of5 resultswithin the time period is included. Pathologist [facility] Lipemia Normal Normal [facility] Icterus Normal Normal [facility] Hemolysis Normal Normal [facility] 03/28/2025 3:00 AM EST 03/30/2025 1:28 PM EST us Aniceto Ladd MD LAB [id number] ICITED RESULTS Final Result Performing Organization Address City/[facility]/ZIP Co de Phone Number [facility] [address] [place] [address] * (ABNORMAL) Kt/V Natural Log, URR (03/28/2025 3:00 AM EST) Only the most recent of3 resultswithin the time period is included. Pathologist [facility] Treatment Time 212 min [facility] Pre-Weight, lb [...] Edited Result - Final Performing Organization Address City/[facility]/ZIP Co de Phone Number [facility] [address] [place] [address] * (ABNORMAL) Calcium Phosphorus Product, Adjusted (03/28/2025 [...] AM EST 03/30/2025 1:28 PM EST us Anicteo Ladd MD LAB [id number] ICITED RESULTS Final Result Performing Organization Address City/[facility] Co de Phone Number [facility] [address] [place] [address] * BUN/CREATININE RATIO (03/28/2025 3:00 AM EST) Only the most recent of3 resultswithin the time period is included. BUN/Creatinine Ratio 6.0 <=23.0 [facility] 03/28/2025 3:00 AM EST 03/30/2025 1:28 PM EST us Aniceto Ladd MD LAB [id number] ICITED RESULTS Final Result Performing Organization Address [facility] Co de Phone Number [facility] [address] [place] [address] * (ABNORMAL) TSAT (03/28/2025 3:00 AM EST) Only the most recent of3 resultswithin the time period is included. Pathologist [facility] Iron 106 50 - 170 ug/dL [facility] Transferrin 122(L) 250 - 380 mg/dL [facility] TIBC 171(L) 211 - 406 ug/dL [facility] Iron Saturation (TSat) 62(H) 22 - 52 % [facility] 03/28/2025 3:00 AM EST 03/30/2025 1:28 PM EST Aniceto Ladd MD LAB BLOOD ORDERABLES Final Resul t Performing Organization Address [facility] Co de Phone Number [facility] [address] [place] [address] * (ABNORMAL) CBC and Differential (03/28/2025 3:00 AM EST) Only the most recent of3 resultswithin the time period is included. [facility] DIFFERENTIAL MANUAL, 2 Not Indicated [facility] White [...] 3:00 AM EST 03/30/2025 1:22 PM EST us Aniceto Ladd MD LAB BLOOD ORDERABLES Final Resul t Performing Organization Address City/[facility] Co de Phone Number [facility] [address] [place] [address] * ALT (03/28/2025 3:00 AM EST) Only the most recent of3 resultswithin the time period is included. ALT (SGPT) 11 10 - 49 U/L [facility] 03/28/2025 3:00 AM EST 03/30/2025 1:28 PM EST us Aniceto Ladd MD LAB BLOOD ORDERABLES Final Resul t Performing Organization Address [facility] de Phone Number [facility] [address] [place] [address] * AST (03/28/2025 3:00 AM EST) Only the most recent of3 resultswithin the time period is included. AST (SGOT) 18 <34 U/L [facility] 03/28/2025 3:00 AM EST 03/30/2025 1:28 PM EST us Aniceto Ladd MD LAB BLOOD ORDERABLES Final Resul t Performing Organization Address [facility] de Phone Number [facility] [address] [place] [address] * Protein, total (03/28/2025 3:00 AM EST) Only the most recent of3 resultswithin the time period is included. Total Protein 7.8 6.4 - 8.9 g/dL [facility] 03/28/2025 3:00 AM EST 03/30/2025 1:28 PM EST us Aniceto Ladd MD LAB BLOOD ORDERABLES Final Resul t Performing Organization Address City/[facility]/[place] de Phone Number [facility] [address] [place] [address] * Alkaline phosphatase (03/28/2025 3:00 AM EST) Only the most recent of3 resultswithin the time period is included. Alkaline Phosphatase 89 46 - 116 U/L [facility] 03/28/2025 3:00 AM EST 03/30/2025 1:28 PM EST us Aniceto Ladd MD LAB BLOOD ORDERABLES Final Resul t Performing Organization Address [facility] de Phone Number [facility] [address] [place] [address] * PTH, Intact (03/28/2025 3:00 AM EST) [...] ORDERABLES Final Resul t Performing Organization Address [facility]/[place] de Phone Number [facility] [address] [place] [address] * Magnesium (03/28/2025 3:00 AM EST) Only the most recent of3 resultswithin the time period is included. Magnesium 2.3 1.9 - 2.7 mg/dL [facility] 03/28/2025 3:00 AM EST 03/30/2025 1:28 PM EST us Aniceto Ladd MD LAB BLOOD ORDERABLES Final Resul t Performing Organization Address [facility] Co de Phone Number [facility] [address] [place] [address] * (ABNORMAL) Lactate dehydrogenase (03/28/2025 3:00 AM EST) Only the most recent of3 resultswithin the time period is included. LDH 321(H) 120 - 246 U/L [facility] 03/28/2025 3:00 AM EST 03/30/2025 1:28 PM EST Aniceto Ladd MD LAB BLOOD ORDERABLES Final Resul t Performing Organization Address [facility]/[place] de Phone Number [facility] [address] [place] [address] * (ABNORMAL) Glucose, random (03/28/2025 3:00 AM EST) Only the most recent of3 resultswithin the time period is included. Glucose 214(H) 70 - 99 mg/dL [facility] Comment: ADA guidelines outline the following fasting glucose ranges: Normal: <100 Prediabetes: 100-125 Diabetes: >125 03/28/2025 3:00 AM EST 03/30/2025 1:28 PM EST us Aniceto Ladd MD LAB BLOOD ORDERABLES Final Resul t Performing Organization Address [facility] de Phone Number [facility] [address] [place] [address] * (ABNORMAL) Ferritin (03/28/2025 3:00 AM EST) Only the most recent of3 resultswithin the time period is included. Ferritin 712(H) 10 - 291 ng/mL [facility] 03/28/2025 3:00 AM EST 03/30/2025 1:28 PM EST us Aniceto Ladd MD LAB BLOOD ORDERABLES Final Resul t Performing Organization Address [facility] Co de Phone Number [facility] [address] [place] [address] * (ABNORMAL) Creatinine, serum (03/28/2025 3:00 AM EST) Only the most recent of3 resultswithin the time period is included. Creatinine 7.32(H) 0.55 - 1.02 mg/dL [facility] 03/28/2025 3:00 AM EST 03/30/2025 1:28 PM EST us Aniceto Ladd MD LAB BLOOD ORDERABLES Final Resul t Performing Organization Address City/[facility] Co de Phone Number [facility] [address] [place] [address] * Bilirubin, total (03/28/2025 3:00 AM EST) Only the most recent of3 resultswithin the time period is included. Total Bilirubin 0.4 0.3 - 1.2 mg/dL [facility] 03/28/2025 3:00 AM EST 03/30/2025 1:28 PM EST us Aniceto Ladd MD LAB BLOOD ORDERABLES Final Resul t Performing Organization Address [facility] de Phone Number [facility] [address] [place] [address] * (ABNORMAL) Electrolyte panel (03/28/2025 3:00 AM [...] ORDERABLES Final Resul t Performing Organization Address [facility] Co de Phone Number [facility] [address] [place] [address] * (ABNORMAL) Hemoglobin (03/21/2025 3:00 AM EDT) Only the most recent of2 resultswithin the time period is included. Hgb 10.6(L) 11.2 - 15.7 g/dL [facility] Hemoglobin x 3 31.8(L) 33.6 - 47.1 g/dL [facility] 03/21/2025 3:00 AM EDT 03/22/2025 12:11 PM EDT us Aniceto Ladd MD LAB BLOOD ORDERABLES Final Resul t Performing Organization Address City/[facility] Co de Phone Number [facility] [address] [place] [address] * (ABNORMAL) Phosphorus (03/21/2025 3:00 AM EDT) Only the most recent of2 resultswithin the time period is included. Phosphorus, Serum 6.8(H) 2.5 - 5.0 mg/dL [facility] 03/21/2025 3:00 AM EDT 03/22/2025 12:10 PM EDT us Aniceto Ladd MD LAB BLOOD ORDERABLES Final Resul t Performing Organization Address [facility]/[place] de Phone Number [facility] [address] [place] [address] * (ABNORMAL) Reticulocytes (02/21/2025 3:00 AM EDT) Only the most recent of2 resultswithin the time period is included. Reticulocyte 3.0(H) 0.5 - 1.7 % [facility] Retic Ct Pct 34.1 28.2 - 35.7 pg [facility] 02/21/2025 3:00 AM EDT 02/22/2025 12:19 PM EDT us Aniceto Ladd MD LAB BLOOD ORDERABLES Final Resul t Performing Organization Address City/[facility] Co de Phone Number [facility] [address] [place] [address] * (ABNORMAL) Hemoglobin A1c (02/21/2025 3:00 AM [...] ORDERABLES Final Resul t Performing Organization Address [facility]/[place] de Phone Number [facility] [address] [place] [address] * (ABNORMAL) Lipid panel (02/21/2025 3:00 AM [...] ORDERABLES Final Resul t Performing Organization Address [facility]/[place] de Phone Number [facility] [address] [place] [address] * Collection Date (01/26/2025 3:00 AM EDT) Pathologist [facility] Collection Date See Comment [facility] Comment: Patient sample received may exceed specimen stability, based on the collection date electronically provided. When reviewing patient results, verify collection information and consider specimen stability before acting on any critical or panic results. 01/26/2025 3:00 AM EDT us Aniceto Ladd MD LAB [id number] ICITED RESULTS Final Result Performing Organization Address [facility] Co de Phone Number [facility] [address] [place] [address] * Aluminum level (01/26/2025 3:00 AM EDT) Pathologist [facility] Aluminum 2 1 - 20 ug/L [facility] Comment: This test was developed and its performance characteristics determined by [employer] in a manner consistent with CLIA requirements. This test has not been cleared or approved by the [place].S. Food and Drug Administration. 01/26/2025 3:00 AM EDT 01/29/2025 1:18 PM EDT us Aniceto Ladd MD LAB BLOOD ORDERABLES Final Resul t Performing Organization Address [facility] de Phone Number [facility] [address] [place] [address] * Confirmation Test HCV (01/24/2025 3:00 AM EDT) Pathologist [facility] Hep C Ab Confirmation Not needed [facility] 01/24/2025 3:00 AM EDT 01/25/2025 12:23 PM EDT us Aniceto Ladd MD LAB BLOOD ORDERABLES Final Resul t Performing Organization Address [facility] de Phone Number [facility] [address] [place] [address] * HEPATITIS C ABS W/REFLEX RNA DETECTR (01/24/2025 3:00 AM EDT) [facility] Hep C Virus Ab Non-Reacti ve Non-Reacti ve [facility] 01/24/2025 3:00 AM EDT 01/25/2025 12:25 PM EDT us Aniceto Ladd MD LAB [id number] ICITED RESULTS Final Result Performing Organization Address [facility] Co de Phone Number [facility] [address] [place] [address] * Hepatitis B Surface Ag w/Reflex Confirmation (01/24/2025 3:00 AM EDT) Hep B Surface Antigen Negative Negative [facility] 01/24/2025 3:00 AM EDT 01/25/2025 12:25 PM EDT us Aniceto Ladd MD LAB BLOOD ORDERABLES Final Resul t Performing Organization Address [facility] de Phone Number [facility] [address] [place] [address] * Hepatitis B Core Antibody, Total (01/24/2025 3:00 AM EDT) HBc Total Ab, S Negative Negative [facility] 01/24/2025 3:00 AM EDT 01/25/2025 12:25 PM EDT us Aniceto Ladd MD LAB BLOOD ORDERABLES Final Resul t Performing Organization Address [facility] de Phone Number [facility] [address] [place] [address] * Vitamin D 25 Hydroxy (01/24/2025 3:00 AM EDT) Vitamin D, 25-Hydroxy 20 30 - 100 ng/mL [facility] Comment: Status Adult Pediatric Deficient: <20 <15 Insufficient: 20-29 15-19 Sufficient: 30-100 20-100 01/24/2025 3:00 AM EDT 01/25/2025 12:25 PM EDT us Aniceto Ladd MD LAB BLOOD ORDERABLES Final Resul t [facility] [address] [place] [address] * Hepatitis B Surface Antibody (01/24/2025 3:00 AM EDT) Hep B Surface Antibody 672 mIU/mL [facility] Comment: Interpretation: <10: No Immunity >=10: Probable Immunity 01/24/2025 3:00 AM EDT 01/25/2025 12:25 PM EDT Aniceto Ladd MD LAB BLOOD ORDERABLES Final Resul t Performing Organization Address [facility] Co de Phone Number [facility] [address] [place] [address] * Uric Acid (01/24/2025 3:00 AM EDT) Uric Acid 5.7 2.3 - 6.6 mg/dL [facility] 01/24/2025 3:00 AM EDT 01/25/2025 12:25 PM EDT Aniceto Ladd MD LAB BLOOD ORDERABLES Final Resul t Performing Organization Address [facility] Co de Phone Number [facility] [address] [place] [address] from Last 3 Months Insurance Medicare Medicaid [place]
--- OUTSIDE RECORDS SUMMARY | 2025-04-22 15:06 | XMS_ITS | Encounter Summary ---
Author Organization [facility] Address [address] [place] [address] Care Team Providers Care Motor Vehicle Assembler Name Role Phone Martha Cunha MD Primary Care Provider [phone] Encounter Details Date Type Department Care Team (Late st Contact Info) Description 01/18/2025 Lab Requisition [facility] Main Lab [address] [place] [address] Shanae Baeza MD [address] [place], [place] [id number] End stage renal disease (CMS/HCC V24, CMS/HCC [...] antibody IgM (01/18/2025 4:00 PM EDT) Pathologist [facility] Hep B Core IgM Negative Negative LAB CHEMISTRY METHOD 01/18/2025 8:39 PM EDT [facility] Blood Venous blood specimen / Unknown 01/18/2025 4:00 PM EDT 01/18/2025 6:21 PM EDT us Shanae Baeza MD LAB BLOOD ORDERABLES Final Re sult [facility] [address] [place] [address], [place] [phone] * (ABNORMAL) Hepatitis B surface antibody (01/18/2025 4:00 PM EDT) Pathologist [facility] Hepatitis B Surface Ab Positive( A) Negative LAB CHEMISTRY METHOD 01/18/2025 8:39 PM EDT [facility] Hepatitis B Surface Ab Quantitative 264.0 mIU/mL LAB CHEMISTRY METHOD 01/18/2025 8:39 PM EDT [facility] Blood Venous blood specimen / Unknown 01/18/2025 4:00 PM EDT 01/18/2025 6:21 PM EDT us Shanae Baeza MD LAB BLOOD ORDERABLES Final Re sult Performing Organization Address City/[facility]/ZIP Co de Phone Number [facility] [address] [place] [address], [place] [phone] * Hepatitis B surface antigen (01/18/2025 4:00 PM EDT) Hepatitis B Surface Ag Negative Negative LAB CHEMISTRY METHOD 01/18/2025 8:39 PM EDT [facility] Blood Venous blood specimen / Unknown 01/18/2025 4:00 PM EDT 01/18/2025 6:21 PM EDT Shanae Baeza MD LAB BLOOD ORDERABLES Final Re sult Performing Organization Address [facility] Co de Phone Number [facility] [address] [place] [address], [place] [phone] documented in this encounter Visit Diagnoses Diagnosis End stage renal disease (CMS/HCC V24, CMS/HCC V28) End stage renal disease documented in this encounter Care Teams Motor Vehicle Assembler Relationship Specialty Start Date End Date Martha Cunha MD [address] [place] [phone] PCP - General 05/25/23 documented as of this encounter
--- OUTSIDE RECORDS SUMMARY | 2025-04-22 15:06 | XMS_ITS | Clinical Summary ---
Author Organization [facility] Address [address] [place] [phone] Phone Care Team Providers Care Speech Pathologist Assistant Name Role Phone Martha Cunha MD Primary Care Provider [phone] Allergies Active Allergy Reactions Criticality Noted Date [...] day. 90 tablet 3 4 Active cloNIDine (Xyhvqsne-XIK-2) 0.2 mg/[address] 1 patch on the skin 1 (one) time per week. 12 each 3 5 07/27/19 26 Active Active Problems Problem Noted Date Diagnosed Date Carotid stenosis 04/11/2024 Type 2 diabetes mellitus, wi th long-term current use of insulin ([facility] V24, [facility] V28) 02/03/2024 CKD (chronic kidney disease) stage V requiring chronic dialysis ([facility] V24, 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 V28) 11/25/2023 Impaired gait and mobility 11/17/2023 Acidosis 11/03/2023 Hyperpotassemia 11/03/2023 Iron deficiency 10/26/2023 Secondary hyperparathyroidism, renal ([facility] V2 4) 08/18/2023 Bilateral tinnitus 07/29/2023 Facial numbness 07/08/2023 ICAO (internal carotid artery occlusion), left 0 07/08/2023 Left spastic hemiparesis ([facility] V24, [facility] V 28) 07/08/2023 Vitreous hemorrhage of left eye ([facility] V24, [facility] V28) 07/07/2023 Anemia due to multiple mechanisms 06/23/2023 Vitamin D deficiency 06/23/2023 Acquired hypothyroidism 05/25/2023 Bilateral leg edema 05/25/2023 Carotid artery disease ([facility] V24) 05/25/2023 Carotid artery plaque, unspecified laterality Congestive heart failure ([facility] V24, [facility] V 28) 05/25/2023 Pure hypercholesterolemia 05/25/2023 Sensory hearing loss, bilateral 05/25/2023 Type 2 diabetes mellitus wit h end-stage renal disease ([facility] V24, [facility] V28) 05/25/2023 CKD (chronic kidney disease) stage 4, GFR 15-29 ml/min ([facility] V24, [facility] V28) 05/25/2023 Acute on chronic heart failu re with preserved ejection fraction ([facility] V24, [facility] V28) 02/23/2022 Primary hypertension 02/23/2022 Anxiety 09/10/2021 Fatigue 09/10/2021 Primary cardiomyopathy ([facility] V24, [facility] V28 ) 09/10/2021 Hypertensive emergency 05/19/2021 Encounters Date Type Department Care Team Description 03/26/2025 Telephone Vascular Surgery - [place] [address] [place] [address] Jacquelyn Becerra MA from Last 3 Months Immunizations Immunization Administration Dates Next Due Moderna SARS-CoV-2 COVID-19, mRNA, LNP-S, preservative free 10/18/2020,09/18/2020 Surgical History Surgery Date Site/Laterality Comments EYE SURGERY 11/08/2022 PROCEDURE:EYE SURGERY AV FISTULA PLACEMENT Left IR PERMACATH PLACEMENT TUNNELED Right Medical History Medical History Date Comments Diabetes mellitus ([facility] V 24, [facility] V28) DX:Diabetes mellitus (HCC) HTN (hypertension) DX:HTN (hyper tension) CKD (chronic kidney disease) stage 4, GFR 15-29 ml/min ([facility] V24, [facility] V28) DX:CKD (chronic kidney disea se) stage 4, GFR 15-29 ml/min ([facility]) Hypertensive emergency 05/11/2022 DX:Hypert ensive emergency MARY ANNE (acute kidney injury) ([facility] V24) 02/23/2022 DX:MARY ANNE (acute kidney injury) ([facility]) HLD (hyperlipidemia) DX:HLD (hyp erlipidemia) Heart failure ([facility] V24, [facility] V28) DX:Heart failure ([facility]) Hypothyroidism DX:Hypothyroidis m Secondary hyperparathyroidis m ([facility] V24) DX:Secondary hyperparathyroi dism ([facility]) HL (hearing loss) L ear ESRD (end stage renal diseas e) ([facility] V24, [facility] V28) Dialysis Qppf-Jemfu-Mnp Social History Tobacco Use Types Packs/Day Years [...] this topic Medical Devices Implanted Type Area Trust Mail Clerk Device Identifier Shelf Expiration Date Model / Serial / Lot Hemostat Absorb Surgicel 2x14in - Sn/A - [id number] Implanted:Qty : 1 on 04/11/2024 by Alex Boateng MD at [facility] Hemostasis Left: Neck [employer] 10/21/2027 1951S / N/A / [id number] Patch Biol Xenosure .8x8cm - Sn/A - [id number] Implanted:Qty : 1 on 04/11/2024 by Alex Boateng MD at [facility] Vascular Grafts Left: Neck [employer] 08/17/2029 [id number] / N/A / [id number] Procedures Procedure Name Priority Date/Time Associated Diagnosis Comments COMPREHENSIVE METABOLIC PANEL Routine 11/05/2024 1:47 PM EDT Type 2 diabetes mellitus with ESRD (end-stage renal disease) ([facility] V24, [facility] V28) End stage renal disease ([facility] V24, [facility] V28) Encounter for long-term (current) use of insulin ([facility] V24, [facility] V28) Encounter for extracorporeal dialysis ([facility] V24) Myxedema heart disease Essential hypertension, malignant Pure hypercholesterolemia Avitaminosis D LIPID PANEL Routine 11/05/2024 1:47 PM EDT Type 2 diabetes mellitus with ESRD (end-stage renal disease) ([facility] V24, [facility] V28) End stage renal disease ([facility] V24, [facility] V28) Encounter for long-term (current) use of insulin ([facility] V24, [facility] V28) Encounter for extracorporeal dialysis ([facility] V24) Myxedema heart disease Essential hypertension, malignant Pure hypercholesterolemia Avitaminosis D HEMOGLOBIN A1C Add-On 06/07/2024 11:42 AM EST HEPATITIS C SCREENING Routine 05/27/2023 from Last 3 Months or Most Recently Relevant to Health Maintenance Results * Lipid panel (11/05/2024 1:47 PM EDT) Cholesterol 168 0 - 200 mg/dL LAB CHEMISTRY METHOD 11/05/2024 8:03 PM EDT [facility] Triglycerides 119 <150 mg/dL LAB CHEMISTRY METHOD 11/05/2024 8:03 PM EDT [facility] HDL 50 32 - 70 mg/dL LAB CHEMISTRY METHOD 11/05/2024 8:03 PM EDT [facility] LDL Calculated 94 50 - 130 mg/dL LAB CHEMISTRY METHOD 11/05/2024 8:03 PM EDT [facility] VLDL Cholesterol Akshat 23.8 mg/dL LAB CHEMISTRY METHOD 11/05/2024 8:03 PM EDT [facility] Comment:No established refer ence range. Blood Venous blood specimen / Unknown Venipuncture / Unknown 11/05/2024 1:47 PM EDT 11/05/2024 1:47 PM EDT Martha Cunha MD LAB BLOOD ORDERABLES Final Result [facility] [address] [place] [address], * (ABNORMAL) Comprehensive metabolic panel (11/05/2024 1:47 PM EDT) Sodium 136 135 - 145 mmol/L LAB CHEMISTRY METHOD 11/05/2024 9:16 PM EDT [facility] Potassium 6.5(HH) 3.5 - 5.1 mmol/L LAB CHEMISTRY METHOD 11/05/2024 9:16 PM EDT [facility] Comment:Verified by repeat a nalysis Chloride 93(L) 98 - 107 mmol/L LAB CHEMISTRY METHOD 11/05/2024 9:16 PM [facility] CO2 31 24 - 32 mmol/L LAB CHEMISTRY METHOD 11/05/2024 9:16 PM [facility] Anion Gap 12 5 - 14 LAB CHEMISTRY METHOD 11/05/2024 9:16 PM [facility] Glucose 125(H) 70 - 99 mg/dL LAB CHEMISTRY METHOD 11/05[facility]24 [facility] BUN 53 mg/dL LAB CHEMISTRY METHOD 11/05/2024 9:16 PM [facility] Creatinine 6.20(H) 0.50 - 1.30 mg/dL LAB CHEMISTRY METHOD 11/05/2024 9:16 PM [facility] eGFR 7(L) >=60 mL/min/1. 73m2 LAB CHEMISTRY METHOD 11/05/2024 9:16 PM T [facility] Comment: For non-binary individuals or unknown sex, the equation for female sex is used to calculate the estimated glomerular filtration rate (eGFR). Calculation based on the Chronic Kidney Disease Epidemiology Collaboration (CKD- EPI) equation refit without adjustment for race. BUN/Creatinine Ratio 8.5(L) 12.0 - 20.0 LAB CHEMISTRY METHOD 11/05/2024 9:16 PM [facility] Calcium 9.0 8.4 - 10.2 mg/dL LAB CHEMISTRY METHOD 11/05/2024 9:16 PM [facility] AST (SGOT) 21 5 - 40 unit/L LAB CHEMISTRY METHOD 11/05/2024 9:16 PM [facility] ALT (SGPT) 17 7 - 52 unit/L LAB CHEMISTRY METHOD 11/05/2024 9:16 PM [facility] Alkaline Phosphatase 101 34 - 104 unit/L LAB CHEMISTRY METHOD 11/05/2024 9:16 PM [facility] Total Protein 7.4 6.4 - 8.5 g/dL LAB CHEMISTRY METHOD 11/05/2024 9:16 PM EDT [facility] Albumin 4.2 3.5 - 5.0 g/dL LAB CHEMISTRY METHOD 11/05/2024 9:16 PM EDT [facility] Total Bilirubin 0.6 0.3 - 1.0 mg/dL LAB CHEMISTRY METHOD 11/05/2024 9:16 PM EDT [facility] Blood Venous blood specimen / Unknown Venipuncture / Unknown 11/05/2024 1:47 PM EDT 11/05/2024 1:47 PM EDT Martha Cunha MD LAB BLOOD ORDERABLES Final Result [facility] [address] [place] [address], * Hepatitis C Screening (05/27/2023) Hepatitis C Screening abstracted Historical Provider HEALTH MAINTENANCE Final Result from Last 3 Months or Most Recently Relevant to Health Maintenance Insurance [place] Advance Directives * Full [...] currently active code status orders. Care Teams Speech Pathologist Assistant Relationship Specialty Start Date End Date Martha Cunha MD [address] [facility] [address] [place] [phone] [facility] - General 05/25/23
--- OUTSIDE RECORDS SUMMARY | 2025-04-22 15:06 | XMS_ITS | Encounter Summary ---
Author Organization [facility] Address [address] [place] [address] Care Team Providers Care Contract Agent Name Role Phone Martha Cunha MD Primary Care Provider [phone] Encounter Details Date Type Department Care Team (Late st Contact Info) Description 01/17/2025 Lab [facility] Lab [address] [place] [address] Shanae Baeza MD [address] [place], [place] [id number] End stage renal disease (CMS/HCC V24, CMS/HCC [...] 11:30 AM EDT End stage renal disease ([facility] V24, [facility] V28) documented in this encounter Results * Potassium (01/17/2025 11:30 AM EDT) Potassium 5.1 3.5 - 5.1 mmol/L LAB CHEMISTRY METHOD 01/17/2025 7:45 PM EDT [facility] Blood Venous blood specimen / Unknown 01/17/2025 11:30 AM EDT 01/17/2025 7:20 PM EDT us Shanae Baeza MD LAB BLOOD ORDERABLES Final Re sult [facility] [address] [place] [address], documented in this encounter Visit Diagnoses Diagnosis End stage renal disease ([facility] V24, [facility] V28) End stage renal disease documented in this encounter Care Teams Contract Agent Relationship Specialty Start Date End Date Martha Cunha MD [address] [place] [address] PCP - General 05/25/23 documented as of this encounter
--- OUTSIDE RECORDS SUMMARY | 2025-04-22 15:06 | XMS_ITS | Encounter Summary ---
Author Organization [facility] Address [address] [place] [address] Care Team Providers Care Tool Filer Name Role Phone Pcp, No Primary Care Provider UnavailXuan Choudhary APRN Primary Care Provider [phone] Dialysis, [address] Unavailable + Shanae Baeza MD Unavailable [phone] Martha Cunha MD Primary Care Provider Encounter Details Date Type Department Care Team (Late st Contact Info) Description 08/11/2016 Scanned Document [address] [address] Susana Becker MD [address] [place] [phone] Social History Tobacco Use Types Packs/Day Years [...] documented as of this encounter Care Teams Tool Filer Relationship Specialty Start Date End Date Pcp, No PCP - General General Medicine 07/26/16 05/20/21 Xuan Baxter APRN PCP - General Family Medicine 05/21/21 06/03/24 Martha Cunha MD [address] [place] [address] PCP - General Family Medicine 06/04/24 [facility] [address] [place] [address] Dialysis Unit 11/21/23 Shanae Baeza MD [address] [place] [address] 11/21/23 documented as of this encounter
--- OUTSIDE RECORDS SUMMARY | 2025-04-22 15:06 | XMS_ITS | Clinical Summary ---
Author Organization [facility] Address [address] [place] [address] Care Team Providers Care Student Records Coordinator Name Role Phone Marlyn, [address] Unavailable + Shanae Baeza MD Unavailable [phone] Martha Cunha MD Primary Care Provider [phone] Allergies Active Allergy Reactions Criticality Noted Date [...] total) by mouth daily. 025 Active cloNIDine (HCRTZFFW-LBU-4) 0.2 mg/[address] 1 patch on the skin once a week. Active Hospital, Clinic, or Other Facility Administered Medication Ordered Dose Route Frequency Start Date End Date Status iohexol (OMNIPAQUE) 300 mg/mL injection 50 mLIndications:ESRD (end stage renal disease) ([facility]) 50 mL IV As needed 07/11/2024 Acti ve methylPREDNISolone sodium succinate (SOLU-Medrol) injection 125 mgIndications:ESRD (end stage renal disease) ([facility]) 125 mg IV As needed 10/08/2024 Acti [...] 15-29 ml/min 05/25/2023 Congestive heart failure 05/25/2023 retirement current use of insulin 05/25/2023 Medication management 05/25/2023 Pure hypercholesterolemia 05/25/2023 Acute on chronic heart failu re with preserved ejection fraction 02/23/2022 Primary cardiomyopathy 09/10/2021 Primary hypertension 09/10/2021 Anxiety 09/10/2021 Fatigue 09/10/2021 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 09/10/2021 Hypertensive emergency 05/19/2021 Encounters Date Type Department Care Team Description 02/04/2025 Scanned Document [facility] [address] [address] Woody Goodrich MD from Last [...] from 42% Medical Devices Implanted Type Area Surg Tech Device Identifier Shelf Expiration Date Model / Serial / Lot [id number] System Implant Cochlear Cochlear Slim Straight Electrode [id number] - [id number] Implanted:Qty: 1 on 06/05/2024 by Woody Goodrich MD at [facility] Otic Left: Ear [employer] 07/03/2025 [id number] SYSTEM / [id number] / Procedures Procedure Name Priority Date/Time Associated Diagnosis Comments BASIC METABOLIC PANEL Routine 06/04/2024 12:15 PM EST HEMOGLOBIN A1C WITH ESTIMATED AVERAGE GLUCOSE STAT 08/11/2021 10:50 AM EDT from Last 3 Months or Most Recently Relevant to Health Maintenance Results * (ABNORMAL) Basic Metabolic Panel (AM) (06/04/2024 12:15 PM EST) Glucose 144(H) 65 - 99 mg/dL 06/04/2024 12:41 PM [facility] Comment:Fasting: <100 mg/dL, Non-Fasting: <200 mg/dL (ADA 2004) Blood Urea Nitrogen (BUN) 54(H) 8 - 21 mg/dL 06/04/2024 12:41 PM [facility] Creatinine 4.6(H) 0.4 - 1.1 mg/dL 06/04/2024 12:41 PM [facility] eGFR 11(L) >59 06/04/2024 12:41 PM [facility] Comment:CKD-EPI (2020) in mL /min/1.73 sq meters. Sodium 135(L) 136 - 145 mmol/L 06/04/2024 12:41 PM [facility] Potassium 5.4(H) 3.4 - 5.3 mmol/L 06/04/2024 12:41 PM [facility] Chloride 97(L) 98 - 107 mmol/L 06/04/2024 12:41 PM [facility] CO2 26 22 - 33 mmol/L 06/04/2024 12:41 PM [facility] Anion Gap 12 7 - 17 06/04/2024 12:41 PM [facility] Calcium 8.4(L) 8.7 - 10.5 mg/dL 06/04/2024 12:41 PM [facility] BUN/Creatinine Ratio 12 10.0 - 25.0 Ratio 06/04/2024 12:41 PM [facility] Blood (Plasma/Serum) 06/04/2024 12:15 PM EST 06/04/2024 12:18 PM EST us Ceferino Levy MD LAB BLOOD ORDERAB[place] [address], [place] [address] * (ABNORMAL) Hemoglobin A1c with Estimated Average Glucose (08/11/2021 10:50 AM EDT) Hemoglobin A1C 10.0(H) <5.7 % 08/11/2021 3:30 PM EDT [facility] Comment: A1c% Interpretation 5.7 - 6.0 Increase risk of diabetes 6.1 - 6.4 Higher risk of diabetes > or = 6.5 Consistent with diabetes Diabetes Care, 33(Supp 1):S1-S61, 2009 Estimated Average Glucose 240 mg/dL 08/11/2021 3:30 PM EDT [facility] Blood specimen / Unknown 08/11/2021 10:50 AM EDT 08/11/2021 11:13 AM EDT us Christiano Mathew III, DO LAB BLOOD ORDERABLES Yessenia zuluaga Result HOSPITAL [facility] [address] [place] [address] from Last 3 Months or Most Recently Relevant to Health Maintenance Insurance [facility] MEDICARE PART A & B [facility] MEDIC[facility] PART A & B [facility] MEDIC[facility] PART A & [place] [address] [address] [place] [address] Advance Directives Documents on File Type Date Recorded Patient Winter Intern Expl anation Advance Directive-Scan 08/17/2021 Dennis [facility]/14/[facility]21 * Full Code (Latest [...] 6:25 PM Per patient ( via video family practice nurse practitioner), DNR/DNI Question Answer Comments Decision thoroughly discussed with: Patient Healthcare Agents on File Name Relationship Healthcare Agent Relationshi p Communication Dennis Marquis Parent 1. Health Care Representativ e Care Teams Student Records Coordinator Relationship Specialty Start Date End Date Martha Cunha MD [address] [place] [address] [place] [address] PCP - General Family Medicine 06/04/24 [facility] [address] [place] [address] Dialysis Unit 11/21/23 Shanae Baeza MD [address] [place] [address] [place] [address] 11/21/23
--- OUTSIDE RECORDS SUMMARY | 2025-04-22 15:06 | XMS_ITS | Encounter Summary ---
Author Organization [facility] Address [address] [place] [address] Care Team Providers Care Precision Farming Specialist Name Role Phone Pcp, No Primary Care Provider UnavailXuan Choudhary APRN Primary Care Provider Dialysis, [address] Unavailable + Shanae Baeza MD Unavailable [phone] Martha Cunha MD Primary Care Provider [phone] Encounter Details Date Type Department Care Team (Late st Contact Info) Description 08/28/2016 Scanned Document [address] [phone] Pcp, No Social History Tobacco Use Types [...] documented as of this encounter Care Teams Precision Farming Specialist Relationship Specialty Start Date End Date Pcp, No PCP - General General Medicine 07/26/16 05/20/21 Xuan Baxter APRN PCP - General [facility] Medicine 05/21/21 06/03/24 Martah Cunha MD [address] [place] [address] [place] [address] PCP - [facility] 06/04/24 Dialysis, [address] [place] [address] [place] [address] Dialysis Unit 11/21/23 Shanae Baeza MD [address] [place] [address] [place] [address] 11/21/23 documented as of this encounter
--- OUTSIDE RECORDS SUMMARY | 2025-04-22 15:07 | XMS_ITS | Encounter Summary ---
Author Organization [facility] Address [address] [place] [address] Care Team Providers Care Meat Processing Center Manager Name Role Phone Xuan Baxter APRN Primary Care Provider [phone] Dialysis, [address] Unavailable + Shanae Baeza MD Unavailable [phone] Martha Cunha MD Primary Care Provider Encounter Details Date Type Department Care Team (Late st Contact Info) Description 09/23/2021 Scanned Document [facility]iac Laboratory [address] [address] Usman Franco MD [address] [place] [id number] Social History Tobacco Use Types Packs/Day Years [...] on filedocumented in this encounter Care Teams Meat Processing Center Manager Relationship Specialty Start Date End Date Xuan Baxter APRN PCP - General Family Medicine 05/21/21 06/03/24 Martha Cunha MD [address] [place] [address] [place] [address] PCP - General [facility] Medicine 06/04/24 Dialysis, [address] [place] [address] Dialysis Unit 11/21/23 Shanae Baeza MD [address] [place] [address] [place] [address] 11/21/23 documented as of this encounter
--- OUTSIDE RECORDS SUMMARY | 2025-04-22 15:07 | XMS_ITS | Encounter Summary ---
Author Organization [facility] Address [address] [place] [address] Care Team Providers Care Software Deployment Engineer Name Role Phone Dialysis, [address] Unavailable + Shanae Baeza MD Unavailable [phone] Martha Cunha MD Primary Care Provider [phone] Encounter Details Date Type Department Care Team (Late st Contact Info) Description 06/14/2024 Scanned Document [facility] [address] [place] [address] Samra Black [address] [place], [place] [id number] Social History Tobacco Use Types Packs/Day Years [...] on filedocumented in this encounter Care Teams Software Deployment Engineer Relationship Specialty Start Date End Date Martha Cunha MD [address] [facility] [place] [address] PCP - General Family Medicine 06/04/24 [facility] [address] [place] [address] Dialysis Unit 11/21/23 Shanae Baeza MD [address] [facility] [facility] [place] [address] 11/21/23 documented as of this encounter
--- OUTSIDE RECORDS SUMMARY | 2025-04-22 15:07 | XMS_ITS | Encounter Summary ---
Author Organization [facility] Address [address] [place] [address] Care Team Providers Care Veneer Production Machine Operator Name Role Phone Dialysis, [address] Unavailable + Shanae Baeza MD Unavailable [phone] Martha Cunha MD Primary Care Provider [phone] Encounter Details Date Type Department Care Team (Late st Contact Info) Description 10/31/2024 Scanned Document [facility] [place] [address] [place] [address] Woody Goodrich MD [address] [place] [address] Social History Tobacco Use Types Packs/Day Years [...] on filedocumented in this encounter Care Teams Veneer Production Machine Operator Relationship Specialty Start Date End Date Martha Cunha MD [address] [facility] [place] [address] PCP - General [facility] Medicine 06/04/24 Dialysis, [facility] [address] [place] [address] Dialysis Unit 11/21/23 Shanae Baeza MD [address] [facility] [address] [place] [place] [address] 11/21/23 documented as of this encounter
--- OUTSIDE RECORDS SUMMARY | 2025-04-22 15:07 | XMS_ITS | Encounter Summary ---
Author Organization [facility] Address [address] [place] [address] Care Team Providers Care Gate Clerk Name Role Phone Xuan Baxter APRN Primary Care Provider Dialysis, No[address] Unavailable + Shanae Baeza MD Unavailable [phone] Martha Cunha MD Primary Care Provider [phone] Encounter Details Date Type Department Care Team (Late st Contact Info) Description 09/03/2021 Scanned Document [facility] Cardiology [address] [place] [phone] Cali Pappas MD [address] [place] [address] [place] [address] Social History Tobacco Use Types Packs/Day Years [...] on filedocumented in this encounter Care Teams Gate Clerk Relationship Specialty Start Date End Date Xuan Baxter APRN PCP - General Family Medicine 05/21/21 06/03/24 Martha Cunha MD [address] [place] [address] [place] [address] PCP - General Family Medicine 06/04/24 Dialysis, [address] [place] [address] [place] [address] Dialysis Unit 11/21/23 Shanae Baeza MD [address] [place] [address] [place] [address] 11/21/23 documented as of this encounter
--- OUTSIDE RECORDS SUMMARY | 2025-04-22 15:07 | XMS_ITS | Encounter Summary ---
Author Organization [facility] Address [address] [place] [address] Care Team Providers Care Medical Detailist Name Role Phone Martha Cunha MD Primary Care Provider [phone] Encounter Details Date Type Department Care Team (Late st Contact Info) Description 07/03/2024 Lab Requisition [facility] Main Lab [address] [place] [address] Shanae Baeza MD [address] [place], [place] [id number] Other acute kidney failure (CMS/HCC V24) Social [...] LAB CHEMISTRY METHOD 07/03/2024 5:44 PM EST [facility] Blood Venous blood specimen / Unknown 07/03/2024 3:00 PM EST 07/03/2024 5:25 PM EST us Shanae Baeza MD LAB BLOOD ORDERABLES Final Re sult Performing Organization Address City/[facility]/ZIP Co de Phone Number [facility] [address] [place] [address], [place] [phone] * Potassium (07/03/2024 3:00 PM EST) Potassium 4.1 3.5 - 5.1 mmol/L LAB CHEMISTRY METHOD 07/03/2024 5:44 PM EST [facility] Blood Venous blood specimen / Unknown 07/03/2024 3:00 PM EST 07/03/2024 5:25 PM EST us Shanae Baeza MD LAB BLOOD ORDERABLES Final Re sult [facility] [address] [place] [address], [place] [phone] documented in this encounter Visit Diagnoses Diagnosis Other acute kidney failure (CMS/HCC V24) documented in this encounter Care Teams Medical Detailist Relationship Specialty Start Date End Date Martha Cunha MD [address] [address] PCP - General 05/25/23 documented as of this encounter
--- OUTSIDE RECORDS SUMMARY | 2025-04-22 15:07 | XMS_ITS | Encounter Summary ---
Author Organization [facility] Address [address] [place] [address] Care Team Providers Care Window Assembler Name Role Phone Dialysis, Noam [address] Unavailable + Shanae Baeza MD Unavailable [phone] Martha Cunha MD Primary Care Provider [phone] Encounter Details Date Type Department Care Team (Late st Contact Info) Description 11/01/2024 Scanned Document [facility] [address] [place] [address] Woody Goodrich MD 40 [place] [address] Social History Tobacco Use Types Packs/Day Years [...] on filedocumented in this encounter Care Teams Window Assembler Relationship Specialty Start Date End Date Martha Cunha MD [address] [place] [place] [address] PCP - General [facility] Medicine 06/04/24 Dialysis, [facility] [address] [place] [place] [address] Dialysis Unit 11/21/23 Shanae Baeza MD [address] [place] [address] 11/21/23 documented as of this encounter
--- OUTSIDE RECORDS SUMMARY | 2025-04-22 15:07 | XMS_ITS | Encounter Summary ---
Author Organization [facility] [place] [address] Care Team Providers Care Air Hammer Operator Name Role Phone Martha Cunha MD Primary Care Provider [phone] Encounter Details Date Type Department Care Team (Late st Contact Info) Description 10/11/2024 Lab Requisition [facility] Main Lab [address] [place] [address] Shanae Baeza MD [address] [place], [place] [phone] End stage renal disease (CMS/HCC V24, CMS/HCC [...] EDT End stage renal disease (CMS/HCC V24, CMS/[facility] V28) documented in this encounter Results * (ABNORMAL) Potassium (10/11/2024 11:45 AM EDT) Potassium 5.6(H) 3.5 - 5.1 mmol/L LAB CHEMISTRY METHOD 10/11/2024 5:03 PM EDT [facility] Blood Venous blood specimen / Unknown 10/11/2024 11:45 AM EDT 10/11/2024 4:40 PM EDT us Shanae Baeza MD LAB BLOOD ORDERABLES Final Re sult [facility] [address] [place] [address], documented in this encounter Visit Diagnoses Diagnosis End stage renal disease (CMS/HCC V24, CMS/[facility] V28) End stage renal disease documented in this encounter Care Teams Air Hammer Operator Relationship Specialty Start Date End Date Martha Cunha MD [address] [address] PCP - General 05/25/23 documented as of this encounter
--- OUTSIDE RECORDS SUMMARY | 2025-04-22 15:07 | XMS_ITS | Encounter Summary ---
Author Organization [facility] Address [address] [place] [address] Care Team Providers Care Drum Printer Name Role Phone Dialysis, No[address] Unavailable + Shanae Baeza MD Unavailable [phone] Martha Cunha MD Primary Care Provider Encounter Details Date Type Department Care Team (Late st Contact Info) Description 02/04/2025 Scanned Document [facility] [address] [place] [address] Woody Goodrich MD 40 [place] [address] Social History Tobacco Use Types Packs/Day Years [...] on filedocumented in this encounter Care Teams Drum Printer Relationship Specialty Start Date End Date Martha Cunha MD [address] [facility] [place] [address] PCP - General [facility] Medicine 06/04/24 Dialysis, [facility] [address] [place] [address] Dialysis Unit 11/21/23 Shanae Baeza MD [address] [address] [place] [address] 11/21/23 documented as of this encounter
--- OUTSIDE RECORDS SUMMARY | 2025-04-22 15:07 | XMS_ITS | Encounter Summary ---
Author Organization [facility] Address [address] [place] [address] Care Team Providers Care Special Education Kindergarten Teacher Name Role Phone Martha Cunha MD Primary Care Provider [phone] Encounter Details Date Type Department Care Team (Late st Contact Info) Description 09/08/2024 Lab Requisition [facility] Main Lab [address] [place] [address] Shanae Baeza MD [address] [place], [place] [phone] End stage renal disease (CMS/HCC V24, CMS/HCC [...] LAB CHEMISTRY METHOD 09/08/2024 2:45 PM EDT [facility] Blood Venous blood specimen / Unknown 09/08/2024 12:00 PM EDT 09/08/2024 2:13 PM EDT us Shanae Baeza MD LAB BLOOD ORDERABLES Final Re sult [facility] [address] [place] [address], documented in this encounter Visit Diagnoses Diagnosis End stage renal disease (CMS/HCC V24, CMS/[facility] V28) End stage renal disease documented in this encounter Care Teams Special Education Kindergarten Teacher Relationship Specialty Start Date End Date Martha Cunha MD [address] [address] PCP - General 05/25/23 documented as of this encounter
--- OUTSIDE RECORDS SUMMARY | 2025-04-22 15:07 | XMS_ITS | Encounter Summary ---
Author Organization [facility] Address [address] [place] [address] Care Team Providers Care Draw Press Operator Name Role Phone Martha Cunha MD Primary Care Provider [phone] Encounter Details Date Type Department Care Team (Late st Contact Info) Description 07/28/[address] [facility] Main Lab [address] [place] [address] Shanae Baeza MD [address] [place], [place] [phone] End stage renal disease (CMS/HCC V24, CMS/HCC [...] LAB CHEMISTRY METHOD 07/28/2024 6:30 PM EST [facility] Blood Venous blood specimen / Unknown 07/28/2024 3:00 PM EST 07/28/2024 6:11 PM EST us Shanae Baeza MD LAB BLOOD ORDERABLES Final Re sult [facility] [address] [place] [address], documented in this encounter Visit Diagnoses Diagnosis End stage renal disease (CMS/HCC V24, CMS/HCC V28) End stage renal disease documented in this encounter Care Teams Draw Press Operator Relationship Specialty Start Date End Date Martha Cunha MD [address] [place] [phone] PCP - General 05/25/23 documented as of this encounter
--- OUTSIDE RECORDS SUMMARY | 2025-04-22 15:07 | XMS_ITS | Encounter Summary ---
Author Organization [facility] Address [address] [place] [address] Care Team Providers Care Check Writer Name Role Phone Dialysis, No[address] Unavailable + Shanae Baeza MD Unavailable [phone] Martha Cunha MD Primary Care Provider [phone] Encounter Details Date Type Department Care Team (Late st Contact Info) Description 06/22/2024 Scanned Document [facility] Neurology Ophthalmology [place] [address] [address] Adele Ann DO 85 [facility] [address] [place] [phone] Social History Tobacco Use Types Packs/Day Years [...] on filedocumented in this encounter Care Teams Check Writer Relationship Specialty Start Date End Date Martha Cunha MD [address] [place] [address] [place] [address] PCP - General Family Medicine 06/04/24 Dialysis, [facility] [address] [facility] [place] [address] Dialysis Unit 11/21/23 Shanea Baeza MD [address] [place] [address] [place] [address] 11/21/23 documented as of this encounter
--- OUTSIDE RECORDS SUMMARY | 2025-04-22 15:07 | XMS_ITS | Encounter Summary ---
Author Organization [facility] Address [address] [place] [address] Care Team Providers Care Obiee Consultant Name Role Phone Xuan Baxter APRN Primary Care Provider [phone] Dialysis, No[address] Unavailable + Shanae Baeza MD Unavailable [phone] Martha Cunha MD Primary Care Provider [phone] Encounter Details Date Type Department Care Team (Late st Contact Info) Description 12/23/2023 Scanned Document [facility] 85 [facility] [address] [place] [phone] [place], [place] [address] [place] [address] Social History Tobacco Use Types Packs/Day Years [...] on filedocumented in this encounter Care Teams Obiee Consultant Relationship Specialty Start Date End Date Xuan Baxter APRN PCP - General Family Medicine 05/21/21 06/03/24 Martha Cunha MD [address] [place] [address] [place] [address] PCP - General Family Medicine 06/04/24 Dialysis, [address] [place] [address] Dialysis Unit 11/21/23 Shanae Baeza MD [address] [place] [address] [place] [address] 11/21/23 documented as of this encounter
--- OUTSIDE RECORDS SUMMARY | 2025-04-22 15:07 | XMS_ITS | Encounter Summary ---
Author Organization [facility] Address [address] [place] [address] Care Team Providers Care Laborer Brush Clearing Name Role Phone Martha Cunha MD Primary Care Provider [phone] Encounter Details Date Type Department Care Team (Late st Contact Info) Description 09/18/2024 Lab Requisition [facility] Main Lab [address] [place] [address] Shanae Baeza MD [address] [place], [place] [phone] End stage renal disease (CMS/HCC V24, CMS/HCC [...] 11:00 AM EDT End stage renal disease ([facility]/HCC V24, [facility] V28) documented in this encounter Results * (ABNORMAL) Potassium (09/18/2024 11:00 AM EDT) Potassium 5.4(H) 3.5 - 5.1 mmol/L LAB CHEMISTRY METHOD 09/18/2024 2:37 PM EDT [facility] Blood Venous blood specimen / Unknown 09/18/2024 11:00 AM EDT 09/18/2024 2:07 PM EDT us Shanae Baeza MD LAB BLOOD ORDERABLES Final Re sult [facility] [address] [place] [address], documented in this encounter Visit Diagnoses Diagnosis End stage renal disease (CMS/HCC V24, CMS/[facility] V28) End stage renal disease documented in this encounter Care Teams Laborer Brush Clearing Relationship Specialty Start Date End Date Martha Cunha MD [address] [address] PCP - General 05/25/23 documented as of this encounter
--- OUTSIDE RECORDS SUMMARY | 2025-04-22 15:07 | XMS_ITS | Encounter Summary ---
Author Organization [facility] Address [address] [place] [address] Care Team Providers Care Shrimp Boat Captain Name Role Phone Dialysis, No[address] Unavailable + Shanae Baeza MD Unavailable [phone] Martha Cunha MD Primary Care Provider Encounter Details Date Type Department Care Team (Late st Contact Info) Description 06/08/2024 Scanned Document [facility] [address] [facility] [address] [place] [address] Alexandre Cleveland MD [address] [place] [address] Social History Tobacco Use Types Packs/Day Years [...] on filedocumented in this encounter Care Teams Shrimp Boat Captain Relationship Specialty Start Date End Date Martha Cunha MD [address] [facility] [place] [address] PCP - General [facility] Medicine 06/04/24 Dialysis, [facility] [address] [facility] [place] [address] Dialysis Unit 11/21/23 Shanae Baeza MD [address] [facility] [place] [address] 11/21/23 documented as of this encounter
--- OUTSIDE RECORDS SUMMARY | 2025-04-22 15:07 | XMS_ITS | Encounter Summary ---
Author Organization [facility] Address [address] [place] [address] Care Team Providers Care Masonry Contractor Administrator Name Role Phone Martha Cunha MD Primary Care Provider [phone] Encounter Details Date Type Department Care Team (Late st Contact Info) Description 09/11/2024 Lab Requisition [facility] Main Lab [address] [place] [address] Shanae Baeza MD [address] [place], [place] [phone] End stage renal disease (CMS/HCC V24, CMS/HCC [...] 11:00 AM EDT End stage renal disease ([facility]/HCC V24, [facility] V28) documented in this encounter Results * (ABNORMAL) Potassium (09/11/2024 11:00 AM EDT) Potassium 5.5(H) 3.5 - 5.1 mmol/L LAB CHEMISTRY METHOD 09/11/2024 3:51 PM EDT [facility] Blood Venous blood specimen / Unknown 09/11/2024 11:00 AM EDT 09/11/2024 3:30 PM EDT us Shanae Baeza MD LAB BLOOD ORDERABLES Final Re sult [facility] [address] [place] [address], documented in this encounter Visit Diagnoses Diagnosis End stage renal disease (CMS/HCC V24, [facility] V28) End stage renal disease documented in this encounter Care Teams Masonry Contractor Administrator Relationship Specialty Start Date End Date Martha Cunha MD [address] [address] PCP - General 05/25/23 documented as of this encounter
--- OUTSIDE RECORDS SUMMARY | 2025-04-22 15:07 | XMS_ITS | Encounter Summary ---
Author Organization [facility] Address [address] [place] [address] Care Team Providers Care Granite Cutter Name Role Phone Xuan Baxter APRN Primary Care Provider [phone] Dialysis, [facility] [facility] Un[facility] + Shanae Baeza MD Unavailable [phone] Martha Cunha MD Primary Care Provider [phone] Encounter Details Date Type Department Care Team (Late st Contact Info) Description 07/15/2023 Scanned Document [facility] [address] [place] [address] Woody Goodrich MD [address] [place], [place] [phone] Social History Tobacco Use Types Packs/Day Years [...] on filedocumented in this encounter Care Teams Granite Cutter Relationship Specialty Start Date End Date Xuan Baxter APRN PCP - General Family Medicine 05/21/21 06/03/24 Martha Cunha MD [address] [place] [address] [place] [address] PCP - General Family Medicine 06/04/24 Dialysis, [address] [facility] [place] [address] Dialysis Unit 11/21/23 Shanae Baeza MD [address] [place] [address] [place] [address] 11/21/23 documented as of this encounter
--- OUTSIDE RECORDS SUMMARY | 2025-04-22 15:07 | XMS_ITS | Encounter Summary ---
Author Organization [facility] Address [address] [place] [address] Care Team Providers Care Geoint Analyst Name Role Phone Xuan Baxter APRN Primary Care Provider [phone] Dialysis, [address] [facility] [address] Unavailable + Shanae Baeza MD Unavailable [phone] Martha Cunha MD Primary Care Provider Encounter Details Date Type Department Care Team (Late st Contact Info) Description 05/18/2024 Scanned Document [facility] [address] [place] [address] Samra Black [address] [place], [place] [phone] Social History Tobacco Use Types Packs/Day Years [...] on filedocumented in this encounter Care Teams Geoint Analyst Relationship Specialty Start Date End Date Ponce Baxtergissel MATCH UP WORKER PCP - General Family Medicine 05/21/21 06/03/24 Martha Cunha MD [address] [place] [address] [place] [address] PCP - General Family Medicine 06/04/24 [facility] [place] [address] Dialysis Unit 11/21/23 Shanae Baeza MD [address] [place] [address] [place] [address] 11/21/23 documented as of this encounter
--- OUTSIDE RECORDS SUMMARY | 2025-04-22 15:07 | XMS_ITS | Encounter Summary ---
Author Organization [facility] Address [address] [place] [address] Care Team Providers Care Diesel Maintenance Electrician Name Role Phone Xuan Baxter APRN Primary Care Provider [phone] Dialysis, [address] Unavailable + Shanae Baeza MD Unavailable [phone] Martha Cunha MD Primary Care Provider Encounter Details Date Type Department Care Team (Late st Contact Info) Description 09/23/2021 Scanned Document [facility] Cardiac Laboratory [address] [address] Usman Franco MD [address] [place] [phone] Social History Tobacco Use Types Packs/Day Years [...] on filedocumented in this encounter Care Teams Diesel Maintenance Electrician Relationship Specialty Start Date End Date Xuan Baxter APRN PCP - General Family Medicine 05/21/21 06/03/24 Martha Cunha MD [address] [place] [address] [place] [address] PCP - General [facility] Medicine 06/04/24 Dialysis, [address] [place] [address] Dialysis Unit 11/21/23 Shanae Baeza MD [address] [place] [address] [place] [address] 11/21/23 documented as of this encounter
--- OUTSIDE RECORDS SUMMARY | 2025-04-22 15:07 | XMS_ITS | Clinical Summary ---
Author Organization [facility] Address [address] [facility] [address] [place] [address] Phone Care Team Providers Care Oil Laboratory Analyst Name Role Phone Pcp, Unknown Primary Care [...] Description 10/25/2025 8:00 AM EDT Office Visit [facility] Medicine [address] [place] [address] Andre Lieberman MD [address] [facility], [address] [place] [address] [email or web address] Health Maintenance Due Date Last Done Comments [...] topic Medical Devices Not on file Insurance [employer] MEDICARE PART A & B [place] B [facility] MEDICARE PART A & B Care Teams Oil Laboratory Analyst Relationship Specialty Start Date End Date Pcp, Unknown PCP - General 02/22/25 Additional Source Comments The information contained in this document represents components of the legal health record. It is not the complete legal health record.[facility]
--- OUTSIDE RECORDS SUMMARY | 2025-04-22 15:07 | XMS_ITS | Encounter Summary ---
Author Organization [facility] Address [address] [place] [address] Care Team Providers Care Circus Rider Name Role Phone Dialysis, No[address] Unavailable + Shanae Baeza MD Unavailable [phone] Martha Cunha MD Primary Care Provider Encounter Details Date Type Department Care Team (Late st Contact Info) Description 08/29/2024 Scanned Document [facility] [address] [place] [address] Ethan Park MD [address] [place] [address] Social History Tobacco Use Types Packs/Day Years [...] on filedocumented in this encounter Care Teams Circus Rider Relationship Specialty Start Date End Date Martha Cunha MD [address] [place] [address] [place] [address] PCP - General Family Medicine 06/04/24 Dialysis, [facility] [address] [facility] [place] [address] Dialysis Unit 11/21/23 Shanae Baeza MD [address] [place] [address] [place] [address] 11/21/23 documented as of this encounter
--- OUTSIDE RECORDS SUMMARY | 2025-04-22 15:07 | XMS_ITS | Encounter Summary ---
Author Organization [facility] Address [address] [place] [address] Care Team Providers Care Laydown Machine Operator Name Role Phone Xuan Baxter APRN Primary Care Provider [phone] Dialysis, [address] Unavailable + Shanae Baeza MD Unavailable [phone] Martha Cunha MD Primary Care Provider [phone] Encounter Details Date Type Department Care Team (Late st Contact Info) Description 04/26/2023 Scanned Document [facility] [address] [facility] [address] [place] [address] Radiology, Scan Social History Tobacco Use [...] on filedocumented in this encounter Care Teams Laydown Machine Operator Relationship Specialty Start Date End Date Xuan Baxter APRN PCP - General Family Medicine 05/21/21 06/03/24 Martha Cunha MD [address] [place] [address] [place] [address] PCP - [facility] 06/04/24 Dialysis, [address] [facility] [address] [facility] [place] [address] Dialysis Unit 11/21/23 Shanae Baeza MD [address] [facility] [place] [address] 11/21/23 documented as of this encounter
--- OUTSIDE RECORDS SUMMARY | 2025-04-22 15:07 | XMS_ITS | Encounter Summary ---
Author Organization [facility] [place] [address] Care Team Providers Care Disability Insurance Claim Examiner Name Role Phone Martha Cunha MD Primary Care Provider [phone] Encounter Details Date Type Department Care Team (Late st Contact Info) Description 06/26/2024 Lab Requisition [facility] Main Lab [address] [place] [address] Shanae Baeza MD [address] [place], [place] [address] Anemia, unspecified Social History Tobacco Use Types [...] LAB HEMETOLOGY METHOD 06/26/2024 8:54 PM EST [facility] Hematocrit 26.6(L) 37.0 - 54.0 % LAB HEMETOLOGY METHOD 06/26/2024 8:54 PM EST [facility] Blood Venous blood specimen / Unknown 06/26/2024 3:00 PM EST 06/26/2024 7:51 PM EST us Shanae Baeza MD LAB BLOOD ORDERABLES Final Re sult [facility] [address] [place] [address], documented in this encounter Visit Diagnoses Diagnosis Anemia, unspecified documented in this encounter Care Teams Disability Insurance Claim Examiner Relationship Specialty Start Date End Date Martha Cunha MD [address] [address] PCP - General 05/25/23 documented as of this encounter
--- OUTSIDE RECORDS SUMMARY | 2025-04-22 15:07 | XMS_ITS | Clinical Summary ---
Author Organization [facility] Address [address] [place] [address] Care Team Providers Care Advance Seal Delivery System Maintainer Name Role Phone Martha Cunha MD Primary Care Provider [phone] Allergies Active Allergy Reactions Criticality Noted Date [...] with long-term current use of insulin ([facility]),Poorly controlled type 2 diabetes mellitus with complication (HCC) Inject 28 Units under the skin daily. 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 120 tablet 1 04/17/2024 Active clopidogrel (Plavix) 75 MG tablet Take 1 tablet (75 mg total) by mouth daily. 90 tablet 1 04/17/2024 04/17/2025 Active Problems Problem Noted Date Diagnosed Date [...] Congestive heart failure 05/25/2023 Medication management 05/25/2023 [facility] current use of insulin 05/25/2023 Sensory hearing [...] Advance Directives For more information, please contact: [phone] Latest Code Status on File Code Status [...] way: discussion with patient . Care Teams Advance Seal Delivery System Maintainer Relationship Specialty Start Date End Date Martha Cunha MD PCP - General Family Medicine 05/25/23
== END 2025-04-22 11:25 | disposition home or self-care (01) ==
LOC: HO.LAB 11:24
PROVIDERS: PCP Internal Medicine; Visit Provider Internal Medicine
DX: Z00.00 Encounter for general adult medical examination without abnormal findings (principal); D64.9 Anemia, unspecified; Z13.1 Encounter for screening for diabetes mellitus; Z13.6 Encounter for screening for cardiovascular disorders; Z11.4 Encounter for screening for human immunodeficiency virus [HIV]; Z11.59 Encounter for screening for other viral diseases; Z13.21 Encounter for screening for nutritional disorder
CPT/HCPCS: 36415; 80053; 80061; 82306; 82607; 82746; 83036; 84439; 84443; 85027; 86803; 87389

== ENCOUNTER → 2025-05-15 10:43 | Outpatient (REF) | payer MEDICARE, MEDICAID, SELFPAY ==
--- OUTSIDE RECORDS SUMMARY | 2024-03-08 10:31 | XMS_ITS | Encounter Summary ---
Author Organization [facility] [place] [facility] [place] [address] Care Team Providers Care Hard Metals Hand Engraver Name Role Phone Martha Cunha MD Primary Care Provider Encounter Details Date Type Department Care Team (Late st Contact Info) Description 03/08/2024 11:31 AM EDT Hospital Encounter [facility]NCOUN[facility]S [facility] CONVERSION ONLY Alex Boateng MD [address] [place] [address] Social History Tobacco Use Types Packs/Day Years Used Date Smoking Tobacco: Former Cigarettes 0 Q uit: 04/21/2023 Smokeless Tobacco: Never Alcohol Use Standard Drinks/Week Comments Not Currently 0 (1 standard drink = 0.6 oz pur e alcohol) Interpersonal Safety Answer Date Record ed Physical Abuse Unrecognized value 06/08/2024 Verbal Abuse Unrecognized value 06/08/2024 Comments No Sex and Gender Information Value Date Recorded Sex Assigned at Not on file Legal Sex Female 9:03 AM EST Gender Identity Choose not to disclose 12:27 PM EST Sexual Orientation Choose not to disclose 2024 12:27 PM EST documented as of this encounter Last Filed Vital Signs Vital Sign Reading Time Taken Comments Blood Pressure - - Pulse - - Temperature - - Respiratory Rate - - Oxygen Saturation - - Inhaled Oxygen Concentration - - Weight 66.2 kg (146 lb) 03/08/2024 10:52 AM EDT Height 157.5 cm (5' 2 ) 03/08/2024 10:52 AM EDT Body Mass Index 26.7 03/08/2024 10:52 AM EDT documented in this encounter Plan of Treatment Not on file documented as of this encounter Visit Diagnoses Not on filedocumented in this encounter Care Teams Hard Metals Hand Engraver Relationship Specialty Start Date End Date Martha Cunha MD [address] [phone] PCP - General 05/25/23 documented as of this encounter
--- OUTSIDE RECORDS SUMMARY | 2025-05-15 10:47 | XMS_ITS | Encounter Summary ---
Author Organization [facility] Address [address] [place] [address] Care Team Providers Care Maintenance Operator Name Role Phone Dialysis, [address] Unavailable + Shanae Baeza MD Unavailable [phone] Martha Cunha MD Primary Care Provider Encounter Details Date Type Department Care Team (Late st Contact Info) Description 11/01/2024 Scanned Document [facility] [address] [place] [address] Woody Goodrich MD [address] [place] [address] Social History Tobacco Use Types Packs/Day Years [...] on filedocumented in this encounter Care Teams Maintenance Operator Relationship Specialty Start Date End Date Martha Cunha MD [address] [place] [address] PCP - General [facility] Medicine 06/04/24 Dialysis, [facility] [address] [place] [address] Dialysis Unit 11/21/23 Shanae Baeza MD [address] [place] [address] 11/21/23 documented as of this encounter
--- OUTSIDE RECORDS SUMMARY | 2025-05-15 10:47 | XMS_ITS | Encounter Summary ---
Author Organization [facility] Address [address] [place] [address] Care Team Providers Care Promotions Assistant Name Role Phone Martha Cunha MD Primary Care Provider [phone] Encounter Details Date Type Department Care Team (Late st Contact Info) Description 01/18/2025 Lab Requisition [facility] Main Lab [address] [place] [address] Shanae Baeza MD [address] [place], [place] [id number] End stage renal disease (CMS/HCC V24, CMS/HCC [...] antibody IgM (01/18/2025 4:00 PM EDT) Pathologist [facility] Hep B Core IgM Negative Negative LAB CHEMISTRY METHOD 01/18/2025 8:39 PM EDT [facility] Blood Venous blood specimen / Unknown 01/18/2025 4:00 PM EDT 01/18/2025 6:21 PM EDT us Shanae Baeza MD LAB BLOOD ORDERABLES Final Re sult [facility] [address] [place] [address], [place] [phone] * (ABNORMAL) Hepatitis B surface antibody (01/18/2025 4:00 PM EDT) Pathologist [facility] Hepatitis B Surface Ab Positive( A) Negative LAB CHEMISTRY METHOD 01/18/2025 8:39 PM EDT [facility] Hepatitis B Surface Ab Quantitative 264.0 mIU/mL LAB CHEMISTRY METHOD 01/18/2025 8:39 PM EDT [facility] Blood Venous blood specimen / Unknown 01/18/2025 4:00 PM EDT 01/18/2025 6:21 PM EDT us Shanae Baeza MD LAB BLOOD ORDERABLES Final Re sult Performing Organization Address City/[facility]/ZIP Co de Phone Number [facility] [address] [place] [address], [place] [phone] * Hepatitis B surface antigen (01/18/2025 4:00 PM EDT) Hepatitis B Surface Ag Negative Negative LAB CHEMISTRY METHOD 01/18/2025 8:39 PM EDT [facility] Blood Venous blood specimen / Unknown 01/18/2025 4:00 PM EDT 01/18/2025 6:21 PM EDT Shanae Baeza MD LAB BLOOD ORDERABLES Final Re sult Performing Organization Address [facility] Co de Phone Number [facility] [address] [place] [address], [place] [phone] documented in this encounter Visit Diagnoses Diagnosis End stage renal disease (CMS/HCC V24, CMS/HCC V28) End stage renal disease documented in this encounter Care Teams Promotions Assistant Relationship Specialty Start Date End Date Martha Cunha MD [address] [place] [phone] PCP - General 05/25/23 documented as of this encounter
--- OUTSIDE RECORDS SUMMARY | 2025-05-15 10:47 | XMS_ITS | Encounter Summary ---
Author Organization [facility] Address [address] [place] [address] Care Team Providers Care Bill Peddler Name Role Phone Dialysis, [address] Unavailable + Shanae Baeza MD Unavailable [phone] Martha Cunha MD Primary Care Provider Encounter Details Date Type Department Care Team (Late st Contact Info) Description 10/31/2024 Scanned Document [facility] [address] [place] [address] Woody Goodrich MD [address] [place] [address] Social History Tobacco Use Types Packs/Day Years [...] on filedocumented in this encounter Care Teams Bill Peddler Relationship Specialty Start Date End Date Martha Cunha MD [address] [place] [address] PCP - General [facility] Medicine 06/04/24 Dialysis, [facility] [address] [place] [address] Dialysis Unit 11/21/23 Shanae Baeza MD [address] [place] [address] 11/21/23 documented as of this encounter
--- OUTSIDE RECORDS SUMMARY | 2025-05-15 10:47 | XMS_ITS | Encounter Summary ---
Author Organization [facility] Address [address] [place] [address] Care Team Providers Care Biztalk Software Developer Name Role Phone Martha Cunha MD Primary Care Provider [phone] Encounter Details Date Type Department Care Team (Late st Contact Info) Description 09/08/2024 Lab Requisition [facility] Main Lab [address] [place] [address] Shanae Baeza MD [address] [place], [place] [id number] End stage renal disease (CMS/HCC V24, CMS/HCC [...] LAB CHEMISTRY METHOD 09/08/2024 2:45 PM EDT [facility] Blood Venous blood specimen / Unknown 09/08/2024 12:00 PM EDT 09/08/2024 2:13 PM EDT us Shanae Baeza MD LAB BLOOD ORDERABLES Final Re sult [facility] [address] [place] [address], documented in this encounter Visit Diagnoses Diagnosis End stage renal disease (CMS/HCC V24, CMS/[facility] V28) End stage renal disease documented in this encounter Care Teams Biztalk Software Developer Relationship Specialty Start Date End Date Martha Cunha MD [address] [address] PCP - General 05/25/23 documented as of this encounter
--- OUTSIDE RECORDS SUMMARY | 2025-05-15 10:47 | XMS_ITS | Encounter Summary ---
Author Organization [facility] Address [address] [place] [address] Care Team Providers Care Silver Wrapper Name Role Phone Martha Cunha MD Primary Care Provider [phone] Encounter Details Date Type Department Care Team (Late st Contact Info) Description 09/18/2024 Lab Requisition [facility] Main Lab [address] [place] [address] Shanae Baeza MD [address] [place], [place] [phone] End stage renal disease (CMS/HCC V24, CMS/HCC [...] 11:00 AM EDT End stage renal disease ([facility]/HCC V24, [facility] V28) documented in this encounter Results * (ABNORMAL) Potassium (09/18/2024 11:00 AM EDT) Potassium 5.4(H) 3.5 - 5.1 mmol/L LAB CHEMISTRY METHOD 09/18/2024 2:37 PM EDT [facility] Blood Venous blood specimen / Unknown 09/18/2024 11:00 AM EDT 09/18/2024 2:07 PM EDT us Shanae Baeza MD LAB BLOOD ORDERABLES Final Re sult [facility] [address] [place] [address], documented in this encounter Visit Diagnoses Diagnosis End stage renal disease (CMS/HCC V24, CMS/[facility] V28) End stage renal disease documented in this encounter Care Teams Silver Wrapper Relationship Specialty Start Date End Date Martha Cunha MD [address] [address] PCP - General 05/25/23 documented as of this encounter
--- OUTSIDE RECORDS SUMMARY | 2025-05-15 10:47 | XMS_ITS | Encounter Summary ---
Author Organization [facility] Address [address] [place] [address] Care Team Providers Care Esthetician And Manager Medical Spa Name Role Phone Martha Cunha MD Primary Care Provider [phone] Encounter Details Date Type Department Care Team (Late st Contact Info) Description 10/11/2024 Lab Requisition [facility] Main Lab [address] [place] [address] Shanae Baeza MD [address] [place], [place] [id number] End stage renal disease (CMS/HCC V24, CMS/HCC [...] EDT End stage renal disease (CMS/HCC V24, CMS/[facility] V28) documented in this encounter Results * (ABNORMAL) Potassium (10/11/2024 11:45 AM EDT) Potassium 5.6(H) 3.5 - 5.1 mmol/L LAB CHEMISTRY METHOD 10/11/2024 5:03 PM EDT [facility] Blood Venous blood specimen / Unknown 10/11/2024 11:45 AM EDT 10/11/2024 4:40 PM EDT us Shanae Baeza MD LAB BLOOD ORDERABLES Final Re sult [facility] [address] [place] [address], documented in this encounter Visit Diagnoses Diagnosis End stage renal disease (CMS/HCC V24, CMS/[facility] V28) End stage renal disease documented in this encounter Care Teams Esthetician And Manager Medical Spa Relationship Specialty Start Date End Date Martha Cunha MD [address] [address] PCP - General 05/25/23 documented as of this encounter
--- OUTSIDE RECORDS SUMMARY | 2025-05-15 10:47 | XMS_ITS | Encounter Summary ---
Author Organization [facility] Address [address] [place] [address] Care Team Providers Care Policy Director Name Role Phone Dialysis, [address] Unavailable + Shanae Baeza MD Unavailable [phone] Martha Cunha MD Primary Care Provider [phone] Encounter Details Date Type Department Care Team (Late st Contact Info) Description 02/04/2025 Scanned Document [facility] [address] [place] [address] Woody Goodrich MD [address] [place] [address] Social History Tobacco Use Types Packs/Day Years [...] on filedocumented in this encounter Care Teams Policy Director Relationship Specialty Start Date End Date Martha Cunha MD [address] [place] [place] [address] PCP - General [facility] Medicine 06/04/24 Dialysis, [facility] [address] [place] [address] Dialysis Unit 11/21/23 Shanae Baeza MD [address] [place] [place] [address] 11/21/23 documented as of this encounter
--- OUTSIDE RECORDS SUMMARY | 2025-05-15 10:47 | XMS_ITS | Clinical Summary ---
Author Organization [facility] Address [address] [place] [phone] Phone Care Team Providers Care Sky Line Yarder Name Role Phone Martha Cunha MD Primary [...] day. 90 tablet 3 4 Active cloNIDine (Yazkeblx-EEN-4) 0.2 mg/[address] 1 patch on the skin 1 (one) time per week. 12 each 3 5 07/27/19 26 Active Active Problems Problem Noted Date Diagnosed Date Carotid stenosis 04/11/2024 Type 2 diabetes mellitus, wi th long-term current use of insulin 02/03/2024 CKD (chronic kidney disease) stage V requiring chronic dialysis 11/30/2023 Anemia in chronic kidney disease, on chronic kali lysis 11/25/2023 Impaired gait and mobility 11/17/2023 Acidosis 11/03/2023 Hyperpotassemia 11/03/2023 Iron deficiency 10/26/2023 Secondary hyperparathyroidism, renal 08/18/2023 Bilateral tinnitus 07/29/2023 Facial numbness 07/08/2023 ICAO (internal carotid artery occlusion), left 0 07/08/2023 Left spastic hemiparesis 07/08/2023 Vitreous hemorrhage of left eye 07/07/2023 Anemia due to multiple mechanisms 06/23/2023 Vitamin D deficiency 06/23/2023 Acquired hypothyroidism 05/25/2023 Bilateral leg edema 05/25/2023 Carotid artery disease 05/25/2023 Carotid artery plaque, unspecified laterality Congestive heart failure 05/25/2023 Pure hypercholesterolemia 05/25/2023 Sensory hearing loss, bilateral 05/25/2023 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 05/25/2023 CKD (chronic kidney disease) stage 4, GFR 15-29 ml/min 05/25/2023 Acute on chronic heart failu re with preserved ejection fraction 02/23/2022 Primary hypertension 02/23/2022 Anxiety 09/10/2021 Fatigue 09/10/2021 Primary cardiomyopathy 09/10/2021 Hypertensive emergency 05/19/2021 Encounters Date Type Department Care Team Description 03/26/2025 Telephone Vascular Surgery - [place] [address] [place] [address] Jacquelyn Becerra MA from Last 3 Months Immunizations Immunization Administration Dates Next Due Moderna SARS-CoV-2 COVID-19, mRNA, LNP-S, preservative free 10/18/2020,09/18/2020 Surgical History Surgery Date Site/Laterality Comments EYE SURGERY 11/08/2022 PROCEDURE:EYE SURGERY AV FISTULA PLACEMENT Left IR PERMACATH PLACEMENT TUNNELED Right Medical History Medical History Date Comments Diabetes mellitus ([facility] V 24, [facility] V28) DX:Diabetes mellitus (HCC) HTN (hypertension) DX:HTN (hyper tension) CKD (chronic kidney disease) stage 4, GFR 15-29 ml/min (CMS/HCC V24, [facility]/HCC V28) DX:CKD (chronic kidney disea se) stage 4, GFR 15-29 ml/min ([facility]) Hypertensive emergency 05/11/2022 DX:Hypert ensive emergency MARY ANNE (acute kidney injury) ([facility] V24) 02/23/2022 DX:MARY ANNE (acute kidney injury) (HCC) HLD (hyperlipidemia) DX:HLD (hyp erlipidemia) Heart failure ([facility] V24, [facility] V28) DX:Heart failure (HCC) Hypothyroidism DX:Hypothyroidis m Secondary hyperparathyroidis m ([facility] V24) DX:Secondary hyperparathyroi dism (HCC) HL (hearing loss) L ear ESRD (end stage renal diseas e) ([facility] V24, [facility] V28) Dialysis Social History Tobacco Use Types Packs/Day Years [...] not to disclose 2024 12:27 PM EST Last Filed Vital Signs Vital Sign [...] this topic Medical Devices Implanted Type [employer] Regist[employer] Device Identifier Shelf Expiration Date Model / Serial / Lot Hemostat Absorb Surgicel 2x14in - Sn/A - [id number] Implanted:Qty : 1 on 04/11/2024 by Alex Boateng MD at [facility] Hemostasis Left: Neck [employer] 10/21/2027 [id number] / N/A / [id number] Patch Biol Xenosure .8x8cm - Sn/A - [id number] Implanted:Qty : 1 on 04/11/2024 by Alex Boateng MD at [facility] Vascular Grafts Left: Neck [employer] 08/17/2029 [id number] / N/A / [id number] Procedures Procedure Name Priority Date/Time Associated Diagnosis Comments COMPREHENSIVE METABOLIC PANEL Routine 11/05/2024 1:47 PM EDT Type 2 diabetes mellitus with ESRD (end-stage renal disease) ([facility] V24, [facility] V28) End stage renal disease ([facility] V24, [facility] V28) Encounter for long-term (current) use of insulin ([facility] V24, [facility] V28) Encounter for extracorporeal dialysis ([facility] V24) Myxedema heart disease Essential hypertension, malignant Pure hypercholesterolemia Avitaminosis D LIPID PANEL Routine 11/05/2024 1:47 PM EDT Type 2 diabetes mellitus with ESRD (end-stage renal disease) ([facility] V24, [facility] V28[facility] End stage renal disease ([facility] V24, [facility] V28) Encounter for long-term (current) use of insulin ([facility] V24, [facility] V28) Encounter for extracorporeal dialysis ([facility] V24) Myxedema heart disease Essential hypertension, malignant Pure hypercholesterolemia Avitaminosis D HEMOGLOBIN A1C Add-On 06/07/2024 11:42 AM EST HEPATITIS C SCREENING Routine 05/27/2023 from Last 3 Months or Most Recently Relevant to Health Maintenance Results * Lipid panel (11/05/2024 1:47 PM EDT) [facility] Signature Cholesterol 168 0 - 200 mg/dL LAB CHEMISTRY METHOD 11/05/2024 8:03 PM EDT [facility] Triglycerides 119 <150 mg/dL LAB CHEMISTRY METHOD 11/05/2024 8:03 PM EDT [facility] HDL 50 32 - 70 mg/dL LAB CHEMISTRY METHOD 11/05/2024 8:03 PM EDT [facility] LDL Calculated 94 50 - 130 mg/dL LAB CHEMISTRY METHOD 11/05/2024 8:03 PM EDT [facility] VLDL Cholesterol Akshat 23.8 mg/dL LAB CHEMISTRY METHOD 11/05/2024 8:03 PM EDT [facility] Comment:No established refer ence range. Blood Venous blood specimen / Unknown Venipuncture / Unknown 11/05/2024 1:47 PM EDT 11/05/2024 1:47 PM EDT Martha Cunha MD LAB BLOOD ORDERABLES Final Result [facility] [address] [place] [address], * (ABNORMAL) Comprehensive metabolic panel (11/05/2024 1:47 PM EDT) Sodium 136 135 - 145 mmol/L LAB CHEMISTRY METHOD 11/05/2024 9:16 PM EDT [facility] Potassium 6.5(HH) 3.5 - 5.1 mmol/L LAB CHEMISTRY METHOD 11/05/2024 9:16 PM EDT [facility] Comment:Verified by repeat a nalysis Chloride 93(L) 98 - 107 mmol/L LAB CHEMISTRY METHOD 11/05/2024 9:16 PM EDT [facility] CO2 31 24 - 32 mmol/L LAB CHEMISTRY METHOD 11/05/2024 9:16 PM EDT [facility] Anion Gap 12 5 - 14 LAB CHEMISTRY METHOD 11/05/2024 9:16 PM EDT [facility] Glucose 125(H) 70 - 99 mg/dL LAB CHEMISTRY METHOD 11/05/2024 9:16 PM EDT [facility] BUN 53 mg/dL LAB CHEMISTRY METHOD 11/05/2024 9:16 PM [facility] Creatinine 6.20(H) 0.50 - 1.30 mg/dL LAB CHEMISTRY METHOD 11/05/2024 9:16 PM [facility] eGFR 7(L) >=60 mL/min/1. 73m2 LAB CHEMISTRY METHOD 11/05/2024 9:16 PM [facility] Comment: For non-binary individuals or unknown sex, the equation for female sex is used to calculate the estimated glomerular filtration rate (eGFR). Calculation based on the Chronic Kidney Disease Epidemiology Collaboration (CKD- EPI) equation refit without adjustment for race. BUN/Creatinine Ratio 8.5(L) 12.0 - 20.0 LAB CHEMISTRY METHOD 11/05/2024 9:16 PM [facility] Calcium 9.0 8.4 - 10.2 mg/dL LAB CHEMISTRY METHOD 11/05/2024 9:16 PM [facility] AST (SGOT) 21 5 - 40 unit/L LAB CHEMISTRY METHOD 11/05/2024 9:16 PM [facility] ALT (SGPT) 17 7 - 52 unit/L LAB CHEMISTRY METHOD 11/05/2024 9:16 PM [facility] Alkaline Phosphatase 101 34 - 104 unit/L LAB CHEMISTRY METHOD 11/05/2024 9:16 PM [facility] Total Protein 7.4 6.4 - 8.5 g/dL LAB CHEMISTRY METHOD 11/05/2024 9:16 PM [facility] Albumin 4.2 3.5 - 5.0 g/dL LAB CHEMISTRY METHOD 11/05/2024 9:16 PM [facility] Total Bilirubin 0.6 0.3 - 1.0 mg/dL LAB CHEMISTRY METHOD 11/05/2024 9:16 PM [facility] Blood Venous blood specimen / Unknown Venipuncture / Unknown 11/05/2024 1:47 PM EDT 11/05/2024 1:47 PM EDT Martha Cunha MD LAB BLOOD ORDERABLES Final Result [facility] [address] [place] [address], [place] [phone] * Hepatitis C Screening (05/27/2023) [facility] Hepatitis C Screening abstracted Historical Provider HEALTH MAINTENANCE Final Result from Last 3 Months or Most Recently Relevant to Health Maintenance Insurance [place] MEDICARE MEDICAID [facility] MEDICAID - [place] Advance Directives * Full [...] currently active code status orders. Care Teams Sky Line Yarder Relationship Specialty Start Date End Date Martha Cunha MD [address] [facility] [address] [place] [address] PCP - General 05/25/23
--- OUTSIDE RECORDS SUMMARY | 2025-05-15 10:47 | XMS_ITS | Encounter Summary ---
Author Organization [facility] Address [address] [place] [address] Care Team Providers Care Engineering Technologist Name Role Phone Dialysis, [address] Unavailable + Shanae Baeza MD Unavailable [phone] Martha Cunha MD Primary Care Provider [phone] Encounter Details Date Type Department Care Team (Late st Contact Info) Description 08/29/2024 Scanned Document [facility] [address] [place] [address] Ethan Park MD [address] [place] [address] Social History Tobacco Use Types Packs/Day Years [...] on filedocumented in this encounter Care Teams Engineering Technologist Relationship Specialty Start Date End Date Martha Cunha MD [address] [place] [address] [place] [address] PCP - General Family Medicine 06/04/24 Dialysis, [facility] [address] [place] [address] Dialysis Unit 11/21/23 Shanae Baeza MD [address] [address] [place] [address] 11/21/23 documented as of this encounter
--- OUTSIDE RECORDS SUMMARY | 2025-05-15 10:47 | XMS_ITS | Encounter Summary ---
Author Organization [facility] [place] [address] Care Team Providers Care Air Tank Assembler Name Role Phone Martha Cunha MD Primary Care Provider [phone] Encounter Details Date Type Department Care Team (Late st Contact Info) Description 06/26/2024 Lab Requisition [facility] Main Lab [address] [place] [address] Shanae Baeza MD [address] [place], [place] [address] Anemia, unspecified Social History Tobacco Use Types [...] LAB HEMETOLOGY METHOD 06/26/2024 8:54 PM EST [facility] Hematocrit 26.6(L) 37.0 - 54.0 % LAB HEMETOLOGY METHOD 06/26/2024 8:54 PM EST [facility] Blood Venous blood specimen / Unknown 06/26/2024 3:00 PM EST 06/26/2024 7:51 PM EST us Shanae Baeza MD LAB BLOOD ORDERABLES Final Re sult [facility] [address] [place] [address], documented in this encounter Visit Diagnoses Diagnosis Anemia, unspecified documented in this encounter Care Teams Air Tank Assembler Relationship Specialty Start Date End Date Martha Cunha MD [address] [address] PCP - General 05/25/23 documented as of this encounter
--- OUTSIDE RECORDS SUMMARY | 2025-05-15 10:47 | XMS_ITS | Encounter Summary ---
Author Organization [facility] Address [address] [place] [address] Care Team Providers Care Food Service Agent Name Role Phone Martha Cunha MD Primary Care Provider [phone] Encounter Details Date Type Department Care Team (Late st Contact Info) Description 07/03/2024 Lab Requisition [facility] Main Lab [address] [place] [address] Shanae Baeza MD [address] [place], [place] [address] Other acute kidney failure (CMS/HCC V24) Social [...] LAB CHEMISTRY METHOD 07/03/2024 5:44 PM EST [facility] Blood Venous blood specimen / Unknown 07/03/2024 3:00 PM EST 07/03/2024 5:25 PM EST us Shanae Baeza MD LAB BLOOD ORDERABLES Final Re sult Performing Organization Address City/[facility]/ZIP Co de Phone Number [facility] [address] [place] [address], [place] [phone] * Potassium (07/03/2024 3:00 PM EST) Potassium 4.1 3.5 - 5.1 mmol/L LAB CHEMISTRY METHOD 07/03/2024 5:44 PM EST [facility] Blood Venous blood specimen / Unknown 07/03/2024 3:00 PM EST 07/03/2024 5:25 PM EST us Shanae Baeza MD LAB BLOOD ORDERABLES Final Re sult [facility] [address] [place] [address], [place] [phone] documented in this encounter Visit Diagnoses Diagnosis Other acute kidney failure (CMS/HCC V24) documented in this encounter Care Teams Food Service Agent Relationship Specialty Start Date End Date Martha Cunha MD [address] [address] PCP - General 05/25/23 documented as of this encounter
--- OUTSIDE RECORDS SUMMARY | 2025-05-15 10:47 | XMS_ITS | Encounter Summary ---
Author Organization [facility] Address [address] [place] [address] Care Team Providers Care Insole And Heel Stiffener Name Role Phone Martha Cunha MD Primary Care Provider [phone] Encounter Details Date Type Department Care Team (Late st Contact Info) Description 09/11/2024 Lab Requisition [facility] Main Lab [address] [place] [address] Shanae Baeza MD [address] [place], [place] [id number] End stage renal disease (CMS/HCC V24, CMS/HCC [...] 11:00 AM EDT End stage renal disease ([facility]/HCC V24, [facility] V28) documented in this encounter Results * (ABNORMAL) Potassium (09/11/2024 11:00 AM EDT) Potassium 5.5(H) 3.5 - 5.1 mmol/L LAB CHEMISTRY METHOD 09/11/2024 3:51 PM EDT [facility] Blood Venous blood specimen / Unknown 09/11/2024 11:00 AM EDT 09/11/2024 3:30 PM EDT us Shanae Baeza MD LAB BLOOD ORDERABLES Final Re sult [facility] [address] [place] [address], documented in this encounter Visit Diagnoses Diagnosis End stage renal disease (CMS/HCC V24, [facility] V28) End stage renal disease documented in this encounter Care Teams Insole And Heel Stiffener Relationship Specialty Start Date End Date Martha Cunha MD [address] [address] PCP - General 05/25/23 documented as of this encounter
--- OUTSIDE RECORDS SUMMARY | 2025-05-15 10:47 | XMS_ITS | Encounter Summary ---
Author Organization [facility] Address [address] [place] [address] Care Team Providers Care Cast Shell Grinder Name Role Phone Pcp, No Primary Care Provider UnavailXuan Choudhary APRN Primary Care Provider [phone] Dialysis, [address] Unavailable + Shanae Baeza MD Unavailable [phone] Martha Cunha MD Primary Care Provider [phone] Encounter Details Date Type Department Care Team (Late st Contact Info) Description 08/28/2016 Scanned Document [address] [phone] Pcp, No Social History Tobacco Use Types [...] documented as of this encounter Care Teams Cast Shell Grinder Relationship Specialty Start Date End Date Pcp, No PCP - General General Medicine 07/26/16 05/20/21 Xuan Baxter APRN PCP - General [facility] Medicine 05/21/21 06/03/24 Martha Cunha MD [address] [place] [address] [place] [address] PCP - [facility] 06/04/24 Dialysis, [address] [place] [address] [place] [address] Dialysis Unit 11/21/23 Shanae Baeza MD [address] [place] [address] [place] [address] 11/21/23 documented as of this encounter
--- OUTSIDE RECORDS SUMMARY | 2025-05-15 10:47 | XMS_ITS | Encounter Summary ---
Author Organization [facility] Address [address] [place] [address] Care Team Providers Care Marketing Analytics Analyst Name Role Phone Pcp, No Primary Care Provider UnavailXuan Choudhary APRN Primary Care Provider [phone] Dialysis, [address] Unavailable + Shanae Baeza MD Unavailable [phone] Martha Cunha MD Primary Care Provider Encounter Details Date Type Department Care Team (Late st Contact Info) Description 08/11/2016 Scanned Document [address] [address] Susana Becker MD [address] [place] [address] Social History Tobacco Use Types Packs/Day Years [...] documented as of this encounter Care Teams Marketing Analytics Analyst Relationship Specialty Start Date End Date Pcp, No PCP - General General Medicine 07/26/16 05/20/21 Xuan Baxter APRN PCP - General Family Medicine 05/21/21 06/03/24 Martha Cunha MD [address] [place] [address] PCP - General Family Medicine 06/04/24 [facility] [address] [facility] [place] [address] Dialysis Unit 11/21/23 Shanae Baeza MD [address] [facility] [place] [address] 11/21/23 documented as of this encounter
--- OUTSIDE RECORDS SUMMARY | 2025-05-15 10:47 | XMS_ITS | Encounter Summary ---
Author Organization [facility] Address [address] [place] [address] Care Team Providers Care Converting Operator Name Role Phone Martha Cunha MD Primary Care Provider [phone] Encounter Details Date Type Department Care Team (Late st Contact Info) Description 01/17/2025 Lab Requisition [facility] Main Lab [address] [place] [address] Shanae Baeza MD [address] [place], [place] [id number] End stage renal disease (CMS/HCC V24, CMS/HCC [...] 11:30 AM EDT End stage renal disease ([facility] V24, [facility] V28) documented in this encounter Results * Potassium (01/17/2025 11:30 AM EDT) Potassium 5.1 3.5 - 5.1 mmol/L LAB CHEMISTRY METHOD 01/17/2025 7:45 PM EDT [facility] Blood Venous blood specimen / Unknown 01/17/2025 11:30 AM EDT 01/17/2025 7:20 PM EDT us Shanae Baeza MD LAB BLOOD ORDERABLES Final Re sult [facility] [address] [place] [address], documented in this encounter Visit Diagnoses Diagnosis End stage renal disease ([facility] V24, [facility] V28) End stage renal disease documented in this encounter Care Teams Converting Operator Relationship Specialty Start Date End Date Martha Cunha MD [address] [place] [address] PCP - General 05/25/23 documented as of this encounter
--- OUTSIDE RECORDS SUMMARY | 2025-05-15 10:47 | XMS_ITS | Encounter Summary ---
Author Organization [facility] Address [address] [place] [address] Care Team Providers Care Faculty Criminal Justice Name Role Phone Martha Cunha MD Primary Care Provider [phone] Encounter Details Date Type Department Care Team (Late st Contact Info) Description 07/28/2024 Lab Requisition [facility] Main Lab [address] [place] [address] Shanae Baeza MD [address] [place], [place] [phone] End stage renal disease (CMS/HCC V24, CMS/HCC [...] LAB CHEMISTRY METHOD 07/28/2024 6:30 PM EST [facility] Blood Venous blood specimen / Unknown 07/28/2024 3:00 PM EST 07/28/2024 6:11 PM EST us Shanae Baeza MD LAB BLOOD ORDERABLES Final Re sult [facility] [address] [place] [address], documented in this encounter Visit Diagnoses Diagnosis End stage renal disease (CMS/HCC V24, CMS/HCC V28) End stage renal disease documented in this encounter Care Teams Faculty Criminal Justice Relationship Specialty Start Date End Date Martha Cunha MD [address] [place] [phone] PCP - General 05/25/23 documented as of this encounter
--- OUTSIDE RECORDS SUMMARY | 2025-05-15 10:47 | XMS_ITS | Clinical Summary ---
Author Organization [facility] Address [address] [address] Phone Care Team Providers Care Quarrying Manager Name Role Phone Unavailable Primary Care Provider Unavailabl e Encounters Date Type Department Care Team Description 05/07/2025 Treatment [facility] [address] [phone] Aniceto Ladd MD End stage renal disease; Dependence on renal dialysis 04/30/2025 Treatment [facility] [address] [phone] Aniceto Ladd MD End stage renal disease; Dependence on renal dialysis 04/25/2025 Orders Only [facility] [address] [place] [phone] Aniceto Ladd MD 04/25/2025 Treatment [facility] [address] [phone] Aniceto Ladd MD End stage renal disease; Dependence on renal dialysis 04/23/2025 Treatment [facility] [address] [phone] Aniceto Ladd MD End stage renal disease; Dependence on renal dialysis 04/15/2025 Treatment [facility] [address] [phone] Aniceto Ladd MD End stage renal disease; Dependence on renal dialysis 04/09/2025 Treatment [facility] [address] [phone] Aniceto Ladd MD End stage renal disease; Dependence on renal dialysis 04/02/2025 Treatment [facility] [address] [phone] Aniceto Ladd MD End stage renal disease; Dependence on renal dialysis 03/28/2025 Treatment [facility] [address] [phone] Aniceto Ladd MD End stage renal disease; Dependence on renal dialysis 03/26/2025 Treatment [facility] [address] [phone] Aniceto Ladd MD End stage renal disease; Dependence on renal dialysis 03/19/2025 Treatment [facility] [address] [phone] Aniceto Ladd MD End stage renal disease; Dependence on renal dialysis 03/12/2025 Treatment [facility] [address] [phone] Aniceto Ladd MD End stage renal disease; Dependence on renal dialysis 03/05/2025 Treatment [facility] [address] [phone] Aniceto Ladd MD End stage renal disease; Dependence on renal dialysis 02/28/2025 Treatment [facility] [address] [phone] Aniceto Ladd MD End stage renal disease; Dependence on renal dialysis 02/26/2025 Treatment [facility] [address] [phone] Aniceto Ladd MD End stage renal disease; [...] Diagnosis Comments HEMOGLOBIN AND HEMATOCRIT, BLOOD Routine 05/09/2025 3:00 AM EST FERRITIN Routine 04/25/2025 3:00 AM EST TRANSFERRIN SATURATION Routine 3:00 AM EST PROTEIN, TOTAL, SERUM Routine 04/25/2025 3:00 AM EST ELECTROLYTE PANEL Routine 04/25/2025 3:0 0 AM EST MAGNESIUM Routine 04/25/2025 3:00 AM EST LIH (HC) Routine 04/25/2025 3:00 AM EST CREATININE, SERUM Routine 04/25/2025 3:0 0 AM EST GLUCOSE, RANDOM Routine 04/25/2025 3:00 AM EST LACTATE DEHYDROGENASE Routine 04/25/2025 3:00 AM EST BUN/CREATININE RATIO Routine 04/25/2025 3:00 AM EST AST Routine 04/25/2025 3:00 AM EST BILIRUBIN, TOTAL Routine 04/25/2025 3:00 AM EST ALKALINE PHOSPHATASE Routine 04/25/2025 3:00 AM EST ALT Routine 04/25/2025 3:00 AM EST CALCIUM PHOSPHORUS PRODUCT, ADJUSTED (HC) Routine 04/25/2025 3:00 AM EST KT/V NATURAL LOG, URR (HC) Routine 04/25/2025 3:00 AM EST CBC AND DIFFERENTIAL Routine 04/25/2025 3:00 AM EST HEMOGLOBIN AND HEMATOCRIT, BLOOD Routine 04/11/2025 3:00 [...] LIH (HC) Routine 02/14/2025 3:00 AM EDT from Last 3 Months Results * (ABNORMAL) Hemoglobin and hematocrit (05/09/2025 3:00 AM EST) Only the most recent of3 resultswithin the time period is included. Hgb 11.1(L) 11.2 - 15.7 g/dL [facility] Hematocrit 35.3 34.1 - 44.9 % [facility] Hemoglobin x 3 33.3(L) 33.6 - 47.1 g/dL [facility] 05/09/2025 3:00 AM EST 05/10/2025 1:34 PM EST us Aniceto Ladd MD LAB BLOOD ORDERABLES Final Resul t Performing Organization Address City/[facility]/ZIP Co de Phone Number APS [facility] [address] [place] [address] * LIH (04/25/2025 3:00 AM EST) Only the most recent of5 resultswithin the time period is included. Lipemia Normal Normal [facility] Icterus Normal Normal [facility] Hemolysis Normal Normal [facility] 04/25/2025 3:00 AM EST 04/26/2025 12:07 PM EST us Aniceto Ladd MD LAB [id number] ICITED RESULTS Final Result Performing Organization Address City/[facility]/ZIP Co de Phone Number [facility] [address] [place] [address] * (ABNORMAL) Kt/V Natural Log, URR (04/25/2025 3:00 AM EST) Only the most recent of3 resultswithin the time period is included. Treatment Time 187 min [facility] Pre-Weight, lb 73.0 kg [facility] Post-Weight, lb 70.0 kg [facility] Ultrafiltration Rate 14(H) <=13 mL/kg/hr [facility] Comment: Recommend achieving Ultrafiltration Rate (UFR) <=10 mL/kg/hr References: Adalgisa HUDDLESTON et al. Kidney Int. 2010; 79(2):250-257 BUN Post Dialysis 9 7 - 25 mg/dL [facility] BUN 43(H) 7 - 25 mg/dL [facility] UREA REDUCTION RATIO (%) 79 >=65 % [facility] Kt/V Natural Log 1.83 >=1.2 [facility] 04/25/2025 3:00 AM EST 04/26/2025 12:07 PM EST us Aniceto Ladd MD LAB [id number] ICITED RESULTS Final Result Performing Organization Address City/[facility] Co de Phone Number [facility] [address] [place] [address] * (ABNORMAL) Calcium Phosphorus Product, Adjusted (04/25/2025 3:00 AM EST) Only the most recent of3 resultswithin the time period is included. Albumin 3.9 3.6 - 5.4 g/dL [facility] Calcium 8.5(L) 8.6 - 10.3 mg/dL [facility] Phosphorus, Serum 6.7(H) 2.5 - 5.0 mg/dL [facility] Ca*PO4 57.0(A) <55.0 mg2/dL2 [facility] Calcium, Adjusted Total 8.6 8.6 - 10.3 mg/dL [facility] CA*PO4 CORRCTD 57.6(A) <55.0 mg2/dL2 [facility] 04/25/2025 3:00 AM EST 04/26/2025 12:07 PM EST us Aniceto Ladd MD LAB [id number] ICITED RESULTS Final Result Performing Organization Address [facility] Co de Phone Number [facility] [address] [place] [address] * BUN/CREATININE RATIO (04/25/2025 3:00 AM EST) Only the most recent of3 resultswithin the time period is included. BUN/Creatinine Ratio 5.7 <=23.0 [facility] 04/25/2025 3:00 AM EST 04/26/2025 12:07 PM EST Aniceto Ladd MD LAB [id number] ICITED RESULTS Final Result Performing Organization Address City/[facility] Co de Phone Number [facility] [address] [place] [address] * (ABNORMAL) TSAT (04/25/2025 3:00 AM EST) Only the most recent of3 resultswithin the time period is included. [facility] Iron 86 50 - 170 ug/dL [facility] Transferrin 127(L) 250 - 380 mg/dL [facility] TIBC 178(L) 211 - 406 ug/dL [facility] Iron Saturation (TSat) 48 22 - 52 % [facility] 04/25/2025 3:00 AM EST 04/26/2025 12:07 PM EST Aniceto Ladd MD LAB BLOOD ORDERABLES Final Resul t Performing Organization Address [facility] de Phone Number [facility] [address] [place] [address] * (ABNORMAL) CBC and Differential (04/25/2025 3:00 AM EST) Only the most recent of3 resultswithin the time period is included. [facility] DIFFERENTIAL MANUAL, 2 Not Indicated [facility] White Blood Cells 5.0 4.0 - 10.0 K/uL [facility] RBC 3.44(L) 3.93 - 5.22 M/uL [facility] Hgb 10.4(L) 11.2 - 15.7 g/dL [facility] Hemoglobin x 3 31.2(L) 33.6 - 47.1 g/dL [facility] Hematocrit 32.3(L) 34.1 - 44.9 % [facility] MCV 93.9 79.4 - 94.8 fL [facility] MCH 30.2 25.6 - 32.2 pg [facility] MCHC 32.2 32.2 - 35.5 g/dL [facility] RDW 12.6 11.7 - 14.4 % [facility] Platelets 151(L) 182 - 369 K/uL [facility] MPV 11.6 9.2 - 12.8 fL [facility] Neutrophils Relative 69.7 34.0 - 71.1 % [facility] Lymphocytes Relative 14.9(L) 19.3 - 51.7 % [facility] Monocytes 8.2 4.7 - 12.5 % [facility] Eosinophils Relative 6.4(H) 0.7 - 5.8 % [facility] Basophils Relative 0.6 0.1 - 1.2 % [facility] Immature Granulocytes 0.2 0.0 - 1.0 % [facility] 04/25/2025 3:00 AM EST 04/26/2025 12:12 PM EST us Aniceto Ladd MD LAB BLOOD ORDERABLES Final Resul t Performing Organization Address City/[facility] Co de Phone Number [facility] [address] [place] [address] * ALT (04/25/2025 3:00 AM EST) Only the most recent of3 resultswithin the time period is included. ALT (SGPT) 11 10 - 49 U/L [facility] 04/25/2025 3:00 AM EST 04/26/2025 12:07 PM EST us Aniceto Ladd MD LAB BLOOD ORDERABLES Final Resul t Performing Organization Address [facility] de Phone Number [facility] [address] [place] [address] * AST (04/25/2025 3:00 AM EST) Only the most recent of3 resultswithin the time period is included. AST (SGOT) 18 <34 U/L [facility] 04/25/2025 3:00 AM EST 04/26/2025 12:07 PM EST us Aniceto Ladd MD LAB BLOOD ORDERABLES Final Resul t Performing Organization Address [facility] Co de Phone Number [facility] [address] [place] [address] * Protein, total (04/25/2025 3:00 AM EST) Only the most recent of3 resultswithin the time period is included. Total Protein 7.4 6.4 - 8.9 g/dL [facility] 04/25/2025 3:00 AM EST 04/26/2025 12:07 PM EST us Aniceto Ladd MD LAB BLOOD ORDERABLES Final Resul t Performing Organization Address [facility] Co de Phone Number [facility] [address] [place] [address] * Alkaline phosphatase (04/25/2025 3:00 AM EST) Only the most recent of3 resultswithin the time period is included. Alkaline Phosphatase 83 46 - 116 U/L [facility] 04/25/2025 3:00 AM EST 04/26/2025 12:07 PM EST us Aniceto Ladd MD LAB BLOOD ORDERABLES Final Resul t Performing Organization Address [facility] Phone Number [facility] [address] [place] [address] * (ABNORMAL) Magnesium (04/25/2025 3:00 AM EST) Only the most recent of3 resultswithin the time period is included. Magnesium 3.4(H) 1.9 - 2.7 mg/dL [facility] 04/25/2025 3:00 AM EST 04/26/2025 12:07 PM EST us Aniceto Ladd MD LAB BLOOD ORDERABLES Final Resul t Performing Organization Address [facility] Co de Phone Number [facility] [address] [place] [address] * Lactate dehydrogenase (04/25/2025 3:00 AM EST) Only the most recent of3 resultswithin the time period is included. LDH 195 120 - 246 U/L [facility] 04/25/2025 3:00 AM EST 04/26/2025 12:07 PM EST us Aniceto Ladd MD LAB BLOOD ORDERABLES Final Resul t Performing Organization Address [facility] de Phone Number [facility] [address] [place] [address] * (ABNORMAL) Glucose, random (04/25/2025 3:00 AM EST) Only the most recent of3 resultswithin the time period is included. Glucose 200(H) 70 - 99 mg/dL [facility] Comment: ADA guidelines outline the following fasting glucose ranges: Normal: <100 Prediabetes: 100-125 Diabetes: >125 04/25/2025 3:00 AM EST 04/26/2025 12:07 PM EST us Aniceto Ladd MD LAB BLOOD ORDERABLES Final Resul t Performing Organization Address [facility] de Phone Number [facility] [address] [place] [address] * (ABNORMAL) Ferritin (04/25/2025 3:00 AM EST) Only the most recent of3 resultswithin the time period is included. Ferritin 558(H) 10 - 291 ng/mL [facility] 04/25/2025 3:00 AM EST 04/26/2025 12:07 PM EST us Aniceto Ladd MD LAB BLOOD ORDERABLES Final Resul t Performing Organization Address [facility] de Phone Number [facility] [address] [place] [address] * (ABNORMAL) Creatinine, serum (04/25/2025 3:00 AM EST) Only the most recent of3 resultswithin the time period is included. Creatinine 7.57(H) 0.55 - 1.02 mg/dL [facility] 04/25/2025 3:00 AM EST 04/26/2025 12:07 PM EST us Aniceto Ladd MD LAB BLOOD ORDERABLES Final Resul t Performing Organization Address [facility] de Phone Number [facility] [address] [place] [address] * Bilirubin, total (04/25/2025 3:00 AM EST) Only the most recent of3 resultswithin the time period is included. Total Bilirubin 0.4 0.3 - 1.2 mg/dL [facility] 04/25/2025 3:00 AM EST 04/26/2025 12:07 PM EST us Aniceto Ladd MD LAB BLOOD ORDERABLES Final Resul t Performing Organization Address [facility] de Phone Number [facility] [address] [place] [address] * Electrolyte panel (04/25/2025 3:00 AM EST) Only the most recent of3 resultswithin the time period is included. Sodium 138 136 - 145 mEq/L [facility] Potassium 4.7 3.4 - 5.0 mEq/L [facility] Chloride 100 98 - 107 mEq/L [facility] Bicarbonate (CO2) 25 21 - 31 mEq/L [facility] Anion Gap 13 3 - 14 mEq/L [facility] 04/25/2025 3:00 AM EST 04/26/2025 12:07 PM EST us Aniceto Ladd MD LAB BLOOD ORDERABLES Final Resul t Performing Organization Address [facility] de Phone Number [facility] [address] [place] [address] * PTH, Intact (03/28/2025 3:00 AM EST) Only the most recent of2 resultswithin the time period is included. PTH, Intact 419 160 - 721 pg/mL [facility] Comment: Suggested (KDIGO) ESRD maintenance range is two to nine times the upper normal limit (80.1 pg/mL) for the laboratory. 03/28/2025 3:00 AM EST 03/30/2025 1:28 PM EST us Aniceto Ladd MD LAB BLOOD ORDERABLES Final Resul t Performing Organization Address [facility] de Phone Number [facility] [address] [place] [address] * (ABNORMAL) Hemoglobin (03/21/2025 3:00 AM EDT) Hgb 10.6(L) 11.2 - 15.7 g/dL [facility] Hemoglobin x 3 31.8(L) 33.6 - 47.1 g/dL [facility] 03/21/2025 3:00 AM EDT 03/22/2025 12:11 PM EDT us Aniceto Ladd MD LAB BLOOD ORDERABLES Final Resul t Performing Organization Address City/[facility] Co de Phone Number [facility] [address] [place] [address] * (ABNORMAL) Phosphorus (03/21/2025 3:00 AM EDT) Only the most recent of2 resultswithin the time period is included. Phosphorus, Serum 6.8(H) 2.5 - 5.0 mg/dL [facility] 03/21/2025 3:00 AM EDT 03/22/2025 12:10 PM EDT us Aniceto Ladd MD LAB BLOOD ORDERABLES Final Resul t Performing Organization Address [facility] de Phone Number [facility] [address] [place] [address] * (ABNORMAL) Reticulocytes (02/21/2025 3:00 AM EDT) Reticulocyte 3.0(H) 0.5 - 1.7 % [facility] Retic Ct Pct 34.1 28.2 - 35.7 pg [facility] 02/21/2025 3:00 AM EDT 02/22/2025 12:19 PM EDT us Aniceto Ladd MD LAB BLOOD ORDERABLES Final Resul t Performing Organization Address [facility] Co de Phone Number [facility] [address] [place] [address] * (ABNORMAL) Hemoglobin A1c (02/21/2025 3:00 AM EDT) Hemoglobin A1C 8.6(H) <5.7 % [facility] Comment: Methodology: Enzymatic Normal: <5.7% Prediabetes: 5.7-6.4% Diabetes: >6.4% Diabetic Glucose Control Evaluation: Therapeutic action suggested at >8.0% ADA recommends a glycemic goal of <7.0% 02/21/2025 3:00 AM EDT 02/22/2025 12:19 PM EDT Aniceto Ladd MD LAB BLOOD ORDERABLES Final Resul t Performing Organization Address [facility] Co de Phone Number [facility] [address] [place] [address] * (ABNORMAL) Lipid panel (02/21/2025 3:00 AM EDT) Cholesterol 154 mg/dL [facility] Comment: Optimal: <200 [...] 3:00 AM EDT 02/22/2025 12:17 PM EDT Aniceto Ladd MD LAB BLOOD ORDERABLES Final Resul t Performing Organization Address [facility] Co de Phone Number [facility] [address] [place] [address] from Last 3 Months Insurance Medicare Medicaid [place]
--- OUTSIDE RECORDS SUMMARY | 2025-05-15 10:47 | XMS_ITS | Clinical Summary ---
Author Organization [facility] Address [address] [place] [address] Care Team Providers Care Dress Operator Name Role Phone Marlyn, Noam [address] Unavailable + Shanae Baeza MD Unavailable [phone] Martha Cunha MD Primary Care Provider [phone] Allergies Active Allergy Reactions Criticality Noted Date [...] (40 mg total) by mouth every morning. 03/21/20 21 Active rosuvastatin (CRESTOR) 5 MG tablet Take 1 tablet (5 mg total) by mouth every morning. 03/25/20 21 Active Tresiba FlexTouch 200 UNIT/ML prefilled pen injectionIndicati ons:Uncontrolled type 2 diabetes mellitus with hyperglycemia (HCC) Inject 30 Units under the skin nightly. 9 mL 1 08/15/19 Active potassium chloride (K-TAB) 20 MEQ CR tablet Take 1 tablet (20 mEq total) by mouth daily. Swallow whole; do not crush. Take with food. 4 tablet 02/07/20 Active Additional Information Patient taking differently:20 mEq OralEvery morning, Swallow whole; do not crush. Take with food., Reason: Other, Reported on 10/08/2024 carvedilol (COREG) 25 MG tablet Take 1 tablet (25 mg total) by mouth 2 times a day. 11/30/19 24 Active clopidogrel (PLAVIX) 75 MG tablet Take 1 tablet (75 mg total) by mouth daily. 07/06/19 24 Active hydrALAZINE (APRESOLINE) 50 MG tablet Take 1 tablet (50 mg total) by mouth 2 times a day. 04/19/20 23 Active torsemide (DEMADEX) 20 MG tablet Take 2 tablets (40 mg total) by mouth 2 (two) times a day in the morning and the early evening.. 06/23/19 24 Active glipiZIDE (GLUCOTROL XL) 5 MG 24 hr tablet Take 1 tablet (5 mg total) by mouth every morning. 12/15/19 24 Active acetaminophen (TYLENOL) 500 MG tablet Take 2 tablets (1,000 mg total) by mouth every 8 (eight) hours. 04/12/20 24 Active amLODIPine (NORVASC) 10 MG tablet Take 1 tablet (10 mg total) by mouth daily. 11/30/19 24 Active capsaicin (ZOSTRIX) 0.025 % cream Apply topically 2 (two) times a day as needed. Active calcitRIOL (ROCALTROL) 0.25 MCG capsule Take 1 capsule (0.25 mcg total) by mouth daily. 08/18/19 24 Active levothyroxine (SYNTHROID, LEVOTHROID) 75 MCG tablet Take 1 tablet (75 mcg total) by mouth daily at the same time. 06/24/19 24 Active losartan (COZAAR) 100 MG tablet Take 1 tablet (100 mg total) by mouth daily. 04/26/20 24 Active cloNIDine (PRGEBDAI-DWB-1) 0.2 mg/[address] 1 patch on the skin once a week. Active sevelamer carbonate (RENVELA) 800 MG tablet Take 3 tablets (2,400 mg total) by mouth. 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 05/25/2023 Medication management 05/25/2023 Pure hypercholesterolemia 05/25/2023 Acute on chronic heart failu re with preserved ejection fraction 02/23/2022 Primary cardiomyopathy 09/10/2021 Primary hypertension 09/10/2021 Anxiety 09/10/2021 Fatigue 09/10/2021 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 09/10/2021 Hypertensive emergency 05/19/2021 Immunizations Immunization Administration Dates Next Due Covid-19 mRNA Primary Series Vaccine - Moderna 0.5 mL Full Dose 09/18/2020 Covid-19 mRNA Vaccine - Moderna 0.25 mL Booster 10/18/2020 Social History Tobacco Use Types Packs/Day Years Used Date Smoking Tobacco: Former Cigarettes 2022 Smokeless Tobacco: Never Tobacco Cessation:Counseling Given: [...] PT LTG 2 Physical Therapy On track( 017 2:52 PM [...] from 42% Medical Devices Implanted Type Area Media Planner / Buyer Device Identifier Shelf Expiration Date Model / Serial / Lot [id number] System Implant Cochlear Cochlear Slim Straight Electrode [id number] - [id number] Implanted:Qty: 1 on 06/05/2024 by Woody Goodrich MD at [facility] Otic Left: Ear [employer] 07/03/2025 [id number] SYSTEM / [id number] / Procedures Procedure Name Priority Date/Time Associated Diagnosis Comments BASIC METABOLIC PANEL Routine 06/04/2024 12:15 PM EST HEMOGLOBIN A1C WITH ESTIMATED AVERAGE GLUCOSE STAT 08/11/2021 10:50 AM EDT from Last 3 Months or Most Recently Relevant to Health Maintenance Results * (ABNORMAL) Basic Metabolic Panel (AM) (06/04/2024 12:15 PM EST) [facility] Glucose 144(H) 65 - 99 mg/dL 06/04/2024 12:41 PM EST [facility] Comment:Fasting: <100 mg/dL, Non-Fasting: <200 mg/dL (ADA 2005) Blood Urea Nitrogen (BUN) 54(H) 8 - 21 mg/dL 06/04/2024 12:41 PM [facility] Creatinine 4.6(H) 0.4 - 1.1 mg/dL 06/04/2024 12:41 PM [facility] eGFR 11(L) >59 06/04/2024 12:41 PM [facility] Comment:CKD-EPI (2020) in mL /min/1.73 sq meters. Sodium 135(L) 136 - 145 mmol/L 06/04/2024 12:41 PM [facility] Potassium 5.4(H) 3.4 - 5.3 mmol/L 06/04/2024 12:41 PM [facility] Chloride 97(L) 98 - 107 mmol/L 06/04/2024 12:41 PM [facility] CO2 26 22 - 33 mmol/L 06/04/2024 12:41 PM [facility] Anion Gap 12 7 - 17 06/04/2024 12:41 PM [facility] Calcium 8.4(L) 8.7 - 10.5 mg/dL 06/04/2024 12:41 PM [facility] BUN/Creatinine Ratio 12 10.0 - 25.0 Ratio 06/04/2024 12:41 PM [facility] Blood (Plasma/Serum) 06/04/2024 12:15 PM EST 06/04/2024 12:18 PM EST Ceferino Levy MD LAB BLOOD ORDERABLES [place] [address], [place] [address] * (ABNORMAL) Hemoglobin A1c with Estimated Average Glucose (08/11/2021 10:50 AM EDT) Hemoglobin A1C 10.0(H) <5.7 % 08/11/2021 3:30 PM EDT [facility] Comment: A1c% Interpretation 5.7 - 6.0 Increase risk of diabetes 6.1 - 6.4 Higher risk of diabetes > or = 6.5 Consistent with diabetes Diabetes Care, 33(Supp 1):S1-S61, 2009 Estimated Average Glucose 240 mg/dL 08/11/2021 3:30 PM EDT [facility] Blood specimen / Unknown 08/11/2021 10:50 AM EDT 08/11/2021 11:13 AM EDT us Christiano Mathew III, DO LAB BLOOD ORDERABLES Yessenia zuluaga Result HOSPITAL LAB [facility] [address] [place] [address] from Last 3 Months or Most Recently Relevant to Health Maintenance Insurance [facility] MEDICARE PART A & B [facility] MEDICARE PART A & B [facility] MEDICARE PART A & B [facility] Advance Directives Documents on File Type Date Recorded Patient Insole Department Worker Expl anation Advance Directive-Scan 08/17/2021 Dennis Marquis [facility] REPRESENT ATIVE - - 08/14/2021 * Full Code (Latest [...] 6:25 PM Per patient ( via video drug enforcement administration agent), DNR/DNI Question Answer Comments Decision thoroughly discussed with: Patient Healthcare Agents on File Name Relationship Healthcare Agent Relationshi p Communication Dennis Marquis Parent 1. Health Care Representativ e Care Teams Dress Operator Relationship Specialty Start Date End Date Martha Cunha MD [address] [place] [address] PCP - General [facility] Medicine 06/04/24 Dialysis, [facility] [address] [place], [place] [id number] Dialysis Unit 11/21/23 Shanae Baeza MD [address] [place] [address] [place] [address] 11/21/23
--- NOTE | 2025-05-15 10:48 | CA_ITS ---
Transthoracic Echocardiogram Patient (Last, First, Middle): Shara Marquis E Gender: F Date of : 1970 Age: 55 Procedure Date: 05/15/2025 Procedure Type: Transthoracic Echocardiogram Location: OP Height: 160.02 cm Weight: 69.85 kg BSA: 1.73 m2 Heart Rate: bpm BP: 150 / 64 mmHg Analog Design Engineer: DAGOBERTO Referring MD: Lor Sanabria MD Machine Burrer: Juan Mar MD Symptoms: I50.9 - Heart failure, unspecified Study Quality: Adequate ECG Rhythm: Sinus Conclusions: - 1. Normal LV ejection fraction 55-60% with mildly increased wall thickness with possible grade 2 diastolic dysfunction 2. Mildly dilated left atrium 3. Calcified aortic valve changes noted with mild aortic stenosis 4. Severely thickened posterior mitral leaflet with at least moderate mitral annular calcification 5. Upper limits of normal RV systolic pressure 6. Upper limits of normal ascending aortic size 7. No gross pericardial effusion Findings Left Ventricle Normal left ventricular size and systolic function. There is mildly increased left ventricular wall thickness. The visually estimated ejection fraction is between 55-60%. Spectral Doppler is indicative of a pseudonormal filling pattern. E/E prime ratio is >15, consistent with elevated filling pressures. Evidence suggests grade II (moderate) diastolic dysfunction. Right Ventricle Normal right ventricular cavity size and systolic function. Atria The left atrium is mildly dilated. There is no evidence of interatrial shunt. The right atrium is normal in size. Aortic Valve There is a doming trileaflet aortic valve. There is mild calcification of the aortic valve. There is mild aortic valve stenosis. The peak aortic velocity is 1.83 m/s with a calculated peak gradient of 13 mmHg. The mean gradient is 7 mmHg. The aortic valve area is 1.72 cm2. There is no aortic valve regurgitation. Mitral Valve There is mild anterior and severe posterior mitral leaflet thickening. There is moderate mitral annular calcification. There is trace mitral valve regurgitation. There is no mitral valve stenosis. Pulmonic Valve The pulmonic valve is likely normal. There is mild pulmonic valve regurgitation. Tricuspid Valve Normal tricuspid valve structure. There is mild tricuspid valve regurgitation. The right ventricular systolic pressure is 35 mmHg. Normal right atrial pressure. There is no evidence of pulmonary hypertension. Great Vessels All visible segments of the aorta are normal in size. The pulmonary artery was not well visualized. There is no dilatation of the ascending aorta measuring 3.60 cm. Venous The inferior vena cava is normal in size and collapses greater than 50% with inspiration. Pericardium/Pleural There is no evidence of pericardial effusion. Prior Study Comparison No prior study available for comparison. Measurements 2D Linear Measurements IVSd: 1.30 0.6-0.9/0.6-1.0 cm LVIDd: 4.47 3.9-5.3/4.2-5.9 cm LVIDd Index: 2.58 2.4-3.2/2.2-3.1 cm/m2 LVIDs: 3.28 2.0-3.6 cm LVPWd: 0.87 0.7-1.1 cm LA Diam: 4.10 2.7-3.8/3.0-4.0 cm LAIDs Index: 2.37 1.5-2.3 cm/m2 LV Mass: 211.03 67-162/88-224 g LV Mass Index: 121.98 43-95/49-115 g/m2 LVOT Diam: 1.90 3.0+(-)1.3 cm 2D Systolic Function EF 4C: 55.20 >55% EF 2C: 54.40 >55% EF BiP: 56.00 >55% Mitral Valve MV Pk E: 1.21 MV PK A: 1.08 MV Decel Time: 205.00 E/A: 1.10 E'Lateral: 5.55 E'Medial: 4.03 E/E' Med: 30.00 E/E' Lat: 21.80 PHT: 60.00 MVA PHT: 3.67 Decel [place]: 5.87 Aortic Valve AoV Pk Ignacio: 1.83 AoV Mn Ignacio: 1.27 AoV VTI: 0.44 AoV Pk Grad: 13.00 Aov Mn Grad: 7.00 WILLIAM Cont.VTI: 1.72 LVOT LVOT Pk Ignacio: 1.07 LVOT Mn Ignacio: 0.78 LVOT VTI: 0.26 LVOT Pk Grad: 5.00 LVOT Mn Grad: 3.00 LVOT Diam: 1.90 LVOT Area: 2.84 Diastolic Function MV Pk E: 1.21 MV Pk A: 1.08 E/A: 1.10 E'Medial: 4.03 E/E' Med: 30.00 E' Laterial: 5.55 E/E' Lat: 21.80 Right Ventricle TAPSE (mm): 24.00 TVS' Ignacio: 10.10 Tricuspid Valve TR Pk Ignacio: 2.84 TR Pk Grad: 32.00 RA Press: 3.00 RVSP: 35.00 Great Vessels Aorta Sinus of Valsalva: 2.81 2.0-3.[address] [place]: 1.97 1.7-3.4 cm Ao Asc: 3.60 2.1-3.4 cm Pulmonary Veins Pulm Vein S/D 0.80 Updated in Other Vendor System with Status of Final Juan Mar MD electronically signed on 05/16/2025 11:26:45 AM with status of Final
--- OUTSIDE RECORDS SUMMARY | 2025-05-15 10:48 | XMS_ITS | Encounter Summary ---
Author Organization Formerly [facility] Address [address] [place] [address] Care Team Providers Care Manager Respiratory Name Role Phone Xuan Baxter APRN Primary Care Provider [facility] Unavailable + Shanae Baeza MD Unavailable [phone] Martha Cunha MD Primary Care Provider Encounter Details Date Type Department Care Team (Late st Contact Info) Description 07/15/2023 Scanned Document [facility] [address] [place] [address] Woody Goodrich MD [address] [place], [place] [id number] Social History Tobacco Use Types Packs/Day Years Used Date Smoking Tobacco: Former Cigarettes 3 019 - 2021 Smokeless Tobacco: Never Alcohol Use [...] on filedocumented in this encounter Care Teams Manager Respiratory Relationship Specialty Start Date End Date Xuan Baxter APRN PCP - General Family Medicine 05/21/21 06/03/24 Martha Cunha MD [address] [place] [address] [place] [address] PCP - General [facility] Medicine 06/04/24 Dialysis, No[address] [place] [address] [place] [address] Dialysis Unit 11/21/23 Shanae Baeza MD [address] [place] [address] [place] [address] 11/21/23 documented as of this encounter
--- OUTSIDE RECORDS SUMMARY | 2025-05-15 10:48 | XMS_ITS | Encounter Summary ---
Author Organization [facility] Address [address] [place] [address] Care Team Providers Care Raw Material Handler Name Role Phone Xuan Baxter APRN Primary Care Provider [phone] Dialysis, Noam [address] Unavailable + Shanae Baeza MD Unavailable [phone] Martha Cunha MD Primary Care Provider Encounter Details Date Type Department Care Team (Late st Contact Info) Description 09/23/2021 Scanned Document [facility] [address] [address] Usman Franco MD [address] [place] [id number] Social History Tobacco Use Types Packs/Day Years Used Date Smoking Tobacco: Former Cigarettes 3 - 2021 Smokeless Tobacco: Never Alcohol Use [...] on filedocumented in this encounter Care Teams Raw Material Handler Relationship Specialty Start Date End Date Ponce BaxterinaMARIA DE JESUS PCP - General Family Medicine 05/21/21 06/03/24 Martha Cunha MD [address] [place] [address] [place] [address] PCP - General [facility] Medicine 06/04/24 Dialysis, [address] [place] [address] Dialysis Unit 11/21/23 Shanae Baeza MD [address] [place] [address] [place] [address] 11/21/23 documented as of this encounter
--- OUTSIDE RECORDS SUMMARY | 2025-05-15 10:48 | XMS_ITS | Encounter Summary ---
Author Organization [facility] Address [address] [place] [address] Care Team Providers Care Load Builder Name Role Phone Xuan Baxter APRN Primary Care Provider [phone] Dialysis, Noam [facility] [address] Unavailable + Shanae Baeza MD Unavailable [phone] Martha Cunha MD Primary Care Provider Encounter Details Date Type Department Care Team (Late st Contact Info) Description 05/18/2024 Scanned Document [facility] [address] [place] [address] Samra Black 40 [place], [place] [phone] Social History Tobacco Use Types Packs/Day Years [...] on filedocumented in this encounter Care Teams Load Builder Relationship Specialty Start Date End Date Ponce Baxtergissel LAWN CARE SPECIALIST PCP - General Family Medicine 05/21/21 06/03/24 Martha Cunha MD [address] [place] [address] [place] [address] PCP - General Family Medicine 06/04/24 [facility] [place] [address] Dialysis Unit 11/21/23 Shanae Baeza MD [address] [place] [address] [place] [address] 11/21/23 documented as of this encounter
--- OUTSIDE RECORDS SUMMARY | 2025-05-15 10:48 | XMS_ITS | Encounter Summary ---
Author Organization Formerly [facility] Address [address] [place] [id number] Care Team Providers Care Laundry Presser Name Role Phone Dialysis, Noam [address] Unavailable + Shanae Baeza MD Unavailable [phone] Martha Cunha MD Primary Care Provider Encounter Details Date Type Department Care Team (Late st Contact Info) Description 06/08/2024 Scanned Document [facility]INA [facility]SULT [address] [facility] [address] [place] [phone] Alexandre [place] MD [address] [place] [address] Social History Tobacco Use Types Packs/Day Years [...] on filedocumented in this encounter Care Teams Laundry Presser Relationship Specialty Start Date End Date Martha Cunha MD [address] [facility] [place] [address] PCP - General [facility] Medicine 06/04/24 Dialysis, [facility] [address] [facility] [place] [address] Dialysis Unit 11/21/23 Shanae Baeza MD [address] [facility] [place] [address] 11/21/23 documented as of this encounter
--- OUTSIDE RECORDS SUMMARY | 2025-05-15 10:48 | XMS_ITS | Clinical Summary ---
Author Organization [facility] Address [address] [place] [address] Phone Care Team Providers Care Bi Data Architect Name Role Phone Pcp, Unknown Primary Care [...] Upcoming Encounters Date Type Department Care Team ([facility] st Contact Info) Description 10/25/2025 8:00 AM EDT Office Visit [facility] [address] [place] [address] Andre Lieberman MD [address] [facility], [address] [place] [address] Health Maintenance Due Date Last Done Comments [...] topic Medical Devices Not on file Insurance [employer] MEDICARE PART A & B [place] & B [facility] MEDICARE PART A & B Care Teams Bi Data Architect Relationship Specialty Start Date End Date Pcp, Unknown PCP - General 02/22/25 Additional Source Comments The information contained in this document represents components of the legal health record. It is not the complete legal health record.[facility]
--- OUTSIDE RECORDS SUMMARY | 2025-05-15 10:48 | XMS_ITS | Clinical Summary ---
Author Organization [facility] Prior to 10/20/24 Address [address] [place] [address] Care Team Providers Care Stitch Bonder Machine Operator Helper Name Role Phone Martha Cunha MD Primary Care Provider [phone] Allergies Active Allergy Reactions Criticality Noted Date [...] polyneuropathy, with long-term current use of insulin ([facility]),Poorly controlled type 2 diabetes mellitus with complication ([facility]) Inject 28 Units under the skin daily. 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 Care Teams Stitch Bonder Machine Operator Helper Relationship Specialty Start Date End Date Martha Cunha MD PCP - General Family Medicine 05/25/23
--- OUTSIDE RECORDS SUMMARY | 2025-05-15 10:48 | XMS_ITS | Encounter Summary ---
Author Organization [facility] Address [address] [place] [address] Care Team Providers Care Spooling Operator Name Role Phone Xuan Baxter APRN Primary Care Provider [phone] Dialysis, No[address] Unavailable + Shanae Baeza MD Unavailable Martha Cunha MD Primary Care Provider [phone] Encounter Details Date Type Department Care Team (Late st Contact Info) Description 12/23/2023 Scanned Document [facility] [address] [facility] [address] [place] [phone] [place], [place] [address] [place] [address] Social History Tobacco Use Types Packs/Day Years [...] on filedocumented in this encounter Care Teams Spooling Operator Relationship Specialty Start Date End Date Ponce BaxterinaDONNAN PCP - General Family Medicine 05/21/21 06/03/24 Martha Cunha MD [address] [place] [address] [place] [address] PCP - General Family Medicine 06/04/24 Dialysis, [address] [place] [address] Dialysis Unit 11/21/23 Shanae Baeza MD [address] [place] [address] [place] [address] 11/21/23 documented as of this encounter
--- OUTSIDE RECORDS SUMMARY | 2025-05-15 10:48 | XMS_ITS | Encounter Summary ---
Author Organization [facility] Address [address] [place] [address] Care Team Providers Care Customs Agent Name Role Phone Xuan Baxter APRN Primary Care Provider Dialysis, Noam [address] Unavailable + Shanae Baeza MD Unavailable [phone] Martha Cunha MD Primary Care Provider [phone] Encounter Details Date Type Department Care Team (Late st Contact Info) Description 09/03/2021 Scanned Document [facility] Cardiology [address] [place] [phone] Cali Pappas MD [address] [place] [address] [place] [address] Social History Tobacco Use Types Packs/Day Years [...] on filedocumented in this encounter Care Teams Customs Agent Relationship Specialty Start Date End Date Xuan Baxter APRN PCP - General Family Medicine 05/21/21 06/03/24 Martha Cunha MD [address] [place] [address] [place] [address] PCP - General Family Medicine 06/04/24 Dialysis, No[address] [place] [address] [place] [address] Dialysis Unit 11/21/23 Shanae Baeza MD [address] [place] [address] [place] [address] 11/21/23 documented as of this encounter
--- OUTSIDE RECORDS SUMMARY | 2025-05-15 10:48 | XMS_ITS | Encounter Summary ---
Author Organization [facility] Address [address] [place] [address] Care Team Providers Care Correctional Guard Name Role Phone Xuan Baxter APRN Primary Care Provider [phone] Dialysis, No[address] Unavailable + Shanae Baeza MD Unavailable Martha Cunha MD Primary Care Provider [phone] Encounter Details Date Type Department Care Team (Late st Contact Info) Description 04/26/2023 Scanned Document [facility] [address] [facility] [address] [place] [address] Radiology, Scan Social History Tobacco Use Types Packs/Day Years Used Date Smoking Tobacco: Former Cigarettes 3 2021 Smokeless Tobacco: Never Alcohol Use Standard [...] on filedocumented in this encounter Care Teams Correctional Guard Relationship Specialty Start Date End Date Xuan Baxter APRN PCP - General Family Medicine 05/21/21 06/03/24 Martha Cunha MD [address] [place] [address] [place] [address] PCP - [facility] 06/04/24 Dialysis, Noam [facility] [address] [facility] [place] [address] Dialysis Unit 11/21/23 Shanae Baeza MD [address] [facility] [place] [address] 11/21/23 documented as of this encounter
--- OUTSIDE RECORDS SUMMARY | 2025-05-15 10:48 | XMS_ITS | Encounter Summary ---
Author Organization [facility] Address [address] [place] [address] Care Team Providers Care Hog Driver Name Role Phone Dialysis, Noam [address] Unavailable + Shanae Baeza MD Unavailable [phone] Martha Cunha MD Primary Care Provider Encounter Details Date Type Department Care Team (Late st Contact Info) Description 06/22/2024 Scanned Document [facility] Neurology Ophthalmology [place] [address] [address] Adele Ann, 85 [facility] [address] [place] [phone] Social History Tobacco Use Types Packs/Day Years [...] on filedocumented in this encounter Care Teams Hog Driver Relationship Specialty Start Date End Date Martha Cunha MD [address] [place] [address] [place] [address] PCP - General Family Medicine 06/04/24 Dialysis, [facility] [address] [facility] [place] [address] Dialysis Unit 11/21/23 Shanae Baeza MD [address] [place] [address] [place] [address] 11/21/23 documented as of this encounter
--- OUTSIDE RECORDS SUMMARY | 2025-05-15 10:48 | XMS_ITS | Encounter Summary ---
Author Organization [facility] Address [address] [place] [address] Care Team Providers Care Professor Of Art Name Role Phone Xuan Baxter APRN Primary Care Provider [phone] Dialysis, No[address] Unavailable + Shanae Baeza MD Unavailable [phone] Martha Cunha MD Primary Care Provider Encounter Details Date Type Department Care Team (Late st Contact Info) Description 09/23/2021 Scanned Document [facility] Cardiac Laboratory [address] [address] Usman Franco MD [address] [place] [phone] Social History Tobacco Use Types Packs/Day Years [...] on filedocumented in this encounter Care Teams Professor Of Art Relationship Specialty Start Date End Date Ponce BaxterinaMARIA DE JESUS PCP - General Family Medicine 05/21/21 06/03/24 Martha Cunha MD [address] [place] [address] [place] [address] PCP - General [facility] [employer] [facility] Medicine 06/04/24 Dialysis, [address] [place] [address] Dialysis Unit 11/21/23 Shanae Baeza MD [address] [place] [address] [place] [address] 11/21/23 documented as of this encounter
--- OUTSIDE RECORDS SUMMARY | 2025-05-15 10:48 | XMS_ITS | Encounter Summary ---
Author Organization [facility] Address [address] [place] [address] Care Team Providers Care Stars Specialist Name Role Phone Dialysis, No[address] Unavailable + Shanae Baeza MD Unavailable [phone] Martha Cunha MD Primary Care Provider Encounter Details Date Type Department Care Team (Late st Contact Info) Description 06/14/2024 Scanned Document [facility] [address] [place] [address] Samra Black [address] [place], [place] [phone] Social History Tobacco Use Types Packs/Day Years [...] on filedocumented in this encounter Care Teams Stars Specialist Relationship Specialty Start Date End Date Martha Cunha MD [address] [facility] [place] [address] PCP - General Family Medicine 06/04/24 [facility] [address] [facility] [place] [address] Dialysis Unit 11/21/23 Shanae Baeza MD [address] [facility] [place] [address] 11/21/23 documented as of this encounter
== END ==
LOC: HO.CARD 10:43
PROVIDERS: PCP Internal Medicine; Visit Provider Internal Medicine
DX: I50.9 Heart failure, unspecified (principal)
CPT/HCPCS: 93306

== ENCOUNTER → 2025-05-15 10:48 | Outpatient (BNV) | payer MEDICARE, MEDICAID, SELFPAY | PROVIDERS: PCP Internal Medicine; Visit Provider Internal Medicine Cardiovascular Disease | DX: I35.0 Nonrheumatic aortic (valve) stenosis (principal); I35.8 Other nonrheumatic aortic valve disorders; I51.7 Cardiomegaly; I34.81 Nonrheumatic mitral (valve) annulus calcification | CPT/HCPCS: 93306 ==